=== PATIENT | female | born 1955 | race Caucasian/White ===

== ENCOUNTER 2017-09-18 13:55 | Inpatient (IN) | payer BC ==
[~2017-09-18] VITALS: Ht 162.6 cm; Wt 72.6 kg
[2017-09-18] MEDS ORDERED: Ipratropium 0.02% Inh Soln 2.5ml UD HHN ONE (14:15)
[2017-09-18] MEDS ORDERED: Sodium Chloride 500ML 500 ML IV ONE (14:15)
[2017-09-18] MEDS ORDERED: Albuterol ud Inhalation HHN ONE (14:15)
[2017-09-18] MEDS ORDERED: Solu-MEDROL 125mg Inj IVP ONE (14:15)
[2017-09-18 14:30] VITALS: BP 152/64
[2017-09-18] MEDS ORDERED: Tubing IV Cassette IV ONE ×2 (14:36→16:18)
[2017-09-18 14:49] LABS: BASOPHILS % (AUTO) 1.6 % (0.0-2.0); EOSINOPHILS % (AUTO) 5.7 % (0.0-3.0); HEMATOCRIT 45.6 % (37.0-47.0); HEMOGLOBIN 14.9 G/DL (12.0-16.0); LYMPHOCYTES % (AUTO) 11.2 % (20.0-45.0); MEAN CORPUSCULAR VOLUME 87 FL (80-99); NEUTROPHILS % (AUTO) 70.6 % (45.0-75.0); PLATELET COUNT 229 K/UL (150-450); RED BLOOD COUNT 5.27 M/UL (4.20-5.40); RED CELL DISTRIBUTION WIDTH 12.8 % (11.6-14.8); WHITE BLOOD COUNT 7.2 K/UL (4.8-10.8)
[2017-09-18 14:59] LABS: ANION GAP 11 mmol/L (5-15); BLOOD UREA NITROGEN 17 mg/dL (7-18); CALCIUM 9.3 MG/DL (8.5-10.1); CARBON DIOXIDE 27 MMOL/L (21-32); CHLORIDE 100 MMOL/L (98-107); CREATININE 1.1 MG/DL (0.55-1.30); POTASSIUM 3.8 MMOL/L (3.5-5.1); SODIUM 138 MMOL/L (136-145)
[2017-09-18 15:14] LABS: ALANINE AMINOTRANSFERASE 9 U/L (12-78); ALBUMIN 4.1 G/DL (3.4-5.0); ALKALINE PHOSPHATASE 65 U/L (46-116); ASPARTATE AMINO TRANSFERASE 26 U/L (15-37); BILIRUBIN,TOTAL 1.1 MG/DL (0.2-1.0); CKMB 0.6 NG/ML (0.0-3.6); CREATINE KINASE 173 U/L (26-308)
--- NOTE | 2017-09-18 15:14 | Emergency Room Report ---
History of Present Illness General Chief Complaint: Upper Respiratory Illness Source: EMS Present Illness HPI 62-year-old female presents ED complaining of shortness of breath. History of pulmonary fibrosis and is on home oxygen. States her O2 sats her lower usual. Patient states she feels short of breath has a cough which is productive. Denies fevers or chills. Denies chest pain. Was seen by her PMD and is referred to ED to rule out pneumonia. Denies sick contacts or recent travel. No other aggravating or leading factors. Denies any other associated symptoms Allergies: Coded Allergies: PENICILLINS (Verified Allergy, Unknown, 09/18/17) Patient History Past Medical History: DM, HTN, psych hx Past Surgical History: none Pertinent Family History: none Social History: Denies: smoking, alcohol use, drug use Now: No Immunizations: UTD Reviewed Nursing Documentation: PMH: Agreed, PSxH: Agreed Nursing Documentation-PMH Past Medical History: No History, Except For Hx Cardiac Problems: Yes Hx Hypertension: Yes Hx Diabetes: Yes Hx Gastrointestinal Problems: No - pulmonary fibrosis History Of Psychiatric Problem: Yes - DEPRESSION Review of Systems All Other Systems: negative except mentioned in HPI Physical Exam Vital Signs Date Time Temp Pulse Resp B/P (MAP) Pulse Ox O2 Delivery O2 Flow Rate FiO2 09/18/17 13:59 99.3 105 20 139/65 81 Nasal Cannula 2.0 09/18/17 14:28 28 Sp02 EP Interpretation: reviewed, normal General Appearance: no apparent distress, alert, GCS 15, non-toxic Head: normocephalic, atraumatic Eyes: bilateral eye normal inspection, bilateral eye PERRL ENT: hearing grossly normal, normal pharynx, no angioedema, normal voice Neck: full range of motion, supple/symm/no masses Respiratory: chest non-tender, decreased breath sounds, speaking full sentences , wheezing Cardiovascular #1: regular rate, rhythm, no edema Cardiovascular #2: 2+ carotid (R), 2+ carotid (L), 2+ radial (R), 2+ radial (L) , 2+ dorsalis pedis (R), 2+ dorsalis pedis (L) Gastrointestinal: normal bowel sounds, non tender, soft, non-distended, no guarding, no rebound Rectal: deferred Genitourinary: normal inspection, no CVA tenderness Musculoskeletal: back normal, gait/station normal, normal range of motion, non- tender Neurologic: alert, oriented x3, responsive, motor strength/tone normal, sensory intact, speech normal Psychiatric: judgement/insight normal, memory normal, mood/affect normal, no suicidal/homicidal ideation Reflexes: 3+ bicep (R), 3+ bicep (L), 3+ tricep (R), 3+ tricep (L), 3+ knee (R) , 3+ knee (L) Skin: normal color, no rash, warm/dry, well hydrated Lymphatic: no adenopathy Medical Decision Making Diagnostic Impression: Primary Impression: Pulmonary fibrosis Additional Impression: Influenza A ER Course Hospital Course 62-year-old F presenting to ED with SOB, cough. h/o pulmonary fibrosis Differential diagnoses include: Pneumonia, CHF exacerbation, pneumothorax, fluid overload Clinical course Patient placed on stretcher. On cardiac tech with stable vitals. After initial history and physical, I ordered nebulizer treatments. I ordered labs, IV fluids, EKG, chest x-ray, blood cultures, UA. Labs - no leukocytosis noted, hemoglobin/hematocrit stable, electrolytes okay, lactate okay, troponins negative. influenza A + CXR - interstitial opacities Given steroids. Given antibiotics. Given Tamiflu. Case discussed with Dr. Lin and he agreed to the patient to his service for further care and support I feel this is a highly complex case requiring extensive working including EKG/ Rhythm strip, Xray/CT/US, Blood/urine lab work, repeat exams while in ED, and administration of strong opiates/narcotics for pain control, admission to hospital or close patient follow up. Diagnosis - pulmonary fibrosis, influenza A Patient admitted to telemetry in serious condition Labs Test 09/18/17 14:20 09/18/17 14:30 Sodium Level 138 MMOL/L (136-145) Potassium Level 3.8 MMOL/L (3.5-5.1) Chloride Level 100 MMOL/L (98-107) Carbon Dioxide Level 27 MMOL/L (21-32) Anion Gap 11 mmol/L (5-15) Blood Urea Nitrogen 17 mg/dL (7-18) Creatinine 1.1 MG/DL (0.55-1.30) Estimat Glomerular Filtration Rate 50.3 mL/min (>60) Glucose Level 125 MG/DL (74-106) Lactic Acid Level 1.20 mmol/L (0.66-2.22) Calcium Level 9.3 MG/DL (8.5-10.1) Total Bilirubin 1.1 MG/DL (0.2-1.0) Direct Bilirubin 0.2 MG/DL (0.0-0.3) Aspartate Amino Transf (AST/SGOT) 26 U/L (15-37) Alanine Aminotransferase (ALT/SGPT) 9 U/L (12-78) Alkaline Phosphatase 65 U/L (46-116) Total Creatine Kinase 173 U/L (26-308) Creatine Kinase MB 0.6 NG/ML (0.0-3.6) Creatine Kinase MB Relative Index 0.3 Troponin I 0.000 ng/mL (0.000-0.056) Pro-B-Type Natriuretic Peptide 59 pg/mL (0-125) Total Protein 8.3 G/DL (6.4-8.2) Albumin 4.1 G/DL (3.4-5.0) Globulin 4.2 g/dL Albumin/Globulin Ratio 1.0 (1.0-2.7) White Blood Count 7.2 K/UL (4.8-10.8) Red Blood Count 5.27 M/UL (4.20-5.40) Hemoglobin 14.9 G/DL (12.0-16.0) Hematocrit 45.6 % (37.0-47.0) Mean Corpuscular Volume 87 FL (80-99) Mean Corpuscular Hemoglobin 28.2 PG (27.0-31.0) Mean Corpuscular Hemoglobin Concent 32.5 G/DL (32.0-36.0) Red Cell Distribution Width 12.8 % (11.6-14.8) Platelet Count 229 K/UL (150-450) Mean Platelet Volume 6.5 FL (6.5-10.1) Neutrophils (%) (Auto) 70.6 % (45.0-75.0) Lymphocytes (%) (Auto) 11.2 % (20.0-45.0) Monocytes (%) (Auto) 11.0 % (1.0-10.0) Eosinophils (%) (Auto) 5.7 % (0.0-3.0) Basophils (%) (Auto) 1.6 % (0.0-2.0) EKG Diagnostic Results Rate: normal Rhythm: NSR ST Segments: no acute changes ASA given to the pt in ED: No Rhythm Strip Diag. Results EP Interpretation: yes Rhythm: NSR, no PVC's, no ectopy Chest X-Ray Diagnostic Results Chest X-Ray Diagnostic Results : Chest X-Ray Ordered: Yes # of Views/Limited/Complete: 1 View Indication: Shortness of Breath EP Interpretation: Yes Interpretation: no pneumothorax, other - cardiomegaly. interstitial congestion Impression: Other - interstitial congestion, ?PNA Electronically Signed by: Electronically signed by Trenton Bai MD Last Vital Signs Date Time Temp Pulse Resp B/P (MAP) Pulse Ox O2 Delivery O2 Flow Rate FiO2 09/18/17 14:36 97 22 94 Nasal Cannula 2.0 28 09/18/17 13:59 99.3 139/65 Status: improved Disposition: ADMITTED INPATIENT Condition: Serious Referrals: Bob Lin MD (PCP) TRENTON BAI M.D. Sep 18, 2017 15:14
[2017-09-18 15:16] LABS: BILIRUBIN,DIRECT 0.2 MG/DL (0.0-0.3)
--- NOTE | 2017-09-18 15:19 | Diagnostic Imaging Report ---
Indication: Shortness of breath Technique: XRAY Chest 1v Comparison: None Findings: There is enlarged. There is interstitial opacification/edema and patchy bilateral airspace opacities. No large pleural effusion is identified. No definite pneumothorax. No acute osseous abnormality seen. Impression: Hepatomegaly with interstitial opacification/edema and patchy bilateral airspace opacities. These findings are most likely related to CHF. Superimposed pneumonia is not excluded. Clinical correlation and follow-up exam recommended.
[2017-09-18] MEDS ORDERED: ZYRTEC10 MG ORAL (15:21)
[2017-09-18] MEDS ORDERED: OMEPRAZOLE40 M1 ORAL (15:21)
[2017-09-18] MEDS ORDERED: SIMVASTATIN40 MG ORAL (15:21)
[2017-09-18] MEDS ORDERED: VITAMIN D400 INTLU ORAL (15:21)
[2017-09-18] MEDS ORDERED: GLIPIZIDE5 MG ORAL (15:21)
[2017-09-18] MEDS ORDERED: MELOXICAM15 MG PO (15:21)
[2017-09-18] MEDS ORDERED: DIOVAN HCT 1601 EACH ORAL (15:21)
[2017-09-18] MEDS ORDERED: ASPIR 8181 MG ORAL (15:21)
[2017-09-18] MEDS ORDERED: LAMICTAL150 MG ORAL (15:21)
[2017-09-18] MEDS ORDERED: METFORMIN HCL750 MG ORAL (15:21)
[2017-09-18] MEDS ORDERED: LEVOTHYROXINE150 MCG ORAL (15:21)
[2017-09-18] MEDS ORDERED: FLUOXETINE HCL40 MG ORAL (15:21)
[2017-09-18 16:00] VITALS: BP 123/49
[2017-09-18] MEDS ORDERED: Oseltamivir 75mg cap ORAL ONE (16:15)
[2017-09-18 18:00] VITALS: BP 136/68
[2017-09-18] MEDS ORDERED: LORazepam Inj 2mg/ml 1ml IV PRN (18:30)
[2017-09-18] MEDS ORDERED: Promethazine/Codeine 5ml UD ORAL PRN (18:30)
[2017-09-18] MEDS ORDERED: Nitroglycerin Subl 0.4mg tab SL PRN (18:30)
[2017-09-18] MEDS ORDERED: Albuterol/Ipratropium 3ml neb HHN PRN (18:30)
[2017-09-18] MEDS ORDERED: Ketorolac 30mg Inj IV PRN (18:30)
[2017-09-18] MEDS ORDERED: Morphine Sulfate 2mg/ml Inj IVP PRN (18:30)
[2017-09-18 20:37] VITALS: BP 151/80
[2017-09-18] MEDS: NovoLOG Insulin Flexpen SUBQ SCH ×2 (21:00→21:45)
[2017-09-18] MEDS: Heparin 5000 units/ml inj SUBQ SCH ×2 (21:00→21:45)
[2017-09-18] MEDS: Theophylline ER 100mg ORAL SCH (21:42)
[2017-09-19] MEDS: Solu-MEDROL 125mg Inj IV SCH ×4 (00:11→21:49)
[2017-09-19] MEDS ORDERED: Oseltamivir 75mg cap ORAL SCH ×2 (06:00→18:00)
[2017-09-19] MEDS: NovoLOG Insulin Flexpen SUBQ SCH ×3 (06:30→21:00)
[2017-09-19] MEDS ORDERED: metFORMIN 500mg tab ORAL SCH (09:00)
[2017-09-19] MEDS ORDERED: Azithromycin 250mg tab ORAL SCH (09:00)
[2017-09-19] MEDS: Theophylline ER 100mg ORAL SCH ×2 (09:18→21:46)
[2017-09-19] MEDS: Heparin 5000 units/ml inj SUBQ SCH ×2 (09:29→21:00)
--- NOTE | 2017-09-19 14:49 | History and Physical ---
History of Present Illness General Date patient seen: Sep 19, 2017 Reason for Hospitalization: Upper Respiratory Illness Present Illness Allergies: Coded Allergies: PENICILLINS (Verified Allergy, Unknown, 09/18/17) Medication History Scheduled Aspirin* (Aspir 81*), 81 MG ORAL DAILY, (Reported) Cetirizine Hcl* (Zyrtec*), 10 MG ORAL DAILY, (Reported) Fluoxetine Hcl* (Fluoxetine Hcl*), 40 MG ORAL DAILY, (Reported) Glipizide* (Glipizide*), 5 MG ORAL BIDAC, (Reported) Lamotrigine* (Lamictal*), 200 MG ORAL DAILY, (Reported) Levothyroxine Sodium* (Levothyroxine Sodium*), 150 MCG ORAL DAILY, (Reported) Meloxicam* (Meloxicam*), 15 MG PO DAILY, (Reported) Metformin Hcl (Metformin Hcl Er), 750 MG ORAL DAILY, (Reported) Omeprazole (Omeprazole), 40 MG ORAL DAILY, (Reported) Simvastatin (Zocor), 40 MG ORAL BEDTIME, (Reported) Valsartan/Hydrochlorothiazide 160-12.5MG (Diovan Hct 160-12.5 Mg Tab), 1 TAB ORAL DAILY, (Reported) Vitamin D (Vitamin D3), 1,000 UNITS ORAL DAILY, (Reported) Patient History Healthcare decision maker N Resuscitation status Full Code Advanced Directive on File Past Medical/Surgical History Past Medical/Surgical History: (1) Pulmonary fibrosis Review of Systems Respiratory: Reports: shortness of breath, wheezing Physical Exam General Appearance: WD/WN Lines, tubes and drains: peripheral HEENT: atraumatic, anicteric Neck: non-tender, normal alignment Respiratory/Chest: chest wall non-tender, lungs clear Cardiovascular/Chest: normal peripheral pulses, normal rate Abdomen: normal bowel sounds Last 24 Hour Vital Signs Date Time Temp Pulse Resp B/P (MAP) Pulse Ox O2 Delivery O2 Flow Rate FiO2 09/19/17 07:44 74 18 Nasal Cannula 2.0 28 09/19/17 04:00 83 09/19/17 00:00 86 09/18/17 20:37 96.2 98 19 151/80 91 Nasal Cannula 2.0 09/18/17 20:00 91 09/18/17 19:10 99.9 102 28 136/68 90 Nasal Cannula 3.0 28 09/18/17 18:00 99.9 102 28 136/68 90 Nasal Cannula 3.0 09/18/17 16:00 99 22 123/49 92 Nasal Cannula 3.0 Intake and Output 09/18/17 09/19/17 19:00 07:00 Intake Total 650 ml Output Total 600 ml Balance 650 ml -600 ml IV Total 650 ml Output Urine Total 600 ml Microbiology Date/Time Source Procedure Growth Status 09/18/17 15:30 Nasal Nares Influenza Types A,B Antigen (GILMA) - Final Complete Height (Feet): 5 Height (Inches): 4.00 Weight (Pounds): 160 Medications Current Medications Medications (Trade) Dose Ordered Sig/Leatha Route PRN Reason Start Time Stop Time Status Last Admin Dose Admin Albuterol/ Ipratropium (Albuterol/ Ipratropium) 3 ml EVERY 4 HOURS PRN HHN dyspnea 09/18/17 18:30 09/23/17 18:29 Azithromycin (Zithromax) 500 mg DAILY ORAL 09/19/17 09:00 09/26/17 08:59 09/19/17 09:18 Dextrose (Dextrose 50%) STAT PRN IV Hypoglycemia 09/18/17 18:30 10/18/17 18:29 Fluoxetine HCl (PROzac) 40 mg DAILY ORAL 09/19/17 09:00 10/19/17 08:59 09/19/17 09:18 Heparin Sodium (Porcine) (Heparin 5000 units/ml) 5,000 units EVERY 12 HOURS SUBQ 09/18/17 21:00 10/18/17 20:59 09/19/17 09:29 Insulin Aspart (NovoLOG) BEFORE MEALS AND HS SUBQ 09/18/17 21:00 10/18/17 20:59 Ketorolac Tromethamine (Toradol 30mg) 30 mg EVERY 8 HOURS PRN IV moderate pain 4-6 09/18/17 18:30 09/23/17 18:29 09/19/17 00:26 Lamotrigine (LaMICtal) 200 mg DAILY ORAL 09/19/17 09:00 10/19/17 08:59 09/19/17 09:18 Levothyroxine Sodium (Synthroid) 150 mcg ACBREAKFAST ORAL 09/20/17 06:30 10/20/17 06:29 Lorazepam (Ativan 2mg/ml 1ml) 0.5 mg Q4H PRN IV For Anxiety 09/18/17 18:30 09/25/17 23:59 Metformin HCl (Glucophage) 1,000 mg BID ORAL 09/19/17 09:00 10/19/17 08:59 09/19/17 09:18 Methylprednisolone Sodium Succinate (Solu-MEDROL) 60 mg EVERY 6 HOURS IV 09/19/17 00:00 10/19/17 00:00 09/19/17 14:34 Morphine Sulfate (Morphine Sulfate) 2 mg EVERY 4 HOURS PRN IVP severe pain 7-10 09/18/17 18:30 09/25/17 18:29 Nitroglycerin (Ntg) 0.4 mg Q5M X 3 DOSES PRN SL Prn Chest Pain 09/18/17 18:30 10/18/17 18:29 Ondansetron HCl (Zofran) 4 mg Q6H PRN IVP Nausea & Vomiting 09/18/17 18:30 10/18/17 18:29 Oseltamivir Phosphate (Tamiflu) 75 mg Q12HR@0600,1800 ORAL 09/19/17 06:00 09/24/17 23:59 09/19/17 08:17 Promethazine HCl/ Codeine (Phenergan with Codeine) 5 ml EVERY 6 HOURS PRN ORAL cough 09/18/17 18:30 10/18/17 18:29 Temazepam (Restoril) 15 mg HSPRN PRN ORAL Insomnia 09/18/17 18:30 09/25/17 18:29 Theophylline (Anival-Dur) 100 mg EVERY 12 HOURS ORAL 09/18/17 21:00 10/18/17 20:59 09/19/17 09:18 Assessment/Plan Problem List: (1) Acute respiratory failure ICD Codes: J96.00 - Acute respiratory failure, unspecified whether with hypoxia or hypercapnia SNOMED: 41205835 (2) Pulmonary fibrosis ICD Codes: J84.10 - Pulmonary fibrosis, unspecified SNOMED: 13493298 (3) Influenza A ICD Codes: J10.1 - Influenza due to other identified influenza virus with other respiratory manifestations SNOMED: 288768261 Assessment/Plan check sputum ID evaluation CT chest abx titrate fio2 to sat of 92% dvt prophylaxis ROSALBA RAMIREZ Sep 19, 2017 14:49
[2017-09-19] MEDS ORDERED: Nitroglycerin Subl 0.4mg tab SL PRN (16:45)
--- NOTE | 2017-09-19 16:48 | Cardiology Progress Note ---
Assessment/Plan Assessment/Plan [id number] cough induced chest pain dm htn pulm fibrosis influenza a infection doubt cardiac cp trop adn ekg and echo in future if has cp whcih last more than a few min may need further evla Objective Last 24 Hour Vital Signs Date Time Temp Pulse Resp B/P (MAP) Pulse Ox O2 Delivery O2 Flow Rate FiO2 09/19/17 12:00 83 09/19/17 08:00 82 09/19/17 07:44 74 18 Nasal Cannula 2.0 28 09/19/17 04:00 83 09/19/17 00:00 86 09/18/17 20:37 96.2 98 19 151/80 91 Nasal Cannula 2.0 09/18/17 20:00 91 09/18/17 19:10 99.9 102 28 136/68 90 Nasal Cannula 3.0 28 09/18/17 18:00 99.9 102 28 136/68 90 Nasal Cannula 3.0 Intake and Output 09/18/17 09/19/17 19:00 07:00 Intake Total 650 ml Output Total 600 ml Balance 650 ml -600 ml IV Total 650 ml Output Urine Total 600 ml Microbiology Date/Time Source Procedure Growth Status 09/18/17 15:30 Nasal Nares Influenza Types A,B Antigen (GILMA) - Final Complete DENISE SIFUENTES Sep 19, 2017 16:48
[2017-09-19] MEDS ORDERED: LORazepam Inj 2mg/ml 1ml IV PRN ×2 (16:49→23:15)
[2017-09-19] MEDS ORDERED: Promethazine/Codeine 5ml UD ORAL PRN (16:51)
[2017-09-19] MEDS ORDERED: Morphine Sulfate 2mg/ml Inj IVP PRN (17:00)
[2017-09-19] MEDS ORDERED: Albuterol/Ipratropium 3ml neb HHN PRN (17:00)
--- NOTE | 2017-09-19 17:47 | Cardiology Report ---
APPROVED REPORT EKG Measurement Heart [id number] Normal sinus rhythm Normal ECG
[2017-09-19 17:56] VITALS: BP 141/69
[2017-09-19] MEDS ORDERED: Solu-MEDROL 125mg Inj IV SCH (18:00)
--- NOTE | 2017-09-19 18:39 | History & Physical ---
History and Physical History & Physicial Dictated for Int Med-Dr Lin no. [id number]. CHRISTOPHE MARTINEZ Sep 19, 2017 18:38
[2017-09-19 20:00] VITALS: BP 133/69
[2017-09-19] MEDS: Oseltamivir 75mg cap ORAL SCH (21:47)
--- NOTE | 2017-09-19 22:15 | History and Physical Report ---
DATE OF ADMISSION: 09/18/2017 CHIEF COMPLAINT: The patient is a 62-year-old white female with history of pulmonary fibrosis, who presents with chief complaint of shortness of breath. HISTORY OF PRESENT ILLNESS: The patient has a history of pulmonary fibrosis. The patient states that on 08/23/2017, she began to experience a cough. The patient also had fever. The patient states cough is productive of a milky colored phlegm. The patient was evaluated by Dr. Bob Lin in his office on 09/18/2016. The patient was sent to [facility] emergency room for desaturation. The patient was found to have oxygen saturation in the low 80s. The patient is admitted for hypoxia to rule out pneumonia. PAST MEDICAL HISTORY: Significant for 1. Pulmonary fibrosis. 2. Pulmonary nodules. 3. Diabetes type 2. 4. Hypothyroidism. PAST SURGICAL HISTORY: Significant for 1. Total abdominal hysterectomy. 2. Left inguinal hernia repair. CURRENT MEDICATIONS: 1. Aspirin 81 mg one tablet p.o. daily. 2. Zyrtec 10 mg p.o. daily. 3. Prozac 40 mg p.o. daily. 4. Glipizide 5 mg p.o. twice daily. 5. Lamictal 200 mg one tablet p.o. daily. 6. Levoxyl 150 mcg by p.o. daily. 7. Meloxicam 15 mg p.o. daily. 8. Metformin 750 mg p.o. daily. 9. Omeprazole 40 mg p.o. daily. 10. Zocor 40 mg p.o. at bedtime. 11. Diovan/hydrochlorothiazide 160/12.5 mg one tablet p.o. daily. 12. Vitamin D3 1000 units p.o. daily. ALLERGIES: Penicillin. SOCIAL HISTORY: The patient is . The patient denies tobacco or alcohol use. The patient is currently disabled due to pulmonary fibrosis. REVIEW OF SYSTEMS: CONSTITUTIONAL: The patient denies weight loss or weight gain. The patient complains of subjective fevers and chills as above. HEENT: The patient denies ear or throat pain. The patient denies headache. CARDIOVASCULAR: The patient denies palpitations or chest pain. CHEST: The patient complains of shortness of breath as above. The patient complains of cough as above. The patient denies wheezes. ABDOMEN: The patient denies nausea, vomiting, diarrhea, or constipation. GENITOURINARY: The patient denies dysuria or increased frequency of urination. NEUROMUSCULAR: The patient denies seizures or generalized weakness. PHYSICAL EXAMINATION: GENERAL: The patient is a well-developed and well-nourished white female, in no apparent distress. VITAL SIGNS: Temperature 98.0 degrees, respirations 18, pulse 79, blood pressure 141/69 and oxygen saturation 96% on two liters nasal cannula. HEENT: Eyes, pupils are equal and responsive to light and accommodation. Extraocular movements are intact. NECK: Supple without lymphadenopathy. CHEST: Decreased breath sounds at bilateral bases, otherwise clear to auscultation without wheezes or rales. CARDIOVASCULAR: Regular rate. S1 and S2 normal without murmurs, rubs, or gallops. ABDOMEN: Soft, nontender, and nondistended. Positive bowel sounds. No evidence of hepatosplenomegaly. Currently, no rebound or guarding noted. EXTREMITIES: Negative for clubbing, cyanosis, or edema. RECTAL/GENITAL: Refused. NEUROLOGICAL: Cranial nerves II through XII are grossly intact without focal deficits. Motor strength is 5/5 bilaterally. Deep tendon reflexes are 2+ plantar. LABORATORY AND DIAGNOSTIC DATA: WBC 7.3, hemoglobin 14.9, hematocrit 25.6 and platelets 229,000. Sodium 138, potassium 3.8, chloride 100, CO2 27, BUN 17, creatinine 1.1 and glucose 125. Chest x-ray showed bilateral opacities of the bilateral bases consistent with congestive heart failure versus pneumonia. Influenza A culture was positive. ASSESSMENT: This is a 62-year-old white female 1. Influenza A. 2. Bilateral pneumonia. 3. Congestive heart failure. 4. Diabetes type 2. 5. Hypertension. 6. Hypothyroidism. 7. Pulmonary nodules. TREATMENT: 1. Influenza A. the patient has been started empirically on Tamiflu. Infectious Disease consultation will be obtained with Dr. Carlin. We will follow recommendations of Infectious Disease. A Pulmonary consultation has been obtained with Dr. Nahomy Hanna. 2. Bilateral pneumonia, this may be viral as influenza A as above versus bacterial. The patient has been started empirically on Tamiflu. The patient is also on azithromycin. We will follow recommendation of Pulmonary and an Infectious Disease. 3. Congestive heart failure. Cardiology consultation will be obtained with Dr. Guillermo Marrero. An echocardiogram is pending. 4. Diabetes type 2. The patient will remain on metformin as above. A regular insulin sliding scale has been instituted. 5. Hypertension. Continue Diovan/hydrochlorothiazide as above. 6. Hypothyroidism. Continue Levoxyl as above. 7. Pulmonary nodules. A CT scan of the chest is pending. Inderjit Galvan M.D. DR: TRICIA JOB#: [id number] CC:
--- NOTE | 2017-09-19 23:00 | Consultation ---
DATE OF CONSULTATION: 09/19/2017 CARDIOLOGY CONSULTATION CONSULTING PHYSICIAN: Guillermo Marrero M.D. REQUESTING PHYSICIAN: Nahomy Hanna M.D.` REASON FOR REFERRAL: Chest pain. HISTORY OF PRESENT ILLNESS: This is a 62-year-old female with history of pulmonary fibrosis. Over the past few days, she has had some cold sensation, flu sensation. Some was ill. She became ill too. Coughing is more of wheeze-like sensation and shortness of breath increasing and already uses 4 to 5 pillows to sleep at night, was not able to lay down. She has been having some pain in the chest when she coughs. Mainly that is the time that she has the pain is at that time she coughs and she has palpitations. She has occasional dizziness and lightheadedness on standing. PAST MEDICAL HISTORY: Positive for history of diabetes mellitus, hypertension, and hypoxemia on home oxygen. She has pulmonary fibrosis and pulmonary nodules. She has a history of hysterectomy, right-sided hernia repair, and mother of asthma. SOCIAL HISTORY: She does not smoke at this time. Does not drink alcoholic beverages, but she had some secondhand smoking exposure. No alcohol and no drugs. REVIEW OF SYSTEMS: GASTROINTESTINAL: Negative. GENITOURINARY: Negative. PULMONARY: Positive for coughing and wheezing. CONSTITUTIONAL: No fevers or chills initially. NEUROLOGICAL: Negative except for numbness and tingling sensation in her toes. PHYSICAL EXAMINATION: GENERAL: Shows her to be a middle-aged female, in no respiratory distress. PULMONARY: Occasional coughing and whooping sensation. NECK: Supple. No jugular venous distention. LUNGS: Crackles noted at the bases. Some end-expiratory wheezes. CARDIAC: Regular rate and rhythm. No heaves, thrills, or gallops noted. ABDOMEN: Soft and nontender. Positive bowel sounds. EXTREMITIES: No edema, clubbing, or cyanosis. NEUROLOGICAL: She is awake, alert, and responsive. LABORATORY AND DIAGNOSTIC DATA: Sodium 138, potassium 3.8, chloride 100, bicarbonate 27, BUN 17, creatinine 1.1, and glucose of 125. Lactic acid of 1.2. Bilirubin 1.0. Troponin first set was negative at 0.00. ProBNP of 59 at time of admission on 09/18/2017 and albumin of 4.1. White count of 7.2, hemoglobin 14.9, and platelet count of 229. A chest x-ray performed in the emergency room shows hepatomegaly, interstitial opacification, edema, and patchy bilateral airspace opacities. These findings felt to be possibly some congestive heart failure. Telemetry shows sinus rhythm. EKG shows sinus with leftward axis. No ST or T wave abnormalities of any significant degree. Influenza A positive study. ASSESSMENT: 1. Influenza A infection. 2. Pulmonary fibrosis. 3. Diabetes mellitus. 4. Hypertension. 5. History of pulmonary nodule. 6. Obesity. 7. Chest pain. Dr. Hanna, this patient was seen in cardiac consultation. The patient describes the pain only at the time of coughing, most likely secondary to musculoskeletal in origin. Troponin was negative. EKG was negative. I will repeat those data and an echocardiogram will be ordered. However, I am not suspicious of a coronary event in this patient. I think most of the problems are related to her current infection with influenza infection. If she does have in future persistent chest pains with activity, then she may need to be checked in more detail. Guillermo Marrero M.D. DR: SANDY JOB#: [id number] CC:
[2017-09-19] MEDS ORDERED: Norco 5mg/325mg tab ORAL PRN (23:15)
[2017-09-20] VITALS: BP 149/81
[2017-09-20 04:00] VITALS: BP 123/65
[2017-09-20] MEDS: Solu-MEDROL 125mg Inj IV SCH ×4 (04:12→21:01)
[2017-09-20] MEDS: NovoLOG Insulin Flexpen SUBQ SCH ×4 (06:30→21:00)
[2017-09-20 08:13] LABS: HEMATOCRIT 47.6 % (37.0-47.0); HEMOGLOBIN 15.8 G/DL (12.0-16.0); MEAN CORPUSCULAR VOLUME 87 FL (80-99); PLATELET COUNT 323 K/UL (150-450); RED BLOOD COUNT 5.48 M/UL (4.20-5.40); RED CELL DISTRIBUTION WIDTH 12.8 % (11.6-14.8); WHITE BLOOD COUNT 13.2 K/UL (4.8-10.8)
[2017-09-20 08:25] VITALS: BP 144/73
[2017-09-20 08:28] LABS: ALANINE AMINOTRANSFERASE 21 U/L (12-78); ALBUMIN 3.9 G/DL (3.4-5.0); ALBUMIN/GLOBULIN RATIO 0.8 (1.0-2.7); ALKALINE PHOSPHATASE 69 U/L (46-116); ANION GAP 10 mmol/L (5-15); ASPARTATE AMINO TRANSFERASE 40 U/L (15-37); BILIRUBIN,TOTAL 0.5 MG/DL (0.2-1.0); BLOOD UREA NITROGEN 26 mg/dL (7-18); CALCIUM 9.6 MG/DL (8.5-10.1); CARBON DIOXIDE 25 MMOL/L (21-32); CHLORIDE 101 MMOL/L (98-107); CREATININE 1.2 MG/DL (0.55-1.30); PHOSPHORUS 2.9 MG/DL (2.5-4.9); POTASSIUM 4.3 MMOL/L (3.5-5.1); SODIUM 136 MMOL/L (136-145)
[2017-09-20] MEDS ORDERED: Azithromycin 250mg tab ORAL SCH ×2 (09:00)
[2017-09-20] MEDS: Heparin 5000 units/ml inj SUBQ SCH ×2 (09:00→21:00)
[2017-09-20] MEDS ORDERED: Meloxicam 15 MG TAB ORAL SCH (09:00)
[2017-09-20] MEDS: GlipiZIDE 5mg tab ORAL SCH ×2 (09:50→17:57)
[2017-09-20] MEDS: Theophylline ER 100mg ORAL SCH ×2 (09:50→20:56)
[2017-09-20] MEDS: Oseltamivir 75mg cap ORAL SCH ×2 (09:50→21:05)
[2017-09-20] MEDS: Azithromycin 250mg tab ORAL SCH (09:51)
--- NOTE | 2017-09-20 10:24 | Diagnostic Imaging Report ---
Indication: Dyspnea Technique: Continuous helical transaxial imaging of the chest was obtained from the thoracic inlet to the upper abdomen. No intravenous contrast was administered. High-resolution reconstructions are obtained transaxially. Coronal 2-D reformats were also obtained. Total Dose length Product (DLP): 958.[address] Dose Index Volume (CTDIvol): 29.57 mGy Comparison: none Findings: Interlobular and intralobular septal densities and interstitial densities are present consistent with fibrosis. There is relatively symmetric involvement of both upper and lower lung orozco. Some traction bronchiectasis is present. No definite honeycombing demonstrated. No consolidation identified. No adenopathy identified. The aorta is mildly calcified. Generalized cardiomegaly is present. The pulmonary veins are prominent bilaterally. A component of the interstitial disease could be acute and due to left heart failure i.e. interstitial edema or inflammatory i.e. interstitial pneumonitis. Small hiatal hernia is present. Degenerative changes of the thoracic spine noted. IMPRESSION: Interstitial disease as described above. A component of this is likely fibrosis. However there may be superimposed interstitial pneumonitis or interstitial edema. Please correlate clinically. The CT scanner at [facility] is accredited by the [employer] and the scans are performed using dose optimization techniques as appropriate to a performed exam including Automatic Exposure control.
--- NOTE | 2017-09-20 11:08 | Consultation ---
Consult Note Consult Note ID DIC # [id number] MARTINE ZHAO M.D. Sep 20, 2017 11:08
[2017-09-20 11:26] VITALS: BP 145/76
--- NOTE | 2017-09-20 11:47 | Consultation ---
History of Present Illness General Date patient seen: Sep 19, 2017 Chief Complaint: Upper Respiratory Illness Present Illness HPI 62-year-old white female with history of pulmonary fibrosis, who presents with shortness of breath. the pt has hx of bipolar d/o. pw anxiety and agitation, insomnia. the pts meds were stopped. during the eval the pt has panic like sxs/ the pt denied si/hi Allergies: Coded Allergies: PENICILLINS (Verified Allergy, Unknown, 09/18/17) Medication History Scheduled Aspirin* (Aspir 81*), 81 MG ORAL DAILY, (Reported) Cetirizine Hcl* (Zyrtec*), 10 MG ORAL DAILY, (Reported) Fluoxetine Hcl* (Fluoxetine Hcl*), 40 MG ORAL DAILY, (Reported) Glipizide* (Glipizide*), 5 MG ORAL BIDAC, (Reported) Lamotrigine* (Lamictal*), 200 MG ORAL DAILY, (Reported) Levothyroxine Sodium* (Levothyroxine Sodium*), 150 MCG ORAL DAILY, (Reported) Meloxicam* (Meloxicam*), 15 MG PO DAILY, (Reported) Metformin Hcl (Metformin Hcl Er), 750 MG ORAL DAILY, (Reported) Omeprazole (Omeprazole), 40 MG ORAL DAILY, (Reported) Simvastatin (Zocor), 40 MG ORAL BEDTIME, (Reported) Valsartan/Hydrochlorothiazide 160-12.5MG (Diovan Hct 160-12.5 Mg Tab), 1 TAB ORAL DAILY, (Reported) Vitamin D (Vitamin D3), 1,000 UNITS ORAL DAILY, (Reported) Patient History Limited by: medical condition History Provided By: Patient, Medical Record, PMD Healthcare decision maker N Resuscitation status Full Code Advanced Directive on File Past Medical/Surgical History Past Medical/Surgical History: (1) Pulmonary fibrosis (2) Acute respiratory failure (3) Influenza A Review of Systems Psychiatric: Reports: prior hx, anxiety, depressed feelings, emotional problems Physical Exam General Appearance: no apparent distress, alert Neurologic: alert, oriented x 3, responsive, depressed affect Last 24 Hour Vital Signs Date Time Temp Pulse Resp B/P (MAP) Pulse Ox O2 Delivery O2 Flow Rate FiO2 09/20/17 11:26 98.2 68 18 145/76 95 09/20/17 08:25 98.3 69 19 144/73 95 09/20/17 04:00 97.7 67 20 123/65 89 09/20/17 00:00 98.1 70 20 149/81 91 09/19/17 20:00 98.2 78 21 133/69 91 09/19/17 19:00 85 18 Nasal Cannula 2.0 28 09/19/17 17:56 98.0 79 141/69 96 Nasal Cannula 2.0 79 09/19/17 12:00 83 Intake and Output 09/19/17 09/20/17 19:00 07:00 Intake Total 390 ml 480 ml Balance 390 ml 480 ml Intake Oral 390 ml 480 ml # Voids 2 3 # Bowel Movements 1 2 Laboratory Tests Test 09/20/17 06:40 White Blood Count 13.2 K/UL (4.8-10.8) H Red Blood Count 5.48 M/UL (4.20-5.40) H Hemoglobin 15.8 G/DL (12.0-16.0) Hematocrit 47.6 % (37.0-47.0) H Mean Corpuscular Volume 87 FL (80-99) Mean Corpuscular Hemoglobin 28.9 PG (27.0-31.0) Mean Corpuscular Hemoglobin Concent 33.2 G/DL (32.0-36.0) Red Cell Distribution Width 12.8 % (11.6-14.8) Platelet Count 323 K/UL (150-450) Mean Platelet Volume 7.3 FL (6.5-10.1) Neutrophils (%) (Auto) % (45.0-75.0) Lymphocytes (%) (Auto) % (20.0-45.0) Monocytes (%) (Auto) % (1.0-10.0) Eosinophils (%) (Auto) % (0.0-3.0) Basophils (%) (Auto) % (0.0-2.0) Sodium Level 136 MMOL/L (136-145) Potassium Level 4.3 MMOL/L (3.5-5.1) Chloride Level 101 MMOL/L (98-107) Carbon Dioxide Level 25 MMOL/L (21-32) Anion Gap 10 mmol/L (5-15) Blood Urea Nitrogen 26 mg/dL (7-18) H Creatinine 1.2 MG/DL (0.55-1.30) Estimat Glomerular Filtration Rate 45.5 mL/min (>60) Glucose Level 263 MG/DL (74-106) H Calcium Level 9.6 MG/DL (8.5-10.1) Phosphorus Level 2.9 MG/DL (2.5-4.9) Magnesium Level 2.2 MG/DL (1.8-2.4) Total Bilirubin 0.5 MG/DL (0.2-1.0) Aspartate Amino Transf (AST/SGOT) 40 U/L (15-37) H Alanine Aminotransferase (ALT/SGPT) 21 U/L (12-78) Alkaline Phosphatase 69 U/L (46-116) Troponin I 0.017 ng/mL (0.000-0.056) Total Protein 8.5 G/DL (6.4-8.2) H Albumin 3.9 G/DL (3.4-5.0) Globulin 4.6 g/dL Albumin/Globulin Ratio 0.8 (1.0-2.7) L Height (Feet): 5 Height (Inches): 4.00 Weight (Pounds): 160 Medications Current Medications Medications (Trade) Dose Ordered Sig/Leatha Route PRN Reason Start Time Stop Time Status Last Admin Dose Admin Acetaminophen/ Hydrocodone Bitart ([place] 5/325) 1 tab Q6H PRN ORAL For Pain 09/19/17 23:15 09/26/17 23:14 Albuterol/ Ipratropium (Albuterol/ Ipratropium) 3 ml Q4H PRN HHN dyspnea 09/19/17 17:00 09/24/17 16:59 Atorvastatin Calcium (Lipitor) 20 mg BEDTIME ORAL 09/20/17 21:00 10/20/17 20:59 Azithromycin (Zithromax) 250 mg DAILY ORAL 09/20/17 09:00 09/27/17 08:59 09/20/17 09:51 Dextrose (Dextrose 50%) STAT PRN IV Hypoglycemia 09/19/17 16:48 10/18/17 16:47 Fluoxetine HCl (PROzac) 40 mg DAILY ORAL 09/20/17 09:00 10/19/17 08:59 09/20/17 09:51 Glipizide (Glucotrol) 5 mg BID ORAL 09/20/17 09:00 10/20/17 08:59 09/20/17 09:50 Heparin Sodium (Porcine) (Heparin 5000 units/ml) 5,000 units EVERY 12 HOURS SUBQ 09/19/17 21:00 10/18/17 20:59 Insulin Aspart (NovoLOG) BEFORE MEALS AND HS SUBQ 09/19/17 21:00 10/18/17 20:59 Lamotrigine (LaMICtal) 200 mg QHS ORAL 09/20/17 21:00 10/19/17 08:59 Levothyroxine Sodium (Synthroid) 150 mcg ACBREAKFAST ORAL 09/20/17 06:30 10/20/17 06:29 09/20/17 06:32 Lorazepam (Ativan 2mg/ml 1ml) 0.5 mg Q4H PRN IV For Anxiety 09/19/17 23:15 09/26/17 23:14 Meloxicam (Mobic) 15 mg QHS ORAL 09/20/17 21:00 10/20/17 08:59 Metformin HCl (Glucophage) 750 mg BEDTIME ORAL 09/20/17 21:00 10/20/17 20:59 Methylprednisolone Sodium Succinate (Solu-MEDROL) 60 mg Q6H IV 09/19/17 22:00 10/19/17 21:59 09/20/17 09:51 Morphine Sulfate (Morphine Sulfate) 2 mg EVERY 4 HOURS PRN IVP severe pain 7-10 09/19/17 17:00 09/25/17 18:29 Nitroglycerin (Ntg) 0.4 mg Q5M X 3 DOSES PRN SL Prn Chest Pain 09/19/17 16:45 10/18/17 18:29 Ondansetron HCl (Zofran) 4 mg Q6H PRN IVP Nausea & Vomiting 09/19/17 16:51 10/18/17 16:50 Oseltamivir Phosphate (Tamiflu) 75 mg Q12HR ORAL 09/19/17 21:00 09/24/17 20:59 09/20/17 09:50 Promethazine HCl/ Codeine (Phenergan with Codeine) 5 ml EVERY 6 HOURS PRN ORAL cough 09/19/17 16:51 10/18/17 16:50 Temazepam (Restoril) 15 mg HSPRN PRN ORAL Insomnia 09/19/17 18:30 09/25/17 18:29 09/19/17 23:16 Theophylline (Anival-Dur) 100 mg EVERY 12 HOURS ORAL 09/19/17 21:00 10/18/17 20:59 09/20/17 09:50 Assessment/Plan Status: stable Assessment/Plan bipolar d/o anxiety d/o -prozac 40mg -lamictal 200mg qhs Anirudh Webber M.D. Sep 20, 2017 11:47
--- NOTE | 2017-09-20 12:27 | Internal Med Progress Note ---
Subjective Date of Service: Sep 20, 2017 Physician Name Christophe Martinez Attending Physician Bob Lin MD Current Medications Medications (Trade) Dose Ordered Sig/Leatha Route PRN Reason Start Time Stop Time Status Last Admin Dose Admin Acetaminophen/ Hydrocodone Bitart ([place] 5/325) 1 tab Q6H PRN ORAL For Pain 09/19/17 23:15 09/26/17 23:14 Albuterol/ Ipratropium (Albuterol/ Ipratropium) 3 ml Q4H PRN HHN dyspnea 09/19/17 17:00 09/24/17 16:59 Atorvastatin Calcium (Lipitor) 20 mg BEDTIME ORAL 09/20/17 21:00 10/20/17 20:59 Azithromycin (Zithromax) 250 mg DAILY ORAL 09/20/17 09:00 09/27/17 08:59 09/20/17 09:51 Dextrose (Dextrose 50%) STAT PRN IV Hypoglycemia 09/19/17 16:48 10/18/17 16:47 Fluoxetine HCl (PROzac) 40 mg DAILY ORAL 09/20/17 09:00 10/19/17 08:59 09/20/17 09:51 Glipizide (Glucotrol) 5 mg BID ORAL 09/20/17 09:00 10/20/17 08:59 09/20/17 09:50 Heparin Sodium (Porcine) (Heparin 5000 units/ml) 5,000 units EVERY 12 HOURS SUBQ 09/19/17 21:00 10/18/17 20:59 Insulin Aspart (NovoLOG) BEFORE MEALS AND HS SUBQ 09/19/17 21:00 10/18/17 20:59 Lamotrigine (LaMICtal) 200 mg QHS ORAL 09/20/17 21:00 10/19/17 08:59 Levothyroxine Sodium (Synthroid) 150 mcg ACBREAKFAST ORAL 09/20/17 06:30 10/20/17 06:29 09/20/17 06:32 Lorazepam (Ativan 2mg/ml 1ml) 0.5 mg Q4H PRN IV For Anxiety 09/19/17 23:15 09/26/17 23:14 Meloxicam (Mobic) 15 mg QHS ORAL 09/20/17 21:00 10/20/17 08:59 Metformin HCl (Glucophage) 750 mg BEDTIME ORAL 09/20/17 21:00 10/20/17 20:59 Methylprednisolone Sodium Succinate (Solu-MEDROL) 60 mg Q6H IV 09/19/17 22:00 10/19/17 21:59 09/20/17 09:51 Mirtazapine (Remeron) 7.5 mg BEDTIME ORAL 09/20/17 21:00 10/20/17 20:59 Morphine Sulfate (Morphine Sulfate) 2 mg EVERY 4 HOURS PRN IVP severe pain 7-10 09/19/17 17:00 09/25/17 18:29 Nitroglycerin (Ntg) 0.4 mg Q5M X 3 DOSES PRN SL Prn Chest Pain 09/19/17 16:45 10/18/17 18:29 Ondansetron HCl (Zofran) 4 mg Q6H PRN IVP Nausea & Vomiting 09/19/17 16:51 10/18/17 16:50 Oseltamivir Phosphate (Tamiflu) 75 mg Q12HR ORAL 09/19/17 21:00 09/24/17 20:59 09/20/17 09:50 Promethazine HCl/ Codeine (Phenergan with Codeine) 5 ml EVERY 6 HOURS PRN ORAL cough 09/19/17 16:51 10/18/17 16:50 Theophylline (Anival-Dur) 100 mg EVERY 12 HOURS ORAL 09/19/17 21:00 10/18/17 20:59 09/20/17 09:50 Allergies: Coded Allergies: PENICILLINS (Verified Allergy, Unknown, 09/18/17) ROS Limited/Unobtainable: No Constitutional: Reports: no symptoms HEENT: Reports: no symptoms Cardiovascular: Reports: no symptoms Respiratory: Reports: shortness of breath Gastrointestinal/Abdominal: Reports: no symptoms Genitourinary: Reports: no symptoms Neurologic/Psychiatric: Reports: no symptoms Subjective 62 YO F with pulmonary fibrosis admitted with Shortness of breath. Now Influenza A positive. Cover for Juan pabon-Dr Lin Objective Last Vital Signs Date Time Temp Pulse Resp B/P (MAP) Pulse Ox O2 Delivery O2 Flow Rate FiO2 09/20/17 11:26 98.2 68 18 145/76 95 09/19/17 19:00 Nasal Cannula 2.0 28 General Appearance: WD/WN, alert, mild distress EENT: PERRL/EOMI, normal ENT inspection, TMs normal Neck: non-tender, normal alignment, supple, normal inspection Cardiovascular: normal peripheral pulses, normal rate, regular rhythm, no gallop/murmur, no JVD Respiratory/Chest: respiratory distress, decreased breath sounds, crackles/ rales, rhonchi - bilaterally, expiratory wheezing Abdomen: normal bowel sounds, non tender, soft, no organomegaly, no mass Extremities: normal range of motion, non-tender 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, no motor/sensory deficits Skin: normal pigmentation, warm/dry Laboratory Tests Test 09/20/17 06:40 White Blood Count 13.2 K/UL (4.8-10.8) H Red Blood Count 5.48 M/UL (4.20-5.40) H Hemoglobin 15.8 G/DL (12.0-16.0) Hematocrit 47.6 % (37.0-47.0) H Mean Corpuscular Volume 87 FL (80-99) Mean Corpuscular Hemoglobin 28.9 PG (27.0-31.0) Mean Corpuscular Hemoglobin Concent 33.2 G/DL (32.0-36.0) Red Cell Distribution Width 12.8 % (11.6-14.8) Platelet Count 323 K/UL (150-450) Mean Platelet Volume 7.3 FL (6.5-10.1) Neutrophils (%) (Auto) % (45.0-75.0) Lymphocytes (%) (Auto) % (20.0-45.0) Monocytes (%) (Auto) % (1.0-10.0) Eosinophils (%) (Auto) % (0.0-3.0) Basophils (%) (Auto) % (0.0-2.0) Sodium Level 136 MMOL/L (136-145) Potassium Level 4.3 MMOL/L (3.5-5.1) Chloride Level 101 MMOL/L (98-107) Carbon Dioxide Level 25 MMOL/L (21-32) Anion Gap 10 mmol/L (5-15) Blood Urea Nitrogen 26 mg/dL (7-18) H Creatinine 1.2 MG/DL (0.55-1.30) Estimat Glomerular Filtration Rate 45.5 mL/min (>60) Glucose Level 263 MG/DL (74-106) H Calcium Level 9.6 MG/DL (8.5-10.1) Phosphorus Level 2.9 MG/DL (2.5-4.9) Magnesium Level 2.2 MG/DL (1.8-2.4) Total Bilirubin 0.5 MG/DL (0.2-1.0) Aspartate Amino Transf (AST/SGOT) 40 U/L (15-37) H Alanine Aminotransferase (ALT/SGPT) 21 U/L (12-78) Alkaline Phosphatase 69 U/L (46-116) Troponin I 0.017 ng/mL (0.000-0.056) Total Protein 8.5 G/DL (6.4-8.2) H Albumin 3.9 G/DL (3.4-5.0) Globulin 4.6 g/dL Albumin/Globulin Ratio 0.8 (1.0-2.7) L Microbiology Date/Time Source Procedure Growth Status 09/18/17 14:30 Blood Blood Culture - Preliminary NO GROWTH AFTER 24 HOURS Resulted 09/18/17 14:20 Blood Blood Culture - Preliminary NO GROWTH AFTER 24 HOURS Resulted 09/18/17 15:30 Nasal Nares Influenza Types A,B Antigen (GILMA) - Final Complete Intake and Output 09/19/17 09/20/17 19:00 07:00 Intake Total 390 ml 480 ml Balance 390 ml 480 ml Intake Oral 390 ml 480 ml # Voids 2 3 # Bowel Movements 1 2 Assessment/Plan Problem List: (1) CHF (congestive heart failure) (2) Diabetes mellitus, type II Assessment & Plan: Continue glipizide, metformin and novolog sliding scale. (3) HTN (hypertension) (4) Hypothyroidism Assessment & Plan: Continue synthroid (5) Pulmonary fibrosis (6) Influenza A Assessment & Plan: Continue tamiflu (7) Acute respiratory failure Assessment & Plan: Influenza A and pulmonary fibrosis. Tolerating nasal canula. See pulmonary note. Continue azithromycin and IV solumedrol (8) Major depression Assessment & Plan: Continue remeron and prozac Status: not improved CHRISTOPHE MARTINEZ Sep 20, 2017 12:27
--- NOTE | 2017-09-20 14:45 | Cardiology Report ---
APPROVED REPORT EXAM: Two-dimensional and M-mode echocardiogram with Doppler and color Doppler. INDICATION Chest Pain M-Mode DIMENSIONS IVSd1.2 (0.7-1.1cm)Left Atrium (MM)4.0 (1.6-4.0cm) LVDd4.8 (3.5-5.6cm)Aortic Root3.0 (2.0-3.7cm) PWd1.1 (0.7-1.1cm)Aortic Cusp Exc.1.8 (1.5-2.0cm) IVSs1.8 cm LVDs2.5 (2.5-4.0cm) PWs1.2 cm Normal left ventricular chamber size, systolic function and wall motion. Left ventricular ejection fraction estimated to be 70-75 %. Mild left ventricular hypertrophy by 2-D. No evidence of pericardial effusion Mild bi-atrial enlargement. Right ventricular chamber sizes is within normal limits. Focal aortic valve sclerosis with adequate cusp excursion. Thickened mitral valve leaflets with normal excursion. Mitral annulus and aortic root calcification. Normal pulmonic valve structure. Normal tricuspid valve structure .IVC at normal size with physiologic collapse. A color flow and spectral Doppler study was performed and revealed: No aortic regurgitation. Trace mitral regurgitation. Mitral diastolic velocities suggest reduced left ventricular relaxation c/w mild LV diastolic dysfunction (Grade I ). Trace tricuspid regurgitation. Tricuspid systolic velocities suggests peak right ventricular systolic pressure of 17 mmHg Trace Pulmonic regurgitation present.
--- NOTE | 2017-09-20 15:39 | Cardiology Report ---
APPROVED REPORT EKG Measurement Heart [id number] Normal sinus rhythm Normal ECG
[2017-09-20 16:00] VITALS: BP 138/54
--- NOTE | 2017-09-20 16:38 | Pulmonology Progress Note ---
Assessment/Plan Problems: (1) Acute respiratory failure (2) Pulmonary fibrosis (3) Influenza A Assessment/Plan CT chest reviewed, no nodules seen continue same dose of steroids titrate fio2 chest pt check sputum Subjective ROS Limited/Unobtainable: No Interval Events: less short of breath Allergies: Coded Allergies: PENICILLINS (Verified Allergy, Unknown, 09/18/17) Objective Last 24 Hour Vital Signs Date Time Temp Pulse Resp B/P (MAP) Pulse Ox O2 Delivery O2 Flow Rate FiO2 09/20/17 16:00 98.1 61 20 138/54 94 09/20/17 11:26 98.2 68 18 145/76 95 09/20/17 08:25 98.3 69 19 144/73 95 09/20/17 04:00 97.7 67 20 123/65 89 09/20/17 00:00 98.1 70 20 149/81 91 09/19/17 20:00 98.2 78 21 133/69 91 09/19/17 19:00 85 18 Nasal Cannula 2.0 28 09/19/17 17:56 98.0 79 141/69 96 Nasal Cannula 2.0 79 Intake and Output 09/19/17 09/20/17 19:00 07:00 Intake Total 390 ml 480 ml Balance 390 ml 480 ml Intake Oral 390 ml 480 ml # Voids 2 3 # Bowel Movements 1 2 General Appearance: WD/WN HEENT: normocephalic, atraumatic Respiratory/Chest: chest wall non-tender, lungs clear Cardiovascular: normal peripheral pulses, normal rate Abdomen: normal bowel sounds, soft, non tender, no scars Genitourinary: normal external genitalia Extremities: no clubbing Microbiology Date/Time Source Procedure Growth Status 09/18/17 14:30 Blood Blood Culture - Preliminary NO GROWTH AFTER 24 HOURS Resulted 09/18/17 14:20 Blood Blood Culture - Preliminary NO GROWTH AFTER 24 HOURS Resulted 09/18/17 15:30 Nasal Nares Influenza Types A,B Antigen (GILMA) - Final Complete Laboratory Tests 09/20/17 06:40: White Blood Count 13.2H, Red Blood Count 5.48H, Hemoglobin 15.8, Hematocrit 47.6H, Mean Corpuscular Volume 87, Mean Corpuscular Hemoglobin 28.9, Mean Corpuscular Hemoglobin Concent 33.2, Red Cell Distribution Width 12.8, Platelet Count 323, Mean Platelet Volume 7.3, Neutrophils (%) (Auto) , Lymphocytes (%) ( Auto) , Monocytes (%) (Auto) , Eosinophils (%) (Auto) , Basophils (%) (Auto) , Sodium Level 136, Potassium Level 4.3, Chloride Level 101, Carbon Dioxide Level 25, Anion Gap 10, Blood Urea Nitrogen 26H, Creatinine 1.2, Estimat Glomerular Filtration Rate 45.5, Glucose Level 263H, Calcium Level 9.6, Phosphorus Level 2.9, Magnesium Level 2.2, Total Bilirubin 0.5, Aspartate Amino Transf (AST/SGOT ) 40H, Alanine Aminotransferase (ALT/SGPT) 21, Alkaline Phosphatase 69, Troponin I 0.017, Total Protein 8.5H, Albumin 3.9, Globulin 4.6, Albumin/ Globulin Ratio 0.8L Current Medications Medications (Trade) Dose Ordered Sig/Leatha Route PRN Reason Start Time Stop Time Status Last Admin Dose Admin Acetaminophen/ Hydrocodone Bitart ([place] 5/325) 1 tab Q6H PRN ORAL For Pain 09/19/17 23:15 09/26/17 23:14 Albuterol/ Ipratropium (Albuterol/ Ipratropium) 3 ml Q4H PRN HHN dyspnea 09/19/17 17:00 09/24/17 16:59 Atorvastatin Calcium (Lipitor) 20 mg BEDTIME ORAL 09/20/17 21:00 10/20/17 20:59 Azithromycin (Zithromax) 250 mg DAILY ORAL 09/20/17 09:00 09/27/17 08:59 09/20/17 09:51 Dextrose (Dextrose 50%) STAT PRN IV Hypoglycemia 09/19/17 16:48 10/18/17 16:47 Fluoxetine HCl (PROzac) 40 mg DAILY ORAL 09/20/17 09:00 10/19/17 08:59 09/20/17 09:51 Glipizide (Glucotrol) 5 mg BID ORAL 09/20/17 09:00 10/20/17 08:59 09/20/17 09:50 Heparin Sodium (Porcine) (Heparin 5000 units/ml) 5,000 units EVERY 12 HOURS SUBQ 09/19/17 21:00 10/18/17 20:59 Insulin Aspart (NovoLOG) BEFORE MEALS AND HS SUBQ 09/19/17 21:00 10/18/17 20:59 Lamotrigine (LaMICtal) 200 mg QHS ORAL 09/20/17 21:00 10/19/17 08:59 Levothyroxine Sodium (Synthroid) 150 mcg ACBREAKFAST ORAL 09/20/17 06:30 10/20/17 06:29 09/20/17 06:32 Lorazepam (Ativan 2mg/ml 1ml) 0.5 mg Q4H PRN IV For Anxiety 09/19/17 23:15 09/26/17 23:14 Meloxicam (Mobic) 15 mg QHS ORAL 09/20/17 21:00 10/20/17 08:59 Metformin HCl (Glucophage) 750 mg BEDTIME ORAL 09/20/17 21:00 10/20/17 20:59 Methylprednisolone Sodium Succinate (Solu-MEDROL) 60 mg Q6H IV 09/19/17 22:00 10/19/17 21:59 09/20/17 16:29 Mirtazapine (Remeron) 7.5 mg BEDTIME ORAL 09/20/17 21:00 10/20/17 20:59 Morphine Sulfate (Morphine Sulfate) 2 mg EVERY 4 HOURS PRN IVP severe pain 7-10 09/19/17 17:00 09/25/17 18:29 Nitroglycerin (Ntg) 0.4 mg Q5M X 3 DOSES PRN SL Prn Chest Pain 09/19/17 16:45 10/18/17 18:29 Ondansetron HCl (Zofran) 4 mg Q6H PRN IVP Nausea & Vomiting 09/19/17 16:51 10/18/17 16:50 Oseltamivir Phosphate (Tamiflu) 75 mg Q12HR ORAL 09/19/17 21:00 09/24/17 20:59 09/20/17 09:50 Pantoprazole (Protonix) 40 mg DAILY ORAL 09/20/17 13:00 10/20/17 12:59 09/20/17 13:16 Promethazine HCl/ Codeine (Phenergan with Codeine) 5 ml EVERY 6 HOURS PRN ORAL cough 09/19/17 16:51 10/18/17 16:50 Theophylline (Anival-Dur) 100 mg EVERY 12 HOURS ORAL 09/19/17 21:00 10/18/17 20:59 09/20/17 09:50 ROSALBA RAMIREZ Sep 20, 2017 16:38
--- NOTE | 2017-09-20 19:01 | Progress Note ---
DATE: 09/20/2017 SUBJECTIVE: The patient presented with anxiety, agitation, panic attack like symptoms, and insomnia. She was given Restoril and slept better, however, she is worried about addiction and ____ intolerance. The patient was told that she has a diagnosis of influenza A, B, and pneumonia. The patient is concerned about her health issues. MENTAL STATUS EXAMINATION: The patient alert and oriented times to self, place, time and situation she is in. Mood is anxious. Affect is constricted, congruent with mood. Thought process is linear. Thought content, no suicidal or homicidal ideation. No delusions. No auditory or visual hallucinations. Cognition is intact. Insight and judgment is fair. ASSESSMENT: Bipolar disorder, currently anxious. PLAN: 1. We will continue the Prozac 40 mg. 2. Continue the Lamictal 200 mg. 3. Discontinue Restoril. 4. Start Remeron 7.5 mg at bedtime. 5. We will continue follow and readjust the medications. Anirudh Webber M.D. DR: SHANE JOB#: [id number] CC:
[2017-09-20 20:00] VITALS: BP 154/69
--- NOTE | 2017-09-20 20:17 | Consultation ---
DATE OF CONSULTATION: 09/20/2017 INFECTIOUS DISEASES CONSULTATION REFERRING PHYSICIAN: Inderjit Galvan M.D. REASON FOR CONSULTATION: Evaluation of patient for pneumonia, influenza A. HISTORY OF PRESENT ILLNESS: The patient is a 62-year-old female with history of pulmonary fibrosis, who was admitted to this medical center due to increase of cough. The patient's rapid influenza A came positive and Infectious Disease consultation has been requested for further evaluation of the patient's antibiotic management. PAST MEDICAL HISTORY: 1. Hypertension. 2. Chronic obstructive pulmonary disease. 3. History of pulmonary fibrosis. 4. History of hiatal hernia status post surgery. 5. Diabetes. 6. Depression/anxiety. MEDICATIONS: Zithromax, Solu-Medrol and Tamiflu. ALLERGIES: Penicillin. FAMILY HISTORY: The patient's family and friends have been sick due to flu-like symptoms recently. PHYSICAL EXAMINATION: VITAL SIGNS: Temperature 98, blood pressure 144/73, T-max 99.9. HEENT: No pale conjunctivae. No icterus. NECK: No lymphadenopathy. CHEST: Coarse breathing sounds. HEART: S1 and S2. ABDOMEN: Soft and obese. EXTREMITIES: No cyanosis. NEUROLOGIC: Awake, alert. LABORATORY AND DIAGNOSTIC DATA: White blood cells is 13, hemoglobin 15.8 and platelets 233,000. White blood cell count on admission 7.2. BUN 26 and creatinine 1.2. ALT, AST and alkaline phosphatase are unremarkable. Rapid influenza A positive. Blood culture is pending. CT of the chest shows interstitial lung disease with fibrosis. ASSESSMENT: 1. The patient is a 62-year-old female with influenza A. 2. Possible bacterial bronchitis. 3. Leukocytosis (on steroids). 4. Afebrile. PLAN: 1. We will continue the patient on Tamiflu as this made for a total of five days (day #1). 2. Monitor CBC. 3. Monitor BMP. 4. Monitor cultures (blood, sputum). 5. Monitor chest x-ray. 6. Based on the patient's clinical course and laboratories, we will do further recommendation. Thank you for this consultation. I will follow the patient during this admission. Reyes Carlin M.D. DR: JERSON JOB#: [id number] CC:
[2017-09-20] MEDS: metFORMIN 500mg tab ORAL SCH (20:57)
[2017-09-20] MEDS: Atorvastatin 20mg tab ORAL SCH (20:59)
[2017-09-20] MEDS: Meloxicam 15 MG TAB ORAL SCH (21:00)
[2017-09-21] VITALS: BP 136/78
[2017-09-21] MEDS: Solu-MEDROL 125mg Inj IV SCH ×3 (03:31→16:00)
[2017-09-21 04:00] VITALS: BP 137/60
[2017-09-21] MEDS: NovoLOG Insulin Flexpen SUBQ SCH ×4 (06:23→21:00)
[2017-09-21 08:00] VITALS: BP 129/74
[2017-09-21 08:06] LABS: HEMATOCRIT 43.6 % (37.0-47.0); HEMOGLOBIN 14.4 G/DL (12.0-16.0); MEAN CORPUSCULAR VOLUME 88 FL (80-99); PLATELET COUNT 240 K/UL (150-450); RED BLOOD COUNT 4.97 M/UL (4.20-5.40); RED CELL DISTRIBUTION WIDTH 12.8 % (11.6-14.8); WHITE BLOOD COUNT 9.1 K/UL (4.8-10.8)
[2017-09-21 08:29] LABS: ANION GAP 9 mmol/L (5-15); BLOOD UREA NITROGEN 26 mg/dL (7-18); CARBON DIOXIDE 27 MMOL/L (21-32); CHLORIDE 103 MMOL/L (98-107); CREATININE 1.1 MG/DL (0.55-1.30); POTASSIUM 3.9 MMOL/L (3.5-5.1); SODIUM 139 MMOL/L (136-145)
[2017-09-21] MEDS: Heparin 5000 units/ml inj SUBQ SCH ×2 (08:30→21:00)
[2017-09-21] MEDS: GlipiZIDE 5mg tab ORAL SCH ×2 (08:30→17:49)
[2017-09-21] MEDS: Theophylline ER 100mg ORAL SCH ×2 (08:30→20:59)
[2017-09-21] MEDS: Azithromycin 250mg tab ORAL SCH (08:30)
[2017-09-21] MEDS: Oseltamivir 75mg cap ORAL SCH ×2 (09:06→20:59)
[2017-09-21 12:00] VITALS: BP 139/71
[2017-09-21 16:12] VITALS: BP 132/78
--- NOTE | 2017-09-21 16:21 | Pulmonology Progress Note ---
Assessment/Plan Problems: (1) Acute respiratory failure (2) Pulmonary fibrosis (3) Influenza A Assessment/Plan taper steroids CT chest reviewed, no nodules seen continue same dose of steroids titrate fio2 chest pt check sputum Subjective ROS Limited/Unobtainable: No Interval Events: still coughing yellow phlegm Allergies: Coded Allergies: PENICILLINS (Verified Allergy, Unknown, 09/18/17) Objective Last 24 Hour Vital Signs Date Time Temp Pulse Resp B/P (MAP) Pulse Ox O2 Delivery O2 Flow Rate FiO2 09/21/17 16:12 97.7 67 19 132/78 95 09/21/17 16:03 69 18 99 Nasal Cannula 2.0 28 09/21/17 15:55 68 20 98 Nasal Cannula 2.0 28 09/21/17 15:55 28 09/21/17 12:00 97.9 56 20 139/71 92 09/21/17 08:00 97.9 63 20 129/74 93 09/21/17 07:35 84 18 Nasal Cannula 2.0 28 09/21/17 04:00 97.3 50 20 137/60 95 09/21/17 00:00 97.7 88 20 136/78 95 09/21/17 00:00 Nasal Cannula 2.0 09/20/17 20:00 Nasal Cannula 2.0 09/20/17 20:00 97.9 61 20 154/69 96 09/20/17 19:20 88 18 Nasal Cannula 2.0 28 Intake and Output 09/20/17 09/21/17 19:00 07:00 Intake Total 800 ml 100 ml Balance 800 ml 100 ml Intake Oral 800 ml 100 ml # Voids 5 3 Objective General Appearance: WD/WN HEENT: normocephalic, atraumatic Respiratory/Chest: chest wall non-tender, lungs clear Cardiovascular: normal peripheral pulses, normal rate Abdomen: normal bowel sounds, soft, non tender Genitourinary: normal external genitalia Extremities: no cyanosis Neurologic/Psychiatric: roll cleaner II-XII grossly normal, no motor/sensory deficits Lymphatic: no neck adenopathy Microbiology Date/Time Source Procedure Growth Status 09/20/17 19:30 Sputum Expectorated Gram Stain - Final Resulted 09/20/17 19:30 Sputum Expectorated Sputum Culture Pending Resulted Laboratory Tests 09/21/17 06:35: White Blood Count 9.1, Red Blood Count 4.97, Hemoglobin 14.4, Hematocrit 43.6, Mean Corpuscular Volume 88, Mean Corpuscular Hemoglobin 29.0, Mean Corpuscular Hemoglobin Concent 33.1, Red Cell Distribution Width 12.8, Platelet Count 240, Mean Platelet Volume 7.2, Neutrophils (%) (Auto) , Lymphocytes (%) (Auto) , Monocytes (%) (Auto) , Eosinophils (%) (Auto) , Basophils (%) (Auto) , Differential Total Cells Counted 100, Neutrophils % (Manual) 87H, Lymphocytes % (Manual) 10L, Monocytes % (Manual) 2, Eosinophils % (Manual) 0, Basophils % ( Manual) 0, Band Neutrophils 1, Platelet Estimate Adequate, Platelet Morphology Normal, Red Blood Cell Morphology Normal, Sodium Level 139, Potassium Level 3.9 , Chloride Level 103, Carbon Dioxide Level 27, Anion Gap 9, Blood Urea Nitrogen 26H, Creatinine 1.1, Estimat Glomerular Filtration Rate 50.3, Glucose Level 185H , Calcium Level 9.0 Current Medications Medications (Trade) Dose Ordered Sig/Leatha Route PRN Reason Start Time Stop Time Status Last Admin Dose Admin Acetaminophen/ Hydrocodone Bitart ([place] 5/325) 1 tab Q6H PRN ORAL For Pain 09/19/17 23:15 09/26/17 23:14 Albuterol/ Ipratropium (Albuterol/ Ipratropium) 3 ml Q4H PRN HHN dyspnea 09/19/17 17:00 09/24/17 16:59 09/21/17 15:54 Atorvastatin Calcium (Lipitor) 20 mg BEDTIME ORAL 09/20/17 21:00 10/20/17 20:59 09/20/17 20:59 Azithromycin (Zithromax) 250 mg DAILY ORAL 09/20/17 09:00 09/27/17 08:59 09/21/17 08:30 Dextrose (Dextrose 50%) STAT PRN IV Hypoglycemia 09/19/17 16:48 10/18/17 16:47 Fluoxetine HCl (PROzac) 40 mg DAILY ORAL 09/20/17 09:00 10/19/17 08:59 09/21/17 08:30 Glipizide (Glucotrol) 5 mg BID ORAL 09/20/17 09:00 10/20/17 08:59 09/21/17 08:30 Heparin Sodium (Porcine) (Heparin 5000 units/ml) 5,000 units EVERY 12 HOURS SUBQ 09/19/17 21:00 10/18/17 20:59 Insulin Aspart (NovoLOG) BEFORE MEALS AND HS SUBQ 09/19/17 21:00 10/18/17 20:59 Lamotrigine (LaMICtal) 200 mg QHS ORAL 09/20/17 21:00 10/19/17 08:59 09/20/17 20:58 Levothyroxine Sodium (Synthroid) 150 mcg ACBREAKFAST ORAL 09/20/17 06:30 10/20/17 06:29 09/21/17 06:21 Lorazepam (Ativan 2mg/ml 1ml) 0.5 mg Q4H PRN IV For Anxiety 09/19/17 23:15 09/26/17 23:14 Meloxicam (Mobic) 15 mg QHS ORAL 09/20/17 21:00 10/20/17 08:59 09/20/17 21:00 Metformin HCl (Glucophage) 750 mg BEDTIME ORAL 09/20/17 21:00 10/20/17 20:59 09/20/17 20:57 Methylprednisolone Sodium Succinate (Solu-MEDROL) 60 mg Q6H IV 09/19/17 22:00 10/19/17 21:59 09/21/17 09:06 Mirtazapine (Remeron) 7.5 mg BEDTIME ORAL 09/20/17 21:00 10/20/17 20:59 09/20/17 20:58 Morphine Sulfate (Morphine Sulfate) 2 mg EVERY 4 HOURS PRN IVP severe pain 7-10 09/19/17 17:00 09/25/17 18:29 Nitroglycerin (Ntg) 0.4 mg Q5M X 3 DOSES PRN SL Prn Chest Pain 09/19/17 16:45 10/18/17 18:29 Ondansetron HCl (Zofran) 4 mg Q6H PRN IVP Nausea & Vomiting 09/19/17 16:51 10/18/17 16:50 Oseltamivir Phosphate (Tamiflu) 75 mg Q12HR ORAL 09/19/17 21:00 09/24/17 20:59 09/21/17 09:06 Pantoprazole (Protonix) 40 mg DAILY ORAL 09/20/17 13:00 10/20/17 12:59 09/21/17 08:29 Promethazine HCl/ Codeine (Phenergan with Codeine) 5 ml EVERY 6 HOURS PRN ORAL cough 09/19/17 16:51 10/18/17 16:50 Theophylline (Anival-Dur) 100 mg EVERY 12 HOURS ORAL 09/19/17 21:00 10/18/17 20:59 09/21/17 08:30 ROSALBA RAMIREZ Sep 21, 2017 16:21
--- NOTE | 2017-09-21 17:51 | Internal Med Progress Note ---
Subjective Date of Service: Sep 21, 2017 Physician Name Christophe Martinez Attending Physician Bob Lin MD Current Medications Medications (Trade) Dose Ordered Sig/Leatha Route PRN Reason Start Time Stop Time Status Last Admin Dose Admin Acetaminophen/ Hydrocodone Bitart ([place] 5/325) 1 tab Q6H PRN ORAL For Pain 09/19/17 23:15 09/26/17 23:14 Albuterol/ Ipratropium (Albuterol/ Ipratropium) 3 ml Q4H PRN HHN dyspnea 09/19/17 17:00 09/24/17 16:59 09/21/17 15:54 Atorvastatin Calcium (Lipitor) 20 mg BEDTIME ORAL 09/20/17 21:00 10/20/17 20:59 09/20/17 20:59 Azithromycin (Zithromax) 250 mg DAILY ORAL 09/20/17 09:00 09/27/17 08:59 09/21/17 08:30 Dextrose (Dextrose 50%) STAT PRN IV Hypoglycemia 09/19/17 16:48 10/18/17 16:47 Fluoxetine HCl (PROzac) 40 mg DAILY ORAL 09/20/17 09:00 10/19/17 08:59 09/21/17 08:30 Glipizide (Glucotrol) 5 mg BID ORAL 09/20/17 09:00 10/20/17 08:59 09/21/17 17:49 Heparin Sodium (Porcine) (Heparin 5000 units/ml) 5,000 units EVERY 12 HOURS SUBQ 09/19/17 21:00 10/18/17 20:59 Insulin Aspart (NovoLOG) BEFORE MEALS AND HS SUBQ 09/19/17 21:00 10/18/17 20:59 Lamotrigine (LaMICtal) 200 mg QHS ORAL 09/20/17 21:00 10/19/17 08:59 09/20/17 20:58 Levothyroxine Sodium (Synthroid) 150 mcg ACBREAKFAST ORAL 09/20/17 06:30 10/20/17 06:29 09/21/17 06:21 Lorazepam (Ativan 2mg/ml 1ml) 0.5 mg Q4H PRN IV For Anxiety 09/19/17 23:15 09/26/17 23:14 Meloxicam (Mobic) 15 mg QHS ORAL 09/20/17 21:00 2/16/18 08:59 09/20/17 21:00 Metformin HCl (Glucophage) 750 mg BEDTIME ORAL 09/20/17 21:00 10/20/17 20:59 09/20/17 20:57 Methylprednisolone Sodium Succinate (Solu-MEDROL) 60 mg DAILY IV 09/22/17 09:00 10/19/17 21:59 Mirtazapine (Remeron) 7.5 mg BEDTIME ORAL 09/20/17 21:00 10/20/17 20:59 09/20/17 20:58 Morphine Sulfate (Morphine Sulfate) 2 mg EVERY 4 HOURS PRN IVP severe pain 7-10 09/19/17 17:00 09/25/17 18:29 Nitroglycerin (Ntg) 0.4 mg Q5M X 3 DOSES PRN SL Prn Chest Pain 09/19/17 16:45 10/18/17 18:29 Ondansetron HCl (Zofran) 4 mg Q6H PRN IVP Nausea & Vomiting 09/19/17 16:51 10/18/17 16:50 Oseltamivir Phosphate (Tamiflu) 75 mg Q12HR ORAL 09/19/17 21:00 09/24/17 20:59 09/21/17 09:06 Pantoprazole (Protonix) 40 mg DAILY ORAL 09/20/17 13:00 10/20/17 12:59 09/21/17 08:29 Promethazine HCl/ Codeine (Phenergan with Codeine) 5 ml EVERY 6 HOURS PRN ORAL cough 09/19/17 16:51 10/18/17 16:50 Theophylline (Anival-Dur) 100 mg EVERY 12 HOURS ORAL 09/19/17 21:00 10/18/17 20:59 09/21/17 08:30 Allergies: Coded Allergies: PENICILLINS (Verified Allergy, Unknown, 09/18/17) ROS Limited/Unobtainable: No Constitutional: Reports: no symptoms HEENT: Reports: no symptoms Cardiovascular: Reports: no symptoms Respiratory: Reports: shortness of breath Gastrointestinal/Abdominal: Reports: no symptoms Genitourinary: Reports: no symptoms Neurologic/Psychiatric: Reports: no symptoms Subjective 62 YO F with pulmonary fibrosis admitted with Shortness of breath. Now Influenza A positive. Cover for Int pepper-Dr Riley Objective Last Vital Signs Date Time Temp Pulse Resp B/P (MAP) Pulse Ox O2 Delivery O2 Flow Rate FiO2 09/21/17 16:12 97.7 67 19 132/78 95 09/21/17 16:03 Nasal Cannula 2.0 28 Laboratory Tests Test 09/21/17 06:35 White Blood Count 9.1 K/UL (4.8-10.8) Red Blood Count 4.97 M/UL (4.20-5.40) Hemoglobin 14.4 G/DL (12.0-16.0) Hematocrit 43.6 % (37.0-47.0) Mean Corpuscular Volume 88 FL (80-99) Mean Corpuscular Hemoglobin 29.0 PG (27.0-31.0) Mean Corpuscular Hemoglobin Concent 33.1 G/DL (32.0-36.0) Red Cell Distribution Width 12.8 % (11.6-14.8) Platelet Count 240 K/UL (150-450) Mean Platelet Volume 7.2 FL (6.5-10.1) Neutrophils (%) (Auto) % (45.0-75.0) Lymphocytes (%) (Auto) % (20.0-45.0) Monocytes (%) (Auto) % (1.0-10.0) Eosinophils (%) (Auto) % (0.0-3.0) Basophils (%) (Auto) % (0.0-2.0) Differential Total Cells Counted 100 Neutrophils % (Manual) 87 % (45-75) H Lymphocytes % (Manual) 10 % (20-45) L Monocytes % (Manual) 2 % (1-10) Eosinophils % (Manual) 0 % (0-3) Basophils % (Manual) 0 % (0-2) Band Neutrophils 1 % (0-8) Platelet Estimate Adequate Platelet Morphology Normal Red Blood Cell Morphology Normal Sodium Level 139 MMOL/L (136-145) Potassium Level 3.9 MMOL/L (3.5-5.1) Chloride Level 103 MMOL/L (98-107) Carbon Dioxide Level 27 MMOL/L (21-32) Anion Gap 9 mmol/L (5-15) Blood Urea Nitrogen 26 mg/dL (7-18) H Creatinine 1.1 MG/DL (0.55-1.30) Estimat Glomerular Filtration Rate 50.3 mL/min (>60) Glucose Level 185 MG/DL (74-106) H Calcium Level 9.0 MG/DL (8.5-10.1) Microbiology Date/Time Source Procedure Growth Status 09/20/17 19:30 Sputum Expectorated Gram Stain - Final Resulted 09/20/17 19:30 Sputum Expectorated Sputum Culture Pending Resulted Intake and Output 09/20/17 09/21/17 19:00 07:00 Intake Total 800 ml 100 ml Balance 800 ml 100 ml Intake Oral 800 ml 100 ml # Voids 5 3 Objective General Appearance: WD/WN, alert, mild distress EENT: PERRL/EOMI, normal ENT inspection, TMs normal Neck: non-tender, normal alignment, supple, normal inspection Cardiovascular: normal peripheral pulses, normal rate, regular rhythm, no gallop/murmur, no JVD Respiratory/Chest: respiratory distress, decreased breath sounds, crackles/ rales, rhonchi - bilaterally, expiratory wheezing Abdomen: normal bowel sounds, non tender, soft, no organomegaly, no mass Extremities: normal range of motion, non-tender Neurologic: change of address clerk II-XII grossly normal, no motor/sensory deficits Skin: normal pigmentation, warm/dry Assessment/Plan Problem List: (1) CHF (congestive heart failure) (2) Diabetes mellitus, type II Assessment & Plan: Continue glipizide, metformin and novolog sliding scale. (3) HTN (hypertension) (4) Hypothyroidism Assessment & Plan: Continue synthroid (5) Pulmonary fibrosis (6) Influenza A Assessment & Plan: Continue tamiflu (7) Acute respiratory failure Assessment & Plan: Influenza A and pulmonary fibrosis. Tolerating nasal canula. See pulmonary note. Continue azithromycin and IV solumedrol (8) Major depression Assessment & Plan: Continue remeron and prozac Status: progressing CHRISTOPHE MARTINEZ Sep 21, 2017 17:51
[2017-09-21 20:00] VITALS: BP 150/67
--- NOTE | 2017-09-21 20:34 | Infectious Diseases Prog Note ---
Assessment/Plan Assessment/Plan ASSESSMENT: he patient is a 62-year-old female Influenza A cough not improving prob bacterial bronchitis Leukocytosis (on steroids), SP Afebrile. Hypertension. Chronic obstructive pulmonary disease. Pulmonary fibrosis. History of hiatal hernia status post surgery. Diabetes. Depression/anxiety PLAN: cont pt on Tamiflu d# 2/ 5, add Zithro d# 1 / 5 on steroids Monitor CBC Monitor BMP. Monitor cultures (blood, sputum). Monitor chest x-ray. Subjective Allergies: Coded Allergies: PENICILLINS (Verified Allergy, Unknown, 09/18/17) Subjective Afebrile Objective Vital Signs Last 24 Hour Vital Signs Date Time Temp Pulse Resp B/P (MAP) Pulse Ox O2 Delivery O2 Flow Rate FiO2 09/21/17 20:00 99.1 62 20 150/67 95 09/21/17 19:23 88 20 Nasal Cannula 2.0 28 09/21/17 16:12 97.7 67 19 132/78 95 09/21/17 16:03 69 18 99 Nasal Cannula 2.0 28 09/21/17 15:55 68 20 98 Nasal Cannula 2.0 28 09/21/17 15:55 28 09/21/17 12:00 97.9 56 20 139/71 92 09/21/17 08:00 97.9 63 20 129/74 93 09/21/17 07:35 84 18 Nasal Cannula 2.0 28 09/21/17 04:00 97.3 50 20 137/60 95 09/21/17 00:00 97.7 88 20 136/78 95 09/21/17 00:00 Nasal Cannula 2.0 Height (Feet): 5 Height (Inches): 4.00 Weight (Pounds): 160 HEENT: atraumatic Respiratory/Chest: respiratory distress Cardiovascular: no JVD Abdomen: no organomegaly Microbiology Date/Time Source Procedure Growth Status 09/20/17 19:30 Sputum Expectorated Gram Stain - Final Resulted 09/20/17 19:30 Sputum Expectorated Sputum Culture Pending Resulted Laboratory Tests Test 09/21/17 06:35 White Blood Count 9.1 K/UL (4.8-10.8) Red Blood Count 4.97 M/UL (4.20-5.40) Hemoglobin 14.4 G/DL (12.0-16.0) Hematocrit 43.6 % (37.0-47.0) Mean Corpuscular Volume 88 FL (80-99) Mean Corpuscular Hemoglobin 29.0 PG (27.0-31.0) Mean Corpuscular Hemoglobin Concent 33.1 G/DL (32.0-36.0) Red Cell Distribution Width 12.8 % (11.6-14.8) Platelet Count 240 K/UL (150-450) Mean Platelet Volume 7.2 FL (6.5-10.1) Neutrophils (%) (Auto) % (45.0-75.0) Lymphocytes (%) (Auto) % (20.0-45.0) Monocytes (%) (Auto) % (1.0-10.0) Eosinophils (%) (Auto) % (0.0-3.0) Basophils (%) (Auto) % (0.0-2.0) Differential Total Cells Counted 100 Neutrophils % (Manual) 87 % (45-75) H Lymphocytes % (Manual) 10 % (20-45) L Monocytes % (Manual) 2 % (1-10) Eosinophils % (Manual) 0 % (0-3) Basophils % (Manual) 0 % (0-2) Band Neutrophils 1 % (0-8) Platelet Estimate Adequate Platelet Morphology Normal Red Blood Cell Morphology Normal Sodium Level 139 MMOL/L (136-145) Potassium Level 3.9 MMOL/L (3.5-5.1) Chloride Level 103 MMOL/L (98-107) Carbon Dioxide Level 27 MMOL/L (21-32) Anion Gap 9 mmol/L (5-15) Blood Urea Nitrogen 26 mg/dL (7-18) H Creatinine 1.1 MG/DL (0.55-1.30) Estimat Glomerular Filtration Rate 50.3 mL/min (>60) Glucose Level 185 MG/DL (74-106) H Calcium Level 9.0 MG/DL (8.5-10.1) Current Medications Medications (Trade) Dose Ordered Sig/Leatha Route PRN Reason Start Time Stop Time Status Last Admin Dose Admin Acetaminophen/ Hydrocodone Bitart ([place] 5/325) 1 tab Q6H PRN ORAL For Pain 09/19/17 23:15 09/26/17 23:14 Albuterol/ Ipratropium (Albuterol/ Ipratropium) 3 ml Q4H PRN HHN dyspnea 09/19/17 17:00 09/24/17 16:59 09/21/17 15:54 Atorvastatin Calcium (Lipitor) 20 mg BEDTIME ORAL 09/20/17 21:00 10/20/17 20:59 09/20/17 20:59 Azithromycin (Zithromax) 250 mg DAILY ORAL 09/20/17 09:00 09/27/17 08:59 09/21/17 08:30 Dextrose (Dextrose 50%) STAT PRN IV Hypoglycemia 09/19/17 16:48 10/18/17 16:47 Fluoxetine HCl (PROzac) 40 mg DAILY ORAL 09/20/17 09:00 10/19/17 08:59 09/21/17 08:30 Glipizide (Glucotrol) 5 mg BID ORAL 09/20/17 09:00 10/20/17 08:59 09/21/17 17:49 Heparin Sodium (Porcine) (Heparin 5000 units/ml) 5,000 units EVERY 12 HOURS SUBQ 09/19/17 21:00 10/18/17 20:59 Hydrochlorothiazide (Hydrodiuril) 12.5 mg DAILY ORAL 09/22/17 09:00 10/22/17 08:59 Insulin Aspart (NovoLOG) BEFORE MEALS AND HS SUBQ 09/19/17 21:00 10/18/17 20:59 Irbesartan (Avapro) 150 mg DAILY ORAL 09/22/17 09:00 10/22/17 08:59 Lamotrigine (LaMICtal) 200 mg QHS ORAL 09/20/17 21:00 10/19/17 08:59 09/20/17 20:58 Levothyroxine Sodium (Synthroid) 150 mcg ACBREAKFAST ORAL 09/20/17 06:30 10/20/17 06:29 09/21/17 06:21 Lorazepam (Ativan 2mg/ml 1ml) 0.5 mg Q4H PRN IV For Anxiety 09/19/17 23:15 09/26/17 23:14 Meloxicam (Mobic) 15 mg QHS ORAL 09/20/17 21:00 10/20/17 08:59 09/20/17 21:00 Metformin HCl (Glucophage) 750 mg BEDTIME ORAL 09/20/17 21:00 10/20/17 20:59 09/20/17 20:57 Methylprednisolone Sodium Succinate (Solu-MEDROL) 60 mg DAILY IV 09/22/17 09:00 10/19/17 21:59 Mirtazapine (Remeron) 7.5 mg BEDTIME ORAL 09/20/17 21:00 10/20/17 20:59 09/20/17 20:58 Morphine Sulfate (Morphine Sulfate) 2 mg EVERY 4 HOURS PRN IVP severe pain 7-10 09/19/17 17:00 09/25/17 18:29 Nitroglycerin (Ntg) 0.4 mg Q5M X 3 DOSES PRN SL Prn Chest Pain 09/19/17 16:45 10/18/17 18:29 Ondansetron HCl (Zofran) 4 mg Q6H PRN IVP Nausea & Vomiting 09/19/17 16:51 10/18/17 16:50 Oseltamivir Phosphate (Tamiflu) 75 mg Q12HR ORAL 09/19/17 21:00 09/24/17 20:59 09/21/17 09:06 Pantoprazole (Protonix) 40 mg DAILY ORAL 09/20/17 13:00 10/20/17 12:59 09/21/17 08:29 Promethazine HCl/ Codeine (Phenergan with Codeine) 5 ml EVERY 6 HOURS PRN ORAL cough 09/19/17 16:51 10/18/17 16:50 Theophylline (Anival-Dur) 100 mg EVERY 12 HOURS ORAL 09/19/17 21:00 10/18/17 20:59 09/21/17 08:30 MARTINE ZHAO M.D. Sep 21, 2017 20:34
[2017-09-21] MEDS: metFORMIN 500mg tab ORAL SCH (20:57)
[2017-09-21] MEDS: Meloxicam 15 MG TAB ORAL SCH (20:57)
[2017-09-21] MEDS: Atorvastatin 20mg tab ORAL SCH (21:02)
[2017-09-21] MEDS ORDERED: Azithromycin 500 MG in D5W 275 ML IVPB SCH (21:15)
[2017-09-21] MEDS ORDERED: Azithromycin 250 MG in D5W 275 ML IV ONE (23:00)
[2017-09-22] VITALS: BP 135/56
[2017-09-22 04:00] VITALS: BP 137/70
[2017-09-22] MEDS: NovoLOG Insulin Flexpen SUBQ SCH ×4 (06:30→21:00)
--- NOTE | 2017-09-22 07:42 | Pulmonology Progress Note ---
Assessment/Plan Assessment/Plan ASSESSMENT Acute on chronic hypoxemic respiratory failure Pulmonary fibrosis Influenza A Probably bronchitis DM Hypothyroidism with elevated TSH Bipolar disorder PLAN OF CARE [facility] floor O2 titrate, ( has O at home , usin 24hrs/d) HHN ATC and prn and CPT IV steroids, change to oral in am empiric abx , ID follows CT chest c/w interstitial lung disease, but no evidence for pulm nodules a/tussive prn fup with CXR Sputum cx negative, influenza + type A, on Tamiflu Blood cx prel negative BS management with oral Glipizide and metformin; SS prn, [id number], at goal TSH over 50, increase dose of levothyroxine cardio follows serial troponin x2 negative ECHO with pEF 70-75%, chest pain likely cough induced edema LE mild, likely due to steroids, but will get Venous Duplex BLE BP management with ARB and optimize as needed DVT, GI prophylaxis Psych follows, psych med regimen optimized as per psych dc plan , hopefully tomorrow case discussed and evaluated by supervising physician Subjective Allergies: Coded Allergies: PENICILLINS (Verified Allergy, Unknown, 09/18/17) Subjective reports cough, productive with yellow phlegm, no hemoptysis still some wheezing and SOB swollen legs noted this am no chest pain, no palpitations, no dizziness Objective Last 24 Hour Vital Signs Date Time Temp Pulse Resp B/P (MAP) Pulse Ox O2 Delivery O2 Flow Rate FiO2 09/22/17 04:00 Nasal Cannula 2.0 09/22/17 04:00 97.2 59 20 137/70 97 09/22/17 00:00 Nasal Cannula 2.0 09/22/17 00:00 97.9 68 20 135/56 95 09/21/17 20:00 Nasal Cannula 2.0 09/21/17 20:00 99.1 62 20 150/67 95 09/21/17 19:23 88 20 Nasal Cannula 2.0 28 09/21/17 16:12 97.7 67 19 132/78 95 09/21/17 16:03 69 18 99 Nasal Cannula 2.0 28 09/21/17 15:55 68 20 98 Nasal Cannula 2.0 28 09/21/17 15:55 28 09/21/17 12:00 97.9 56 20 139/71 92 09/21/17 08:00 97.9 63 20 129/74 93 Intake and Output 09/21/17 09/22/17 19:00 07:00 Intake Total 600 ml 425 ml Balance 600 ml 425 ml Intake Oral 600 ml 150 ml IV Total 275 ml # Voids 4 1 General Appearance: no acute distress, other - awake, alErt, oriented female in NAd HEENT: normocephalic, atraumatic, anicteric, mucous membranes moist Respiratory/Chest: no respiratory distress, no accessory muscle use, expiratory wheezing - few sxcattered posterior orozco expiratory wheezes Cardiovascular: normal rate, no JVD Abdomen: normal bowel sounds, soft, non tender, non distended Extremities: other - +1 edema BLE Neurologic/Psychiatric: no motor/sensory deficits, alert, oriented x 3, responsive Microbiology Date/Time Source Procedure Growth Status 09/20/17 19:30 Sputum Expectorated Gram Stain - Final Resulted 09/20/17 19:30 Sputum Expectorated Sputum Culture Pending Resulted Laboratory Tests 09/22/17 06:45: White Blood Count [Pending], Red Blood Count [Pending], Hemoglobin [Pending], Hematocrit [Pending], Mean Corpuscular Volume [Pending], Mean Corpuscular Hemoglobin [Pending], Mean Corpuscular Hemoglobin Concent [Pending], Red Cell Distribution Width [Pending], Platelet Count [Pending], Mean Platelet Volume [ Pending], Neutrophils (%) (Auto) [Pending], Lymphocytes (%) (Auto) [Pending], Monocytes (%) (Auto) [Pending], Eosinophils (%) (Auto) [Pending], Basophils (%) (Auto) [Pending], Sodium Level [Pending], Potassium Level [Pending], Chloride Level [Pending], Carbon Dioxide Level [Pending], Blood Urea Nitrogen [Pending], Creatinine [Pending], Estimat Glomerular Filtration Rate [Pending], Glucose Level [Pending], Hemoglobin A1c [Pending], Calcium Level [Pending], Thyroid Stimulating Hormone (TSH) [Pending] Current Medications Medications (Trade) Dose Ordered Sig/Leatha Route PRN Reason Start Time Stop Time Status Last Admin Dose Admin Acetaminophen/ Hydrocodone Bitart ([place] 5/325) 1 tab Q6H PRN ORAL For Pain 09/19/17 23:15 09/26/17 23:14 Albuterol/ Ipratropium (Albuterol/ Ipratropium) 3 ml Q4H PRN HHN dyspnea 09/19/17 17:00 09/24/17 16:59 09/21/17 15:54 Atorvastatin Calcium (Lipitor) 20 mg BEDTIME ORAL 09/20/17 21:00 10/20/17 20:59 09/21/17 21:02 Azithromycin 500 mg/Dextrose 275 ml @ 275 mls/hr Q24HRS IV 09/22/17 23:00 09/28/17 23:01 Dextrose (Dextrose 50%) STAT PRN IV Hypoglycemia 09/19/17 16:48 10/18/17 16:47 Fluoxetine HCl (PROzac) 40 mg DAILY ORAL 09/20/17 09:00 10/19/17 08:59 09/21/17 08:30 Glipizide (Glucotrol) 5 mg BID ORAL 09/20/17 09:00 10/20/17 08:59 09/21/17 17:49 Heparin Sodium (Porcine) (Heparin 5000 units/ml) 5,000 units EVERY 12 HOURS SUBQ 09/19/17 21:00 10/18/17 20:59 Hydrochlorothiazide (Hydrodiuril) 12.5 mg DAILY ORAL 09/22/17 09:00 10/22/17 08:59 Insulin Aspart (NovoLOG) BEFORE MEALS AND HS SUBQ 09/19/17 21:00 10/18/17 20:59 Irbesartan (Avapro) 150 mg DAILY ORAL 09/22/17 09:00 10/22/17 08:59 Lamotrigine (LaMICtal) 200 mg QHS ORAL 09/20/17 21:00 10/19/17 08:59 09/21/17 20:58 Levothyroxine Sodium (Synthroid) 150 mcg ACBREAKFAST ORAL 09/20/17 06:30 10/20/17 06:29 09/22/17 06:31 Lorazepam (Ativan 2mg/ml 1ml) 0.5 mg Q4H PRN IV For Anxiety 09/19/17 23:15 09/26/17 23:14 Meloxicam (Mobic) 15 mg QHS ORAL 09/20/17 21:00 10/20/17 08:59 09/21/17 20:57 Metformin HCl (Glucophage) 750 mg BEDTIME ORAL 09/20/17 21:00 10/20/17 20:59 09/21/17 20:57 Methylprednisolone Sodium Succinate (Solu-MEDROL) 60 mg DAILY IV 09/22/17 09:00 10/19/17 21:59 Mirtazapine (Remeron) 7.5 mg BEDTIME ORAL 09/20/17 21:00 10/20/17 20:59 09/21/17 20:59 Morphine Sulfate (Morphine Sulfate) 2 mg EVERY 4 HOURS PRN IVP severe pain 7-10 09/19/17 17:00 09/25/17 18:29 Nitroglycerin (Ntg) 0.4 mg Q5M X 3 DOSES PRN SL Prn Chest Pain 09/19/17 16:45 10/18/17 18:29 Ondansetron HCl (Zofran) 4 mg Q6H PRN IVP Nausea & Vomiting 09/19/17 16:51 10/18/17 16:50 Oseltamivir Phosphate (Tamiflu) 75 mg Q12HR ORAL 09/19/17 21:00 09/24/17 20:59 09/21/17 20:59 Pantoprazole (Protonix) 40 mg DAILY ORAL 09/20/17 13:00 10/20/17 12:59 09/21/17 08:29 Promethazine HCl/ Codeine (Phenergan with Codeine) 5 ml EVERY 6 HOURS PRN ORAL cough 09/19/17 16:51 10/18/17 16:50 Theophylline (Anival-Dur) 100 mg EVERY 12 HOURS ORAL 09/19/17 21:00 10/18/17 20:59 09/21/17 20:59 [facility]Zainab NP Sep 22, 2017 07:42
[2017-09-22 07:59] LABS: BASOPHILS % (AUTO) 0.5 % (0.0-2.0); HEMATOCRIT 47.2 % (37.0-47.0); HEMOGLOBIN 15.2 G/DL (12.0-16.0); LYMPHOCYTES % (AUTO) 22.6 % (20.0-45.0); MEAN CORPUSCULAR VOLUME 88 FL (80-99); MONOCYTES % (AUTO) 8.3 % (1.0-10.0); NEUTROPHILS % (AUTO) 68.6 % (45.0-75.0); PLATELET COUNT 280 K/UL (150-450); RED BLOOD COUNT 5.34 M/UL (4.20-5.40); RED CELL DISTRIBUTION WIDTH 13.1 % (11.6-14.8); WHITE BLOOD COUNT 11.3 K/UL (4.8-10.8)
[2017-09-22 08:15] VITALS: BP 115/58
[2017-09-22] MEDS: hydroCHLOROthiazide 12.5mg TAB ORAL SCH (08:35)
[2017-09-22] MEDS: Oseltamivir 75mg cap ORAL SCH ×2 (08:35→21:02)
[2017-09-22] MEDS: Irbesartan 150mg tablet ORAL SCH (08:35)
[2017-09-22] MEDS: Heparin 5000 units/ml inj SUBQ SCH ×2 (08:35→21:00)
[2017-09-22] MEDS: GlipiZIDE 5mg tab ORAL SCH ×2 (08:35→17:33)
[2017-09-22] MEDS: Theophylline ER 100mg ORAL SCH ×2 (08:35→21:01)
[2017-09-22] MEDS ORDERED: Solu-MEDROL 125mg Inj IV SCH (09:00)
[2017-09-22 10:40] LABS: ANION GAP 14 mmol/L (5-15); BLOOD UREA NITROGEN 26 mg/dL (7-18); CARBON DIOXIDE 24 MMOL/L (21-32); CHLORIDE 105 MMOL/L (98-107); CREATININE 1.2 MG/DL (0.55-1.30); POTASSIUM 3.6 MMOL/L (3.5-5.1); SODIUM 143 MMOL/L (136-145)
--- NOTE | 2017-09-22 10:40 | General Progress Note ---
Assessment/Plan Status: stable Assessment/Plan mdd anxiety -prozac 40 mg qam -remeron 7.5 mg qhs -ativan prn Subjective Date patient seen: Sep 21, 2017 Neurologic/Psychiatric: Reports: anxiety, depressed Allergies: Coded Allergies: PENICILLINS (Verified Allergy, Unknown, 09/18/17) Subjective the pt had a bad day more anxiety had fever worried about her condition Objective Last 24 Hour Vital Signs Date Time Temp Pulse Resp B/P (MAP) Pulse Ox O2 Delivery O2 Flow Rate FiO2 09/22/17 08:35 115/58 09/22/17 08:15 97.7 62 22 115/58 97 Nasal Cannula 2.0 09/22/17 07:30 68 18 Nasal Cannula 2.0 28 09/22/17 04:00 Nasal Cannula 2.0 09/22/17 04:00 97.2 59 20 137/70 97 09/22/17 00:00 Nasal Cannula 2.0 09/22/17 00:00 97.9 68 20 135/56 95 09/21/17 20:00 Nasal Cannula 2.0 09/21/17 20:00 99.1 62 20 150/67 95 09/21/17 19:23 88 20 Nasal Cannula 2.0 28 09/21/17 16:12 97.7 67 19 132/78 95 09/21/17 16:03 69 18 99 Nasal Cannula 2.0 28 09/21/17 15:55 68 20 98 Nasal Cannula 2.0 28 09/21/17 15:55 28 09/21/17 12:00 97.9 56 20 139/71 92 Intake and Output 09/21/17 09/22/17 19:00 07:00 Intake Total 600 ml 425 ml Balance 600 ml 425 ml Intake Oral 600 ml 150 ml IV Total 275 ml # Voids 4 1 Laboratory Tests 09/22/17 06:45: White Blood Count 11.3H, Red Blood Count 5.34, Hemoglobin 15.2, Hematocrit 47.2H , Mean Corpuscular Volume 88, Mean Corpuscular Hemoglobin 28.4, Mean Corpuscular Hemoglobin Concent 32.2, Red Cell Distribution Width 13.1, Platelet Count 280, Mean Platelet Volume 7.0, Neutrophils (%) (Auto) 68.6, Lymphocytes (% ) (Auto) 22.6, Monocytes (%) (Auto) 8.3, Eosinophils (%) (Auto) 0.0, Basophils ( %) (Auto) 0.5, Sodium Level [Pending], Potassium Level [Pending], Chloride Level [Pending], Carbon Dioxide Level [Pending], Blood Urea Nitrogen [Pending], Creatinine [Pending], Estimat Glomerular Filtration Rate [Pending], Glucose Level [Pending], Hemoglobin A1c 6.5H, Calcium Level [Pending], Thyroid Stimulating Hormone (TSH) [Pending] Height (Feet): 5 Height (Inches): 4.00 Weight (Pounds): 160 General Appearance: no apparent distress, alert, overweight Neurologic: alert, oriented x 3, responsive, depressed affect Anirudh Webber M.D. Sep 22, 2017 10:40
--- NOTE | 2017-09-22 10:42 | Psych Consult Progress Note ---
Psych Consult Progress Note Consult 09/22/17 the pt is still depressed and anxious the pt had fever last night stated that she had a bad day yesterday Vital Signs Last 24 Hour Vital Signs Date Time Temp Pulse Resp B/P (MAP) Pulse Ox O2 Delivery O2 Flow Rate FiO2 09/22/17 08:35 115/58 09/22/17 08:15 97.7 62 22 115/58 97 Nasal Cannula 2.0 09/22/17 07:30 68 18 Nasal Cannula 2.0 28 09/22/17 04:00 Nasal Cannula 2.0 09/22/17 04:00 97.2 59 20 137/70 97 09/22/17 00:00 Nasal Cannula 2.0 09/22/17 00:00 97.9 68 20 135/56 95 09/21/17 20:00 Nasal Cannula 2.0 09/21/17 20:00 99.1 62 20 150/67 95 09/21/17 19:23 88 20 Nasal Cannula 2.0 28 09/21/17 16:12 97.7 67 19 132/78 95 09/21/17 16:03 69 18 99 Nasal Cannula 2.0 28 09/21/17 15:55 68 20 98 Nasal Cannula 2.0 28 09/21/17 15:55 28 09/21/17 12:00 97.9 56 20 139/71 92 Labs Laboratory Tests Test 09/22/17 06:45 White Blood Count 11.3 K/UL (4.8-10.8) H Red Blood Count 5.34 M/UL (4.20-5.40) Hemoglobin 15.2 G/DL (12.0-16.0) Hematocrit 47.2 % (37.0-47.0) H Mean Corpuscular Volume 88 FL (80-99) Mean Corpuscular Hemoglobin 28.4 PG (27.0-31.0) Mean Corpuscular Hemoglobin Concent 32.2 G/DL (32.0-36.0) Red Cell Distribution Width 13.1 % (11.6-14.8) Platelet Count 280 K/UL (150-450) Mean Platelet Volume 7.0 FL (6.5-10.1) Neutrophils (%) (Auto) 68.6 % (45.0-75.0) Lymphocytes (%) (Auto) 22.6 % (20.0-45.0) Monocytes (%) (Auto) 8.3 % (1.0-10.0) Eosinophils (%) (Auto) 0.0 % (0.0-3.0) Basophils (%) (Auto) 0.5 % (0.0-2.0) Sodium Level Pending Potassium Level Pending Chloride Level Pending Carbon Dioxide Level Pending Blood Urea Nitrogen Pending Creatinine Pending Estimat Glomerular Filtration Rate Pending Glucose Level Pending Hemoglobin A1c 6.5 % (4.3-6.0) H Calcium Level Pending Thyroid Stimulating Hormone (TSH) Pending Medications Current Medications Medications (Trade) Dose Ordered Sig/Leatha Route PRN Reason Start Time Stop Time Status Last Admin Dose Admin Acetaminophen/ Hydrocodone Bitart ([place] 5/325) 1 tab Q6H PRN ORAL For Pain 09/19/17 23:15 09/26/17 23:14 Albuterol/ Ipratropium (Albuterol/ Ipratropium) 3 ml Q4H PRN HHN dyspnea 09/19/17 17:00 09/24/17 16:59 09/21/17 15:54 Albuterol/ Ipratropium (Albuterol/ Ipratropium) 3 ml TIDRT HHN 09/22/17 13:00 09/27/17 12:59 Atorvastatin Calcium (Lipitor) 20 mg BEDTIME ORAL 09/20/17 21:00 10/20/17 20:59 09/21/17 21:02 Azithromycin 500 mg/Dextrose 275 ml @ 275 mls/hr Q24HRS IV 09/22/17 23:00 09/28/17 23:01 Dextrose (Dextrose 50%) STAT PRN IV Hypoglycemia 09/19/17 16:48 10/18/17 16:47 Fluoxetine HCl (PROzac) 60 mg DAILY ORAL 09/23/17 09:00 10/23/17 08:59 Glipizide (Glucotrol) 5 mg BID ORAL 09/20/17 09:00 10/20/17 08:59 09/22/17 08:35 Heparin Sodium (Porcine) (Heparin 5000 units/ml) 5,000 units EVERY 12 HOURS SUBQ 09/19/17 21:00 10/18/17 20:59 Hydrochlorothiazide (Hydrodiuril) 12.5 mg DAILY ORAL 09/22/17 09:00 10/22/17 08:59 09/22/17 08:35 Insulin Aspart (NovoLOG) BEFORE MEALS AND HS SUBQ 09/19/17 21:00 10/18/17 20:59 Irbesartan (Avapro) 150 mg DAILY ORAL 09/22/17 09:00 10/22/17 08:59 09/22/17 08:35 Lamotrigine (LaMICtal) 200 mg QHS ORAL 09/20/17 21:00 10/19/17 08:59 09/21/17 20:58 Levothyroxine Sodium (Synthroid) 150 mcg ACBREAKFAST ORAL 09/20/17 06:30 10/20/17 06:29 09/22/17 06:31 Lorazepam (Ativan 2mg/ml 1ml) 0.5 mg Q4H PRN IV For Anxiety 09/19/17 23:15 09/26/17 23:14 Meloxicam (Mobic) 15 mg QHS ORAL 09/20/17 21:00 10/20/17 08:59 09/21/17 20:57 Metformin HCl (Glucophage) 750 mg BEDTIME ORAL 09/20/17 21:00 10/20/17 20:59 09/21/17 20:57 Methylprednisolone Sodium Succinate (Solu-MEDROL) 60 mg DAILY IV 09/22/17 09:00 10/19/17 21:59 09/22/17 08:36 Mirtazapine (Remeron) 7.5 mg BEDTIME ORAL 09/20/17 21:00 10/20/17 20:59 09/21/17 20:59 Morphine Sulfate (Morphine Sulfate) 2 mg EVERY 4 HOURS PRN IVP severe pain 7-10 09/19/17 17:00 09/25/17 18:29 Nitroglycerin (Ntg) 0.4 mg Q5M X 3 DOSES PRN SL Prn Chest Pain 09/19/17 16:45 10/18/17 18:29 Ondansetron HCl (Zofran) 4 mg Q6H PRN IVP Nausea & Vomiting 09/19/17 16:51 10/18/17 16:50 Oseltamivir Phosphate (Tamiflu) 75 mg Q12HR ORAL 09/19/17 21:00 09/24/17 20:59 09/22/17 08:35 Pantoprazole (Protonix) 40 mg DAILY ORAL 09/20/17 13:00 10/20/17 12:59 09/22/17 08:35 Promethazine HCl/ Codeine (Phenergan with Codeine) 5 ml EVERY 6 HOURS PRN ORAL cough 09/19/17 16:51 10/18/17 16:50 Theophylline (Anival-Dur) 100 mg EVERY 12 HOURS ORAL 09/19/17 21:00 10/18/17 20:59 09/22/17 08:35 Problems: (1) Pulmonary fibrosis Status: Acute (2) Acute respiratory failure (3) Influenza A Status: Acute (4) Diabetes mellitus, type II (5) CHF (congestive heart failure) (6) Hypothyroidism (7) HTN (hypertension) (8) Major depression Assessment & Plan: MDD anxiety -remeron -increase prozac 60mg qhs Anirudh Webber M.D. Sep 22, 2017 10:42
--- NOTE | 2017-09-22 10:47 | Infectious Diseases Prog Note ---
Assessment/Plan Assessment/Plan ASSESSMENT: the patient is a 62-year-old female Influenza A cough not improving prob bacterial bronchitis Leukocytosis (on steroids), mild Afebrile. Hypertension. Chronic obstructive pulmonary disease. Pulmonary fibrosis. History of hiatal hernia status post surgery. Diabetes. Depression/anxiety PLAN: cont pt on Tamiflu and Zithro d# 3/ 5, on steroids Monitor CBC Monitor BMP. Monitor cultures (blood, sputum). Monitor chest x-ray. Subjective Constitutional: Denies: no symptoms, fever, chills, fatigue, anorexia, drenching sweats, other Allergies: Coded Allergies: PENICILLINS (Verified Allergy, Unknown, 09/18/17) Subjective Afebrile Objective Vital Signs Last 24 Hour Vital Signs Date Time Temp Pulse Resp B/P (MAP) Pulse Ox O2 Delivery O2 Flow Rate FiO2 09/22/17 08:35 115/58 09/22/17 08:15 97.7 62 22 115/58 97 Nasal Cannula 2.0 09/22/17 07:30 68 18 Nasal Cannula 2.0 28 09/22/17 04:00 Nasal Cannula 2.0 09/22/17 04:00 97.2 59 20 137/70 97 09/22/17 00:00 Nasal Cannula 2.0 09/22/17 00:00 97.9 68 20 135/56 95 09/21/17 20:00 Nasal Cannula 2.0 09/21/17 20:00 99.1 62 20 150/67 95 09/21/17 19:23 88 20 Nasal Cannula 2.0 28 09/21/17 16:12 97.7 67 19 132/78 95 09/21/17 16:03 69 18 99 Nasal Cannula 2.0 28 09/21/17 15:55 68 20 98 Nasal Cannula 2.0 28 09/21/17 15:55 28 09/21/17 12:00 97.9 56 20 139/71 92 Height (Feet): 5 Height (Inches): 4.00 Weight (Pounds): 160 HEENT: atraumatic Respiratory/Chest: normal breath sounds Cardiovascular: regular rhythm Abdomen: no organomegaly Microbiology Date/Time Source Procedure Growth Status 09/20/17 19:30 Sputum Expectorated Gram Stain - Final Resulted 09/20/17 19:30 Sputum Expectorated Sputum Culture - Preliminary NORMAL UPPER RESPIRATORY ANDREW AT 24 ... Resulted Laboratory Tests Test 09/22/17 06:45 White Blood Count 11.3 K/UL (4.8-10.8) H Red Blood Count 5.34 M/UL (4.20-5.40) Hemoglobin 15.2 G/DL (12.0-16.0) Hematocrit 47.2 % (37.0-47.0) H Mean Corpuscular Volume 88 FL (80-99) Mean Corpuscular Hemoglobin 28.4 PG (27.0-31.0) Mean Corpuscular Hemoglobin Concent 32.2 G/DL (32.0-36.0) Red Cell Distribution Width 13.1 % (11.6-14.8) Platelet Count 280 K/UL (150-450) Mean Platelet Volume 7.0 FL (6.5-10.1) Neutrophils (%) (Auto) 68.6 % (45.0-75.0) Lymphocytes (%) (Auto) 22.6 % (20.0-45.0) Monocytes (%) (Auto) 8.3 % (1.0-10.0) Eosinophils (%) (Auto) 0.0 % (0.0-3.0) Basophils (%) (Auto) 0.5 % (0.0-2.0) Sodium Level 143 MMOL/L (136-145) Potassium Level 3.6 MMOL/L (3.5-5.1) Chloride Level 105 MMOL/L (98-107) Carbon Dioxide Level 24 MMOL/L (21-32) Anion Gap 14 mmol/L (5-15) Blood Urea Nitrogen 26 mg/dL (7-18) H Creatinine 1.2 MG/DL (0.55-1.30) Estimat Glomerular Filtration Rate 45.5 mL/min (>60) Glucose Level 78 MG/DL (74-106) # Hemoglobin A1c 6.5 % (4.3-6.0) H Calcium Level 9.0 MG/DL (8.5-10.1) Thyroid Stimulating Hormone (TSH) 55.826 uiU/mL (0.358-3.740) Current Medications Medications (Trade) Dose Ordered Sig/Leatha Route PRN Reason Start Time Stop Time Status Last Admin Dose Admin Acetaminophen/ Hydrocodone Bitart ([place] 5/325) 1 tab Q6H PRN ORAL For Pain 1/16/18 23:15 09/26/17 23:14 Albuterol/ Ipratropium (Albuterol/ Ipratropium) 3 ml Q4H PRN HHN dyspnea 09/19/17 17:00 09/24/17 16:59 09/21/17 15:54 Albuterol/ Ipratropium (Albuterol/ Ipratropium) 3 ml TIDRT HHN 09/22/17 13:00 09/27/17 12:59 Atorvastatin Calcium (Lipitor) 20 mg BEDTIME ORAL 09/20/17 21:00 10/20/17 20:59 09/21/17 21:02 Azithromycin 500 mg/Dextrose 275 ml @ 275 mls/hr Q24HRS IV 09/22/17 23:00 09/28/17 23:01 Dextrose (Dextrose 50%) STAT PRN IV Hypoglycemia 09/19/17 16:48 10/18/17 16:47 Fluoxetine HCl (PROzac) 60 mg DAILY ORAL 09/23/17 09:00 10/23/17 08:59 Glipizide (Glucotrol) 5 mg BID ORAL 09/20/17 09:00 10/20/17 08:59 09/22/17 08:35 Heparin Sodium (Porcine) (Heparin 5000 units/ml) 5,000 units EVERY 12 HOURS SUBQ 09/19/17 21:00 10/18/17 20:59 Hydrochlorothiazide (Hydrodiuril) 12.5 mg DAILY ORAL 09/22/17 09:00 10/22/17 08:59 09/22/17 08:35 Insulin Aspart (NovoLOG) BEFORE MEALS AND HS SUBQ 09/19/17 21:00 10/18/17 20:59 Irbesartan (Avapro) 150 mg DAILY ORAL 09/22/17 09:00 10/22/17 08:59 09/22/17 08:35 Lamotrigine (LaMICtal) 200 mg QHS ORAL 09/20/17 21:00 10/19/17 08:59 09/21/17 20:58 Levothyroxine Sodium (Synthroid) 150 mcg ACBREAKFAST ORAL 09/20/17 06:30 10/20/17 06:29 09/22/17 06:31 Lorazepam (Ativan 2mg/ml 1ml) 0.5 mg Q4H PRN IV For Anxiety 09/19/17 23:15 09/26/17 23:14 Meloxicam (Mobic) 15 mg QHS ORAL 09/20/17 21:00 10/20/17 08:59 09/21/17 20:57 Metformin HCl (Glucophage) 750 mg BEDTIME ORAL 09/20/17 21:00 10/20/17 20:59 09/21/17 20:57 Methylprednisolone Sodium Succinate (Solu-MEDROL) 60 mg DAILY IV 09/22/17 09:00 10/19/17 21:59 09/22/17 08:36 Mirtazapine (Remeron) 7.5 mg BEDTIME ORAL 09/20/17 21:00 10/20/17 20:59 09/21/17 20:59 Morphine Sulfate (Morphine Sulfate) 2 mg EVERY 4 HOURS PRN IVP severe pain 7-10 09/19/17 17:00 09/25/17 18:29 Nitroglycerin (Ntg) 0.4 mg Q5M X 3 DOSES PRN SL Prn Chest Pain 09/19/17 16:45 10/18/17 18:29 Ondansetron HCl (Zofran) 4 mg Q6H PRN IVP Nausea & Vomiting 09/19/17 16:51 10/18/17 16:50 Oseltamivir Phosphate (Tamiflu) 75 mg Q12HR ORAL 09/19/17 21:00 09/24/17 20:59 09/22/17 08:35 Pantoprazole (Protonix) 40 mg DAILY ORAL 09/20/17 13:00 10/20/17 12:59 09/22/17 08:35 Promethazine HCl/ Codeine (Phenergan with Codeine) 5 ml EVERY 6 HOURS PRN ORAL cough 09/19/17 16:51 10/18/17 16:50 Theophylline (Anival-Dur) 100 mg EVERY 12 HOURS ORAL 09/19/17 21:00 10/18/17 20:59 09/22/17 08:35 MARTINE ZHAO M.D. Sep 22, 2017 10:47
[2017-09-22 11:56] VITALS: BP 138/74
[2017-09-22] MEDS ORDERED: Albuterol/Ipratropium 3ml neb HHN SCH (13:00)
--- NOTE | 2017-09-22 17:05 | Internal Med Progress Note ---
Subjective Date of Service: Sep 22, 2017 Physician Name Christophe Martinez Attending Physician Bob Lin MD Current Medications Medications (Trade) Dose Ordered Sig/Leatha Route PRN Reason Start Time Stop Time Status Last Admin Dose Admin Acetaminophen/ Hydrocodone Bitart ([place] 5/325) 1 tab Q6H PRN ORAL For Pain 09/19/17 23:15 09/26/17 23:14 Albuterol/ Ipratropium (Albuterol/ Ipratropium) 3 ml Q4H PRN HHN dyspnea 09/19/17 17:00 09/24/17 16:59 09/21/17 15:54 Albuterol/ Ipratropium (Albuterol/ Ipratropium) 3 ml TIDRT HHN 09/22/17 13:00 09/27/17 12:59 09/22/17 13:21 Atorvastatin Calcium (Lipitor) 20 mg BEDTIME ORAL 09/20/17 21:00 10/20/17 20:59 09/21/17 21:02 Azithromycin 500 mg/Dextrose 275 ml @ 275 mls/hr Q24HRS IV 09/22/17 23:00 09/28/17 23:01 Dextrose (Dextrose 50%) STAT PRN IV Hypoglycemia 09/19/17 16:48 10/18/17 16:47 Fluoxetine HCl (PROzac) 60 mg DAILY ORAL 09/23/17 09:00 10/23/17 08:59 Glipizide (Glucotrol) 5 mg BID ORAL 09/20/17 09:00 10/20/17 08:59 09/22/17 08:35 Heparin Sodium (Porcine) (Heparin 5000 units/ml) 5,000 units EVERY 12 HOURS SUBQ 09/19/17 21:00 10/18/17 20:59 Hydrochlorothiazide (Hydrodiuril) 12.5 mg DAILY ORAL 09/22/17 09:00 10/22/17 08:59 09/22/17 08:35 Insulin Aspart (NovoLOG) BEFORE MEALS AND HS SUBQ 09/19/17 21:00 10/18/17 20:59 Irbesartan (Avapro) 150 mg DAILY ORAL 09/22/17 09:00 10/22/17 08:59 09/22/17 08:35 Lamotrigine (LaMICtal) 200 mg QHS ORAL 09/20/17 21:00 10/19/17 08:59 09/21/17 20:58 Levothyroxine Sodium (Synthroid) 25 mcg DAILY@0630 ORAL 09/23/17 06:30 10/23/17 06:29 Levothyroxine Sodium (Synthroid) 150 mcg ACBREAKFAST ORAL 09/23/17 06:30 10/23/17 06:29 Lorazepam (Ativan 2mg/ml 1ml) 0.5 mg Q4H PRN IV For Anxiety 09/19/17 23:15 09/26/17 23:14 Meloxicam (Mobic) 15 mg QHS ORAL 09/20/17 21:00 10/20/17 08:59 09/21/17 20:57 Metformin HCl (Glucophage) 750 mg BEDTIME ORAL 09/20/17 21:00 10/20/17 20:59 09/21/17 20:57 Mirtazapine (Remeron) 7.5 mg BEDTIME ORAL 09/20/17 21:00 10/20/17 20:59 09/21/17 20:59 Morphine Sulfate (Morphine Sulfate) 2 mg EVERY 4 HOURS PRN IVP severe pain 7-10 09/19/17 17:00 09/25/17 18:29 Nitroglycerin (Ntg) 0.4 mg Q5M X 3 DOSES PRN SL Prn Chest Pain 09/19/17 16:45 10/18/17 18:29 Ondansetron HCl (Zofran) 4 mg Q6H PRN IVP Nausea & Vomiting 09/19/17 16:51 10/18/17 16:50 Oseltamivir Phosphate (Tamiflu) 75 mg Q12HR ORAL 09/19/17 21:00 09/24/17 20:59 09/22/17 08:35 Pantoprazole (Protonix) 40 mg DAILY ORAL 09/20/17 13:00 10/20/17 12:59 09/22/17 08:35 Prednisone (predniSONE) 60 mg Taper DAILY ORAL 09/23/17 09:00 09/29/17 08:59 Promethazine HCl/ Codeine (Phenergan with Codeine) 5 ml EVERY 6 HOURS PRN ORAL cough 09/19/17 16:51 10/18/17 16:50 Theophylline (Anival-Dur) 100 mg EVERY 12 HOURS ORAL 09/19/17 21:00 10/18/17 20:59 09/22/17 08:35 Allergies: Coded Allergies: PENICILLINS (Verified Allergy, Unknown, 09/18/17) ROS Limited/Unobtainable: No Constitutional: Reports: no symptoms HEENT: Reports: no symptoms Cardiovascular: Reports: no symptoms Respiratory: Reports: shortness of breath, wheezing Gastrointestinal/Abdominal: Reports: no symptoms Genitourinary: Reports: no symptoms Neurologic/Psychiatric: Reports: no symptoms Subjective 62 YO F with pulmonary fibrosis admitted with Shortness of breath. Now Influenza A positive. Cover for Int pepper-Dr Lin Objective Last Vital Signs Date Time Temp Pulse Resp B/P (MAP) Pulse Ox O2 Delivery O2 Flow Rate FiO2 09/22/17 13:31 73 18 99 Nasal Cannula 2.0 28 09/22/17 11:56 97.0 138/74 Laboratory Tests Test 09/22/17 06:45 White Blood Count 11.3 K/UL (4.8-10.8) H Red Blood Count 5.34 M/UL (4.20-5.40) Hemoglobin 15.2 G/DL (12.0-16.0) Hematocrit 47.2 % (37.0-47.0) H Mean Corpuscular Volume 88 FL (80-99) Mean Corpuscular Hemoglobin 28.4 PG (27.0-31.0) Mean Corpuscular Hemoglobin Concent 32.2 G/DL (32.0-36.0) Red Cell Distribution Width 13.1 % (11.6-14.8) Platelet Count 280 K/UL (150-450) Mean Platelet Volume 7.0 FL (6.5-10.1) Neutrophils (%) (Auto) 68.6 % (45.0-75.0) Lymphocytes (%) (Auto) 22.6 % (20.0-45.0) Monocytes (%) (Auto) 8.3 % (1.0-10.0) Eosinophils (%) (Auto) 0.0 % (0.0-3.0) Basophils (%) (Auto) 0.5 % (0.0-2.0) Sodium Level 143 MMOL/L (136-145) Potassium Level 3.6 MMOL/L (3.5-5.1) Chloride Level 105 MMOL/L (98-107) Carbon Dioxide Level 24 MMOL/L (21-32) Anion Gap 14 mmol/L (5-15) Blood Urea Nitrogen 26 mg/dL (7-18) H Creatinine 1.2 MG/DL (0.55-1.30) Estimat Glomerular Filtration Rate 45.5 mL/min (>60) Glucose Level 78 MG/DL (74-106) # Hemoglobin A1c 6.5 % (4.3-6.0) H Calcium Level 9.0 MG/DL (8.5-10.1) Thyroid Stimulating Hormone (TSH) 55.826 uiU/mL (0.358-3.740) Microbiology Date/Time Source Procedure Growth Status 09/20/17 19:30 Sputum Expectorated Gram Stain - Final Resulted 09/20/17 19:30 Sputum Expectorated Sputum Culture - Preliminary NORMAL UPPER RESPIRATORY ANDREW AT 24 ... Resulted Intake and Output 09/21/17 09/22/17 19:00 07:00 Intake Total 600 ml 425 ml Balance 600 ml 425 ml Intake Oral 600 ml 150 ml IV Total 275 ml # Voids 4 1 Objective General Appearance: WD/WN, alert, mild distress EENT: PERRL/EOMI, normal ENT inspection, TMs normal Neck: non-tender, normal alignment, supple, normal inspection Cardiovascular: normal peripheral pulses, normal rate, regular rhythm, no gallop/murmur, no JVD Respiratory/Chest: respiratory distress, decreased breath sounds, crackles/ rales, rhonchi - bilaterally, expiratory wheezing Abdomen: normal bowel sounds, non tender, soft, no organomegaly, no mass Extremities: normal range of motion, non-tender Neurologic: car customizer II-XII grossly normal, no motor/sensory deficits Skin: normal pigmentation, warm/dry Assessment/Plan Problem List: (1) CHF (congestive heart failure) (2) Diabetes mellitus, type II Assessment & Plan: Continue glipizide, metformin and novolog sliding scale. (3) HTN (hypertension) (4) Hypothyroidism Assessment & Plan: Continue synthroid (5) Pulmonary fibrosis (6) Influenza A Assessment & Plan: Continue tamiflu (7) Acute respiratory failure Assessment & Plan: Influenza A and pulmonary fibrosis. Tolerating nasal canula. See pulmonary note. Continue azithromycin and IV solumedrol (8) Major depression Assessment & Plan: Continue remeron and prozac Status: not improved CHRISTOPHE MARTINEZ Sep 22, 2017 17:05
[2017-09-22] MEDS: Albuterol/Ipratropium 3ml neb HHN SCH ×2 (19:21→22:27)
[2017-09-22 20:00] VITALS: BP 128/74
[2017-09-22] MEDS: Atorvastatin 20mg tab ORAL SCH (21:01)
[2017-09-22] MEDS: metFORMIN 500mg tab ORAL SCH (21:01)
[2017-09-22] MEDS: Meloxicam 15 MG TAB ORAL SCH (21:02)
[2017-09-22] MEDS: Azithromycin 500 MG in D5W 275 ML IV SCH (21:02)
[2017-09-23] VITALS: BP 113/62
[2017-09-23] MEDS: Albuterol/Ipratropium 3ml neb HHN SCH ×5 (02:57→20:26)
[2017-09-23 04:00] VITALS: BP 115/64
[2017-09-23] MEDS: Levothyroxine 25mcg tab ORAL SCH (06:26)
[2017-09-23] MEDS: NovoLOG Insulin Flexpen SUBQ SCH ×4 (06:29→21:00)
[2017-09-23 07:55] LABS: BASOPHILS % (AUTO) 0.3 % (0.0-2.0); EOSINOPHILS % (AUTO) 0.2 % (0.0-3.0); HEMATOCRIT 41.8 % (37.0-47.0); HEMOGLOBIN 13.8 G/DL (12.0-16.0); LYMPHOCYTES % (AUTO) 26.3 % (20.0-45.0); MEAN CORPUSCULAR VOLUME 87 FL (80-99); MONOCYTES % (AUTO) 9.4 % (1.0-10.0); NEUTROPHILS % (AUTO) 63.9 % (45.0-75.0); PLATELET COUNT 234 K/UL (150-450); RED CELL DISTRIBUTION WIDTH 12.6 % (11.6-14.8); WHITE BLOOD COUNT 7.1 K/UL (4.8-10.8)
[2017-09-23 08:00] VITALS: BP 159/87
[2017-09-23 08:37] LABS: ANION GAP 9 mmol/L (5-15); BLOOD UREA NITROGEN 22 mg/dL (7-18); CALCIUM 8.8 MG/DL (8.5-10.1); CARBON DIOXIDE 30 MMOL/L (21-32); CHLORIDE 103 MMOL/L (98-107); CREATININE 1.1 MG/DL (0.55-1.30); POTASSIUM 3.3 MMOL/L (3.5-5.1); SODIUM 142 MMOL/L (136-145)
[2017-09-23] MEDS: Heparin 5000 units/ml inj SUBQ SCH ×2 (09:00→20:19)
[2017-09-23] MEDS: hydroCHLOROthiazide 12.5mg TAB ORAL SCH (09:00)
[2017-09-23] MEDS: GlipiZIDE 5mg tab ORAL SCH ×2 (09:39→17:52)
[2017-09-23] MEDS: Irbesartan 150mg tablet ORAL SCH (09:39)
[2017-09-23] MEDS: Theophylline ER 100mg ORAL SCH ×2 (09:42→20:18)
[2017-09-23] MEDS: Oseltamivir 75mg cap ORAL SCH ×2 (10:02→20:18)
--- NOTE | 2017-09-23 10:54 | Infectious Diseases Prog Note ---
Assessment/Plan Assessment/Plan ASSESSMENT: the patient is a 62-year-old female Influenza A cough not improving prob bacterial bronchitis -CT chest:Interstitial disease as described above. A component of this is likely fibrosis. However there may be superimposed interstitial pneumonitis or interstitial edema. Please correlate clinically. -sp cx neg Leukocytosis (on steroids), resolved Afebrile. Hypertension. Chronic obstructive pulmonary disease. Pulmonary fibrosis. History of hiatal hernia status post surgery. Diabetes. Depression/anxiety PLAN: cont pt on Tamiflu and Zithro d# 4/ 5, on steroids Monitor CBC Monitor BMP. Monitor cultures (blood). Monitor chest x-ray. Subjective Allergies: Coded Allergies: PENICILLINS (Verified Allergy, Unknown, 09/18/17) Subjective afebrile leukocytosis resolved Bcx NTD sp cx neg Objective Vital Signs Last 24 Hour Vital Signs Date Time Temp Pulse Resp B/P (MAP) Pulse Ox O2 Delivery O2 Flow Rate FiO2 09/23/17 09:39 159/87 09/23/17 08:00 97.9 81 20 159/87 87 09/23/17 07:38 74 18 99 Nasal Cannula 2.0 28 09/23/17 07:28 70 20 94 Nasal Cannula 2.0 28 09/23/17 04:00 97.7 64 20 115/64 96 09/23/17 02:57 Nasal Cannula 2.0 28 09/23/17 02:57 Nasal Cannula 2.0 28 09/23/17 00:00 97.2 71 20 113/62 98 09/22/17 22:29 Nasal Cannula 2.0 28 09/22/17 22:28 Nasal Cannula 2.0 28 09/22/17 20:00 98.1 67 20 128/74 95 09/22/17 19:32 69 18 99 Nasal Cannula 2.0 28 09/22/17 19:23 71 18 Nasal Cannula 2.0 28 09/22/17 19:22 28 09/22/17 19:21 71 20 97 Nasal Cannula 2.0 28 09/22/17 13:31 73 18 99 Nasal Cannula 2.0 28 09/22/17 13:21 69 20 96 Nasal Cannula 2.0 28 09/22/17 13:21 28 09/22/17 11:56 97.0 63 22 138/74 97 Nasal Cannula 2.0 Height (Feet): 5 Height (Inches): 4.00 Weight (Pounds): 160 Objective HEENT: atraumatic Respiratory/Chest: normal breath sounds Cardiovascular: regular rhythm Abdomen: no organomegaly Microbiology Date/Time Source Procedure Growth Status 09/20/17 19:30 Sputum Expectorated Gram Stain - Final Complete 09/20/17 19:30 Sputum Expectorated Sputum Culture - Final NORMAL UPPER RESPIRATORY ANDREW AT 48 ... Complete Laboratory Tests Test 09/23/17 05:44 White Blood Count 7.1 K/UL (4.8-10.8) Red Blood Count 4.80 M/UL (4.20-5.40) Hemoglobin 13.8 G/DL (12.0-16.0) Hematocrit 41.8 % (37.0-47.0) Mean Corpuscular Volume 87 FL (80-99) Mean Corpuscular Hemoglobin 28.8 PG (27.0-31.0) Mean Corpuscular Hemoglobin Concent 33.1 G/DL (32.0-36.0) Red Cell Distribution Width 12.6 % (11.6-14.8) Platelet Count 234 K/UL (150-450) Mean Platelet Volume 6.8 FL (6.5-10.1) Neutrophils (%) (Auto) 63.9 % (45.0-75.0) Lymphocytes (%) (Auto) 26.3 % (20.0-45.0) Monocytes (%) (Auto) 9.4 % (1.0-10.0) Eosinophils (%) (Auto) 0.2 % (0.0-3.0) Basophils (%) (Auto) 0.3 % (0.0-2.0) Sodium Level 142 MMOL/L (136-145) Potassium Level 3.3 MMOL/L (3.5-5.1) L Chloride Level 103 MMOL/L (98-107) Carbon Dioxide Level 30 MMOL/L (21-32) Anion Gap 9 mmol/L (5-15) Blood Urea Nitrogen 22 mg/dL (7-18) H Creatinine 1.1 MG/DL (0.55-1.30) Estimat Glomerular Filtration Rate 50.3 mL/min (>60) Glucose Level 82 MG/DL (74-106) Calcium Level 8.8 MG/DL (8.5-10.1) Current Medications Medications (Trade) Dose Ordered Sig/Leatha Route PRN Reason Start Time Stop Time Status Last Admin Dose Admin Acetaminophen/ Hydrocodone Bitart ([place] 5/325) 1 tab Q6H PRN ORAL For Pain 09/19/17 23:15 09/26/17 23:14 Albuterol/ Ipratropium (Albuterol/ Ipratropium) 3 ml Q4HRT HHN 09/22/17 19:00 09/27/17 18:59 09/23/17 07:28 Atorvastatin Calcium (Lipitor) 20 mg BEDTIME ORAL 09/20/17 21:00 10/20/17 20:59 09/22/17 21:01 Azithromycin 500 mg/Dextrose 275 ml @ 275 mls/hr Q24HRS IV 09/22/17 20:48 09/28/17 20:49 09/22/17 21:02 Dextrose (Dextrose 50%) STAT PRN IV Hypoglycemia 09/19/17 16:48 10/18/17 16:47 Fluoxetine HCl (PROzac) 60 mg DAILY ORAL 09/23/17 09:00 10/23/17 08:59 09/23/17 09:41 Glipizide (Glucotrol) 5 mg BID ORAL 09/20/17 09:00 10/20/17 08:59 09/23/17 09:39 Heparin Sodium (Porcine) (Heparin 5000 units/ml) 5,000 units EVERY 12 HOURS SUBQ 09/19/17 21:00 10/18/17 20:59 Hydrochlorothiazide (Hydrodiuril) 12.5 mg DAILY ORAL 09/22/17 09:00 10/22/17 08:59 09/23/17 09:00 Insulin Aspart (NovoLOG) BEFORE MEALS AND HS SUBQ 09/19/17 21:00 10/18/17 20:59 Irbesartan (Avapro) 150 mg DAILY ORAL 09/22/17 09:00 10/22/17 08:59 09/23/17 09:39 Lamotrigine (LaMICtal) 200 mg QHS ORAL 09/20/17 21:00 10/19/17 08:59 09/22/17 21:01 Levothyroxine Sodium (Synthroid) 25 mcg DAILY@0630 ORAL 09/23/17 06:30 10/23/17 06:29 09/23/17 06:26 Levothyroxine Sodium (Synthroid) 150 mcg ACBREAKFAST ORAL 09/23/17 06:30 10/23/17 06:29 09/23/17 06:23 Lorazepam (Ativan 2mg/ml 1ml) 0.5 mg Q4H PRN IV For Anxiety 09/19/17 23:15 09/26/17 23:14 Meloxicam (Mobic) 15 mg QHS ORAL 09/20/17 21:00 10/20/17 08:59 09/22/17 21:02 Metformin HCl (Glucophage) 750 mg BEDTIME ORAL 09/20/17 21:00 10/20/17 20:59 09/22/17 21:01 Mirtazapine (Remeron) 7.5 mg BEDTIME ORAL 09/20/17 21:00 10/20/17 20:59 09/22/17 21:02 Morphine Sulfate (Morphine Sulfate) 2 mg EVERY 4 HOURS PRN IVP severe pain 7-10 09/19/17 17:00 09/25/17 18:29 Nitroglycerin (Ntg) 0.4 mg Q5M X 3 DOSES PRN SL Prn Chest Pain 09/19/17 16:45 10/18/17 18:29 Ondansetron HCl (Zofran) 4 mg Q6H PRN IVP Nausea & Vomiting 09/19/17 16:51 10/18/17 16:50 Oseltamivir Phosphate (Tamiflu) 75 mg Q12HR ORAL 09/19/17 21:00 09/24/17 20:59 09/23/17 10:02 Pantoprazole (Protonix) 40 mg DAILY ORAL 09/20/17 13:00 10/20/17 12:59 09/23/17 09:41 Potassium Chloride (K-Dur) 20 meq ONCE ONCE ORAL 09/23/17 11:00 09/23/17 11:01 Prednisone (predniSONE) 60 mg Taper DAILY ORAL 09/23/17 09:00 09/29/17 08:59 09/23/17 09:41 Promethazine HCl/ Codeine (Phenergan with Codeine) 5 ml EVERY 6 HOURS PRN ORAL cough 09/19/17 16:51 10/18/17 16:50 Theophylline (Anival-Dur) 100 mg EVERY 12 HOURS ORAL 09/19/17 21:00 10/18/17 20:59 09/23/17 09:42 Sujata Rueda M.D. Sep 23, 2017 10:54
[2017-09-23 12:15] VITALS: BP 142/71
--- NOTE | 2017-09-23 13:26 | Internal Med Progress Note ---
Subjective Date of Service: Sep 23, 2017 Physician Name MandyChristophe Attending Physician Bob Lin MD Current Medications Medications (Trade) Dose Ordered Sig/Leatha Route PRN Reason Start Time Stop Time Status Last Admin Dose Admin Acetaminophen/ Hydrocodone Bitart ([place] 5/325) 1 tab Q6H PRN ORAL For Pain 09/19/17 23:15 09/26/17 23:14 Albuterol/ Ipratropium (Albuterol/ Ipratropium) 3 ml Q4HRT HHN 09/22/17 19:00 09/27/17 18:59 09/23/17 07:28 Atorvastatin Calcium (Lipitor) 20 mg BEDTIME ORAL 09/20/17 21:00 10/20/17 20:59 09/22/17 21:01 Azithromycin 500 mg/Dextrose 275 ml @ 275 mls/hr Q24HRS IV 09/22/17 20:48 09/28/17 20:49 09/22/17 21:02 Dextrose (Dextrose 50%) STAT PRN IV Hypoglycemia 09/19/17 16:48 10/18/17 16:47 Fluoxetine HCl (PROzac) 60 mg DAILY ORAL 09/23/17 09:00 10/23/17 08:59 09/23/17 09:41 Glipizide (Glucotrol) 5 mg BID ORAL 09/20/17 09:00 10/20/17 08:59 09/23/17 09:39 Heparin Sodium (Porcine) (Heparin 5000 units/ml) 5,000 units EVERY 12 HOURS SUBQ 09/19/17 21:00 10/18/17 20:59 Hydrochlorothiazide (Hydrodiuril) 12.5 mg DAILY ORAL 09/22/17 09:00 10/22/17 08:59 09/23/17 09:00 Insulin Aspart (NovoLOG) BEFORE MEALS AND HS SUBQ 09/19/17 21:00 10/18/17 20:59 Irbesartan (Avapro) 150 mg DAILY ORAL 09/22/17 09:00 10/22/17 08:59 09/23/17 09:39 Lamotrigine (LaMICtal) 200 mg QHS ORAL 09/20/17 21:00 10/19/17 08:59 09/22/17 21:01 Levothyroxine Sodium (Synthroid) 25 mcg DAILY@0630 ORAL 09/23/17 06:30 10/23/17 06:29 09/23/17 06:26 Levothyroxine Sodium (Synthroid) 150 mcg ACBREAKFAST ORAL 09/23/17 06:30 10/23/17 06:29 09/23/17 06:23 Lorazepam (Ativan 2mg/ml 1ml) 0.5 mg Q4H PRN IV For Anxiety 09/19/17 23:15 09/26/17 23:14 Meloxicam (Mobic) 15 mg QHS ORAL 09/20/17 21:00 10/20/17 08:59 09/22/17 21:02 Metformin HCl (Glucophage) 750 mg BEDTIME ORAL 09/20/17 21:00 10/20/17 20:59 09/22/17 21:01 Mirtazapine (Remeron) 7.5 mg BEDTIME ORAL 09/20/17 21:00 10/20/17 20:59 09/22/17 21:02 Morphine Sulfate (Morphine Sulfate) 2 mg EVERY 4 HOURS PRN IVP severe pain 7-10 09/19/17 17:00 09/25/17 18:29 Nitroglycerin (Ntg) 0.4 mg Q5M X 3 DOSES PRN SL Prn Chest Pain 09/19/17 16:45 10/18/17 18:29 Ondansetron HCl (Zofran) 4 mg Q6H PRN IVP Nausea & Vomiting 09/19/17 16:51 10/18/17 16:50 Oseltamivir Phosphate (Tamiflu) 75 mg Q12HR ORAL 09/19/17 21:00 09/24/17 20:59 09/23/17 10:02 Pantoprazole (Protonix) 40 mg DAILY ORAL 09/20/17 13:00 10/20/17 12:59 09/23/17 09:41 Prednisone (predniSONE) 60 mg Taper DAILY ORAL 09/23/17 09:00 09/29/17 08:59 09/23/17 09:41 Promethazine HCl/ Codeine (Phenergan with Codeine) 5 ml EVERY 6 HOURS PRN ORAL cough 09/19/17 16:51 10/18/17 16:50 Theophylline (Anival-Dur) 100 mg EVERY 12 HOURS ORAL 09/19/17 21:00 10/18/17 20:59 09/23/17 09:42 Allergies: Coded Allergies: PENICILLINS (Verified Allergy, Unknown, 09/18/17) ROS Limited/Unobtainable: No Constitutional: Reports: no symptoms HEENT: Reports: no symptoms Cardiovascular: Reports: no symptoms Respiratory: Reports: shortness of breath Gastrointestinal/Abdominal: Reports: no symptoms Genitourinary: Reports: no symptoms Neurologic/Psychiatric: Reports: no symptoms Subjective 62 YO F with pulmonary fibrosis admitted with Shortness of breath. Now Influenza A positive. Cover for Int med-Dr Lin Objective Last Vital Signs Date Time Temp Pulse Resp B/P (MAP) Pulse Ox O2 Delivery O2 Flow Rate FiO2 09/23/17 12:15 98.3 72 20 142/71 97 Nasal Cannula 2.0 09/23/17 11:20 28 Laboratory Tests Test 09/23/17 05:44 White Blood Count 7.1 K/UL (4.8-10.8) Red Blood Count 4.80 M/UL (4.20-5.40) Hemoglobin 13.8 G/DL (12.0-16.0) Hematocrit 41.8 % (37.0-47.0) Mean Corpuscular Volume 87 FL (80-99) Mean Corpuscular Hemoglobin 28.8 PG (27.0-31.0) Mean Corpuscular Hemoglobin Concent 33.1 G/DL (32.0-36.0) Red Cell Distribution Width 12.6 % (11.6-14.8) Platelet Count 234 K/UL (150-450) Mean Platelet Volume 6.8 FL (6.5-10.1) Neutrophils (%) (Auto) 63.9 % (45.0-75.0) Lymphocytes (%) (Auto) 26.3 % (20.0-45.0) Monocytes (%) (Auto) 9.4 % (1.0-10.0) Eosinophils (%) (Auto) 0.2 % (0.0-3.0) Basophils (%) (Auto) 0.3 % (0.0-2.0) Sodium Level 142 MMOL/L (136-145) Potassium Level 3.3 MMOL/L (3.5-5.1) L Chloride Level 103 MMOL/L (98-107) Carbon Dioxide Level 30 MMOL/L (21-32) Anion Gap 9 mmol/L (5-15) Blood Urea Nitrogen 22 mg/dL (7-18) H Creatinine 1.1 MG/DL (0.55-1.30) Estimat Glomerular Filtration Rate 50.3 mL/min (>60) Glucose Level 82 MG/DL (74-106) Calcium Level 8.8 MG/DL (8.5-10.1) Microbiology Date/Time Source Procedure Growth Status 09/20/17 19:30 Sputum Expectorated Gram Stain - Final Complete 09/20/17 19:30 Sputum Expectorated Sputum Culture - Final NORMAL UPPER RESPIRATORY ANDREW AT 48 ... Complete Intake and Output 09/22/17 09/23/17 19:00 07:00 Intake Total 1080 ml 1275 ml Balance 1080 ml 1275 ml Intake Oral 1080 ml 1000 ml IV Total 275 ml # Voids 2 3 Objective General Appearance: WD/WN, alert, mild distress EENT: PERRL/EOMI, normal ENT inspection, TMs normal Neck: non-tender, normal alignment, supple, normal inspection Cardiovascular: normal peripheral pulses, normal rate, regular rhythm, no gallop/murmur, no JVD Respiratory/Chest: respiratory distress, decreased breath sounds, crackles/ rales, rhonchi - bilaterally, expiratory wheezing Abdomen: normal bowel sounds, non tender, soft, no organomegaly, no mass Extremities: normal range of motion, non-tender 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 (3) HTN (hypertension) (4) Hypothyroidism Assessment & Plan: Continue synthroid (5) Pulmonary fibrosis (6) Influenza A Assessment & Plan: Continue tamiflu (7) Acute respiratory failure Assessment & Plan: Influenza A and pulmonary fibrosis. Tolerating nasal canula. See pulmonary note. Continue azithromycin and start oral prednisone today (8) Major depression Assessment & Plan: Continue remeron and prozac Status: progressing CHRISTOPHE MARTINEZ Sep 23, 2017 13:26
--- NOTE | 2017-09-23 14:56 | Pulmonology Progress Note ---
Assessment/Plan Assessment/Plan ASSESSMENT Acute on chronic hypoxemic respiratory failure Pulmonary fibrosis Influenza A Probably bronchitis DM Hypothyroidism with elevated TSH Bipolar disorder PLAN OF CARE [facility] floor O2 titrate, ( has O at home , usin 24hrs/d) HHN ATC and prn and CPT s/p IV steroids, started on oral this am empiric abx , ID follows CT chest c/w interstitial lung disease, but no evidence for pulm nodules a/tussive prn fup with CXR Sputum cx negative, influenza + type A, on Tamiflu Blood cx prel negative BS management with oral Glipizide and metformin; SS prn, [id number]-3.5, at goal TSH over 50, increased dose of levothyroxine cardio follows serial troponin x2 negative ECHO with pEF 70-75%, chest pain likely cough induced edema LE mild, likely due to steroids, but will get Venous Duplex BLE BP management with ARB and optimize as needed DVT, GI prophylaxis Psych follows, psych med regimen optimized as per psych dc plan for am case discussed and evaluated by supervising physician Subjective Allergies: Coded Allergies: PENICILLINS (Verified Allergy, Unknown, 09/18/17) Subjective still reported some wheezing and SOB no chest pain, no palpitations, no dizziness Objective Last 24 Hour Vital Signs Date Time Temp Pulse Resp B/P (MAP) Pulse Ox O2 Delivery O2 Flow Rate FiO2 09/23/17 12:15 98.3 72 20 142/71 97 Nasal Cannula 2.0 09/23/17 11:20 Nasal Cannula 2.0 28 09/23/17 11:20 Nasal Cannula 2.0 28 09/23/17 09:39 159/87 09/23/17 08:00 97.9 81 20 159/87 87 09/23/17 07:38 74 18 99 Nasal Cannula 2.0 28 09/23/17 07:28 70 20 94 Nasal Cannula 2.0 28 09/23/17 04:00 97.7 64 20 115/64 96 09/23/17 02:57 Nasal Cannula 2.0 28 09/23/17 02:57 Nasal Cannula 2.0 28 09/23/17 00:00 97.2 71 20 113/62 98 09/22/17 22:29 Nasal Cannula 2.0 28 09/22/17 22:28 Nasal Cannula 2.0 28 09/22/17 20:00 98.1 67 20 128/74 95 09/22/17 19:32 69 18 99 Nasal Cannula 2.0 28 09/22/17 19:23 71 18 Nasal Cannula 2.0 28 09/22/17 19:22 28 09/22/17 19:21 71 20 97 Nasal Cannula 2.0 28 Intake and Output 09/22/17 09/23/17 19:00 07:00 Intake Total 1080 ml 1275 ml Balance 1080 ml 1275 ml Intake Oral 1080 ml 1000 ml IV Total 275 ml # Voids 2 3 Objective General Appearance: no acute distress, awake, alert, oriented female in NAD HEENT: normocephalic, atraumatic, anicteric, mucous membranes moist Respiratory/Chest: no respiratory distress, no accessory muscle use, few isolated expiratory wheezes Cardiovascular: normal rate, no JVD Abdomen: normal bowel sounds, soft, non tender, non distended Extremities: other - +1 edema BLE Neurologic/Psychiatric: no motor/sensory deficits, alert, oriented x 3, responsive Microbiology Date/Time Source Procedure Growth Status 09/20/17 19:30 Sputum Expectorated Gram Stain - Final Complete 09/20/17 19:30 Sputum Expectorated Sputum Culture - Final NORMAL UPPER RESPIRATORY ANDREW AT 48 ... Complete Laboratory Tests 09/23/17 05:44: White Blood Count 7.1, Red Blood Count 4.80, Hemoglobin 13.8, Hematocrit 41.8, Mean Corpuscular Volume 87, Mean Corpuscular Hemoglobin 28.8, Mean Corpuscular Hemoglobin Concent 33.1, Red Cell Distribution Width 12.6, Platelet Count 234, Mean Platelet Volume 6.8, Neutrophils (%) (Auto) 63.9, Lymphocytes (%) (Auto) 26.3, Monocytes (%) (Auto) 9.4, Eosinophils (%) (Auto) 0.2, Basophils (%) (Auto ) 0.3, Sodium Level 142, Potassium Level 3.3L, Chloride Level 103, Carbon Dioxide Level 30, Anion Gap 9, Blood Urea Nitrogen 22H, Creatinine 1.1, Estimat Glomerular Filtration Rate 50.3, Glucose Level 82, Calcium Level 8.8 Current Medications Medications (Trade) Dose Ordered Sig/Leatha Route PRN Reason Start Time Stop Time Status Last Admin Dose Admin Acetaminophen/ Hydrocodone Bitart ([place] 5/325) 1 tab Q6H PRN ORAL For Pain 09/19/17 23:15 09/26/17 23:14 Albuterol/ Ipratropium (Albuterol/ Ipratropium) 3 ml Q4HRT HHN 09/22/17 19:00 09/27/17 18:59 09/23/17 07:28 Atorvastatin Calcium (Lipitor) 20 mg BEDTIME ORAL 09/20/17 21:00 10/20/17 20:59 09/22/17 21:01 Azithromycin 500 mg/Dextrose 275 ml @ 275 mls/hr Q24HRS IV 09/22/17 20:48 09/28/17 20:49 09/22/17 21:02 Dextrose (Dextrose 50%) STAT PRN IV Hypoglycemia 09/19/17 16:48 10/18/17 16:47 Fluoxetine HCl (PROzac) 60 mg DAILY ORAL 09/23/17 09:00 10/23/17 08:59 09/23/17 09:41 Glipizide (Glucotrol) 5 mg BID ORAL 09/20/17 09:00 10/20/17 08:59 09/23/17 09:39 Heparin Sodium (Porcine) (Heparin 5000 units/ml) 5,000 units EVERY 12 HOURS SUBQ 09/19/17 21:00 10/18/17 20:59 Hydrochlorothiazide (Hydrodiuril) 12.5 mg DAILY ORAL 09/22/17 09:00 10/22/17 08:59 09/23/17 09:00 Insulin Aspart (NovoLOG) BEFORE MEALS AND HS SUBQ 09/19/17 21:00 10/18/17 20:59 Irbesartan (Avapro) 150 mg DAILY ORAL 09/22/17 09:00 10/22/17 08:59 09/23/17 09:39 Lamotrigine (LaMICtal) 200 mg QHS ORAL 09/20/17 21:00 10/19/17 08:59 09/22/17 21:01 Levothyroxine Sodium (Synthroid) 25 mcg DAILY@0630 ORAL 09/23/17 06:30 10/23/17 06:29 09/23/17 06:26 Levothyroxine Sodium (Synthroid) 150 mcg ACBREAKFAST ORAL 09/23/17 06:30 10/23/17 06:29 09/23/17 06:23 Lorazepam (Ativan 2mg/ml 1ml) 0.5 mg Q4H PRN IV For Anxiety 09/19/17 23:15 09/26/17 23:14 Meloxicam (Mobic) 15 mg QHS ORAL 09/20/17 21:00 10/20/17 08:59 09/22/17 21:02 Metformin HCl (Glucophage) 750 mg BEDTIME ORAL 09/20/17 21:00 10/20/17 20:59 09/22/17 21:01 Mirtazapine (Remeron) 7.5 mg BEDTIME ORAL 09/20/17 21:00 10/20/17 20:59 09/22/17 21:02 Morphine Sulfate (Morphine Sulfate) 2 mg EVERY 4 HOURS PRN IVP severe pain 7-10 09/19/17 17:00 09/25/17 18:29 Nitroglycerin (Ntg) 0.4 mg Q5M X 3 DOSES PRN SL Prn Chest Pain 09/19/17 16:45 10/18/17 18:29 Ondansetron HCl (Zofran) 4 mg Q6H PRN IVP Nausea & Vomiting 09/19/17 16:51 10/18/17 16:50 Oseltamivir Phosphate (Tamiflu) 75 mg Q12HR ORAL 09/19/17 21:00 09/24/17 20:59 09/23/17 10:02 Pantoprazole (Protonix) 40 mg DAILY ORAL 09/20/17 13:00 10/20/17 12:59 09/23/17 09:41 Prednisone (predniSONE) 60 mg Taper DAILY ORAL 09/23/17 09:00 09/29/17 08:59 09/23/17 09:41 Promethazine HCl/ Codeine (Phenergan with Codeine) 5 ml EVERY 6 HOURS PRN ORAL cough 09/19/17 16:51 10/18/17 16:50 Theophylline (Anival-Dur) 100 mg EVERY 12 HOURS ORAL 09/19/17 21:00 10/18/17 20:59 09/23/17 09:42 J[facility]Bat[facility] HospitalZ[facility]ab Valladares NP Sep 23, 2017 14:56
[2017-09-23 16:09] VITALS: BP 100/47
[2017-09-23 20:00] VITALS: BP 138/68
[2017-09-23] MEDS: Azithromycin 500 MG in D5W 275 ML IV SCH (20:16)
[2017-09-23] MEDS: metFORMIN 500mg tab ORAL SCH (20:16)
[2017-09-23] MEDS: Meloxicam 15 MG TAB ORAL SCH (20:17)
[2017-09-23] MEDS: Atorvastatin 20mg tab ORAL SCH (20:17)
[2017-09-24 04:00] VITALS: BP 116/65
[2017-09-24] MEDS: Levothyroxine 25mcg tab ORAL SCH (05:35)
[2017-09-24] MEDS: NovoLOG Insulin Flexpen SUBQ SCH ×4 (05:41→20:55)
[2017-09-24 07:16] LABS: BASOPHILS % (AUTO) 0.3 % (0.0-2.0); EOSINOPHILS % (AUTO) 0.3 % (0.0-3.0); HEMATOCRIT 45.3 % (37.0-47.0); HEMOGLOBIN 14.9 G/DL (12.0-16.0); LYMPHOCYTES % (AUTO) 25.2 % (20.0-45.0); MEAN CORPUSCULAR VOLUME 87 FL (80-99); MONOCYTES % (AUTO) 7.5 % (1.0-10.0); NEUTROPHILS % (AUTO) 66.7 % (45.0-75.0); PLATELET COUNT 267 K/UL (150-450); RED BLOOD COUNT 5.21 M/UL (4.20-5.40); RED CELL DISTRIBUTION WIDTH 12.7 % (11.6-14.8); WHITE BLOOD COUNT 9.8 K/UL (4.8-10.8)
[2017-09-24 07:19] LABS: ANION GAP 5 mmol/L (5-15); BLOOD UREA NITROGEN 22 mg/dL (7-18); CALCIUM 9.5 MG/DL (8.5-10.1); CARBON DIOXIDE 35 MMOL/L (21-32); CHLORIDE 102 MMOL/L (98-107); CREATININE 1.1 MG/DL (0.55-1.30); POTASSIUM 4.3 MMOL/L (3.5-5.1); SODIUM 142 MMOL/L (136-145)
[2017-09-24] MEDS: Albuterol/Ipratropium 3ml neb HHN SCH ×5 (07:39→23:00)
[2017-09-24 08:00] VITALS: BP 108/50
[2017-09-24] MEDS: Heparin 5000 units/ml inj SUBQ SCH ×2 (09:00→20:55)
[2017-09-24] MEDS: Irbesartan 150mg tablet ORAL SCH (09:00)
[2017-09-24] MEDS: hydroCHLOROthiazide 12.5mg TAB ORAL SCH (09:00)
[2017-09-24] MEDS: GlipiZIDE 5mg tab ORAL SCH ×2 (09:13→17:48)
[2017-09-24] MEDS: Theophylline ER 100mg ORAL SCH ×2 (09:14→20:53)
[2017-09-24] MEDS: Oseltamivir 75mg cap ORAL SCH (09:16)
--- NOTE | 2017-09-24 09:32 | Diagnostic Imaging Report ---
APPROVED REPORT CPT Code: 50012 Present Symptoms Shortness of breath BILATERAL: Imaging reveals a patent deep venous system bilaterally. There is no evidence of thrombus within the femoral, popliteal or tibial segments. The greater saphenous veins are also within normal limits. Doppler indicates normal spontaneous flow within these segments.
--- NOTE | 2017-09-24 11:05 | Pulmonology Progress Note ---
Assessment/Plan Assessment/Plan ASSESSMENT Acute on chronic hypoxemic respiratory failure Pulmonary fibrosis Influenza A Probably bronchitis DM Hypothyroidism with elevated TSH Bipolar disorder PLAN OF CARE [facility] floor O2 titrate, ( has O at home , usin 24hrs/d) HHN ATC and prn and CPT s/p IV steroids, on oral empiric abx , ID follows CT chest c/w interstitial lung disease, but no evidence for pulm nodules a/tussive prn fup with CXR Sputum cx negative, influenza + type A, on Tamiflu Blood cx prel negative BS management with oral Glipizide and metformin; SS prn, Adw2g-7.5, at goal TSH over 50, increased dose of levothyroxine cardio follows serial troponin x2 negative ECHO with pEF 70-75%, chest pain likely cough induced edema LE mild, likely due to steroids, but will get Venous Duplex BLE BP management with ARB and optimize as needed DVT, GI prophylaxis Psych follows, psych med regimen optimized as per psych dc plan for today as per PMD ( script for Medrol dose pack in the chart), patient has other meds and O2 at home case discussed and evaluated by supervising physician Subjective Allergies: Coded Allergies: PENICILLINS (Verified Allergy, Unknown, 09/18/17) Subjective feeling better today still dry cough, but no wheezing no chest pain, no palpitations, no dizziness Objective Last 24 Hour Vital Signs Date Time Temp Pulse Resp B/P (MAP) Pulse Ox O2 Delivery O2 Flow Rate FiO2 09/24/17 09:00 108/50 09/24/17 08:00 98.0 72 20 108/50 95 09/24/17 07:39 68 18 96 Nasal Cannula 2.0 28 09/24/17 04:00 98.4 58 18 116/65 97 Nasal Cannula 2.0 09/23/17 20:40 88 18 98 Nasal Cannula 2.0 28 09/23/17 20:25 86 18 94 Nasal Cannula 2.0 28 09/23/17 20:00 97.9 75 20 138/68 94 Nasal Cannula 2.0 09/23/17 16:09 97.7 88 21 100/47 95 Nasal Cannula 2.0 09/23/17 15:35 76 16 99 Nasal Cannula 2.0 28 09/23/17 15:26 77 18 95 Nasal Cannula 2.0 28 09/23/17 12:15 98.3 72 20 142/71 97 Nasal Cannula 2.0 09/23/17 11:20 Nasal Cannula 2.0 28 09/23/17 11:20 Nasal Cannula 2.0 28 Intake and Output 09/23/17 09/24/17 19:00 07:00 Intake Total 1080 ml Balance 1080 ml Intake Oral 1080 ml # Voids 4 3 Objective General Appearance: no acute distress, awake, alert, oriented female in NAD HEENT: normocephalic, atraumatic, anicteric, mucous membranes moist Respiratory/Chest: no respiratory distress, no accessory muscle use, decreased BS with poor air exchange Cardiovascular: normal rate, no JVD Abdomen: normal bowel sounds, soft, non tender, non distended Extremities: other - +1 edema BLE Neurologic/Psychiatric: no motor/sensory deficits, alert, oriented x 3, responsive Laboratory Tests 09/24/17 06:00: White Blood Count 9.8, Red Blood Count 5.21, Hemoglobin 14.9, Hematocrit 45.3, Mean Corpuscular Volume 87, Mean Corpuscular Hemoglobin 28.5, Mean Corpuscular Hemoglobin Concent 32.8, Red Cell Distribution Width 12.7, Platelet Count 267, Mean Platelet Volume 6.4L, Neutrophils (%) (Auto) 66.7, Lymphocytes (%) (Auto) 25.2, Monocytes (%) (Auto) 7.5, Eosinophils (%) (Auto) 0.3, Basophils (%) (Auto ) 0.3, Sodium Level 142, Potassium Level 4.3, Chloride Level 102, Carbon Dioxide Level 35H, Anion Gap 5, Blood Urea Nitrogen 22H, Creatinine 1.1, Estimat Glomerular Filtration Rate 50.3, Glucose Level 57L, Calcium Level 9.5 Current Medications Medications (Trade) Dose Ordered Sig/Leatha Route PRN Reason Start Time Stop Time Status Last Admin Dose Admin Acetaminophen/ Hydrocodone Bitart ([place] 5/325) 1 tab Q6H PRN ORAL For Pain 09/19/17 23:15 09/26/17 23:14 Albuterol/ Ipratropium (Albuterol/ Ipratropium) 3 ml Q4HRT HHN 09/22/17 19:00 09/27/17 18:59 09/24/17 07:39 Atorvastatin Calcium (Lipitor) 20 mg BEDTIME ORAL 09/20/17 21:00 10/20/17 20:59 09/23/17 20:17 Azithromycin 500 mg/Dextrose 275 ml @ 275 mls/hr Q24HRS IV 09/22/17 20:48 09/28/17 20:49 09/23/17 20:16 Dextrose (Dextrose 50%) STAT PRN IV Hypoglycemia 09/19/17 16:48 10/18/17 16:47 Fluoxetine HCl (PROzac) 60 mg DAILY ORAL 09/23/17 09:00 10/23/17 08:59 09/24/17 09:14 Glipizide (Glucotrol) 5 mg BID ORAL 09/20/17 09:00 10/20/17 08:59 09/24/17 09:13 Heparin Sodium (Porcine) (Heparin 5000 units/ml) 5,000 units EVERY 12 HOURS SUBQ 09/19/17 21:00 10/18/17 20:59 Hydrochlorothiazide (Hydrodiuril) 12.5 mg DAILY ORAL 09/22/17 09:00 10/22/17 08:59 09/23/17 09:00 Insulin Aspart (NovoLOG) BEFORE MEALS AND HS SUBQ 09/19/17 21:00 10/18/17 20:59 Irbesartan (Avapro) 150 mg DAILY ORAL 09/22/17 09:00 10/22/17 08:59 09/23/17 09:39 Lamotrigine (LaMICtal) 200 mg QHS ORAL 09/20/17 21:00 10/19/17 08:59 09/23/17 20:17 Levothyroxine Sodium (Synthroid) 25 mcg DAILY@0630 ORAL 09/23/17 06:30 10/23/17 06:29 09/24/17 05:35 Levothyroxine Sodium (Synthroid) 150 mcg ACBREAKFAST ORAL 09/23/17 06:30 10/23/17 06:29 09/24/17 05:35 Lorazepam (Ativan 2mg/ml 1ml) 0.5 mg Q4H PRN IV For Anxiety 09/19/17 23:15 09/26/17 23:14 Meloxicam (Mobic) 15 mg QHS ORAL 09/20/17 21:00 10/20/17 08:59 09/23/17 20:17 Metformin HCl (Glucophage) 750 mg BEDTIME ORAL 09/20/17 21:00 10/20/17 20:59 09/23/17 20:16 Mirtazapine (Remeron) 7.5 mg BEDTIME ORAL 09/20/17 21:00 10/20/17 20:59 09/23/17 20:18 Morphine Sulfate (Morphine Sulfate) 2 mg EVERY 4 HOURS PRN IVP severe pain 7-10 09/19/17 17:00 09/25/17 18:29 Nitroglycerin (Ntg) 0.4 mg Q5M X 3 DOSES PRN SL Prn Chest Pain 09/19/17 16:45 10/18/17 18:29 Ondansetron HCl (Zofran) 4 mg Q6H PRN IVP Nausea & Vomiting 09/19/17 16:51 10/18/17 16:50 Oseltamivir Phosphate (Tamiflu) 75 mg Q12HR ORAL 09/19/17 21:00 09/24/17 20:59 09/24/17 09:16 Pantoprazole (Protonix) 40 mg DAILY ORAL 09/20/17 13:00 10/20/17 12:59 09/24/17 09:14 Prednisone (predniSONE) 50 mg Taper DAILY ORAL 09/23/17 09:00 09/29/17 08:59 09/24/17 09:13 Promethazine HCl/ Codeine (Phenergan with Codeine) 5 ml EVERY 6 HOURS PRN ORAL cough 09/19/17 16:51 10/18/17 16:50 Theophylline (Anival-Dur) 100 mg EVERY 12 HOURS ORAL 09/19/17 21:00 10/18/17 20:59 09/24/17 09:14 [facility]Zainab NP Sep 24, 2017 11:05
[2017-09-24 12:00] VITALS: BP 115/60
--- NOTE | 2017-09-24 13:00 | Internal Med Progress Note ---
Subjective Date of Service: Sep 24, 2017 Physician Name MandyChristophe Attending Physician Bob Lin MD Current Medications Medications (Trade) Dose Ordered Sig/Leatha Route PRN Reason Start Time Stop Time Status Last Admin Dose Admin Acetaminophen/ Hydrocodone Bitart ([place] 5/325) 1 tab Q6H PRN ORAL For Pain 09/19/17 23:15 09/26/17 23:14 Albuterol/ Ipratropium (Albuterol/ Ipratropium) 3 ml Q4HRT HHN 09/22/17 19:00 09/27/17 18:59 09/24/17 11:08 Atorvastatin Calcium (Lipitor) 20 mg BEDTIME ORAL 09/20/17 21:00 10/20/17 20:59 09/23/17 20:17 Azithromycin 500 mg/Dextrose 275 ml @ 275 mls/hr Q24HRS IV 09/22/17 20:48 09/28/17 20:49 09/23/17 20:16 Dextrose (Dextrose 50%) STAT PRN IV Hypoglycemia 09/19/17 16:48 10/18/17 16:47 Fluoxetine HCl (PROzac) 60 mg DAILY ORAL 09/23/17 09:00 10/23/17 08:59 09/24/17 09:14 Glipizide (Glucotrol) 5 mg BID ORAL 09/20/17 09:00 10/20/17 08:59 09/24/17 09:13 Heparin Sodium (Porcine) (Heparin 5000 units/ml) 5,000 units EVERY 12 HOURS SUBQ 09/19/17 21:00 10/18/17 20:59 Hydrochlorothiazide (Hydrodiuril) 12.5 mg DAILY ORAL 09/22/17 09:00 10/22/17 08:59 09/23/17 09:00 Insulin Aspart (NovoLOG) BEFORE MEALS AND HS SUBQ 09/19/17 21:00 10/18/17 20:59 Irbesartan (Avapro) 150 mg DAILY ORAL 09/22/17 09:00 10/22/17 08:59 09/23/17 09:39 Lamotrigine (LaMICtal) 200 mg QHS ORAL 09/20/17 21:00 10/19/17 08:59 09/23/17 20:17 Levothyroxine Sodium (Synthroid) 25 mcg DAILY@0630 ORAL 09/23/17 06:30 10/23/17 06:29 09/24/17 05:35 Levothyroxine Sodium (Synthroid) 150 mcg ACBREAKFAST ORAL 09/23/17 06:30 10/23/17 06:29 09/24/17 05:35 Lorazepam (Ativan 2mg/ml 1ml) 0.5 mg Q4H PRN IV For Anxiety 09/19/17 23:15 09/26/17 23:14 Meloxicam (Mobic) 15 mg QHS ORAL 09/20/17 21:00 10/20/17 08:59 09/23/17 20:17 Metformin HCl (Glucophage) 750 mg BEDTIME ORAL 09/20/17 21:00 10/20/17 20:59 09/23/17 20:16 Mirtazapine (Remeron) 7.5 mg BEDTIME ORAL 09/20/17 21:00 10/20/17 20:59 09/23/17 20:18 Morphine Sulfate (Morphine Sulfate) 2 mg EVERY 4 HOURS PRN IVP severe pain 7-10 09/19/17 17:00 09/25/17 18:29 Nitroglycerin (Ntg) 0.4 mg Q5M X 3 DOSES PRN SL Prn Chest Pain 09/19/17 16:45 10/18/17 18:29 Ondansetron HCl (Zofran) 4 mg Q6H PRN IVP Nausea & Vomiting 09/19/17 16:51 10/18/17 16:50 Oseltamivir Phosphate (Tamiflu) 75 mg Q12HR ORAL 09/19/17 21:00 09/24/17 20:59 09/24/17 09:16 Pantoprazole (Protonix) 40 mg DAILY ORAL 09/20/17 13:00 10/20/17 12:59 09/24/17 09:14 Prednisone (predniSONE) 50 mg Taper DAILY ORAL 09/23/17 09:00 09/29/17 08:59 09/24/17 09:13 Promethazine HCl/ Codeine (Phenergan with Codeine) 5 ml EVERY 6 HOURS PRN ORAL cough 09/19/17 16:51 10/18/17 16:50 Theophylline (Anival-Dur) 100 mg EVERY 12 HOURS ORAL 09/19/17 21:00 10/18/17 20:59 09/24/17 09:14 Allergies: Coded Allergies: PENICILLINS (Verified Allergy, Unknown, 09/18/17) ROS Limited/Unobtainable: No Constitutional: Reports: no symptoms HEENT: Reports: no symptoms Cardiovascular: Reports: no symptoms Respiratory: Reports: shortness of breath Gastrointestinal/Abdominal: Reports: no symptoms Genitourinary: Reports: no symptoms Neurologic/Psychiatric: Reports: no symptoms Subjective 62 YO F with pulmonary fibrosis admitted with Shortness of breath. Now Influenza A positive. Patient requests renal ultrasound. Cover for Int pepper-Dr Lin Objective Last Vital Signs Date Time Temp Pulse Resp B/P (MAP) Pulse Ox O2 Delivery O2 Flow Rate FiO2 09/24/17 11:22 98 Nasal Cannula 2.0 28 09/24/17 11:17 76 20 09/24/17 09:00 108/50 09/24/17 08:00 98.0 Laboratory Tests Test 09/24/17 06:00 White Blood Count 9.8 K/UL (4.8-10.8) Red Blood Count 5.21 M/UL (4.20-5.40) Hemoglobin 14.9 G/DL (12.0-16.0) Hematocrit 45.3 % (37.0-47.0) Mean Corpuscular Volume 87 FL (80-99) Mean Corpuscular Hemoglobin 28.5 PG (27.0-31.0) Mean Corpuscular Hemoglobin Concent 32.8 G/DL (32.0-36.0) Red Cell Distribution Width 12.7 % (11.6-14.8) Platelet Count 267 K/UL (150-450) Mean Platelet Volume 6.4 FL (6.5-10.1) L Neutrophils (%) (Auto) 66.7 % (45.0-75.0) Lymphocytes (%) (Auto) 25.2 % (20.0-45.0) Monocytes (%) (Auto) 7.5 % (1.0-10.0) Eosinophils (%) (Auto) 0.3 % (0.0-3.0) Basophils (%) (Auto) 0.3 % (0.0-2.0) Sodium Level 142 MMOL/L (136-145) Potassium Level 4.3 MMOL/L (3.5-5.1) Chloride Level 102 MMOL/L (98-107) Carbon Dioxide Level 35 MMOL/L (21-32) H Anion Gap 5 mmol/L (5-15) Blood Urea Nitrogen 22 mg/dL (7-18) H Creatinine 1.1 MG/DL (0.55-1.30) Estimat Glomerular Filtration Rate 50.3 mL/min (>60) Glucose Level 57 MG/DL (74-106) L Calcium Level 9.5 MG/DL (8.5-10.1) Intake and Output 09/23/17 09/24/17 19:00 07:00 Intake Total 1080 ml Balance 1080 ml Intake Oral 1080 ml # Voids 4 3 Objective General Appearance: WD/WN, alert, mild distress EENT: PERRL/EOMI, normal ENT inspection, TMs normal Neck: non-tender, normal alignment, supple, normal inspection Cardiovascular: normal peripheral pulses, normal rate, regular rhythm, no gallop/murmur, no JVD Respiratory/Chest: respiratory distress, decreased breath sounds, crackles/ rales, rhonchi - bilaterally, expiratory wheezing Abdomen: normal bowel sounds, non tender, soft, no organomegaly, no mass Extremities: normal range of motion, non-tender Neurologic: general farmer II-XII grossly normal, no motor/sensory deficits Skin: normal pigmentation, warm/dry Assessment/Plan Problem List: (1) CHF (congestive heart failure) (2) Diabetes mellitus, type II Assessment & Plan: Continue glipizide, metformin and novolog sliding scale. (3) HTN (hypertension) (4) Hypothyroidism Assessment & Plan: Continue synthroid (5) Pulmonary fibrosis (6) Influenza A Assessment & Plan: Tamiflu day 5/5 09/24/17. (7) Acute respiratory failure Assessment & Plan: Influenza A and pulmonary fibrosis. Tolerating nasal canula. See pulmonary note. Continue azithromycin and start oral prednisone today (8) Major depression Assessment & Plan: Continue remeron and prozac (9) Renal insufficiency Assessment & Plan: Patient requests renal ultrasound. Status: stable Assessment/Plan Discharge planning: Patient states she was told she would be discharged Home . Prescription in chart CHRISTOPHE MARTINEZ Sep 24, 2017 13:00
[2017-09-24] MEDS ORDERED: Norco 5mg/325mg tab ORAL PRN (13:30)
[2017-09-24 16:00] VITALS: BP 128/68
[2017-09-24 20:00] VITALS: BP 130/68
[2017-09-24] MEDS: Azithromycin 500 MG in D5W 275 ML IV SCH (20:52)
[2017-09-24] MEDS: Meloxicam 15 MG TAB ORAL SCH (20:53)
[2017-09-24] MEDS: Atorvastatin 20mg tab ORAL SCH (20:53)
[2017-09-24] MEDS: metFORMIN 500mg tab ORAL SCH (20:53)
[2017-09-25] MEDS: Albuterol/Ipratropium 3ml neb HHN SCH ×4 (03:00→16:25)
[2017-09-25 04:00] VITALS: BP 145/81
[2017-09-25] MEDS: NovoLOG Insulin Flexpen SUBQ SCH ×3 (06:17→16:30)
[2017-09-25] MEDS: Levothyroxine 25mcg tab ORAL SCH (06:18)
[2017-09-25 07:34] LABS: BASOPHILS % (AUTO) 0.4 % (0.0-2.0); EOSINOPHILS % (AUTO) 0.6 % (0.0-3.0); HEMOGLOBIN 13.8 G/DL (12.0-16.0); MEAN CORPUSCULAR VOLUME 88 FL (80-99); MONOCYTES % (AUTO) 7.3 % (1.0-10.0); NEUTROPHILS % (AUTO) 67.7 % (45.0-75.0); PLATELET COUNT 230 K/UL (150-450); RED BLOOD COUNT 4.79 M/UL (4.20-5.40); RED CELL DISTRIBUTION WIDTH 12.7 % (11.6-14.8); WHITE BLOOD COUNT 8.6 K/UL (4.8-10.8)
[2017-09-25 08:00] VITALS: BP 128/57
[2017-09-25 08:00] LABS: ANION GAP 5 mmol/L (5-15); BLOOD UREA NITROGEN 20 mg/dL (7-18); CALCIUM 9.2 MG/DL (8.5-10.1); CARBON DIOXIDE 33 MMOL/L (21-32); CHLORIDE 103 MMOL/L (98-107); POTASSIUM 4.1 MMOL/L (3.5-5.1); SODIUM 141 MMOL/L (136-145)
[2017-09-25] MEDS: GlipiZIDE 5mg tab ORAL SCH ×2 (08:31→18:17)
[2017-09-25] MEDS: hydroCHLOROthiazide 12.5mg TAB ORAL SCH (08:32)
[2017-09-25] MEDS: Theophylline ER 100mg ORAL SCH (08:32)
[2017-09-25] MEDS: Irbesartan 150mg tablet ORAL SCH (08:32)
[2017-09-25] MEDS: Heparin 5000 units/ml inj SUBQ SCH (08:35)
--- NOTE | 2017-09-25 09:43 | Infectious Diseases Prog Note ---
Assessment/Plan Assessment/Plan ASSESSMENT: the patient is a 62-year-old female Influenza A cough not improving prob bacterial bronchitis -CT chest:Interstitial disease as described above. A component of this is likely fibrosis. However there may be superimposed interstitial pneumonitis or interstitial edema. Please correlate clinically. -sp cx neg Leukocytosis (on steroids), resolved Afebrile. Hypertension. Chronic obstructive pulmonary disease. Pulmonary fibrosis. History of hiatal hernia status post surgery. Diabetes. Depression/anxiety PLAN: DC Tamiflu and Zithro d# 5 / 5, on steroids Monitor CBC Monitor BMP. Monitor chest x-ray. Subjective Allergies: Coded Allergies: PENICILLINS (Verified Allergy, Unknown, 09/18/17) Subjective Afebrile occasional cough Objective Vital Signs Last 24 Hour Vital Signs Date Time Temp Pulse Resp B/P (MAP) Pulse Ox O2 Delivery O2 Flow Rate FiO2 09/25/17 08:32 128/57 09/25/17 08:00 97.2 58 20 128/57 98 Nasal Cannula 2.0 09/25/17 07:39 Nasal Cannula 2.0 09/25/17 07:37 Nasal Cannula 2.0 09/25/17 07:36 Nasal Cannula 2.0 28 09/25/17 07:35 97 Nasal Cannula 2.0 28 09/25/17 04:00 97.5 65 21 145/81 98 09/25/17 03:50 Nasal Cannula 09/25/17 03:50 28 09/25/17 03:50 Nasal Cannula 09/24/17 23:04 Nasal Cannula 09/24/17 23:03 28 09/24/17 23:02 82 20 94 Nasal Cannula 2.0 28 09/24/17 20:00 98.1 82 20 130/68 94 Nasal Cannula 2.0 09/24/17 19:35 80 20 94 Nasal Cannula 2.0 28 09/24/17 19:24 28 09/24/17 19:22 80 20 94 Nasal Cannula 2.0 28 09/24/17 19:22 94 Nasal Cannula 2.0 28 09/24/17 19:22 Nasal Cannula 2.0 28 09/24/17 16:00 97.9 84 20 128/68 92 09/24/17 14:40 89 20 98 Nasal Cannula 2.0 28 09/24/17 14:31 87 18 96 Nasal Cannula 2.0 28 09/24/17 12:00 98.4 75 20 115/60 97 09/24/17 11:22 98 Nasal Cannula 2.0 28 09/24/17 11:22 Nasal Cannula 2.0 28 09/24/17 11:17 76 20 99 Nasal Cannula 2.0 28 09/24/17 11:08 77 95 Nasal Cannula 2.0 28 Height (Feet): 5 Height (Inches): 4.00 Weight (Pounds): 160 HEENT: mucous membranes moist Respiratory/Chest: normal breath sounds Cardiovascular: regularly irregular Abdomen: non distended Laboratory Tests Test 09/25/17 05:35 White Blood Count 8.6 K/UL (4.8-10.8) Red Blood Count 4.79 M/UL (4.20-5.40) Hemoglobin 13.8 G/DL (12.0-16.0) Hematocrit 42.0 % (37.0-47.0) Mean Corpuscular Volume 88 FL (80-99) Mean Corpuscular Hemoglobin 28.8 PG (27.0-31.0) Mean Corpuscular Hemoglobin Concent 32.9 G/DL (32.0-36.0) Red Cell Distribution Width 12.7 % (11.6-14.8) Platelet Count 230 K/UL (150-450) Mean Platelet Volume 6.2 FL (6.5-10.1) L Neutrophils (%) (Auto) 67.7 % (45.0-75.0) Lymphocytes (%) (Auto) 24.0 % (20.0-45.0) Monocytes (%) (Auto) 7.3 % (1.0-10.0) Eosinophils (%) (Auto) 0.6 % (0.0-3.0) Basophils (%) (Auto) 0.4 % (0.0-2.0) Sodium Level 141 MMOL/L (136-145) Potassium Level 4.1 MMOL/L (3.5-5.1) Chloride Level 103 MMOL/L (98-107) Carbon Dioxide Level 33 MMOL/L (21-32) H Anion Gap 5 mmol/L (5-15) Blood Urea Nitrogen 20 mg/dL (7-18) H Creatinine 1.0 MG/DL (0.55-1.30) Estimat Glomerular Filtration Rate 56.2 mL/min (>60) Glucose Level 88 MG/DL (74-106) Calcium Level 9.2 MG/DL (8.5-10.1) Current Medications Medications (Trade) Dose Ordered Sig/Leatha Route PRN Reason Start Time Stop Time Status Last Admin Dose Admin Acetaminophen/ Hydrocodone Bitart ([place] 5/325) 1 tab Q4H PRN ORAL Moderate Pain 09/24/17 13:30 10/01/17 13:29 09/25/17 08:55 Albuterol/ Ipratropium (Albuterol/ Ipratropium) 3 ml Q4HRT HHN 09/22/17 19:00 09/27/17 18:59 09/24/17 19:25 Atorvastatin Calcium (Lipitor) 20 mg BEDTIME ORAL 09/20/17 21:00 10/20/17 20:59 09/24/17 20:53 Azithromycin 500 mg/Dextrose 275 ml @ 275 mls/hr Q24HRS IV 09/22/17 20:48 09/28/17 20:49 09/24/17 20:52 Dextrose (Dextrose 50%) STAT PRN IV Hypoglycemia 09/19/17 16:48 10/18/17 16:47 Fluoxetine HCl (PROzac) 60 mg DAILY ORAL 09/23/17 09:00 10/23/17 08:59 09/25/17 08:31 Glipizide (Glucotrol) 5 mg BID ORAL 09/20/17 09:00 10/20/17 08:59 09/25/17 08:31 Heparin Sodium (Porcine) (Heparin 5000 units/ml) 5,000 units EVERY 12 HOURS SUBQ 09/19/17 21:00 10/18/17 20:59 Hydrochlorothiazide (Hydrodiuril) 12.5 mg DAILY ORAL 09/22/17 09:00 10/22/17 08:59 09/25/17 08:32 Insulin Aspart (NovoLOG) BEFORE MEALS AND HS SUBQ 09/19/17 21:00 10/18/17 20:59 Irbesartan (Avapro) 150 mg DAILY ORAL 09/22/17 09:00 10/22/17 08:59 09/25/17 08:32 Lamotrigine (LaMICtal) 200 mg QHS ORAL 09/20/17 21:00 10/19/17 08:59 09/24/17 20:52 Levothyroxine Sodium (Synthroid) 25 mcg DAILY@0630 ORAL 09/23/17 06:30 10/23/17 06:29 09/25/17 06:18 Levothyroxine Sodium (Synthroid) 150 mcg ACBREAKFAST ORAL 09/23/17 06:30 10/23/17 06:29 09/25/17 06:18 Lorazepam (Ativan 2mg/ml 1ml) 0.5 mg Q4H PRN IV For Anxiety 09/19/17 23:15 09/26/17 23:14 Meloxicam (Mobic) 15 mg QHS ORAL 09/20/17 21:00 10/20/17 08:59 09/24/17 20:53 Metformin HCl (Glucophage) 750 mg BEDTIME ORAL 09/20/17 21:00 10/20/17 20:59 09/24/17 20:53 Mirtazapine (Remeron) 7.5 mg BEDTIME ORAL 09/20/17 21:00 10/20/17 20:59 09/24/17 20:53 Morphine Sulfate (Morphine Sulfate) 2 mg EVERY 4 HOURS PRN IVP severe pain 7-10 09/19/17 17:00 09/25/17 18:29 Nitroglycerin (Ntg) 0.4 mg Q5M X 3 DOSES PRN SL Prn Chest Pain 09/19/17 16:45 10/18/17 18:29 Ondansetron HCl (Zofran) 4 mg Q6H PRN IVP Nausea & Vomiting 09/19/17 16:51 10/18/17 16:50 Pantoprazole (Protonix) 40 mg DAILY ORAL 09/20/17 13:00 10/20/17 12:59 09/25/17 08:31 Prednisone (predniSONE) 40 mg Taper DAILY ORAL 09/23/17 09:00 09/29/17 08:59 09/25/17 08:31 Promethazine HCl/ Codeine (Phenergan with Codeine) 5 ml EVERY 6 HOURS PRN ORAL cough 09/19/17 16:51 10/18/17 16:50 Theophylline (Anival-Dur) 100 mg EVERY 12 HOURS ORAL 09/19/17 21:00 10/18/17 20:59 09/25/17 08:32 MARTINE ZHAO M.D. Sep 25, 2017 09:43
--- NOTE | 2017-09-25 10:40 | Internal Med Progress Note ---
Subjective Date of Service: Sep 25, 2017 Physician Name Christophe Martinez Attending Physician Bob Lin MD Current Medications Medications (Trade) Dose Ordered Sig/Leatha Route PRN Reason Start Time Stop Time Status Last Admin Dose Admin Acetaminophen/ Hydrocodone Bitart ([place] 5/325) 1 tab Q4H PRN ORAL Moderate Pain 09/24/17 13:30 10/01/17 13:29 09/25/17 08:55 Albuterol/ Ipratropium (Albuterol/ Ipratropium) 3 ml Q4HRT HHN 09/22/17 19:00 09/27/17 18:59 09/24/17 19:25 Atorvastatin Calcium (Lipitor) 20 mg BEDTIME ORAL 09/20/17 21:00 10/20/17 20:59 09/24/17 20:53 Azithromycin 500 mg/Dextrose 275 ml @ 275 mls/hr Q24HRS IV 09/22/17 20:48 09/25/17 23:00 09/24/17 20:52 Dextrose (Dextrose 50%) STAT PRN IV Hypoglycemia 09/19/17 16:48 10/18/17 16:47 Fluoxetine HCl (PROzac) 60 mg DAILY ORAL 09/23/17 09:00 10/23/17 08:59 09/25/17 08:31 Glipizide (Glucotrol) 5 mg BID ORAL 09/20/17 09:00 10/20/17 08:59 09/25/17 08:31 Heparin Sodium (Porcine) (Heparin 5000 units/ml) 5,000 units EVERY 12 HOURS SUBQ 09/19/17 21:00 10/18/17 20:59 Hydrochlorothiazide (Hydrodiuril) 12.5 mg DAILY ORAL 09/22/17 09:00 10/22/17 08:59 09/25/17 08:32 Insulin Aspart (NovoLOG) BEFORE MEALS AND HS SUBQ 09/19/17 21:00 10/18/17 20:59 Irbesartan (Avapro) 150 mg DAILY ORAL 09/22/17 09:00 10/22/17 08:59 09/25/17 08:32 Lamotrigine (LaMICtal) 200 mg QHS ORAL 09/20/17 21:00 10/19/17 08:59 09/24/17 20:52 Levothyroxine Sodium (Synthroid) 25 mcg DAILY@0630 ORAL 09/23/17 06:30 10/23/17 06:29 09/25/17 06:18 Levothyroxine Sodium (Synthroid) 150 mcg ACBREAKFAST ORAL 09/23/17 06:30 10/23/17 06:29 09/25/17 06:18 Lorazepam (Ativan 2mg/ml 1ml) 0.5 mg Q4H PRN IV For Anxiety 09/19/17 23:15 09/26/17 23:14 Meloxicam (Mobic) 15 mg QHS ORAL 09/20/17 21:00 10/20/17 08:59 09/24/17 20:53 Metformin HCl (Glucophage) 750 mg BEDTIME ORAL 09/20/17 21:00 10/20/17 20:59 09/24/17 20:53 Mirtazapine (Remeron) 7.5 mg BEDTIME ORAL 09/20/17 21:00 10/20/17 20:59 09/24/17 20:53 Morphine Sulfate (Morphine Sulfate) 2 mg EVERY 4 HOURS PRN IVP severe pain 7-10 09/19/17 17:00 09/25/17 18:29 Nitroglycerin (Ntg) 0.4 mg Q5M X 3 DOSES PRN SL Prn Chest Pain 09/19/17 16:45 10/18/17 18:29 Ondansetron HCl (Zofran) 4 mg Q6H PRN IVP Nausea & Vomiting 09/19/17 16:51 10/18/17 16:50 Pantoprazole (Protonix) 40 mg DAILY ORAL 09/20/17 13:00 10/20/17 12:59 09/25/17 08:31 Prednisone (predniSONE) 40 mg Taper DAILY ORAL 09/23/17 09:00 09/29/17 08:59 09/25/17 08:31 Promethazine HCl/ Codeine (Phenergan with Codeine) 5 ml EVERY 6 HOURS PRN ORAL cough 09/19/17 16:51 10/18/17 16:50 Theophylline (Anival-Dur) 100 mg EVERY 12 HOURS ORAL 09/19/17 21:00 10/18/17 20:59 09/25/17 08:32 Allergies: Coded Allergies: PENICILLINS (Verified Allergy, Unknown, 09/18/17) ROS Limited/Unobtainable: No Constitutional: Reports: no symptoms HEENT: Reports: no symptoms Cardiovascular: Reports: no symptoms Respiratory: Reports: shortness of breath Gastrointestinal/Abdominal: Reports: no symptoms Genitourinary: Reports: no symptoms Neurologic/Psychiatric: Reports: no symptoms Subjective 62 YO F with pulmonary fibrosis admitted with Shortness of breath. Now Influenza A positive. Patient requests renal ultrasound. Cover for Int pepper-Dr Lin. Await discharge home with home health today Objective Last Vital Signs Date Time Temp Pulse Resp B/P (MAP) Pulse Ox O2 Delivery O2 Flow Rate FiO2 09/25/17 08:32 128/57 09/25/17 08:00 97.2 58 20 98 Nasal Cannula 2.0 09/25/17 07:36 28 Laboratory Tests Test 09/25/17 05:35 White Blood Count 8.6 K/UL (4.8-10.8) Red Blood Count 4.79 M/UL (4.20-5.40) Hemoglobin 13.8 G/DL (12.0-16.0) Hematocrit 42.0 % (37.0-47.0) Mean Corpuscular Volume 88 FL (80-99) Mean Corpuscular Hemoglobin 28.8 PG (27.0-31.0) Mean Corpuscular Hemoglobin Concent 32.9 G/DL (32.0-36.0) Red Cell Distribution Width 12.7 % (11.6-14.8) Platelet Count 230 K/UL (150-450) Mean Platelet Volume 6.2 FL (6.5-10.1) L Neutrophils (%) (Auto) 67.7 % (45.0-75.0) Lymphocytes (%) (Auto) 24.0 % (20.0-45.0) Monocytes (%) (Auto) 7.3 % (1.0-10.0) Eosinophils (%) (Auto) 0.6 % (0.0-3.0) Basophils (%) (Auto) 0.4 % (0.0-2.0) Sodium Level 141 MMOL/L (136-145) Potassium Level 4.1 MMOL/L (3.5-5.1) Chloride Level 103 MMOL/L (98-107) Carbon Dioxide Level 33 MMOL/L (21-32) H Anion Gap 5 mmol/L (5-15) Blood Urea Nitrogen 20 mg/dL (7-18) H Creatinine 1.0 MG/DL (0.55-1.30) Estimat Glomerular Filtration Rate 56.2 mL/min (>60) Glucose Level 88 MG/DL (74-106) Calcium Level 9.2 MG/DL (8.5-10.1) Intake and Output 09/24/17 09/25/17 19:00 07:00 Intake Total 780 ml Balance 780 ml Intake Oral 780 ml # Voids 4 1 Objective General Appearance: WD/WN, alert, mild distress EENT: PERRL/EOMI, normal ENT inspection, TMs normal Neck: non-tender, normal alignment, supple, normal inspection Cardiovascular: normal peripheral pulses, normal rate, regular rhythm, no gallop/murmur, no JVD Respiratory/Chest: respiratory distress, decreased breath sounds, crackles/ rales, rhonchi - bilaterally, expiratory wheezing Abdomen: normal bowel sounds, non tender, soft, no organomegaly, no mass Extremities: normal range of motion, non-tender 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 (3) HTN (hypertension) (4) Hypothyroidism Assessment & Plan: Continue synthroid (5) Pulmonary fibrosis (6) Influenza A Assessment & Plan: Tamiflu day 5/5 on 09/24/17. Flu vaccine today prior to discharge (7) Acute respiratory failure Assessment & Plan: Influenza A and pulmonary fibrosis. Tolerating nasal canula. See pulmonary note. Continue azithromycin and start oral prednisone today (8) Major depression Assessment & Plan: Continue remeron and prozac (9) Renal insufficiency Assessment & Plan: Patient requests renal ultrasound. Status: progressing Assessment/Plan Discharge planning: discharge home today with [facility]. Flu and pneumovax vaccines prior to discharge today. CHRISTOPHE MARTINEZ Sep 25, 2017 10:40
[2017-09-25] MEDS ORDERED: MEDROL4 M1 PO (10:43)
[2017-09-25] MEDS ORDERED: AZITHROMYCIN500 MG ORAL (10:43)
[2017-09-25 12:00] VITALS: BP 117/42
[2017-09-25] MEDS ORDERED: Flu Vaccine Quadrivalent 0.5ml IM ONE (12:30)
[2017-09-25] MEDS ORDERED: Pneumococcal Vaccine 25mcg/0.5ml IM ONE (12:30)
[2017-09-25 16:00] VITALS: BP 143/60
--- NOTE | 2017-09-25 16:49 | Pulmonology Progress Note ---
Assessment/Plan Problems: (1) Acute respiratory failure (2) Pulmonary fibrosis (3) Influenza A Assessment/Plan taper steroids off abx all notes reviewed titrate fio2 chest pt Subjective ROS Limited/Unobtainable: No Interval Events: still SOB Allergies: Coded Allergies: PENICILLINS (Verified Allergy, Unknown, 09/18/17) Objective Last 24 Hour Vital Signs Date Time Temp Pulse Resp B/P (MAP) Pulse Ox O2 Delivery O2 Flow Rate FiO2 09/25/17 16:25 71 20 98 Nasal Cannula 2.0 09/25/17 12:03 78 18 95 Nasal Cannula 2.0 28 09/25/17 12:00 96.3 75 20 117/42 94 Nasal Cannula 2.0 09/25/17 11:53 75 20 91 Room Air 09/25/17 08:32 128/57 09/25/17 08:00 97.2 58 20 128/57 98 Nasal Cannula 2.0 09/25/17 07:39 Nasal Cannula 2.0 09/25/17 07:37 Nasal Cannula 2.0 09/25/17 07:36 Nasal Cannula 2.0 28 09/25/17 07:35 97 Nasal Cannula 2.0 28 09/25/17 04:00 97.5 65 21 145/81 98 09/25/17 03:50 Nasal Cannula 09/25/17 03:50 28 09/25/17 03:50 Nasal Cannula 09/24/17 23:04 Nasal Cannula 09/24/17 23:03 28 09/24/17 23:02 82 20 94 Nasal Cannula 2.0 28 09/24/17 20:00 98.1 82 20 130/68 94 Nasal Cannula 2.0 09/24/17 19:35 80 20 94 Nasal Cannula 2.0 28 09/24/17 19:24 28 09/24/17 19:22 80 20 94 Nasal Cannula 2.0 28 09/24/17 19:22 94 Nasal Cannula 2.0 28 09/24/17 19:22 Nasal Cannula 2.0 28 Intake and Output 09/24/17 09/25/17 19:00 07:00 Intake Total 780 ml Balance 780 ml Intake Oral 780 ml # Voids 4 1 Objective General Appearance: WD/WN HEENT: normocephalic, atraumatic Respiratory/Chest: chest wall non-tender, lungs clear Cardiovascular: normal peripheral pulses, normal rate Abdomen: normal bowel sounds, soft, non tender Genitourinary: normal external genitalia Extremities: no cyanosis Neurologic/Psychiatric: manager of financial II-XII grossly normal, no motor/sensory deficits Lymphatic: no neck adenopathy Laboratory Tests 09/25/17 05:35: White Blood Count 8.6, Red Blood Count 4.79, Hemoglobin 13.8, Hematocrit 42.0, Mean Corpuscular Volume 88, Mean Corpuscular Hemoglobin 28.8, Mean Corpuscular Hemoglobin Concent 32.9, Red Cell Distribution Width 12.7, Platelet Count 230, Mean Platelet Volume 6.2L, Neutrophils (%) (Auto) 67.7, Lymphocytes (%) (Auto) 24.0, Monocytes (%) (Auto) 7.3, Eosinophils (%) (Auto) 0.6, Basophils (%) (Auto ) 0.4, Sodium Level 141, Potassium Level 4.1, Chloride Level 103, Carbon Dioxide Level 33H, Anion Gap 5, Blood Urea Nitrogen 20H, Creatinine 1.0, Estimat Glomerular Filtration Rate 56.2, Glucose Level 88, Calcium Level 9.2 Current Medications Medications (Trade) Dose Ordered Sig/Leatha Route PRN Reason Start Time Stop Time Status Last Admin Dose Admin Acetaminophen/ Hydrocodone Bitart ([place] 5/325) 1 tab Q4H PRN ORAL Moderate Pain 09/24/17 13:30 10/01/17 13:29 09/25/17 08:55 Albuterol/ Ipratropium (Albuterol/ Ipratropium) 3 ml Q4HRT HHN 09/22/17 19:00 09/27/17 18:59 09/25/17 16:25 Atorvastatin Calcium (Lipitor) 20 mg BEDTIME ORAL 09/20/17 21:00 10/20/17 20:59 09/24/17 20:53 Azithromycin 500 mg/Dextrose 275 ml @ 275 mls/hr Q24HRS IV 09/22/17 20:48 09/25/17 23:00 09/24/17 20:52 Dextrose (Dextrose 50%) STAT PRN IV Hypoglycemia 09/19/17 16:48 10/18/17 16:47 Fluoxetine HCl (PROzac) 60 mg DAILY ORAL 09/23/17 09:00 10/23/17 08:59 09/25/17 08:31 Glipizide (Glucotrol) 5 mg BID ORAL 09/20/17 09:00 10/20/17 08:59 09/25/17 08:31 Heparin Sodium (Porcine) (Heparin 5000 units/ml) 5,000 units EVERY 12 HOURS SUBQ 09/19/17 21:00 10/18/17 20:59 Hydrochlorothiazide (Hydrodiuril) 12.5 mg DAILY ORAL 09/22/17 09:00 10/22/17 08:59 09/25/17 08:32 Insulin Aspart (NovoLOG) BEFORE MEALS AND HS SUBQ 09/19/17 21:00 10/18/17 20:59 Irbesartan (Avapro) 150 mg DAILY ORAL 09/22/17 09:00 10/22/17 08:59 09/25/17 08:32 Lamotrigine (LaMICtal) 200 mg QHS ORAL 09/20/17 21:00 10/19/17 08:59 09/24/17 20:52 Levothyroxine Sodium (Synthroid) 25 mcg DAILY@0630 ORAL 09/23/17 06:30 10/23/17 06:29 09/25/17 06:18 Levothyroxine Sodium (Synthroid) 150 mcg ACBREAKFAST ORAL 09/23/17 06:30 10/23/17 06:29 09/25/17 06:18 Lorazepam (Ativan 2mg/ml 1ml) 0.5 mg Q4H PRN IV For Anxiety 09/19/17 23:15 09/26/17 23:14 Meloxicam (Mobic) 15 mg QHS ORAL 09/20/17 21:00 10/20/17 08:59 09/24/17 20:53 Metformin HCl (Glucophage) 750 mg BEDTIME ORAL 09/20/17 21:00 10/20/17 20:59 09/24/17 20:53 Mirtazapine (Remeron) 7.5 mg BEDTIME ORAL 09/20/17 21:00 10/20/17 20:59 09/24/17 20:53 Morphine Sulfate (Morphine Sulfate) 2 mg EVERY 4 HOURS PRN IVP severe pain 7-10 09/19/17 17:00 09/25/17 18:29 Nitroglycerin (Ntg) 0.4 mg Q5M X 3 DOSES PRN SL Prn Chest Pain 09/19/17 16:45 10/18/17 18:29 Ondansetron HCl (Zofran) 4 mg Q6H PRN IVP Nausea & Vomiting 09/19/17 16:51 10/18/17 16:50 Pantoprazole (Protonix) 40 mg DAILY ORAL 09/20/17 13:00 10/20/17 12:59 09/25/17 08:31 Prednisone (predniSONE) 40 mg Taper DAILY ORAL 09/23/17 09:00 09/29/17 08:59 09/25/17 08:31 Promethazine HCl/ Codeine (Phenergan with Codeine) 5 ml EVERY 6 HOURS PRN ORAL cough 09/19/17 16:51 10/18/17 16:50 Theophylline (Anival-Dur) 100 mg EVERY 12 HOURS ORAL 09/19/17 21:00 10/18/17 20:59 09/25/17 08:32 ROSALBA RAMIREZ Sep 25, 2017 16:49
[2017-09-25] MEDS ORDERED: Tubing IV Secondary IV ONE (17:06)
[2017-09-25] MEDS ORDERED: NS 275ml ONE (17:06)
--- NOTE | 2017-09-26 00:25 | General Progress Note ---
Assessment/Plan Problem List: (1) Pulmonary fibrosis ICD Codes: J84.10 - Pulmonary fibrosis, unspecified SNOMED: 19127979 (2) Acute respiratory failure ICD Codes: J96.00 - Acute respiratory failure, unspecified whether with hypoxia or hypercapnia SNOMED: 58238228 (3) Influenza A ICD Codes: J10.1 - Influenza due to other identified influenza virus with other respiratory manifestations SNOMED: 811609804 (4) Diabetes mellitus, type II ICD Codes: E11.9 - Type 2 diabetes mellitus without complications SNOMED: 97275498 (5) CHF (congestive heart failure) ICD Codes: I50.9 - Heart failure, unspecified SNOMED: 96034471 (6) Hypothyroidism ICD Codes: E03.9 - Hypothyroidism, unspecified SNOMED: 01816874 (7) HTN (hypertension) ICD Codes: I10 - Essential (primary) hypertension SNOMED: 54883712 (8) Major depression Assessment & Plan: MDD anxiety -remeron -increase prozac 60mg qhs ICD Codes: F32.9 - Major depressive disorder, single episode, unspecified SNOMED: 751680123 Assessment/Plan mdd anxiety -prozac 40 mg qam -remeron 7.5 mg qhs -ativan prn Subjective Date patient seen: Sep 23, 2017 Neurologic/Psychiatric: Reports: anxiety, depressed, emotional problems Allergies: Coded Allergies: PENICILLINS (Verified Allergy, Unknown, 09/18/17) Subjective the pt had a bad day more anxiety had fever worried about her condition Objective Last 24 Hour Vital Signs Date Time Temp Pulse Resp B/P (MAP) Pulse Ox O2 Delivery O2 Flow Rate FiO2 09/25/17 16:35 71 20 98 Nasal Cannula 2.0 28 09/25/17 16:25 71 20 98 Nasal Cannula 2.0 09/25/17 16:00 97.9 79 20 143/60 95 Nasal Cannula 2.0 09/25/17 12:03 78 18 95 Nasal Cannula 2.0 28 09/25/17 12:00 96.3 75 20 117/42 94 Nasal Cannula 2.0 09/25/17 11:53 75 20 91 Room Air 09/25/17 08:32 128/57 09/25/17 08:00 97.2 58 20 128/57 98 Nasal Cannula 2.0 09/25/17 07:39 Nasal Cannula 2.0 09/25/17 07:37 Nasal Cannula 2.0 09/25/17 07:36 Nasal Cannula 2.0 28 09/25/17 07:35 97 Nasal Cannula 2.0 09/25/17 04:00 97.5 65 21 145/81 98 09/25/17 03:50 Nasal Cannula 09/25/17 03:50 28 09/25/17 03:50 Nasal Cannula Intake and Output 09/25/17 09/26/17 19:00 07:00 Intake Total 500 ml Balance 500 ml Intake Oral 500 ml # Voids 4 Laboratory Tests 09/25/17 05:35: White Blood Count 8.6, Red Blood Count 4.79, Hemoglobin 13.8, Hematocrit 42.0, Mean Corpuscular Volume 88, Mean Corpuscular Hemoglobin 28.8, Mean Corpuscular Hemoglobin Concent 32.9, Red Cell Distribution Width 12.7, Platelet Count 230, Mean Platelet Volume 6.2L, Neutrophils (%) (Auto) 67.7, Lymphocytes (%) (Auto) 24.0, Monocytes (%) (Auto) 7.3, Eosinophils (%) (Auto) 0.6, Basophils (%) (Auto ) 0.4, Sodium Level 141, Potassium Level 4.1, Chloride Level 103, Carbon Dioxide Level 33H, Anion Gap 5, Blood Urea Nitrogen 20H, Creatinine 1.0, Estimat Glomerular Filtration Rate 56.2, Glucose Level 88, Calcium Level 9.2 Height (Feet): 5 Height (Inches): 4.00 Weight (Pounds): 160 Anirudh Webber M.D. Sep 26, 2017 00:25
--- NOTE | 2017-09-26 00:25 | General Progress Note ---
Assessment/Plan Problem List: (1) Pulmonary fibrosis ICD Codes: J84.10 - Pulmonary fibrosis, unspecified SNOMED: 92754232 (2) Acute respiratory failure ICD Codes: J96.00 - Acute respiratory failure, unspecified whether with hypoxia or hypercapnia SNOMED: 50339520 (3) Influenza A ICD Codes: J10.1 - Influenza due to other identified influenza virus with other respiratory manifestations SNOMED: 004908627 (4) Diabetes mellitus, type II ICD Codes: E11.9 - Type 2 diabetes mellitus without complications SNOMED: 93757920 (5) CHF (congestive heart failure) ICD Codes: I50.9 - Heart failure, unspecified SNOMED: 39721163 (6) Hypothyroidism ICD Codes: E03.9 - Hypothyroidism, unspecified SNOMED: 31551448 (7) HTN (hypertension) ICD Codes: I10 - Essential (primary) hypertension SNOMED: 33049118 (8) Major depression Assessment & Plan: MDD anxiety -remeron -increase prozac 60mg qhs ICD Codes: F32.9 - Major depressive disorder, single episode, unspecified SNOMED: 072104927 Assessment/Plan mdd anxiety -prozac 40 mg qam -remeron 7.5 mg qhs -ativan prn Subjective Date patient seen: Sep 24, 2017 Neurologic/Psychiatric: Reports: anxiety, depressed, emotional problems Allergies: Coded Allergies: PENICILLINS (Verified Allergy, Unknown, 09/18/17) Objective Last 24 Hour Vital Signs Date Time Temp Pulse Resp B/P (MAP) Pulse Ox O2 Delivery O2 Flow Rate FiO2 09/25/17 16:35 71 20 98 Nasal Cannula 2.0 28 09/25/17 16:25 71 20 98 Nasal Cannula 2.0 09/25/17 16:00 97.9 79 20 143/60 95 Nasal Cannula 2.0 09/25/17 12:03 78 18 95 Nasal Cannula 2.0 28 09/25/17 12:00 96.3 75 20 117/42 94 Nasal Cannula 2.0 09/25/17 11:53 75 20 91 Room Air 09/25/17 08:32 128/57 09/25/17 08:00 97.2 58 20 128/57 98 Nasal Cannula 2.0 09/25/17 07:39 Nasal Cannula 2.0 09/25/17 07:37 Nasal Cannula 2.0 09/25/17 07:36 Nasal Cannula 2.0 28 09/25/17 07:35 97 Nasal Cannula 2.0 28 09/25/17 04:00 97.5 65 21 145/81 98 09/25/17 03:50 Nasal Cannula 09/25/17 03:50 28 09/25/17 03:50 Nasal Cannula Intake and Output 09/25/17 09/26/17 19:00 07:00 Intake Total 500 ml Balance 500 ml Intake Oral 500 ml # Voids 4 Laboratory Tests 09/25/17 05:35: White Blood Count 8.6, Red Blood Count 4.79, Hemoglobin 13.8, Hematocrit 42.0, Mean Corpuscular Volume 88, Mean Corpuscular Hemoglobin 28.8, Mean Corpuscular Hemoglobin Concent 32.9, Red Cell Distribution Width 12.7, Platelet Count 230, Mean Platelet Volume 6.2L, Neutrophils (%) (Auto) 67.7, Lymphocytes (%) (Auto) 24.0, Monocytes (%) (Auto) 7.3, Eosinophils (%) (Auto) 0.6, Basophils (%) (Auto ) 0.4, Sodium Level 141, Potassium Level 4.1, Chloride Level 103, Carbon Dioxide Level 33H, Anion Gap 5, Blood Urea Nitrogen 20H, Creatinine 1.0, Estimat Glomerular Filtration Rate 56.2, Glucose Level 88, Calcium Level 9.2 Height (Feet): 5 Height (Inches): 4.00 Weight (Pounds): 160 General Appearance: no apparent distress, alert Neurologic: alert, oriented x 3, depressed affect Anirudh Webber M.D. Sep 26, 2017 00:25
--- NOTE | 2017-09-26 00:25 | General Progress Note ---
Assessment/Plan Problem List: (1) Pulmonary fibrosis ICD Codes: J84.10 - Pulmonary fibrosis, unspecified SNOMED: 70383880 (2) Acute respiratory failure ICD Codes: J96.00 - Acute respiratory failure, unspecified whether with hypoxia or hypercapnia SNOMED: 00333137 (3) Influenza A ICD Codes: J10.1 - Influenza due to other identified influenza virus with other respiratory manifestations SNOMED: 754074267 (4) Diabetes mellitus, type II ICD Codes: E11.9 - Type 2 diabetes mellitus without complications SNOMED: 52611725 (5) CHF (congestive heart failure) ICD Codes: I50.9 - Heart failure, unspecified SNOMED: 66491601 (6) Hypothyroidism ICD Codes: E03.9 - Hypothyroidism, unspecified SNOMED: 49748563 (7) HTN (hypertension) ICD Codes: I10 - Essential (primary) hypertension SNOMED: 25859930 (8) Major depression Assessment & Plan: MDD anxiety -remeron -increase prozac 60mg qhs ICD Codes: F32.9 - Major depressive disorder, single episode, unspecified SNOMED: 446088176 Assessment/Plan mdd anxiety -prozac 40 mg qam -remeron 7.5 mg qhs -ativan prn Subjective Date patient seen: Sep 25, 2017 Allergies: Coded Allergies: PENICILLINS (Verified Allergy, Unknown, 09/18/17) Objective Last 24 Hour Vital Signs Date Time Temp Pulse Resp B/P (MAP) Pulse Ox O2 Delivery O2 Flow Rate FiO2 09/25/17 16:35 71 20 98 Nasal Cannula 2.0 28 09/25/17 16:25 71 20 98 Nasal Cannula 2.0 09/25/17 16:00 97.9 79 20 143/60 95 Nasal Cannula 2.0 09/25/17 12:03 78 18 95 Nasal Cannula 2.0 28 09/25/17 12:00 96.3 75 20 117/42 94 Nasal Cannula 2.0 09/25/17 11:53 75 20 91 Room Air 09/25/17 08:32 128/57 09/25/17 08:00 97.2 58 20 128/57 98 Nasal Cannula 2.0 09/25/17 07:39 Nasal Cannula 2.0 09/25/17 07:37 Nasal Cannula 2.0 09/25/17 07:36 Nasal Cannula 2.0 28 09/25/17 07:35 97 Nasal Cannula 2.0 09/25/17 04:00 97.5 65 21 145/81 98 09/25/17 03:50 Nasal Cannula 09/25/17 03:50 28 09/25/17 03:50 Nasal Cannula Intake and Output 09/25/17 09/26/17 19:00 07:00 Intake Total 500 ml Balance 500 ml Intake Oral 500 ml # Voids 4 Laboratory Tests 09/25/17 05:35: White Blood Count 8.6, Red Blood Count 4.79, Hemoglobin 13.8, Hematocrit 42.0, Mean Corpuscular Volume 88, Mean Corpuscular Hemoglobin 28.8, Mean Corpuscular Hemoglobin Concent 32.9, Red Cell Distribution Width 12.7, Platelet Count 230, Mean Platelet Volume 6.2L, Neutrophils (%) (Auto) 67.7, Lymphocytes (%) (Auto) 24.0, Monocytes (%) (Auto) 7.3, Eosinophils (%) (Auto) 0.6, Basophils (%) (Auto ) 0.4, Sodium Level 141, Potassium Level 4.1, Chloride Level 103, Carbon Dioxide Level 33H, Anion Gap 5, Blood Urea Nitrogen 20H, Creatinine 1.0, Estimat Glomerular Filtration Rate 56.2, Glucose Level 88, Calcium Level 9.2 Height (Feet): 5 Height (Inches): 4.00 Weight (Pounds): 160 Anirudh Webber M.D. Sep 26, 2017 00:25
--- NOTE | 2017-09-26 12:37 | Discharge Summary ---
Discharge Summary Hospital Course Date of Admission Sep 18, 2017 at 15:10 Date of Discharge Sep 25, 2017 at 18:55 Admitting Diagnosis sob/pulmonary fibrosis HPI Gracy Abdullahi is a 62 year old female who was admitted on Sep 18, 2017 at 15:10 for Shortness Of Breath,Pulmonary Fibrosis Hospital Course dc summary #[id number] Discharge Medications New Medications: Azithromycin (Azithromycin) 500 Mg Tablet 500 MG ORAL DAILY for 5 Days, TAB Methylprednisolone (Medrol) 4 Mg Tab.ds.pk 4 MG PO DAILY for 1 Day, PACK Continued Medications: Aspirin* (Aspir 81*) 81 Mg Tablet.dr 81 MG ORAL DAILY, TAB Cetirizine Hcl* (Zyrtec*) 10 Mg Tablet 10 MG ORAL DAILY, #30 TAB 0 Refills Fluoxetine Hcl* (Fluoxetine Hcl*) 40 Mg Capsule 40 MG ORAL DAILY, CAP Glipizide* (Glipizide*) 5 Mg Tablet 5 MG ORAL BIDAC, TAB Lamotrigine* (Lamictal*) 150 Mg Tablet 200 MG ORAL DAILY, #30 TAB 0 Refills Levothyroxine Sodium* (Levothyroxine Sodium*) 150 Mcg Tablet 150 MCG ORAL DAILY, TAB Take in the morning on an empty stomach, at least 30 minutes before food. Meloxicam* (Meloxicam*) 15 Mg Tablet 15 MG PO DAILY, TAB Metformin Hcl (Metformin Hcl Er) 750 Mg Tab.er.24h 750 MG ORAL DAILY, TAB Omeprazole (Omeprazole) 40 Mg Capsule.dr 40 MG ORAL DAILY, CAP Simvastatin (Zocor) 40 Mg Tablet 40 MG ORAL BEDTIME, TAB Valsartan/Hydrochlorothiazide 160-12.5MG (Diovan Hct 160-12.5 Mg Tab) 1 Each Tablet 1 TAB ORAL DAILY, TAB Vitamin D (Vitamin D3) 400 Unit Tablet 1000 UNITS ORAL DAILY, TAB Discharge Condition Upon Discharge: stable Discharge Disposition Patient was discharged to Home with Home Health(06) Discharge Diagnoses: Javon (Nathan)Zainab NP Sep 26, 2017 12:37
--- NOTE | 2017-09-26 12:57 | Diagnostic Imaging Report ---
Indication: Acute renal failure Technique: Grayscale and duplex images of the kidneys, retroperitoneum, and bladder were obtained. Comparison: none Findings: Right kidney measures 11.4 cm in length. Left kidney measures 10.8 cm in length. Both kidneys demonstrate normal echogenicity. No hydronephrosis. The left kidney demonstrates a 3.5 centimeters cyst in the upper pole. The right kidney demonstrates a 7.2 cm cyst. Normal inferior vena cava. Bladder is empty. Impression: Negative for hydronephrosis Bilateral large renal cysts.
--- NOTE | 2017-09-26 23:45 | Discharge Summary 2 SIG ---
DATE OF ADMISSION: 09/18/2017 DATE OF DISCHARGE: 09/25/2017 REASON FOR ADMISSION: 62-year-old female with a history of diabetes, hypertension, hypothyroidism, pulmonary fibrosis, chronically oxygen dependent at home, presented with shortness of breath. She reported YELLOW COLOR productive cough. No fever. No chills. She reported that oxygen saturation was lower than usual. In the emergency department, pulse oximetry on 2 liters was 81%. She had low-grade fever of 99.3. Influenza screen was positive for influenza type A. No leukocytosis. Stable hemoglobin and hematocrit. Troponin negative. Lactate within normal limits as well as the electrolytes. Chest x-ray showed interstitial opacities. In ED the patient was started on Tamiflu, steroids, and empiric antibiotics; supplemental oxygen titrated to keep saturation above 92. The patient was admitted with diagnoses of influenza type A, acute respiratory failure, and pulmonary fibrosis. HOSPITAL COURSE: The patient was admitted. ID consult requested. The patient was on supplemental oxygen and pulmonary toilet was provided around the clock and as needed. Sputum culture was negative. Blood culture were negative. The patient was on empiric antibiotic. CT of the chest revealed interstitial disease with a component of pulmonary fibrosis. The patient was on IV steroids, which were gradually tapered and changed to oral prior to discharge. The patient status post treatment with the Tamiflu and Zithromax. Leukocytosis resolved. Antitussive provided as needed. Cough decreased, still present, No hemoptysis, wheezing resolved. Patient likely had superimposed on influenza A bronchitis. Pneumonia vaccine was administered prior to discharge. Blood sugar was managed with oral glipizide and metformin as well as sliding scale of insulin, on an as needed basis. Hemoglobin A1c - 6.5, at goal. TSH was over 50. Dose of levothyroxine was increased. Rotary Cutter Operator seen the patient for initially complaint of the chest discomfort. According to pens and pencils dipper, chest pain was likely cough induced. He doubted cardiac cause of the chest pain given troponin x2 were negative, EKG revealed no acute ischemic changes, and an echocardiogram revealed preserved ejection fraction of 70% to 75% with normal wall motion. Bilateral lower extremities noted to be with mild edema, likely due to steroids. However, venous duplex scan was obtained and was negative for evidence of acute DVT. Blood pressure was managed with angiotensin receptor bruce and was stable. DVT and GI prophylaxis provided. Psychiatrist seen and evaluated the patient, diagnosed the patient with major depressive disorder and anxiety as well as the bipolar and optimized psychiatric medication regimen. The patient was stable on discharge. FINAL DIAGNOSES: 1. Acute on chronic hypoxemic respiratory failure. 2. Pulmonary fibrosis. 3. Influenza A. 4. Probably bronchitis. 5. Diabetes mellitus. 6. Hypothyroidism with elevated TSH. 7. Bipolar disorder. 8. Major depressive disorder. 9. Anxiety. DISCHARGE MEDICATIONS: See medication reconciliation list. DISCHARGE INSTRUCTIONS: The patient discharged home with home health services. Follow up with the primary medical doctor and carboy filler. The patient has oxygen at home. Bob Lin M.D. Zainab ChandlerLong Island College HospitalBlaine NBorisPBoris DR: DANNIE JOB#: [id number] CC: KERRI
== END 2017-09-25 18:55 | disposition home health service (06) | DRG 189 ==
LOC: EDBD 13:55 → EMR 14:40 → 2E 15:10 → EDBEDREQ 17:46 → 4E 09-19 16:34
DX: J96.21 Acute and chronic respiratory failure with hypoxia (principal); J84.10 Pulmonary fibrosis, unspecified; I50.9 Heart failure, unspecified; I11.0 Hypertensive heart disease with heart failure; J10.1 Influenza due to other identified influenza virus with other respiratory manifestations; J40 Bronchitis, not specified as acute or chronic; E11.9 Type 2 diabetes mellitus without complications; E03.9 Hypothyroidism, unspecified; F31.9 Bipolar disorder, unspecified; F32.9 Major depressive disorder, single episode, unspecified; F41.9 Anxiety disorder, unspecified; Z79.84 Long term (current) use of oral hypoglycemic drugs; Z88.0 Allergy status to penicillin; E66.9 Obesity, unspecified
CPT/HCPCS: 36415; 71045; 71250; 76775; 80048; 80053; 82248; 82550; 82553; 82962; 83036; 83605; 83735; 83880; 84100; 84443; 84484; 85007; 85025; 86710; 87040; 87070; 87205; 90630; 90732; 93005; 93306; 93970; 94640; 94664; 94760; 99285; J1815; J7620; J8499

== ENCOUNTER 2018-09-23 01:01 | Inpatient (IN) | payer BC, OTHER ==
[2018-09-23] VITALS (7 sets, daily range): BP systolic 111–159; BP diastolic 54–93
[~2018-09-23] VITALS: Ht 165.1 cm; Wt 92.6 kg
[~2018-09-23 01:01] MED LIST: ASPIR 8181 MG ORAL; AZITHROMYCIN500 MG ORAL; DIOVAN HCT 1601 EACH ORAL; FLUOXETINE HCL40 MG ORAL; GLIPIZIDE5 MG ORAL; LAMICTAL150 MG ORAL; LEVOTHYROXINE150 MCG ORAL; MEDROL4 M1 PO; MELOXICAM15 MG PO; METFORMIN HCL750 MG ORAL; OMEPRAZOLE40 M1 ORAL; SIMVASTATIN40 MG ORAL; VITAMIN D400 INTLU ORAL; ZYRTEC10 MG ORAL
[2018-09-23 02:00] LABS: BASOPHILS % (AUTO) 1.1 % (0.0-2.0); EOSINOPHILS % (AUTO) 6.3 % (0.0-3.0); HEMATOCRIT 46.6 % (37.0-47.0); HEMOGLOBIN 14.7 G/DL (12.0-16.0); LYMPHOCYTES % (AUTO) 14.2 % (20.0-45.0); MEAN CORPUSCULAR VOLUME 82 FL (80-99); MONOCYTES % (AUTO) 5.4 % (1.0-10.0); NEUTROPHILS % (AUTO) 73.1 % (45.0-75.0); PLATELET COUNT 326 K/UL (150-450); RED CELL DISTRIBUTION WIDTH 15.2 % (11.6-14.8); WHITE BLOOD COUNT 10.4 K/UL (4.8-10.8)
[2018-09-23] MEDS ORDERED: HYZAAR 50-12.51 EACH ORAL (02:04)
[2018-09-23] MEDS ORDERED: ACCURETIC 20-21 EACH ORAL (02:04)
[2018-09-23] MEDS ORDERED: TRAZODONE HCL50 MG ORAL (02:04)
[2018-09-23] MEDS ORDERED: ACTOPLUS MET 11 EACH ORAL (02:04)
--- NOTE | 2018-09-23 02:11 | Diagnostic Imaging Report ---
EXAM: XR Chest, 1 View CLINICAL HISTORY: SOB TECHNIQUE: Frontal view of the chest. COMPARISON: 09/18/17 IMPRESSION: Unchanged enlargement of the cardiac silhouette. Mixed interstitial and airspace opacities, more prominent than the previous. May represent edema with other infiltrates not excluded. Correlate clinically. Recommend follow-up to resolution.
[2018-09-23 02:13] LABS: ANION GAP 11 mmol/L (5-15); BLOOD UREA NITROGEN 15 mg/dL (7-18); CALCIUM 9.4 MG/DL (8.5-10.1); CARBON DIOXIDE 30 MMOL/L (21-32); CHLORIDE 97 MMOL/L (98-107); POTASSIUM 4.1 MMOL/L (3.5-5.1); SODIUM 137 MMOL/L (136-145)
[2018-09-23 02:20] LABS: APPEARANCE,URINE CLEAR; BILIRUBIN, URINE NEGATIVE (NEGATIVE); GLUCOSE, URINE (UA) NEGATIVE (NEGATIVE); KETONES,URINE 1+ (NEGATIVE); LEUKOCYTE ESTERASE ,URINE 1+ (NEGATIVE); NITRITE,URINE NEGATIVE (NEGATIVE); PH,URINE 7 (4.5-8.0); PROTEIN,URINE 2+ (NEGATIVE); UROBILINOGEN,URINE 4 MG/DL (0.0-1.0)
[2018-09-23 02:23] LABS: COLOR,URINE YELLOW
[2018-09-23 02:26] LABS: ALANINE AMINOTRANSFERASE 13 U/L (12-78); ALBUMIN 3.6 G/DL (3.4-5.0); ALBUMIN/GLOBULIN RATIO 0.8 (1.0-2.7); ALKALINE PHOSPHATASE 65 U/L (46-116); ASPARTATE AMINO TRANSFERASE 30 U/L (15-37); BILIRUBIN,TOTAL 1.4 MG/DL (0.2-1.0); CKMB 1.7 NG/ML (0.0-3.6); CREATINE KINASE 67 U/L (26-308)
[2018-09-23 02:27] LABS: BILIRUBIN,DIRECT 0.4 MG/DL (0.0-0.3)
--- NOTE | 2018-09-23 04:08 | Emergency Room Report ---
History of Present Illness General Chief Complaint: Dyspnea/Respdistress Source: Patient, Family Member Present Illness HPI 63-year-old female presents ED for evaluation. Patient brought in by family for shortness of breath. Is on home O2 because of pulmonary fibrosis but states she felt acutely more short of breath today. Also notes increased leg swelling. States she is on water pills for her swelling. States that for the last few week she's been experiencing a cough which is more productive than normal. Thick Mucous. Denies fevers or chills. Denies chest pain. Denies sick contacts or recent travel. No other aggravating relieving factors. Denies any other associated symptoms Allergies: Coded Allergies: PENICILLINS (Verified Allergy, Unknown, 09/18/17) Patient History Past Medical History: DM, HTN, other - pulmonary fibrosis Past Surgical History: none Pertinent Family History: none Social History: Denies: smoking, alcohol use, drug use Last Menstrual Period: CHRISTIANO Now: No Immunizations: UTD Reviewed Nursing Documentation: PMH: Agreed; PSxH: Agreed Nursing Documentation-PMH Hx Cardiac Problems: Yes Hx Hypertension: Yes Hx Asthma: Yes Hx COPD: Yes Hx Diabetes: Yes Hx Cancer: No Hx Gastrointestinal Problems: Yes Hx Neurological Problems: No Review of Systems All Other Systems: negative except mentioned in HPI Physical Exam Vital Signs Date Time Temp Pulse Resp B/P (MAP) Pulse Ox O2 Delivery O2 Flow Rate FiO2 09/23/18 01:11 98.2 94 28 159/83 96 Simple Mask 15.0 Sp02 EP Interpretation: reviewed, normal General Appearance: no apparent distress, alert, GCS 15, non-toxic Head: normocephalic, atraumatic Eyes: bilateral eye normal inspection, bilateral eye PERRL ENT: hearing grossly normal, normal pharynx, no angioedema, normal voice Neck: full range of motion, supple/symm/no masses Respiratory: chest non-tender, crackles, speaking full sentences Cardiovascular #1: regular rate, rhythm, no edema Cardiovascular #2: 2+ carotid (R), 2+ carotid (L), 2+ radial (R), 2+ radial (L) , 2+ dorsalis pedis (R), 2+ dorsalis pedis (L) Gastrointestinal: normal bowel sounds, non tender, soft, non-distended, no guarding, no rebound Rectal: deferred Genitourinary: normal inspection, no CVA tenderness Musculoskeletal: back normal, gait/station normal, normal range of motion, non- tender Neurologic: alert, oriented x3, responsive, motor strength/tone normal, sensory intact, speech normal Psychiatric: judgement/insight normal, memory normal, no suicidal/homicidal ideation, anxious Reflexes: 3+ bicep (R), 3+ bicep (L), 3+ tricep (R), 3+ tricep (L), 3+ knee (R) , 3+ knee (L) Skin: normal color, no rash, warm/dry, well hydrated Lymphatic: no adenopathy Procedures Critical Care Time Critical Care Time i. I feel this is a highly complex case requiring extensive working including EKG/Rhythm strip, Xray/CT/US, Blood/urine lab work, repeat exams while in ED, and administration of strong opiates/narcotics for pain control, admission to hospital or close patient follow up. Total time: 35 min bedside evaluation and treatment excludes procedures (EKG). Reason for critical care: respiratory distress, hypoxia Possible complications: hypotension, hypertension, NM, shock, arrhythmias, metabolic acidosis, end organ damage, respiratory failure. Interventions: labs, EKG, CXR, non-rebreather. ABG. abx. lasix. Course: Patient presenting with shortness of breath. History of pulmonary fibrosis. Increased leg swelling. Started on nonrebreather. ABG shows no significant hypoxia or hypercapnia. Chest x-ray shows pulmonary fibrosis with increased opacity suggestive of infectious process. BNP elevated. Troponins negative. Given antibiotics. Given Lasix. Respiratory status improving Consultations: nursing staff, EMS, family Performed by: Dr Bai Tolerated well condition = serious j. because of unstable vital signs this patient had a condition that could potentially threaten life or limb. I feel this is a critical patient who required my full attention while patient was considered critical. Total Critical Care Time excluding procedures was greater than 35 minutes Medical Decision Making Diagnostic Impression: Primary Impression: Pulmonary fibrosis Additional Impressions: CHF (congestive heart failure) Qualified Codes: I50.9 - Heart failure, unspecified Respiratory distress ER Course Hospital Course 63-year-old F presenting to ED with respiratory distress, hypoxic Differential diagnoses include: Pneumonia, CHF exacerbation, pneumothorax, fluid overload Clinical course Patient placed on stretcher. On rn cardiac rehab with hypoxia on room air. After initial history and physical, I ordered nonrebreathe, ABG. I ordered labs , IV fluids, EKG, chest x-ray, blood cultures, UA. Labs -no leukocytosis, hemoglobin/hematocrit stable, electrolytes okay, lactate 2.8, troponin negative, BNP elevated ABG - no signifcant hypercapnia or hypoxia CXR - interstitial changes with underlying opacity suggestive of pneumonia EKG - NSr, no acute ischemic changes interpreted by me Patient O2 sat remains above 90% on NRB. lasix given. abx given On reassessment respiratory status improved. Breathing more comfortably. Case discussed with Dr. Lin and he agreed to the patient to his service for further care and support I feel this is a highly complex case requiring extensive working including EKG/ Rhythm strip, Xray/CT/US, Blood/urine lab work, repeat exams while in ED, and administration of strong opiates/narcotics for pain control, admission to hospital or close patient follow up. Diagnosis - pulmonary fibrosis, CHF, respiratory distress Patient admitted to telemetry in serious condition Labs Test 09/23/18 01:20 09/23/18 01:42 09/23/18 02:00 09/23/18 03:50 Arterial Blood pH 7.393 (7.350-7.450) Arterial Blood Partial Pressure CO2 50.4 mmHg (35.0-45.0) Arterial Blood Partial Pressure O2 76.1 mmHg (75.0-100.0) Arterial Blood HCO3 30.0 mmol/L (22.0-26.0) Arterial Blood Oxygen Saturation 94.1 % (95-100) Arterial Blood Base Excess 4 (-2-2) [place] Test Positive White Blood Count 10.4 K/UL (4.8-10.8) Red Blood Count 5.70 M/UL (4.20-5.40) Hemoglobin 14.7 G/DL (12.0-16.0) Hematocrit 46.6 % (37.0-47.0) Mean Corpuscular Volume 82 FL (80-99) Mean Corpuscular Hemoglobin 25.7 PG (27.0-31.0) Mean Corpuscular Hemoglobin Concent 31.4 G/DL (32.0-36.0) Red Cell Distribution Width 15.2 % (11.6-14.8) Platelet Count 326 K/UL (150-450) Mean Platelet Volume 6.0 FL (6.5-10.1) Neutrophils (%) (Auto) 73.1 % (45.0-75.0) Lymphocytes (%) (Auto) 14.2 % (20.0-45.0) Monocytes (%) (Auto) 5.4 % (1.0-10.0) Eosinophils (%) (Auto) 6.3 % (0.0-3.0) Basophils (%) (Auto) 1.1 % (0.0-2.0) Sodium Level 137 MMOL/L (136-145) Potassium Level 4.1 MMOL/L (3.5-5.1) Chloride Level 97 MMOL/L (98-107) Carbon Dioxide Level 30 MMOL/L (21-32) Anion Gap 11 mmol/L (5-15) Blood Urea Nitrogen 15 mg/dL (7-18) Creatinine 1.0 MG/DL (0.55-1.30) Estimat Glomerular Filtration Rate 56.0 mL/min (>60) Glucose Level 162 MG/DL (74-106) Lactic Acid Level 2.80 mmol/L (0.4-2.0) Calcium Level 9.4 MG/DL (8.5-10.1) Total Bilirubin 1.4 MG/DL (0.2-1.0) Direct Bilirubin 0.4 MG/DL (0.0-0.3) Aspartate Amino Transf (AST/SGOT) 30 U/L (15-37) Alanine Aminotransferase (ALT/SGPT) 13 U/L (12-78) Alkaline Phosphatase 65 U/L (46-116) Total Creatine Kinase 67 U/L (26-308) Creatine Kinase MB 1.7 NG/ML (0.0-3.6) Creatine Kinase MB Relative Index 2.5 Troponin I 0.031 ng/mL (0.000-0.056) Pro-B-Type Natriuretic Peptide 4190 pg/mL (0-125) Total Protein 7.9 G/DL (6.4-8.2) Albumin 3.6 G/DL (3.4-5.0) Globulin 4.3 g/dL Albumin/Globulin Ratio 0.8 (1.0-2.7) Urine Color Yellow Urine Appearance Clear Urine pH 7 (4.5-8.0) Urine Specific [place] 1.010 (1.005-1.035) Urine Protein 2+ (NEGATIVE) Urine Glucose (UA) Negative (NEGATIVE) Urine Ketones 1+ (NEGATIVE) Urine Blood Negative (NEGATIVE) Urine Nitrite Negative (NEGATIVE) Urine Bilirubin Negative (NEGATIVE) Urine Urobilinogen 4 MG/DL (0.0-1.0) Urine Leukocyte Esterase 1+ (NEGATIVE) Urine RBC 0-2 /HPF (0 - 2) Urine WBC 2-4 /HPF (0 - 2) Urine Squamous Epithelial Cells Occasional /LPF Urine Bacteria Occasional /HPF (NONE) EKG Diagnostic Results Rate: normal Rhythm: NSR ST Segments: no acute changes ASA given to the pt in ED: No Rhythm Strip Diag. Results EP Interpretation: yes Rhythm: NSR, no PVC's, no ectopy Chest X-Ray Diagnostic Results Chest X-Ray Diagnostic Results : Chest X-Ray Ordered: Yes # of Views/Limited/Complete: 1 View Indication: Shortness of Breath EP Interpretation: Yes Interpretation: no pneumothorax, other - mixed interstiial opacities. underlying infiltrate Impression: Other - pulmonary fibrosis/pneumonia Electronically Signed by: Electronically signed by Trenton Bai MD Last Vital Signs Date Time Temp Pulse Resp B/P (MAP) Pulse Ox O2 Delivery O2 Flow Rate FiO2 09/23/18 03:35 98.2 85 20 148/77 95 Simple Mask 15.0 Status: improved Disposition: ADMITTED INPATIENT Condition: Serious Referrals: NON PHYSICIAN (PCP) Trenton Bai MD Sep 23, 2018 04:08
[2018-09-23] MEDS: Ipratropium 0.02% Inh Soln 2.5ml UD HHN SCH ×3 (05:06→05:17)
[2018-09-23] MEDS: Albuterol ud Inhalation HHN SCH ×3 (05:07→05:31)
[2018-09-23] MEDS ORDERED: Morphine Sulfate 4mg/ml Inj (IV/IM USE ONLY) IVP PRN (05:15)
[2018-09-23] MEDS ORDERED: Miralax 17gm pkt ORAL PRN (08:15)
[2018-09-23] MEDS ORDERED: Albuterol/Ipratropium 3ml neb HHN PRN (08:15)
[2018-09-23] MEDS: Heparin 5000 units/ml inj SUBQ SCH ×2 (09:33→21:39)
[2018-09-23] MEDS: NovoLOG Insulin Flexpen SUBQ SCH ×3 (11:30→21:00)
[2018-09-23] MEDS ORDERED: ALPRAZolam 0.25mg tab ORAL PRN (12:45)
--- NOTE | 2018-09-23 13:21 | History & Physical ---
History and Physical History & Physicial Dictated for Int Med-Dr Lin no. [phone] Inderjit Galvan MD Sep 23, 2018 13:21
[2018-09-23] MEDS: Solu-MEDROL 125mg Inj IVP SCH ×2 (13:33→17:00)
[2018-09-23] MEDS: Albuterol/Ipratropium 3ml neb HHN SCH ×3 (15:05→21:59)
--- NOTE | 2018-09-23 17:15 | History and Physical Report ---
DATE OF ADMISSION: 09/23/2018 CHIEF COMPLAINT: The patient is a 63-year-old white female with history of pulmonary fibrosis, who is admitted with chief complaint of cough and congestion. HISTORY OF PRESENT ILLNESS: This began approximately 2 weeks ago. The patient began to have subjective fevers and chills. The patient also complained of "congestion." The patient also has cough, which is productive of yellowish green sputum. The patient saw Dr. Lin 2 weeks ago. The patient refused to come to the emergency room for evaluation at that time. The patient presented to [facility] on 09/22/2018. The patient was complaining of cough and fever as above. The patient is admitted for bronchitis and possible pneumonia. REVIEW OF SYSTEMS: CONSTITUTIONAL: The patient denies weight loss or weight gain. The patient complains of subjective fevers and chills as above. HEENT: The patient denies ear or throat pain. The patient denies headache. CARDIOVASCULAR: The patient denies palpitations or chest pain. CHEST: The patient complains of bilateral wheezes. The patient complains of cough productive of yellowish green sputum as above. The patient complains of shortness of breath. ABDOMEN: The patient denies nausea, vomiting, diarrhea, or constipation. GENITOURINARY: The patient denies dysuria or increased frequency of urination. NEUROMUSCULAR: The patient denies seizures or generalized weakness. PAST MEDICAL HISTORY: Significant for: 1. Pulmonary fibrosis. 2. History of pulmonary nodules. 3. Diabetes type 2. 4. Hypothyroidism. PAST SURGICAL HISTORY: Significant for: 1. Total abdominal hysterectomy. 2. Left inguinal hernia repair. CURRENT MEDICATIONS: 1. Aspirin 81 mg one tablet p.o. daily. 2. Metformin 500 mg one tablet p.o. twice daily. 3. Fluoxetine 40 mg p.o. daily. 4. Levothyroxine 150 mcg one tablet p.o. daily. 5. Lamictal 200 mg p.o. daily. 6. Meloxicam 15 mg p.o. daily. 7. Hyzaar 50/12.5 one tablet p.o. daily. 8. Quinapril/hydrochlorothiazide 20/25 one tablet p.o. daily. 9. Zocor 40 mg p.o. nightly. 10. Trazodone 50 mg p.o. nightly. 11. Valsartan/hydrochlorothiazide 160/12.5 one tablet p.o. daily. ALLERGIES: Penicillin. SOCIAL HISTORY: The patient is , however, lives with her ex-. The patient denies tobacco or alcohol use. PHYSICAL EXAMINATION: VITAL SIGNS: Temperature 98.2 degrees, respirations 20, pulse 61, blood pressure 124/93. GENERAL: The patient is a well-developed and well-nourished white female, who is in moderate respiratory distress. HEENT: Eyes, pupils are equal and responsive to light and accommodation. Extraocular movements are intact. NECK: Supple without lymphadenopathy. CHEST: Diffuse wheezes in the right lung greater than the left. Otherwise, clear to auscultation bilaterally without wheezes or rales. CARDIOVASCULAR: Regular rhythm and rate. S1 and S2 are normal without murmurs, rubs, or gallops. ABDOMEN: Soft, nontender, and nondistended. Positive bowel sounds. No evidence of hepatosplenomegaly. Currently, no rebound or guarding noted. EXTREMITIES: Negative for clubbing, cyanosis, or edema. RECTAL: Refused. GENITAL: Refused. NEUROLOGIC: Cranial nerves II through XII are grossly intact without focal deficits. Motor strength is 5/5 bilaterally intact. Deep tendon reflexes are 2+, plantar. LABORATORY STUDIES: WBC 10.4, hemoglobin 14.7, hematocrit 46.6, and platelets 326,000. Sodium 137, potassium 4.1, chloride 97, CO2 30, BUN 15, creatinine 1.0, glucose 162. Arterial blood gas, pH 7.393, pCO2 50.4, pO2 76.1, bicarbonate 30.0, oxygen saturation 94.1, base excess positive-4. Chest x-ray, mixed interstitial and airspace opacities consistent with bronchitis versus pneumonia. ASSESSMENT: This is a 63-year-old white female with: 1. Bronchitis. 2. Shortness of breath. 3. Pulmonary fibrosis. 4. Diabetes type 2. 5. Hypertension. 6. Hypercholesterolemia. 7. Hypothyroidism. TREATMENT: 1. Shortness of breath/pulmonary fibrosis/bronchitis. The patient has been placed empirically on intravenous Levaquin. Intravenous Solu-Medrol has been added. The patient is currently receiving DuoNeb q.4 h. routine. A Pulmonary consultation has been obtained with Dr. Nahomy Hanna. We will follow recommendations of Pulmonary. 2. Diabetes type 2. Continue metformin as above. A NovoLog sliding scale has been instituted. 3. Hypertension. Continue losartan/hydrochlorothiazide as above. 4. Hypercholesterolemia. Continue Lipitor as above. 5. Hypothyroidism. Continue Levoxyl as above. 6. Major depression. Continue trazodone and lamotrigine as above. Inderjit Galvan M.D. DR: Nelly JOB#: [id number] CC:
[2018-09-23] MEDS: Atorvastatin 20mg tab ORAL SCH (21:07)
[2018-09-23] MEDS: Meloxicam 15 MG TAB ORAL SCH (21:08)
[2018-09-23] MEDS: TraZODone 50mg tab ORAL SCH (21:08)
[2018-09-24] VITALS: BP 117/69
[2018-09-24] MEDS: Solu-MEDROL 125mg Inj IVP SCH ×3 (00:16→13:04)
[2018-09-24] MEDS: Albuterol/Ipratropium 3ml neb HHN SCH ×7 (02:22→23:39)
[2018-09-24 04:00] VITALS: BP 143/91
[2018-09-24] MEDS: NovoLOG Insulin Flexpen SUBQ SCH ×4 (06:30→21:00)
[2018-09-24 07:09] LABS: HEMATOCRIT 41.7 % (37.0-47.0); HEMOGLOBIN 13.3 G/DL (12.0-16.0); MEAN CORPUSCULAR VOLUME 82 FL (80-99); PLATELET COUNT 245 K/UL (150-450); RED BLOOD COUNT 5.12 M/UL (4.20-5.40); RED CELL DISTRIBUTION WIDTH 15.3 % (11.6-14.8); WHITE BLOOD COUNT 5.3 K/UL (4.8-10.8)
[2018-09-24 07:24] LABS: ANION GAP 4 mmol/L (5-15); BLOOD UREA NITROGEN 20 mg/dL (7-18); CALCIUM 9.4 MG/DL (8.5-10.1); CARBON DIOXIDE 38 MMOL/L (21-32); CHLORIDE 100 MMOL/L (98-107); CREATININE 1.3 MG/DL (0.55-1.30); POTASSIUM 4.1 MMOL/L (3.5-5.1); SODIUM 142 MMOL/L (136-145)
[2018-09-24 08:00] VITALS: BP 127/59
[2018-09-24] MEDS: Heparin 5000 units/ml inj SUBQ SCH ×2 (08:15→21:27)
[2018-09-24] MEDS ORDERED: Vitamin D 1000 IU Tab ORAL SCH (09:00)
[2018-09-24] MEDS ORDERED: Hyzaar 12.5mg/50mg tab ORAL SCH (09:00)
[2018-09-24 12:00] VITALS: BP 145/72
--- NOTE | 2018-09-24 13:21 | Consultation ---
History of Present Illness General Date patient seen: Sep 24, 2018 Chief Complaint: Dyspnea/Respdistress Present Illness HPI 63-year-old female with hx of COPd, Pulmonary fibrosis, DM, CHF presented to ED for evaluation of shortness of breath. she felt acutely more short of breath . Also notes increased leg swelling. she's been experiencing a cough for the last one week and has some yellowish phlegm as well with Thick Mucous. Denies fevers or chills. Denies chest pain. Pt was diagnosed to have pulmonary edema and possible pneumonia and is admitted to Telemetry for further work up. Allergies: Coded Allergies: PENICILLINS (Verified Allergy, Unknown, 09/18/17) Medication History Scheduled Aspirin* (Aspir 81*), 81 MG ORAL DAILY, (Reported) Cetirizine Hcl* (Zyrtec*), 10 MG ORAL DAILY, (Reported) Fluoxetine Hcl* (Fluoxetine Hcl*), 40 MG ORAL DAILY, (Reported) Glipizide* (Glipizide*), 5 MG ORAL BIDAC, (Reported) Lamotrigine* (Lamictal*), 200 MG ORAL DAILY, (Reported) Levothyroxine Sodium* (Levothyroxine Sodium*), 150 MCG ORAL DAILY, (Reported) Losartan/Hydrochlorothiazide 50-12.5 Tablet* (Hyzaar 50-12.5 Tablet*), 1 TAB ORAL DAILY, (Reported) Meloxicam* (Meloxicam*), 15 MG PO DAILY, (Reported) Metformin Hcl (Metformin Hcl Er), 750 MG ORAL DAILY, (Reported) Methylprednisolone (Medrol), 4 MG PO DAILY Omeprazole (Omeprazole), 40 MG ORAL DAILY, (Reported) Pioglitazone Hcl/Metformin Hcl (Actoplus Met 15 Mg-500 Mg Tab), 1 TAB ORAL TWICE A DAY, (Reported) Quinapril/Hydrochlorothiazide 20-25 Mg Tablet (Accuretic 20-25 Mg Tablet), 1 TAB ORAL DAILY, (Reported) Simvastatin (Zocor), 40 MG ORAL BEDTIME, (Reported) Trazodone Hcl* (Desyrel*), 50 MG ORAL BEDTIME, (Reported) Valsartan/Hydrochlorothiazide 160-12.5MG (Diovan Hct 160-12.5 Mg Tab), 1 TAB ORAL DAILY, (Reported) Vitamin D (Vitamin D3), 1,000 UNITS ORAL DAILY, (Reported) Patient History Healthcare decision maker Resuscitation status Full Code Advanced Directive on File Past Medical/Surgical History Past Medical/Surgical History: (1) Diabetes mellitus, type II (2) Hypothyroidism (3) HTN (hypertension) (4) Major depression (5) Pulmonary fibrosis Review of Systems All Other Systems: negative except mentioned in HPI Physical Exam General Appearance: WD/WN Lines, tubes and drains: peripheral HEENT: normocephalic, anicteric Respiratory/Chest: chest wall non-tender, rhonchi - left, rhonchi - right Cardiovascular/Chest: normal peripheral pulses Abdomen: normal bowel sounds Genitourinary/Rectal: normal genital exam Extremities: normal range of motion Skin Exam: normal pigmentation 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 Last 24 Hour Vital Signs Date Time Temp Pulse Resp B/P (MAP) Pulse Ox O2 Delivery O2 Flow Rate FiO2 09/24/18 08:14 127/59 09/24/18 08:01 Nasal Cannula 4.0 36 09/24/18 08:01 95 Nasal Cannula 4.0 36 09/24/18 08:00 Nasal Cannula 09/24/18 08:00 97.3 79 20 127/59 (81) 95 09/24/18 07:55 Nasal Cannula 09/24/18 04:00 98.0 77 20 143/91 (108) 94 09/24/18 04:00 77 09/24/18 03:15 79 20 98 Nasal Cannula 4.0 36 09/24/18 03:06 78 20 95 Nasal Cannula 4.0 36 09/24/18 00:00 94 09/24/18 00:00 98.0 94 20 117/69 (85) 94 09/23/18 22:08 91 20 99 Nasal Cannula 4.0 36 09/23/18 22:00 96 Nasal Cannula 4.0 36 09/23/18 22:00 Nasal Cannula 4.0 36 09/23/18 21:59 92 22 96 Nasal Cannula 4.0 36 09/23/18 21:00 Nasal Cannula 5.0 09/23/18 20:00 86 09/23/18 20:00 97.9 86 18 142/77 (98) 92 09/23/18 16:00 98.0 79 18 142/73 (96) 92 09/23/18 16:00 84 Intake and Output 09/23/18 09/24/18 19:00 07:00 Intake Total 785 ml Output Total 1750 ml 1000 ml Balance -965 ml -1000 ml Intake Oral 785 ml Output Urine Total 1750 ml 1000 ml Laboratory Tests Test 09/24/18 05:10 White Blood Count 5.3 K/UL (4.8-10.8) Red Blood Count 5.12 M/UL (4.20-5.40) Hemoglobin 13.3 G/DL (12.0-16.0) Hematocrit 41.7 % (37.0-47.0) Mean Corpuscular Volume 82 FL (80-99) Mean Corpuscular Hemoglobin 26.0 PG (27.0-31.0) L Mean Corpuscular Hemoglobin Concent 31.9 G/DL (32.0-36.0) L Red Cell Distribution Width 15.3 % (11.6-14.8) H Platelet Count 245 K/UL (150-450) Mean Platelet Volume 6.3 FL (6.5-10.1) L Neutrophils (%) (Auto) % (45.0-75.0) Lymphocytes (%) (Auto) % (20.0-45.0) Monocytes (%) (Auto) % (1.0-10.0) Eosinophils (%) (Auto) % (0.0-3.0) Basophils (%) (Auto) % (0.0-2.0) Differential Total Cells Counted 100 Neutrophils % (Manual) 92 % (45-75) H Lymphocytes % (Manual) 8 % (20-45) L Monocytes % (Manual) 0 % (1-10) L Eosinophils % (Manual) 0 % (0-3) Basophils % (Manual) 0 % (0-2) Band Neutrophils 0 % (0-8) Platelet Estimate Adequate Platelet Morphology Normal Anisocytosis 1+ Sodium Level 142 MMOL/L (136-145) Potassium Level 4.1 MMOL/L (3.5-5.1) Chloride Level 100 MMOL/L (98-107) Carbon Dioxide Level 38 MMOL/L (21-32) H Anion Gap 4 mmol/L (5-15) L Blood Urea Nitrogen 20 mg/dL (7-18) H Creatinine 1.3 MG/DL (0.55-1.30) Estimat Glomerular Filtration Rate 41.4 mL/min (>60) Glucose Level 208 MG/DL (74-106) H Calcium Level 9.4 MG/DL (8.5-10.1) Troponin I 0.030 ng/mL (0.000-0.056) Height (Feet): 5 Height (Inches): 5.00 Weight (Pounds): 99 Medications Current Medications Medications (Trade) Dose Ordered Sig/Leatha Route PRN Reason Start Time Stop Time Status Last Admin Dose Admin Acetaminophen (Tylenol) 650 mg Q4H PRN ORAL Fever 09/23/18 08:15 10/23/18 08:14 Albuterol/ Ipratropium (Albuterol/ Ipratropium) 3 ml Q4HRT HHN 09/23/18 16:15 09/28/18 16:14 09/24/18 12:06 Alprazolam (Xanax) 0.25 mg Q6H PRN ORAL For Anxiety 09/23/18 12:45 09/30/18 12:44 Atorvastatin Calcium (Lipitor) 20 mg BEDTIME ORAL 09/23/18 21:00 10/23/18 20:59 09/23/18 21:07 Dextrose (Dextrose 50%) 25 ml Q30M PRN IV Hypoglycemia 09/23/18 08:15 10/23/18 08:14 Dextrose (Dextrose 50%) 50 ml Q30M PRN IV Hypoglycemia 09/23/18 08:15 10/23/18 08:14 Fluoxetine HCl (PROzac) 40 mg DAILY ORAL 09/23/18 09:00 10/23/18 08:59 09/24/18 08:10 Furosemide (Lasix) 40 mg EVERY 8 HOURS IV 09/23/18 14:00 10/23/18 13:59 09/24/18 13:04 HCTZ/Losartan Potassium (Hyzaar 50-12.5) 1 tab DAILY ORAL 09/24/18 09:00 10/24/18 08:59 09/24/18 08:14 Heparin Sodium (Porcine) (Heparin 5000 units/ml) 5,000 units EVERY 12 HOURS SUBQ 09/23/18 09:00 10/23/18 08:59 09/24/18 08:15 Insulin Aspart (NovoLOG) BEFORE MEALS AND HS SUBQ 09/23/18 11:30 10/23/18 11:29 Lamotrigine (LaMICtal) 200 mg QHS ORAL 09/23/18 21:00 10/23/18 08:59 09/23/18 21:08 Levofloxacin 50 ml @ 50 mls/hr Q24H IVPB 09/25/18 02:00 10/02/18 01:59 Levothyroxine Sodium (Synthroid) 150 mcg DAILY@0630 ORAL 09/24/18 06:30 10/24/18 06:29 09/24/18 06:27 Meloxicam (Mobic) 15 mg QHS ORAL 09/23/18 21:00 10/23/18 20:59 09/23/18 21:08 Methylprednisolone Sodium Succinate (Solu-MEDROL) 60 mg EVERY 6 HOURS IVP 09/23/18 13:15 10/23/18 13:14 09/24/18 13:04 Morphine Sulfate (Morphine Sulfate) 4 mg Q6HR PRN IVP Moderate Pain (Pain Scale 4-6) 09/23/18 05:15 Ondansetron HCl (Zofran) 4 mg Q6H PRN IVP Nausea & Vomiting 09/23/18 08:15 10/23/18 08:14 Ondansetron HCl (Zofran) 4 mg Q6HR PRN IVP Nausea & Vomiting 09/23/18 05:15 Pantoprazole (Protonix) 40 mg ACBREAKFAST ORAL 09/24/18 06:30 10/24/18 08:59 09/24/18 06:27 Polyethylene Glycol (Miralax) 17 gm DAILYPRN PRN ORAL Constipation 09/23/18 08:15 10/23/18 08:14 Temazepam (Restoril) 15 mg HSPRN PRN ORAL Insomnia 09/23/18 08:15 09/30/18 08:14 Trazodone HCl (Desyrel) 50 mg BEDTIME ORAL 09/23/18 21:00 10/23/18 20:59 09/23/18 21:08 Vitamin D (Vitamin D) 1,000 intlu DAILY ORAL 09/24/18 09:00 10/24/18 08:59 09/24/18 08:10 Assessment/Plan Problem List: (1) Acute respiratory failure ICD Codes: J96.00 - Acute respiratory failure, unspecified whether with hypoxia or hypercapnia SNOMED: 93581274 (2) Pneumonia ICD Codes: J18.9 - Pneumonia, unspecified organism SNOMED: 463660652 (3) CHF (congestive heart failure) ICD Codes: I50.9 - Heart failure, unspecified SNOMED: 75373352 Qualifiers: Qualified Codes: I50.9 - Heart failure, unspecified (4) Pulmonary fibrosis ICD Codes: J84.10 - Pulmonary fibrosis, unspecified SNOMED: 14722602 (5) Diabetes mellitus, type II ICD Codes: E11.9 - Type 2 diabetes mellitus without complications SNOMED: 38535402 (6) Hypothyroidism ICD Codes: E03.9 - Hypothyroidism, unspecified SNOMED: 97130436 (7) HTN (hypertension) ICD Codes: I10 - Essential (primary) hypertension SNOMED: 66858734 Assessment/Plan respiratory treatment check sputum iv abx iv steroids short course of lasix IV, check BNP and CXR in am titrate fio2 to sat of 92% dvt prophylaxis. avoid Metformin, Nahomy Hanna MD Sep 24, 2018 13:21
--- NOTE | 2018-09-24 14:23 | Diagnostic Imaging Report ---
Indication: Dyspnea Technique: XRAY Chest 1v Comparison: 09/23/2018 Findings: Cardiomegaly again noted. Predominantly interstitial opacities are again noted. There is volume loss. Some perihilar airspace opacities are also noted. No pleural effusion is appreciated. No pneumothorax. Osseous structures demonstrate no acute abnormality. IMPRESSION: No significant interval change in the radiographic appearance compared to one day prior. Lines as above.
--- NOTE | 2018-09-24 14:26 | Internal Med Progress Note ---
Subjective Physician Name Inderjit Galvan Attending Physician Bob Lin MD Current Medications Medications (Trade) Dose Ordered Sig/Leatha Route PRN Reason Start Time Stop Time Status Last Admin Dose Admin Acetaminophen (Tylenol) 650 mg Q4H PRN ORAL Fever 09/23/18 08:15 10/23/18 08:14 Albuterol/ Ipratropium (Albuterol/ Ipratropium) 3 ml Q4HRT HHN 09/23/18 16:15 09/28/18 16:14 09/24/18 12:06 Alprazolam (Xanax) 0.25 mg Q6H PRN ORAL For Anxiety 09/23/18 12:45 09/30/18 12:44 Atorvastatin Calcium (Lipitor) 20 mg BEDTIME ORAL 09/23/18 21:00 10/23/18 20:59 09/23/18 21:07 Dextrose (Dextrose 50%) 25 ml Q30M PRN IV Hypoglycemia 09/23/18 08:15 10/23/18 08:14 Dextrose (Dextrose 50%) 50 ml Q30M PRN IV Hypoglycemia 09/23/18 08:15 10/23/18 08:14 Fluoxetine HCl (PROzac) 40 mg DAILY ORAL 09/23/18 09:00 10/23/18 08:59 09/24/18 08:10 Furosemide (Lasix) 40 mg EVERY 8 HOURS IV 09/23/18 14:00 10/23/18 13:59 09/24/18 13:04 Heparin Sodium (Porcine) (Heparin 5000 units/ml) 5,000 units EVERY 12 HOURS SUBQ 09/23/18 09:00 10/23/18 08:59 09/24/18 08:15 Insulin Aspart (NovoLOG) BEFORE MEALS AND HS SUBQ 09/23/18 11:30 10/23/18 11:29 Lamotrigine (LaMICtal) 200 mg QHS ORAL 09/23/18 21:00 10/23/18 08:59 09/23/18 21:08 Levofloxacin 50 ml @ 50 mls/hr Q24H IVPB 09/25/18 02:00 10/02/18 01:59 Levothyroxine Sodium (Synthroid) 150 mcg DAILY@0630 ORAL 09/24/18 06:30 10/24/18 06:29 09/24/18 06:27 Meloxicam (Mobic) 15 mg QHS ORAL 09/23/18 21:00 10/23/18 20:59 09/23/18 21:08 Methylprednisolone Sodium Succinate (Solu-MEDROL) 60 mg DAILY IVP 09/25/18 09:00 10/23/18 13:14 Ondansetron HCl (Zofran) 4 mg Q6H PRN IVP Nausea & Vomiting 09/23/18 08:15 10/23/18 08:14 Ondansetron HCl (Zofran) 4 mg Q6HR PRN IVP Nausea & Vomiting 09/23/18 05:15 Pantoprazole (Protonix) 40 mg ACBREAKFAST ORAL 09/24/18 06:30 10/24/18 08:59 09/24/18 06:27 Temazepam (Restoril) 15 mg HSPRN PRN ORAL Insomnia 09/23/18 08:15 09/30/18 08:14 Trazodone HCl (Desyrel) 50 mg BEDTIME ORAL 09/23/18 21:00 10/23/18 20:59 09/23/18 21:08 Allergies: Coded Allergies: PENICILLINS (Verified Allergy, Unknown, 09/18/17) Objective Last Vital Signs Date Time Temp Pulse Resp B/P (MAP) Pulse Ox O2 Delivery O2 Flow Rate FiO2 09/24/18 12:16 83 18 94 Nasal Cannula 4.0 36 09/24/18 08:14 127/59 09/24/18 08:00 97.3 Laboratory Tests Test 09/24/18 05:10 White Blood Count 5.3 K/UL (4.8-10.8) Red Blood Count 5.12 M/UL (4.20-5.40) Hemoglobin 13.3 G/DL (12.0-16.0) Hematocrit 41.7 % (37.0-47.0) Mean Corpuscular Volume 82 FL (80-99) Mean Corpuscular Hemoglobin 26.0 PG (27.0-31.0) L Mean Corpuscular Hemoglobin Concent 31.9 G/DL (32.0-36.0) L Red Cell Distribution Width 15.3 % (11.6-14.8) H Platelet Count 245 K/UL (150-450) Mean Platelet Volume 6.3 FL (6.5-10.1) L Neutrophils (%) (Auto) % (45.0-75.0) Lymphocytes (%) (Auto) % (20.0-45.0) Monocytes (%) (Auto) % (1.0-10.0) Eosinophils (%) (Auto) % (0.0-3.0) Basophils (%) (Auto) % (0.0-2.0) Differential Total Cells Counted 100 Neutrophils % (Manual) 92 % (45-75) H Lymphocytes % (Manual) 8 % (20-45) L Monocytes % (Manual) 0 % (1-10) L Eosinophils % (Manual) 0 % (0-3) Basophils % (Manual) 0 % (0-2) Band Neutrophils 0 % (0-8) Platelet Estimate Adequate Platelet Morphology Normal Anisocytosis 1+ Sodium Level 142 MMOL/L (136-145) Potassium Level 4.1 MMOL/L (3.5-5.1) Chloride Level 100 MMOL/L (98-107) Carbon Dioxide Level 38 MMOL/L (21-32) H Anion Gap 4 mmol/L (5-15) L Blood Urea Nitrogen 20 mg/dL (7-18) H Creatinine 1.3 MG/DL (0.55-1.30) Estimat Glomerular Filtration Rate 41.4 mL/min (>60) Glucose Level 208 MG/DL (74-106) H Calcium Level 9.4 MG/DL (8.5-10.1) Troponin I 0.030 ng/mL (0.000-0.056) Microbiology Date/Time Source Procedure Growth Status 09/23/18 01:57 Blood Blood Culture - Preliminary NO GROWTH AFTER 24 HOURS Resulted 09/23/18 01:42 Blood Blood Culture - Preliminary NO GROWTH AFTER 24 HOURS Resulted Intake and Output 09/23/18 09/24/18 19:00 07:00 Intake Total 785 ml Output Total 1750 ml 1000 ml Balance -965 ml -1000 ml Intake Oral 785 ml Output Urine Total 1750 ml 1000 ml Objective PHYSICAL EXAMINATION: GENERAL: The patient is a well-developed and well-nourished white female, who is in moderate respiratory distress. HEENT: Eyes, pupils are equal and responsive to light and accommodation. Extraocular movements are intact. NECK: Supple without lymphadenopathy. CHEST: nasal canula. Diffuse wheezes in the right lung greater than the left. Otherwise, clear to auscultation bilaterally without wheezes or rales. CARDIOVASCULAR: Regular rhythm and rate. S1 and S2 are normal without murmurs, rubs, or gallops. ABDOMEN: Soft, nontender, and nondistended. Positive bowel sounds. No evidence of hepatosplenomegaly. Currently, no rebound or guarding noted. EXTREMITIES: Negative for clubbing, cyanosis, or edema. RECTAL: Refused. GENITAL: Refused. NEUROLOGIC: Cranial nerves II through XII are grossly intact without focal deficits. Motor strength is 5/5 bilaterally intact. Deep tendon reflexes are 2+, plantar. Assessment/Plan Assessment/Plan ASSESSMENT: This is a 63-year-old white female with: 1. Bronchitis. 2. Shortness of breath. 3. Pulmonary fibrosis. 4. Diabetes type 2. 5. Hypertension. 6. Hypercholesterolemia. 7. Hypothyroidism. TREATMENT: 1. Shortness of breath/pulmonary fibrosis/bronchitis. The patient has been placed empirically on intravenous Levaquin. Intravenous Solu-Medrol has been added. The patient is currently receiving DuoNeb q.4 h. routine. A Pulmonary consultation has been obtained with Dr. Nahomy Hanna. We will follow recommendations of Pulmonary. 2. Diabetes type 2. Continue metformin as above. A NovoLog sliding scale has been instituted. 3. Hypertension. Continue losartan/hydrochlorothiazide as above. 4. Hypercholesterolemia. Continue Lipitor as above. 5. Hypothyroidism. Continue Levoxyl as above. 6. Major depression. Continue trazodone and lamotrigine as above. Inderjit Galvan MD Sep 24, 2018 14:26
[2018-09-24 16:00] VITALS: BP 138/85
[2018-09-24] MEDS: metFORMIN 500mg tab ORAL SCH (18:27)
[2018-09-24 20:00] VITALS: BP 124/72
[2018-09-24] MEDS: TraZODone 50mg tab ORAL SCH (21:25)
[2018-09-24] MEDS: Atorvastatin 20mg tab ORAL SCH (21:25)
[2018-09-24] MEDS: Meloxicam 15 MG TAB ORAL SCH (21:25)
[2018-09-24] MEDS ORDERED: Promethazine/Codeine 5ml UD ORAL PRN (22:15)
--- NOTE | 2018-09-24 22:45 | Diagnostic Imaging Report ---
APPROVED REPORT CPT Code: 09767 Present Symptoms Lower Extremity Edema: Shortness of breath BILATERAL: Imaging reveals a patent deep venous system bilaterally. There is no evidence of thrombus within the femoral, popliteal or tibial segments. The greater saphenous veins are also within normal limits. Doppler indicates normal spontaneous flow within these segments.
[2018-09-25] VITALS: BP 109/56
[2018-09-25] MEDS ORDERED: Levofloxacin 250mg/D5W 50ml IVPB SCH (02:00)
[2018-09-25] MEDS: Albuterol/Ipratropium 3ml neb HHN SCH ×6 (03:28→23:26)
[2018-09-25 04:00] VITALS: BP 114/59
[2018-09-25] MEDS: NovoLOG Insulin Flexpen SUBQ SCH ×4 (06:30→20:46)
[2018-09-25 07:53] LABS: BASOPHILS % (AUTO) 0.4 % (0.0-2.0); EOSINOPHILS % (AUTO) 0.1 % (0.0-3.0); HEMATOCRIT 44.5 % (37.0-47.0); HEMOGLOBIN 13.9 G/DL (12.0-16.0); LYMPHOCYTES % (AUTO) 12.6 % (20.0-45.0); MEAN CORPUSCULAR VOLUME 82 FL (80-99); NEUTROPHILS % (AUTO) 77.9 % (45.0-75.0); PLATELET COUNT 275 K/UL (150-450); RED CELL DISTRIBUTION WIDTH 15.7 % (11.6-14.8)
[2018-09-25 08:00] VITALS: BP 114/59
[2018-09-25 08:14] LABS: ALANINE AMINOTRANSFERASE 15 U/L (12-78); ALBUMIN 3.5 G/DL (3.4-5.0); ALBUMIN/GLOBULIN RATIO 0.9 (1.0-2.7); ALKALINE PHOSPHATASE 57 U/L (46-116); ANION GAP 2 mmol/L (5-15); ASPARTATE AMINO TRANSFERASE 18 U/L (15-37); BILIRUBIN,TOTAL 0.7 MG/DL (0.2-1.0); BLOOD UREA NITROGEN 27 mg/dL (7-18); CALCIUM 9.7 MG/DL (8.5-10.1); CHLORIDE 98 MMOL/L (98-107); CREATININE 1.3 MG/DL (0.55-1.30); SODIUM 142 MMOL/L (136-145)
[2018-09-25] MEDS: metFORMIN 500mg tab ORAL SCH (08:15)
[2018-09-25] MEDS: Heparin 5000 units/ml inj SUBQ SCH ×2 (08:17→20:32)
[2018-09-25 08:18] LABS: CARBON DIOXIDE 42 MMOL/L (21-32)
[2018-09-25] MEDS ORDERED: Solu-MEDROL 125mg Inj IVP SCH (09:00)
--- NOTE | 2018-09-25 10:34 | Cardiology Progress Note ---
Assessment/Plan Assessment/Plan echo conisder diamox no acs sx abx duplex neg [id number] Objective Last 24 Hour Vital Signs Date Time Temp Pulse Resp B/P (MAP) Pulse Ox O2 Delivery O2 Flow Rate FiO2 09/25/18 09:00 Nasal Cannula 5.0 09/25/18 08:21 78 20 98 Nasal Cannula 4.0 36 09/25/18 08:15 74 18 93 Nasal Cannula 4.0 36 09/25/18 08:15 Nasal Cannula 4.0 36 09/25/18 08:15 93 Nasal Cannula 4.0 36 09/25/18 08:00 98.0 65 18 114/59 (77) 98 09/25/18 08:00 65 09/25/18 04:00 69 09/25/18 04:00 97.7 69 19 114/59 (77) 96 09/25/18 03:38 78 18 99 Nasal Cannula 4.0 36 09/25/18 03:28 74 18 98 Nasal Cannula 4.0 36 09/25/18 00:00 97.7 75 19 109/56 (73) 95 09/25/18 00:00 75 09/24/18 23:48 80 18 99 Nasal Cannula 4.0 36 09/24/18 23:38 79 18 98 Nasal Cannula 4.0 36 09/24/18 21:00 Nasal Cannula 5.0 09/24/18 20:08 82 20 95 Nasal Cannula 4.0 36 09/24/18 20:00 97.6 81 19 124/72 (89) 95 09/24/18 20:00 81 09/24/18 19:55 93 20 93 Nasal Cannula 4.0 36 09/24/18 19:55 93 Nasal Cannula 4.0 36 09/24/18 19:55 Nasal Cannula 4.0 36 09/24/18 16:02 79 16 93 Nasal Cannula 4.0 36 09/24/18 16:00 85 09/24/18 16:00 97.9 85 23 138/85 (102) 95 09/24/18 15:52 79 16 93 Nasal Cannula 4.0 36 09/24/18 12:16 83 18 94 Nasal Cannula 4.0 36 09/24/18 12:06 83 18 90 Nasal Cannula 4.0 36 09/24/18 12:00 97.2 76 20 145/72 (96) 95 09/24/18 12:00 98 Intake and Output 09/24/18 09/25/18 19:00 07:00 Intake Total 400 ml Output Total 1000 ml 900 ml Balance -1000 ml -500 ml Intake Oral 400 ml Output Urine Total 900 ml Stool Total 1000 ml # Bowel Movements 1 1 Laboratory Tests Test 09/25/18 07:41 White Blood Count 8.0 K/UL (4.8-10.8) # Red Blood Count 5.40 M/UL (4.20-5.40) Hemoglobin 13.9 G/DL (12.0-16.0) Hematocrit 44.5 % (37.0-47.0) Mean Corpuscular Volume 82 FL (80-99) Mean Corpuscular Hemoglobin 25.8 PG (27.0-31.0) L Mean Corpuscular Hemoglobin Concent 31.3 G/DL (32.0-36.0) L Red Cell Distribution Width 15.7 % (11.6-14.8) H Platelet Count 275 K/UL (150-450) Mean Platelet Volume 5.8 FL (6.5-10.1) L Neutrophils (%) (Auto) 77.9 % (45.0-75.0) H Lymphocytes (%) (Auto) 12.6 % (20.0-45.0) L Monocytes (%) (Auto) 9.0 % (1.0-10.0) Eosinophils (%) (Auto) 0.1 % (0.0-3.0) Basophils (%) (Auto) 0.4 % (0.0-2.0) Sodium Level 142 MMOL/L (136-145) Potassium Level 4.0 MMOL/L (3.5-5.1) Chloride Level 98 MMOL/L (98-107) Carbon Dioxide Level 42 MMOL/L (21-32) *H Anion Gap 2 mmol/L (5-15) L Blood Urea Nitrogen 27 mg/dL (7-18) H Creatinine 1.3 MG/DL (0.55-1.30) Estimat Glomerular Filtration Rate 41.4 mL/min (>60) Glucose Level 96 MG/DL (74-106) # Calcium Level 9.7 MG/DL (8.5-10.1) Total Bilirubin 0.7 MG/DL (0.2-1.0) Aspartate Amino Transf (AST/SGOT) 18 U/L (15-37) Alanine Aminotransferase (ALT/SGPT) 15 U/L (12-78) Alkaline Phosphatase 57 U/L (46-116) Troponin I 0.035 ng/mL (0.000-0.056) Pro-B-Type Natriuretic Peptide 4527 pg/mL (0-125) H Total Protein 7.6 G/DL (6.4-8.2) Albumin 3.5 G/DL (3.4-5.0) Globulin 4.1 g/dL Albumin/Globulin Ratio 0.9 (1.0-2.7) L Microbiology Date/Time Source Procedure Growth Status 09/23/18 01:57 Blood Blood Culture - Preliminary NO GROWTH AFTER 48 HOURS Resulted 09/23/18 01:42 Blood Blood Culture - Preliminary NO GROWTH AFTER 48 HOURS Resulted Guillermo Marrero MD Sep 25, 2018 10:34
--- NOTE | 2018-09-25 11:29 | Pulmonology Progress Note ---
Assessment/Plan Problems: (1) Acute respiratory failure (2) Pneumonia (3) CHF (congestive heart failure) (4) Pulmonary fibrosis (5) Diabetes mellitus, type II (6) Hypothyroidism (7) HTN (hypertension) Assessment/Plan improving decrease steroids to qd check sputum high resolution ct chest to evaluate pulmonary fibrosis decrease lasix to QD check BNP daily agree with Diamox. Subjective ROS Limited/Unobtainable: No Allergies: Coded Allergies: PENICILLINS (Verified Allergy, Unknown, 09/18/17) Objective Last 24 Hour Vital Signs Date Time Temp Pulse Resp B/P (MAP) Pulse Ox O2 Delivery O2 Flow Rate FiO2 09/25/18 09:00 Nasal Cannula 5.0 09/25/18 08:21 78 20 98 Nasal Cannula 4.0 36 09/25/18 08:15 74 18 93 Nasal Cannula 4.0 36 09/25/18 08:15 Nasal Cannula 4.0 36 09/25/18 08:15 93 Nasal Cannula 4.0 36 09/25/18 08:00 98.0 65 18 114/59 (77) 98 09/25/18 08:00 65 09/25/18 04:00 69 09/25/18 04:00 97.7 69 19 114/59 (77) 96 09/25/18 03:38 78 18 99 Nasal Cannula 4.0 36 09/25/18 03:28 74 18 98 Nasal Cannula 4.0 36 09/25/18 00:00 97.7 75 19 109/56 (73) 95 09/25/18 00:00 75 09/24/18 23:48 80 18 99 Nasal Cannula 4.0 36 09/24/18 23:38 79 18 98 Nasal Cannula 4.0 36 09/24/18 21:00 Nasal Cannula 5.0 09/24/18 20:08 82 20 95 Nasal Cannula 4.0 36 09/24/18 20:00 97.6 81 19 124/72 (89) 95 09/24/18 20:00 81 09/24/18 19:55 93 20 93 Nasal Cannula 4.0 36 09/24/18 19:55 93 Nasal Cannula 4.0 36 09/24/18 19:55 Nasal Cannula 4.0 36 09/24/18 16:02 79 16 93 Nasal Cannula 4.0 36 09/24/18 16:00 85 09/24/18 16:00 97.9 85 23 138/85 (102) 95 09/24/18 15:52 79 16 93 Nasal Cannula 4.0 36 09/24/18 12:16 83 18 94 Nasal Cannula 4.0 36 09/24/18 12:06 83 18 90 Nasal Cannula 4.0 36 09/24/18 12:00 97.2 76 20 145/72 (96) 95 09/24/18 12:00 98 Intake and Output 09/24/18 09/25/18 19:00 07:00 Intake Total 400 ml Output Total 1000 ml 900 ml Balance -1000 ml -500 ml Intake Oral 400 ml Output Urine Total 900 ml Stool Total 1000 ml # Bowel Movements 1 1 General Appearance: WD/WN HEENT: normocephalic, atraumatic Respiratory/Chest: chest wall non-tender, crackles/rales Cardiovascular: normal rate Abdomen: normal bowel sounds, soft, non tender Genitourinary: normal external genitalia Extremities: no clubbing Skin: no rash Microbiology Date/Time Source Procedure Growth Status 09/23/18 01:57 Blood Blood Culture - Preliminary NO GROWTH AFTER 48 HOURS Resulted 09/23/18 01:42 Blood Blood Culture - Preliminary NO GROWTH AFTER 48 HOURS Resulted Laboratory Tests 09/25/18 07:41: White Blood Count 8.0#, Red Blood Count 5.40, Hemoglobin 13.9, Hematocrit 44.5, Mean Corpuscular Volume 82, Mean Corpuscular Hemoglobin 25.8L, Mean Corpuscular Hemoglobin Concent 31.3L, Red Cell Distribution Width 15.7H, Platelet Count 275 , Mean Platelet Volume 5.8L, Neutrophils (%) (Auto) 77.9H, Lymphocytes (%) (Auto ) 12.6L, Monocytes (%) (Auto) 9.0, Eosinophils (%) (Auto) 0.1, Basophils (%) ( Auto) 0.4, Sodium Level 142, Potassium Level 4.0, Chloride Level 98, Carbon Dioxide Level 42*H, Anion Gap 2L, Blood Urea Nitrogen 27H, Creatinine 1.3, Estimat Glomerular Filtration Rate 41.4, Glucose Level 96#, Calcium Level 9.7, Total Bilirubin 0.7, Aspartate Amino Transf (AST/SGOT) 18, Alanine Aminotransferase (ALT/SGPT) 15, Alkaline Phosphatase 57, Troponin I 0.035, Pro-B -Type Natriuretic Peptide 4527H, Total Protein 7.6, Albumin 3.5, Globulin 4.1, Albumin/Globulin Ratio 0.9L Current Medications Medications (Trade) Dose Ordered Sig/Leatha Route PRN Reason Start Time Stop Time Status Last Admin Dose Admin Acetaminophen (Tylenol) 650 mg Q4H PRN ORAL Fever 09/23/18 08:15 10/23/18 08:14 Acetazolamide (Diamox) 250 mg TWICE A DAY ORAL 09/25/18 12:30 09/26/18 12:29 Albuterol/ Ipratropium (Albuterol/ Ipratropium) 3 ml Q4HRT HHN 09/23/18 16:15 09/28/18 16:14 09/25/18 07:58 Alprazolam (Xanax) 0.25 mg Q6H PRN ORAL For Anxiety 09/23/18 12:45 09/30/18 12:44 Atorvastatin Calcium (Lipitor) 20 mg BEDTIME ORAL 09/23/18 21:00 10/23/18 20:59 09/24/18 21:25 Dextrose (Dextrose 50%) 25 ml Q30M PRN IV Hypoglycemia 09/23/18 08:15 10/23/18 08:14 Dextrose (Dextrose 50%) 50 ml Q30M PRN IV Hypoglycemia 09/23/18 08:15 10/23/18 08:14 Fluoxetine HCl (PROzac) 40 mg DAILY ORAL 09/23/18 09:00 10/23/18 08:59 09/25/18 08:15 Furosemide (Lasix) 40 mg EVERY 8 HOURS IV 09/23/18 14:00 10/23/18 13:59 09/25/18 06:09 Heparin Sodium (Porcine) (Heparin 5000 units/ml) 5,000 units EVERY 12 HOURS SUBQ 09/23/18 09:00 10/23/18 08:59 09/25/18 08:17 Insulin Aspart (NovoLOG) BEFORE MEALS AND HS SUBQ 09/23/18 11:30 10/23/18 11:29 Lamotrigine (LaMICtal) 200 mg QHS ORAL 09/23/18 21:00 10/23/18 08:59 09/24/18 21:25 Levofloxacin 50 ml @ 50 mls/hr Q24H IVPB 09/25/18 02:00 10/02/18 01:59 09/25/18 01:56 Levothyroxine Sodium (Synthroid) 150 mcg DAILY@0630 ORAL 09/24/18 06:30 10/24/18 06:29 09/25/18 06:09 Meloxicam (Mobic) 15 mg QHS ORAL 09/23/18 21:00 10/23/18 20:59 09/24/18 21:25 Methylprednisolone Sodium Succinate (Solu-MEDROL) 40 mg DAILY IVP 09/26/18 09:00 10/26/18 08:59 Ondansetron HCl (Zofran) 4 mg Q6H PRN IVP Nausea & Vomiting 09/23/18 08:15 10/23/18 08:14 Ondansetron HCl (Zofran) 4 mg Q6HR PRN IVP Nausea & Vomiting 09/23/18 05:15 Pantoprazole (Protonix) 40 mg ACBREAKFAST ORAL 09/24/18 06:30 10/24/18 08:59 09/25/18 06:09 Promethazine HCl/ Codeine (Phenergan with Codeine) 5 ml Q6H PRN ORAL For Cough 09/24/18 22:15 10/24/18 22:14 09/25/18 08:16 Temazepam (Restoril) 15 mg HSPRN PRN ORAL Insomnia 09/23/18 08:15 09/30/18 08:14 Trazodone HCl (Desyrel) 50 mg BEDTIME ORAL 09/23/18 21:00 10/23/18 20:59 09/24/18 21:25 Nahomy Hanna MD Sep 25, 2018 11:29
[2018-09-25 12:00] VITALS: BP 109/69
--- NOTE | 2018-09-25 14:26 | Diagnostic Imaging Report ---
Clinical Indication: DYSPNEA Technique: Spiral acquisitions obtained through the chest. No IV contrast utilized, per high resolution protocol. Multiplanar reconstructions generated. 1 mm thick slices at 10 mm intervals were also reconstructed using high resolution algorithm. Total dose length product 930.54 mGycm. CTDIvol(s) 29.35 mGy. Dose reduction achieved using automated exposure control Comparison: 09/20/2017 Findings: Again demonstrated is interstitial septal thickening. This has progressed considerably, and is now diffuse throughout both lungs. There is interim progression of previously demonstrated bronchiectasis, previously predominantly lower lobe but no involving the upper lobes as well. There is extensive bronchial wall thickening. The main pulmonary artery measures 3.9 cm in diameter. The right pulmonary artery measures 2.8 and the left pulmonary artery measures 2.8 cm in diameter. The hilar pulmonary arteries are quite ectatic. No definite effusions. The heart is markedly enlarged, more so than on the prior exam. No pericardial effusion. No mediastinal or hilar mass or adenopathy. The included portion of the thyroid is unremarkable. No axillary or chest wall mass or adenopathy. The esophagus is unremarkable. The included upper abdominal anatomy is unremarkable. Impression: Bilateral and extensive interstitial disease, as described, predominantly pattern that of interstitial septal thickening, bronchiectasis, bronchial wall thickening, progressive since prior exam of 09/20/2017. Findings most likely represent progression of interstitial fibrosis. However, given the presence of marked cardiomegaly, there may also be a significant component of interstitial edema Borderline pulmonary arterial dilatation, could indicate pulmonary arterial hypertension The CT scanner at [facility] is accredited by the [employer] and the scans are performed using protocols designed to limit radiation exposure to as low as reasonably achievable to attain images of sufficient resolution adequate for diagnostic evaluation.
--- NOTE | 2018-09-25 15:00 | Diagnostic Imaging Report ---
Indication: Shortness of breath Technique: One view of the chest Comparison: 09/24/2018 Findings: Bilateral diffuse interstitial and airspace disease appears similar to the prior exam. The heart is enlarged. No definite effusions. Impression: Cardiac megaly Bilateral diffuse interstitial and airspace disease, similar to previous study. Demonstrated on subsequent chest CT to be most likely represent chronic interstitial fibrotic changes, although superimposed acute disease also possible
--- NOTE | 2018-09-25 15:15 | Consultation ---
DATE OF CONSULTATION: 09/25/2018 CARDIOLOGY CONSULTATION CONSULTING PHYSICIAN: Guillermo Marrero M.D. REFERRING PHYSICIAN: Nahomy Hanna M.D. REASON FOR REFERRAL: Shortness of breath. HISTORY OF PRESENT ILLNESS: This is a 63-year-old female, who is known to me from prior evaluation here at [facility] approximately one year ago. Today, she presented because of shortness of breath for two weeks and she has coughing and more recently wheezing. The coughing is now productive of thick sputum that is yellow, green in color. Symptoms eventually got worse to the point that she is currently taken to the emergency room at [facility], has been admitted. She has had some swelling in her legs for approximately three weeks and she is getting some diuretics, but the swelling has not resolved. She does have orthopnea and PND, but those are apparently old symptoms for her, not new. She has dyspnea on exertion. She has dyspnea at rest. She has occasional dizziness on standing and she has occasional palpitations. She does have pain when she coughs, otherwise no pain. PAST MEDICAL HISTORY: Positive for history of acute on chronic respiratory failure in September 2017, history of pulmonary fibrosis, influenza, infection, bronchitis, diabetes mellitus, hypothyroidism, bipolar disorder, major depression, and anxiety. She has history of pulmonary nodule. She has hysterectomy, right-sided hernia repair. FAMILY HISTORY: Mother of asthma. SOCIAL HISTORY: She does not smoke at the present time. Does not drink alcoholic beverages. She has some secondhand smoking exposure. No alcohol or drugs. REVIEW OF SYSTEMS: GASTROINTESTINAL: She had some constipation and some nausea. GENITOURINARY: Some burning on urination. PULMONARY: Positive coughing sputum production and wheezing as noted. NEUROLOGIC: Negative. PHYSICAL EXAMINATION: GENERAL: Shows to be elderly middle-aged female, in no respiratory distress. She has a face mask and oxygen in place. NECK: Supple. LUNGS: Bilateral basilar crackles noted. CARDIAC: Regular rate and rhythm. A faint holosystolic regurgitant murmur is noted. ABDOMEN: Soft, nontender. Positive bowel sounds. Obese. EXTREMITIES: A 2 to edema with some evidence of skin shrinkage from possibly recent volume loss. NEUROLOGIC: She is awake, alert, responsive, in no apparent distress. LABORATORY AND DIAGNOSTIC DATA: Laboratory values, white count is 8 up from 5.2 yesterday, hemoglobin 13.9, and platelet count of 275. Blood gases pH of 7.39, pCO2 of 50, pO2 of 76, and bicarbonate of 30. Sodium is 142, potassium 4.0, chloride 98, bicarb 42, BUN of 27, creatinine 1.3, and glucose of 96. ProBNP is 4500. Troponin #1 was normal at 0.03 yesterday and subsequently #2 at 0.035 normal. Again today, TSH of 1.771, free T3 is 53, total T3 uptake is 32. Liver function tests are otherwise normal. Urinalysis shows 1+ leukocyte esterase, 2 to 4 wbc's. A chest x-ray performed yesterday showed no cardiomegaly, predominant interstitial opacities are given. There is volume loss, some perihilar airspace opacities are noted. No pleural effusion is appreciated. No pneumothorax is noted. She had a venous duplex study of her lower extremities that was performed that there is no thrombus in the veins of lower extremity. ASSESSMENT AND PLAN: 1. Upper respiratory tract infection, pneumonia versus bronchitis. 2. Pulmonary fibrosis. 3. Right heart failure. 4. Diabetes mellitus. 5. Respiratory acidosis and metabolic alkalosis. This patient was seen in cardiac consultation. The patient really does not have any signs of coronary syndrome. I think her main issue is pulmonary issue and she probably has a right heart failure. An echocardiogram should be ordered to evaluate LV systolic function and if she does not have any deep venous thromboses, she may benefit from administration of Diamox for 2 to 3 doses in light of the diuretics and I will follow the patient along with you. Guillermo Marrero M.D. DR: LUCIAN JOB#: [id number] CC:
--- NOTE | 2018-09-25 15:46 | Internal Med Progress Note ---
Subjective Date of Service: Sep 25, 2018 Physician Name Inderjit Galvan Attending Physician Bob Lin MD Current Medications Medications (Trade) Dose Ordered Sig/Leatha Route PRN Reason Start Time Stop Time Status Last Admin Dose Admin Acetaminophen (Tylenol) 650 mg Q4H PRN ORAL Fever 09/23/18 08:15 10/23/18 08:14 Acetazolamide (Diamox) 250 mg TWICE A DAY ORAL 09/25/18 12:30 09/26/18 12:29 Albuterol/ Ipratropium (Albuterol/ Ipratropium) 3 ml Q4HRT HHN 09/23/18 16:15 09/28/18 16:14 09/25/18 11:30 Alprazolam (Xanax) 0.25 mg Q6H PRN ORAL For Anxiety 09/23/18 12:45 09/30/18 12:44 Atorvastatin Calcium (Lipitor) 20 mg BEDTIME ORAL 09/23/18 21:00 10/23/18 20:59 09/24/18 21:25 Dextrose (Dextrose 50%) 25 ml Q30M PRN IV Hypoglycemia 09/23/18 08:15 10/23/18 08:14 Dextrose (Dextrose 50%) 50 ml Q30M PRN IV Hypoglycemia 09/23/18 08:15 10/23/18 08:14 Fluoxetine HCl (PROzac) 40 mg DAILY ORAL 09/23/18 09:00 10/23/18 08:59 09/25/18 08:15 Furosemide (Lasix) 40 mg DAILY IV 09/26/18 09:00 10/23/18 13:59 Heparin Sodium (Porcine) (Heparin 5000 units/ml) 5,000 units EVERY 12 HOURS SUBQ 09/23/18 09:00 10/23/18 08:59 09/25/18 08:17 Insulin Aspart (NovoLOG) BEFORE MEALS AND HS SUBQ 09/23/18 11:30 10/23/18 11:29 Lamotrigine (LaMICtal) 200 mg QHS ORAL 09/23/18 21:00 10/23/18 08:59 09/24/18 21:25 Levofloxacin 50 ml @ 50 mls/hr Q24H IVPB 09/25/18 02:00 10/02/18 01:59 09/25/18 01:56 Levothyroxine Sodium (Synthroid) 150 mcg DAILY@0630 ORAL 09/24/18 06:30 10/24/18 06:29 09/25/18 06:09 Meloxicam (Mobic) 15 mg QHS ORAL 09/23/18 21:00 10/23/18 20:59 09/24/18 21:25 Methylprednisolone Sodium Succinate (Solu-MEDROL) 40 mg DAILY IVP 09/26/18 09:00 10/26/18 08:59 Ondansetron HCl (Zofran) 4 mg Q6H PRN IVP Nausea & Vomiting 09/23/18 08:15 10/23/18 08:14 Pantoprazole (Protonix) 40 mg ACBREAKFAST ORAL 09/24/18 06:30 10/24/18 08:59 09/25/18 06:09 Promethazine HCl/ Codeine (Phenergan with Codeine) 5 ml Q6H PRN ORAL For Cough 09/24/18 22:15 10/24/18 22:14 09/25/18 08:16 Temazepam (Restoril) 15 mg HSPRN PRN ORAL Insomnia 09/23/18 08:15 09/30/18 08:14 Trazodone HCl (Desyrel) 50 mg BEDTIME ORAL 09/23/18 21:00 10/23/18 20:59 09/24/18 21:25 Allergies: Coded Allergies: PENICILLINS (Verified Allergy, Unknown, 09/18/17) ROS Limited/Unobtainable: No Constitutional: Reports: no symptoms HEENT: Reports: no symptoms Cardiovascular: Reports: no symptoms Respiratory: Reports: cough, shortness of breath Genitourinary: Reports: no symptoms Neurologic/Psychiatric: Reports: no symptoms Subjective 63 YO F with pulmonary fibrosis admitted with shortness of breath. Now bronchitis. Cover for Int Bimal-Dr Lin Objective Last Vital Signs Date Time Temp Pulse Resp B/P (MAP) Pulse Ox O2 Delivery O2 Flow Rate FiO2 09/25/18 13:20 79 20 99 Nasal Cannula 4.0 36 09/25/18 12:00 97.6 109/69 (82) Laboratory Tests Test 09/25/18 07:41 White Blood Count 8.0 K/UL (4.8-10.8) # Red Blood Count 5.40 M/UL (4.20-5.40) Hemoglobin 13.9 G/DL (12.0-16.0) Hematocrit 44.5 % (37.0-47.0) Mean Corpuscular Volume 82 FL (80-99) Mean Corpuscular Hemoglobin 25.8 PG (27.0-31.0) L Mean Corpuscular Hemoglobin Concent 31.3 G/DL (32.0-36.0) L Red Cell Distribution Width 15.7 % (11.6-14.8) H Platelet Count 275 K/UL (150-450) Mean Platelet Volume 5.8 FL (6.5-10.1) L Neutrophils (%) (Auto) 77.9 % (45.0-75.0) H Lymphocytes (%) (Auto) 12.6 % (20.0-45.0) L Monocytes (%) (Auto) 9.0 % (1.0-10.0) Eosinophils (%) (Auto) 0.1 % (0.0-3.0) Basophils (%) (Auto) 0.4 % (0.0-2.0) Sodium Level 142 MMOL/L (136-145) Potassium Level 4.0 MMOL/L (3.5-5.1) Chloride Level 98 MMOL/L (98-107) Carbon Dioxide Level 42 MMOL/L (21-32) *H Anion Gap 2 mmol/L (5-15) L Blood Urea Nitrogen 27 mg/dL (7-18) H Creatinine 1.3 MG/DL (0.55-1.30) Estimat Glomerular Filtration Rate 41.4 mL/min (>60) Glucose Level 96 MG/DL (74-106) # Calcium Level 9.7 MG/DL (8.5-10.1) Total Bilirubin 0.7 MG/DL (0.2-1.0) Aspartate Amino Transf (AST/SGOT) 18 U/L (15-37) Alanine Aminotransferase (ALT/SGPT) 15 U/L (12-78) Alkaline Phosphatase 57 U/L (46-116) Troponin I 0.035 ng/mL (0.000-0.056) Pro-B-Type Natriuretic Peptide 4527 pg/mL (0-125) H Total Protein 7.6 G/DL (6.4-8.2) Albumin 3.5 G/DL (3.4-5.0) Globulin 4.1 g/dL Albumin/Globulin Ratio 0.9 (1.0-2.7) L Microbiology Date/Time Source Procedure Growth Status 09/23/18 01:57 Blood Blood Culture - Preliminary NO GROWTH AFTER 48 HOURS Resulted 09/23/18 01:42 Blood Blood Culture - Preliminary NO GROWTH AFTER 48 HOURS Resulted Intake and Output 09/24/18 09/25/18 19:00 07:00 Intake Total 400 ml Output Total 1000 ml 900 ml Balance -1000 ml -500 ml Intake Oral 400 ml Output Urine Total 900 ml Stool Total 1000 ml # Bowel Movements 1 1 Objective PHYSICAL EXAMINATION: GENERAL: The patient is a well-developed and well-nourished white female, who is in moderate respiratory distress. HEENT: Eyes, pupils are equal and responsive to light and accommodation. Extraocular movements are intact. NECK: Supple without lymphadenopathy. CHEST: nasal canula. Diffuse wheezes in the right lung greater than the left. Otherwise, clear to auscultation bilaterally without wheezes or rales. CARDIOVASCULAR: Regular rhythm and rate. S1 and S2 are normal without murmurs, rubs, or gallops. ABDOMEN: Soft, nontender, and nondistended. Positive bowel sounds. No evidence of hepatosplenomegaly. Currently, no rebound or guarding noted. EXTREMITIES: Negative for clubbing, cyanosis, or edema. RECTAL: Refused. GENITAL: Refused. NEUROLOGIC: Cranial nerves II through XII are grossly intact without focal deficits. Motor strength is 5/5 bilaterally intact. Deep tendon reflexes are 2+, plantar. Assessment/Plan Assessment/Plan ASSESSMENT: This is a 63-year-old white female with: 1. Bronchitis. 2. Shortness of breath. 3. Pulmonary fibrosis. 4. Diabetes type 2. 5. Hypertension. 6. Hypercholesterolemia. 7. Hypothyroidism. TREATMENT: 1. Shortness of breath/pulmonary fibrosis/bronchitis. The patient has been placed empirically on intravenous Levaquin. Decrease Intravenous Solu-Medrol to daily. The patient is currently receiving DuoNeb q.4 h. routine. A Pulmonary consultation has been obtained with Dr. Nahomy Hanna. We will follow recommendations of Pulmonary. 2. Diabetes type 2. Continue metformin as above. A NovoLog sliding scale has been instituted. 3. Hypertension. Continue losartan/hydrochlorothiazide as above. 4. Hypercholesterolemia. Continue Lipitor as above. 5. Hypothyroidism. Continue Levoxyl as above. 6. Major depression. Continue trazodone and lamotrigine as above. Inderjit Galvan MD Sep 25, 2018 15:46
[2018-09-25 16:00] VITALS: BP 115/62
[2018-09-25] MEDS ORDERED: ALPRAZolam 0.25mg tab ORAL PRN (18:52)
[2018-09-25] MEDS ORDERED: Promethazine/Codeine 5ml UD ORAL PRN (18:53)
[2018-09-25 20:00] VITALS: BP 122/83
[2018-09-25] MEDS: Meloxicam 15 MG TAB ORAL SCH (20:30)
[2018-09-25] MEDS: TraZODone 50mg tab ORAL SCH (20:30)
[2018-09-25] MEDS: Atorvastatin 20mg tab ORAL SCH (20:30)
[2018-09-26] VITALS: BP 95/49
[2018-09-26] MEDS: Albuterol/Ipratropium 3ml neb HHN SCH ×6 (03:20→23:46)
[2018-09-26 04:00] VITALS: BP 113/54
[2018-09-26] MEDS: NovoLOG Insulin Flexpen SUBQ SCH ×4 (05:44→21:00)
[2018-09-26 08:00] VITALS: BP 118/56
[2018-09-26] MEDS: Solu-MEDROL 40mg Inj IVP SCH (08:13)
[2018-09-26 08:15] LABS: EOSINOPHILS % (AUTO) 1.3 % (0.0-3.0); HEMATOCRIT 42.8 % (37.0-47.0); HEMOGLOBIN 13.3 G/DL (12.0-16.0); LYMPHOCYTES % (AUTO) 22.6 % (20.0-45.0); MEAN CORPUSCULAR VOLUME 84 FL (80-99); MONOCYTES % (AUTO) 9.2 % (1.0-10.0); NEUTROPHILS % (AUTO) 65.9 % (45.0-75.0); PLATELET COUNT 236 K/UL (150-450); RED BLOOD COUNT 5.11 M/UL (4.20-5.40); RED CELL DISTRIBUTION WIDTH 15.3 % (11.6-14.8); WHITE BLOOD COUNT 6.5 K/UL (4.8-10.8)
[2018-09-26] MEDS: Heparin 5000 units/ml inj SUBQ SCH ×2 (08:28→21:33)
[2018-09-26] MEDS ORDERED: Solu-MEDROL 40mg Inj IVP SCH (09:00)
[2018-09-26 09:38] LABS: ANION GAP 4 mmol/L (5-15); BLOOD UREA NITROGEN 32 mg/dL (7-18); CALCIUM 9.2 MG/DL (8.5-10.1); CARBON DIOXIDE 39 MMOL/L (21-32); CHLORIDE 98 MMOL/L (98-107); CREATININE 1.3 MG/DL (0.55-1.30); POTASSIUM 3.6 MMOL/L (3.5-5.1); SODIUM 141 MMOL/L (136-145)
[2018-09-26 12:00] VITALS: BP 119/62
--- NOTE | 2018-09-26 13:27 | Pulmonology Progress Note ---
Assessment/Plan Problems: (1) Acute respiratory failure (2) Pneumonia (3) CHF (congestive heart failure) (4) Pulmonary fibrosis (5) Diabetes mellitus, type II (6) Hypothyroidism (7) HTN (hypertension) Assessment/Plan still short of breath BNP still high continue current meds improving decrease steroids to qd check sputum high resolution ct chest to evaluate pulmonary fibrosis decrease lasix to QD check BNP daily agree with Diamox. Subjective ROS Limited/Unobtainable: No Constitutional: Reports: no symptoms HEENT: Repors: no symptoms Respiratory: Reports: no symptoms Allergies: Coded Allergies: PENICILLINS (Verified Allergy, Unknown, 09/18/17) Objective Last 24 Hour Vital Signs Date Time Temp Pulse Resp B/P (MAP) Pulse Ox O2 Delivery O2 Flow Rate FiO2 09/26/18 12:00 97.7 78 18 119/62 (81) 99 09/26/18 11:23 78 16 98 Nasal Cannula 4.0 36 09/26/18 11:13 73 16 94 Nasal Cannula 4.0 36 09/26/18 09:00 Nasal Cannula 5.0 09/26/18 08:00 98.6 73 18 118/56 (76) 100 09/26/18 07:55 76 16 97 Nasal Cannula 4.0 36 09/26/18 07:44 75 16 93 Nasal Cannula 4.0 36 09/26/18 07:43 93 Nasal Cannula 4.0 36 09/26/18 07:43 Nasal Cannula 4.0 36 09/26/18 04:00 98.2 70 18 113/54 (73) 100 09/26/18 03:30 68 16 99 Nasal Cannula 4.0 36 09/26/18 03:20 67 16 97 Nasal Cannula 4.0 36 09/26/18 00:00 97.0 62 16 95/49 (64) 98 09/25/18 23:36 80 16 96 Nasal Cannula 4.0 36 09/25/18 23:26 78 14 93 Nasal Cannula 3.0 32 09/25/18 21:00 Nasal Cannula 5.0 09/25/18 20:09 89 18 99 Nasal Cannula 4.0 36 09/25/18 20:00 97.0 79 18 122/83 (96) 96 09/25/18 19:59 86 18 98 Nasal Cannula 4.0 36 09/25/18 19:59 98 Nasal Cannula 4.0 36 09/25/18 19:59 Nasal Cannula 4.0 36 09/25/18 16:00 98.2 83 18 115/62 (79) 98 09/25/18 16:00 81 20 99 Nasal Cannula 4.0 36 09/25/18 16:00 84 09/25/18 15:48 81 20 95 Nasal Cannula 4.0 36 Intake and Output 09/25/18 09/26/18 19:00 07:00 Intake Total 490 ml Output Total 900 ml 500 ml Balance -410 ml -500 ml Intake Oral 490 ml Output Urine Total 900 ml 500 ml General Appearance: WD/WN HEENT: normocephalic, anicteric Respiratory/Chest: chest wall non-tender, lungs clear Breasts: no masses Cardiovascular: normal peripheral pulses, regular rhythm Abdomen: normal bowel sounds, no organomegaly Genitourinary: normal external genitalia Laboratory Tests 09/26/18 07:58: White Blood Count 6.5, Red Blood Count 5.11, Hemoglobin 13.3, Hematocrit 42.8, Mean Corpuscular Volume 84, Mean Corpuscular Hemoglobin 26.1L, Mean Corpuscular Hemoglobin Concent 31.2L, Red Cell Distribution Width 15.3H, Platelet Count 236 , Mean Platelet Volume 5.6L, Neutrophils (%) (Auto) 65.9, Lymphocytes (%) (Auto ) 22.6, Monocytes (%) (Auto) 9.2, Eosinophils (%) (Auto) 1.3, Basophils (%) ( Auto) 1.0, Sodium Level 141, Potassium Level 3.6, Chloride Level 98, Carbon Dioxide Level 39H, Anion Gap 4L, Blood Urea Nitrogen 32H, Creatinine 1.3, Estimat Glomerular Filtration Rate 41.4, Glucose Level 107H, Calcium Level 9.2 Current Medications Medications (Trade) Dose Ordered Sig/Leatha Route PRN Reason Start Time Stop Time Status Last Admin Dose Admin Acetaminophen (Tylenol) 650 mg Q4H PRN ORAL Fever 09/25/18 18:51 10/23/18 18:50 Acetazolamide (Diamox) 250 mg TWICE A DAY ORAL 09/26/18 09:00 10/26/18 08:59 09/26/18 08:14 Albuterol/ Ipratropium (Albuterol/ Ipratropium) 3 ml Q4HRT HHN 09/25/18 19:00 09/28/18 16:14 09/26/18 11:13 Alprazolam (Xanax) 0.25 mg Q6H PRN ORAL For Anxiety 09/25/18 18:52 10/02/18 18:51 Atorvastatin Calcium (Lipitor) 20 mg BEDTIME ORAL 09/25/18 21:00 10/23/18 20:59 09/25/18 20:30 Dextrose (Dextrose 50%) 25 ml Q30M PRN IV Hypoglycemia 09/25/18 19:15 10/23/18 08:14 Dextrose (Dextrose 50%) 50 ml Q30M PRN IV Hypoglycemia 09/25/18 19:15 10/23/18 08:14 Fluoxetine HCl (PROzac) 40 mg DAILY ORAL 09/26/18 09:00 10/26/18 08:59 09/26/18 08:14 Furosemide (Lasix) 40 mg DAILY IV 09/26/18 09:00 10/23/18 13:59 09/26/18 08:14 Heparin Sodium (Porcine) (Heparin 5000 units/ml) 5,000 units EVERY 12 HOURS SUBQ 09/25/18 21:00 10/23/18 08:59 09/26/18 08:28 Insulin Aspart (NovoLOG) BEFORE MEALS AND HS SUBQ 09/25/18 21:00 10/23/18 11:29 Lamotrigine (LaMICtal) 200 mg QHS ORAL 09/25/18 21:00 10/23/18 08:59 09/25/18 20:31 Levofloxacin 50 ml @ 50 mls/hr Q24H IVPB 09/26/18 02:00 10/02/18 01:59 09/26/18 01:24 Levothyroxine Sodium (Synthroid) 150 mcg DAILY@0630 ORAL 09/26/18 06:30 10/24/18 06:29 09/26/18 05:44 Meloxicam (Mobic) 15 mg QHS ORAL 09/25/18 21:00 10/23/18 20:59 09/25/18 20:30 Methylprednisolone Sodium Succinate (Solu-MEDROL) 40 mg DAILY IVP 09/26/18 09:00 10/26/18 08:59 09/26/18 08:13 Ondansetron HCl (Zofran) 4 mg Q6H PRN IVP Nausea & Vomiting 09/25/18 20:15 10/23/18 08:14 Pantoprazole (Protonix) 40 mg ACBREAKFAST ORAL 09/26/18 06:30 10/24/18 08:59 09/26/18 05:44 Promethazine HCl/ Codeine (Phenergan with Codeine) 5 ml Q6H PRN ORAL For Cough 09/25/18 18:53 10/24/18 18:52 Temazepam (Restoril) 15 mg HSPRN PRN ORAL Insomnia 09/25/18 18:53 10/02/18 18:52 Trazodone HCl (Desyrel) 50 mg BEDTIME ORAL 09/25/18 21:00 10/23/18 20:59 09/25/18 20:30 Nahomy Hanna MD Sep 26, 2018 13:27
[2018-09-26 16:00] VITALS: BP 122/68
--- NOTE | 2018-09-26 17:29 | Cardiology Report ---
APPROVED REPORT EXAM: Two-dimensional and M-mode echocardiogram with Doppler and color Doppler. INDICATION LV FUNCTION M-Mode DIMENSIONS IVSd0.8 (0.7-1.1cm)Left Atrium (MM)3.5 (1.6-4.0cm) LVDd2.8 (3.5-5.6cm)Aortic Root2.7 (2.0-3.7cm) PWd1.4 (0.7-1.1cm)Aortic Cusp Exc.1.6 (1.5-2.0cm) IVSs1.8 cm LVDs1.6 (2.5-4.0cm) Normal left ventricular chamber size, systolic function and wall motion. Left ventricular ejection fraction estimated to be 55-60 %. Mild left ventricular hypertrophy by 2-D. Trivial posterior pericardial effusion. Normal left atrial chamber size . Moderate RV enlargement . Diastolic flattening of LV septal wall suggestive of RV overloaded . Focal aortic valve sclerosis with adequate cusp excursion. Thickened mitral valve leaflets with normal excursion. Moderatly mitral annulus and aortic root calcification. Pulmonic valve not well visualized. Normal tricuspid valve structure. IVC at 2.2 cm without physiologic collapse suggestive of increased RA pressure. A color flow and spectral Doppler study was performed and revealed: No aortic insuuficency . Trace mitral regurgitation . Mitral diastolic velocities suggest reduced left ventricular relaxation c/w mild LV diastolic dysfunction (Grade I ) Moderate tricuspid regurgitation. Tricuspid systolic velocities suggests peak right ventricular systolic pressure of 93 consistent with severe pulmonary hypertension . Pulmonic regurgitation present.
--- NOTE | 2018-09-26 19:07 | Internal Med Progress Note ---
Subjective Date of Service: Sep 26, 2018 Physician Name Inderjit Galvan Attending Physician Bob Lin MD Current Medications Medications (Trade) Dose Ordered Sig/Leatha Route PRN Reason Start Time Stop Time Status Last Admin Dose Admin Acetaminophen (Tylenol) 650 mg Q4H PRN ORAL Fever 09/25/18 18:51 10/23/18 18:50 Acetazolamide (Diamox) 250 mg TWICE A DAY ORAL 09/26/18 09:00 10/26/18 08:59 09/26/18 18:22 Albuterol/ Ipratropium (Albuterol/ Ipratropium) 3 ml Q4HRT HHN 09/25/18 19:00 09/28/18 16:14 09/26/18 15:25 Alprazolam (Xanax) 0.25 mg Q6H PRN ORAL For Anxiety 09/25/18 18:52 10/02/18 18:51 Atorvastatin Calcium (Lipitor) 20 mg BEDTIME ORAL 09/25/18 21:00 10/23/18 20:59 09/25/18 20:30 Dextrose (Dextrose 50%) 25 ml Q30M PRN IV Hypoglycemia 09/25/18 19:15 10/23/18 08:14 Dextrose (Dextrose 50%) 50 ml Q30M PRN IV Hypoglycemia 09/25/18 19:15 10/23/18 08:14 Fluoxetine HCl (PROzac) 40 mg DAILY ORAL 09/26/18 09:00 10/26/18 08:59 09/26/18 08:14 Furosemide (Lasix) 40 mg DAILY IV 09/26/18 09:00 10/23/18 13:59 09/26/18 08:14 Heparin Sodium (Porcine) (Heparin 5000 units/ml) 5,000 units EVERY 12 HOURS SUBQ 09/25/18 21:00 10/23/18 08:59 09/26/18 08:28 Insulin Aspart (NovoLOG) BEFORE MEALS AND HS SUBQ 09/25/18 21:00 10/23/18 11:29 Lamotrigine (LaMICtal) 200 mg QHS ORAL 09/25/18 21:00 10/23/18 08:59 09/25/18 20:31 Levofloxacin (Levaquin) 250 mg Q24H ORAL 09/26/18 22:00 10/03/18 21:59 Levothyroxine Sodium (Synthroid) 150 mcg DAILY@0630 ORAL 09/26/18 06:30 10/24/18 06:29 09/26/18 05:44 Meloxicam (Mobic) 15 mg QHS ORAL 09/25/18 21:00 10/23/18 20:59 09/25/18 20:30 Methylprednisolone Sodium Succinate (Solu-MEDROL) 40 mg DAILY IVP 09/26/18 09:00 10/26/18 08:59 09/26/18 08:13 Ondansetron HCl (Zofran) 4 mg Q6H PRN IVP Nausea & Vomiting 09/25/18 20:15 10/23/18 08:14 Pantoprazole (Protonix) 40 mg ACBREAKFAST ORAL 09/26/18 06:30 10/24/18 08:59 09/26/18 05:44 Promethazine HCl/ Codeine (Phenergan with Codeine) 5 ml Q6H PRN ORAL For Cough 09/25/18 18:53 10/24/18 18:52 Temazepam (Restoril) 15 mg HSPRN PRN ORAL Insomnia 09/25/18 18:53 10/02/18 18:52 Trazodone HCl (Desyrel) 50 mg BEDTIME ORAL 09/25/18 21:00 10/23/18 20:59 09/25/18 20:30 Allergies: Coded Allergies: PENICILLINS (Verified Allergy, Unknown, 09/18/17) ROS Limited/Unobtainable: No Constitutional: Reports: no symptoms HEENT: Reports: no symptoms Cardiovascular: Reports: no symptoms Respiratory: Reports: shortness of breath Gastrointestinal/Abdominal: Reports: no symptoms Genitourinary: Reports: no symptoms Neurologic/Psychiatric: Reports: no symptoms Subjective 63 YO F with pulmonary fibrosis admitted with shortness of breath. Now bronchitis. Cover for Int Bimal-Dr Lin Objective Last Vital Signs Date Time Temp Pulse Resp B/P (MAP) Pulse Ox O2 Delivery O2 Flow Rate FiO2 09/26/18 16:00 98.0 81 18 122/68 (86) 98 09/26/18 15:35 Nasal Cannula 4.0 36 Laboratory Tests Test 09/26/18 07:58 White Blood Count 6.5 K/UL (4.8-10.8) Red Blood Count 5.11 M/UL (4.20-5.40) Hemoglobin 13.3 G/DL (12.0-16.0) Hematocrit 42.8 % (37.0-47.0) Mean Corpuscular Volume 84 FL (80-99) Mean Corpuscular Hemoglobin 26.1 PG (27.0-31.0) L Mean Corpuscular Hemoglobin Concent 31.2 G/DL (32.0-36.0) L Red Cell Distribution Width 15.3 % (11.6-14.8) H Platelet Count 236 K/UL (150-450) Mean Platelet Volume 5.6 FL (6.5-10.1) L Neutrophils (%) (Auto) 65.9 % (45.0-75.0) Lymphocytes (%) (Auto) 22.6 % (20.0-45.0) Monocytes (%) (Auto) 9.2 % (1.0-10.0) Eosinophils (%) (Auto) 1.3 % (0.0-3.0) Basophils (%) (Auto) 1.0 % (0.0-2.0) Sodium Level 141 MMOL/L (136-145) Potassium Level 3.6 MMOL/L (3.5-5.1) Chloride Level 98 MMOL/L (98-107) Carbon Dioxide Level 39 MMOL/L (21-32) H Anion Gap 4 mmol/L (5-15) L Blood Urea Nitrogen 32 mg/dL (7-18) H Creatinine 1.3 MG/DL (0.55-1.30) Estimat Glomerular Filtration Rate 41.4 mL/min (>60) Glucose Level 107 MG/DL (74-106) H Calcium Level 9.2 MG/DL (8.5-10.1) Intake and Output 09/25/18 09/26/18 19:00 07:00 Intake Total 490 ml Output Total 900 ml 500 ml Balance -410 ml -500 ml Intake Oral 490 ml Output Urine Total 900 ml 500 ml Objective PHYSICAL EXAMINATION: GENERAL: The patient is a well-developed and well-nourished white female, who is in moderate respiratory distress. HEENT: Eyes, pupils are equal and responsive to light and accommodation. Extraocular movements are intact. NECK: Supple without lymphadenopathy. CHEST: nasal canula. Diffuse wheezes in the right lung greater than the left. Otherwise, clear to auscultation bilaterally without wheezes or rales. CARDIOVASCULAR: Regular rhythm and rate. S1 and S2 are normal without murmurs, rubs, or gallops. ABDOMEN: Soft, nontender, and nondistended. Positive bowel sounds. No evidence of hepatosplenomegaly. Currently, no rebound or guarding noted. EXTREMITIES: Negative for clubbing, cyanosis, or edema. RECTAL: Refused. GENITAL: Refused. NEUROLOGIC: Cranial nerves II through XII are grossly intact without focal deficits. Motor strength is 5/5 bilaterally intact. Deep tendon reflexes are 2+, plantar. Assessment/Plan Assessment/Plan ASSESSMENT: This is a 63-year-old white female with: 1. Bronchitis. 2. Shortness of breath. 3. Pulmonary fibrosis. 4. Diabetes type 2. 5. Hypertension. 6. Hypercholesterolemia. 7. Hypothyroidism. TREATMENT: 1. Shortness of breath/pulmonary fibrosis/bronchitis. The patient has been placed empirically on intravenous Levaquin. Decrease Intravenous Solu-Medrol to daily. The patient is currently receiving DuoNeb q.4 h. routine. A Pulmonary consultation has been obtained with Dr. Nahomy Hanna. We will follow recommendations of Pulmonary. 2. Diabetes type 2. Continue metformin as above. A NovoLog sliding scale has been instituted. 3. Hypertension. Continue losartan/hydrochlorothiazide as above. 4. Hypercholesterolemia. Continue Lipitor as above. 5. Hypothyroidism. Continue Levoxyl as above. 6. Major depression. Continue trazodone and lamotrigine as above. Inderjit Galvan MD Sep 26, 2018 19:07
[2018-09-26 20:00] VITALS: BP 122/69
--- NOTE | 2018-09-26 20:36 | Cardiology Progress Note ---
Assessment/Plan Assessment/Plan 1. Upper respiratory tract infection, pneumonia versus bronchitis. 2. Pulmonary fibrosis. 3. Right heart failure. 4. Diabetes mellitus. 5. Respiratory acidosis and metabolic alkalosi echo persoanlly reviewed d/w dr rodrigues still with sig edema bu improved bicarb better will monitor na and lfludi restiction disccussed with pt iv lasix Subjective Cardiovascular: Denies: chest pain Respiratory: Reports: shortness of breath Gastrointestinal/Abdominal: Denies: abdominal pain Genitourinary: Denies: burning Objective Last 24 Hour Vital Signs Date Time Temp Pulse Resp B/P (MAP) Pulse Ox O2 Delivery O2 Flow Rate FiO2 09/26/18 20:14 Nasal Cannula 4.0 09/26/18 20:06 Nasal Cannula 4.0 36 09/26/18 20:05 Nasal Cannula 4.0 36 09/26/18 16:00 98.0 81 18 122/68 (86) 98 09/26/18 15:35 75 16 99 Nasal Cannula 4.0 36 09/26/18 15:25 89 16 92 Nasal Cannula 4.0 36 09/26/18 12:00 97.7 78 18 119/62 (81) 99 09/26/18 11:23 78 16 98 Nasal Cannula 4.0 36 09/26/18 11:13 73 16 94 Nasal Cannula 4.0 36 09/26/18 09:00 Nasal Cannula 5.0 09/26/18 08:00 98.6 73 18 118/56 (76) 100 09/26/18 07:55 76 16 97 Nasal Cannula 4.0 36 09/26/18 07:44 75 16 93 Nasal Cannula 4.0 36 09/26/18 07:43 93 Nasal Cannula 4.0 36 09/26/18 07:43 Nasal Cannula 4.0 36 09/26/18 04:00 98.2 70 18 113/54 (73) 100 09/26/18 03:30 68 16 99 Nasal Cannula 4.0 36 09/26/18 03:20 67 16 97 Nasal Cannula 4.0 36 09/26/18 00:00 97.0 62 16 95/49 (64) 98 09/25/18 23:36 80 16 96 Nasal Cannula 4.0 36 09/25/18 23:26 78 14 93 Nasal Cannula 3.0 32 09/25/18 21:00 Nasal Cannula 5.0 General Appearance: no apparent distress, alert Cardiovascular: normal rate Respiratory/Chest: crackles/rales Abdomen: normal bowel sounds, non tender, soft Extremities: moderate edema Intake and Output 09/25/18 09/26/18 19:00 07:00 Intake Total 490 ml Output Total 900 ml 500 ml Balance -410 ml -500 ml Intake Oral 490 ml Output Urine Total 900 ml 500 ml Laboratory Tests Test 09/26/18 07:58 White Blood Count 6.5 K/UL (4.8-10.8) Red Blood Count 5.11 M/UL (4.20-5.40) Hemoglobin 13.3 G/DL (12.0-16.0) Hematocrit 42.8 % (37.0-47.0) Mean Corpuscular Volume 84 FL (80-99) Mean Corpuscular Hemoglobin 26.1 PG (27.0-31.0) L Mean Corpuscular Hemoglobin Concent 31.2 G/DL (32.0-36.0) L Red Cell Distribution Width 15.3 % (11.6-14.8) H Platelet Count 236 K/UL (150-450) Mean Platelet Volume 5.6 FL (6.5-10.1) L Neutrophils (%) (Auto) 65.9 % (45.0-75.0) Lymphocytes (%) (Auto) 22.6 % (20.0-45.0) Monocytes (%) (Auto) 9.2 % (1.0-10.0) Eosinophils (%) (Auto) 1.3 % (0.0-3.0) Basophils (%) (Auto) 1.0 % (0.0-2.0) Sodium Level 141 MMOL/L (136-145) Potassium Level 3.6 MMOL/L (3.5-5.1) Chloride Level 98 MMOL/L (98-107) Carbon Dioxide Level 39 MMOL/L (21-32) H Anion Gap 4 mmol/L (5-15) L Blood Urea Nitrogen 32 mg/dL (7-18) H Creatinine 1.3 MG/DL (0.55-1.30) Estimat Glomerular Filtration Rate 41.4 mL/min (>60) Glucose Level 107 MG/DL (74-106) H Calcium Level 9.2 MG/DL (8.5-10.1) Daneshrad,Guillermo S. MD Sep 26, 2018 20:36
[2018-09-26] MEDS: Atorvastatin 20mg tab ORAL SCH (21:32)
[2018-09-26] MEDS: TraZODone 50mg tab ORAL SCH (21:32)
[2018-09-26] MEDS: Meloxicam 15 MG TAB ORAL SCH (21:33)
[2018-09-27] VITALS: BP 117/53
[2018-09-27] MEDS: Albuterol/Ipratropium 3ml neb HHN SCH ×6 (03:00→23:37)
[2018-09-27 04:08] VITALS: BP 115/59
[2018-09-27] MEDS: NovoLOG Insulin Flexpen SUBQ SCH ×4 (05:56→20:51)
[2018-09-27 07:33] LABS: ANION GAP 4 mmol/L (5-15); BLOOD UREA NITROGEN 30 mg/dL (7-18); CALCIUM 9.1 MG/DL (8.5-10.1); CARBON DIOXIDE 37 MMOL/L (21-32); CHLORIDE 100 MMOL/L (98-107); CREATININE 1.1 MG/DL (0.55-1.30); POTASSIUM 3.4 MMOL/L (3.5-5.1); SODIUM 141 MMOL/L (136-145)
[2018-09-27 07:43] LABS: BASOPHILS % (AUTO) 1.2 % (0.0-2.0); EOSINOPHILS % (AUTO) 2.4 % (0.0-3.0); HEMATOCRIT 45.5 % (37.0-47.0); LYMPHOCYTES % (AUTO) 22.6 % (20.0-45.0); MEAN CORPUSCULAR VOLUME 83 FL (80-99); MONOCYTES % (AUTO) 7.8 % (1.0-10.0); NEUTROPHILS % (AUTO) 65.9 % (45.0-75.0); PLATELET COUNT 282 K/UL (150-450); RED BLOOD COUNT 5.47 M/UL (4.20-5.40); WHITE BLOOD COUNT 7.7 K/UL (4.8-10.8)
[2018-09-27 08:00] VITALS: BP 150/95
[2018-09-27] MEDS: Solu-MEDROL 40mg Inj IVP SCH (08:55)
[2018-09-27] MEDS: Heparin 5000 units/ml inj SUBQ SCH ×2 (08:57→20:50)
[2018-09-27 12:00] VITALS: BP 117/60
--- NOTE | 2018-09-27 13:57 | Pulmonology Progress Note ---
Assessment/Plan Problems: (1) Acute respiratory failure (2) Pneumonia (3) CHF (congestive heart failure) (4) Pulmonary fibrosis (5) Diabetes mellitus, type II (6) Hypothyroidism (7) HTN (hypertension) Assessment/Plan still short of breath continue current meds improving decrease steroids to qd check sputum high resolution ct chest evaluated: worsening of previous pulmonary fibrosis decrease lasix to QD check BNP daily agree with Diamox. Subjective ROS Limited/Unobtainable: No Interval Events: still short of breath Allergies: Coded Allergies: PENICILLINS (Verified Allergy, Unknown, 09/18/17) Objective Last 24 Hour Vital Signs Date Time Temp Pulse Resp B/P (MAP) Pulse Ox O2 Delivery O2 Flow Rate FiO2 09/27/18 12:00 97.7 83 19 117/60 (79) 93 09/27/18 11:34 73 20 95 Nasal Cannula 4.0 36 09/27/18 11:27 72 18 95 Nasal Cannula 4.0 36 09/27/18 09:00 Nasal Cannula 4.0 09/27/18 08:39 77 22 95 Nasal Cannula 4.0 36 09/27/18 08:32 Nasal Cannula 4.0 36 09/27/18 08:32 95 Nasal Cannula 4.0 36 09/27/18 08:32 75 20 95 Nasal Cannula 4.0 36 09/27/18 08:00 98.4 81 19 150/95 (113) 99 09/27/18 04:08 97.2 73 18 115/59 (77) 94 09/27/18 03:06 Nasal Cannula 4.0 36 09/27/18 03:06 Nasal Cannula 4.0 36 09/27/18 00:00 98.4 74 19 117/53 (74) 96 09/26/18 23:49 73 20 98 Nasal Cannula 4.0 36 09/26/18 23:39 97 Nasal Cannula 4.0 36 09/26/18 23:39 66 20 97 Nasal Cannula 4.0 36 09/26/18 23:39 Nasal Cannula 4.0 36 09/26/18 20:14 Nasal Cannula 4.0 09/26/18 20:06 Nasal Cannula 4.0 36 09/26/18 20:05 Nasal Cannula 4.0 36 09/26/18 20:00 98.2 83 19 122/69 (86) 95 09/26/18 16:00 98.0 81 18 122/68 (86) 98 09/26/18 15:35 75 16 99 Nasal Cannula 4.0 36 09/26/18 15:25 89 16 92 Nasal Cannula 4.0 36 Intake and Output 09/26/18 09/27/18 19:00 07:00 Intake Total 1220 ml 120 ml Output Total 1400 ml 800 ml Balance -180 ml -680 ml Intake Oral 1220 ml 120 ml Output Urine Total 1400 ml 800 ml Objective General Appearance: WD/WN HEENT: normocephalic, atraumatic, anicteric Respiratory/Chest: rhonchi Breasts: no masses Cardiovascular: normal peripheral pulses, normal rate Abdomen: normal bowel sounds, soft, non tender Extremities: no cyanosis Skin: no rash 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 Lymphatic: no neck adenopathy Microbiology Date/Time Source Procedure Growth Status 09/26/18 12:40 Sputum Expectorated Gram Stain Pending Resulted 09/26/18 12:40 Sputum Expectorated Sputum Culture - Preliminary Resulted Laboratory Tests 09/27/18 06:56: White Blood Count 7.7, Red Blood Count 5.47H, Hemoglobin 14.0, Hematocrit 45.5, Mean Corpuscular Volume 83, Mean Corpuscular Hemoglobin 25.6L, Mean Corpuscular Hemoglobin Concent 30.8L, Red Cell Distribution Width 16.0H, Platelet Count 282 , Mean Platelet Volume 5.9L, Neutrophils (%) (Auto) 65.9, Lymphocytes (%) (Auto ) 22.6, Monocytes (%) (Auto) 7.8, Eosinophils (%) (Auto) 2.4, Basophils (%) ( Auto) 1.2, Sodium Level 141, Potassium Level 3.4L, Chloride Level 100, Carbon Dioxide Level 37H, Anion Gap 4L, Blood Urea Nitrogen 30H, Creatinine 1.1, Estimat Glomerular Filtration Rate 50.2, Glucose Level 97, Calcium Level 9.1 Current Medications Medications (Trade) Dose Ordered Sig/Leatha Route PRN Reason Start Time Stop Time Status Last Admin Dose Admin Acetaminophen (Tylenol) 650 mg Q4H PRN ORAL Fever 09/25/18 18:51 10/23/18 18:50 Acetazolamide (Diamox) 250 mg TWICE A DAY ORAL 09/26/18 09:00 10/26/18 08:59 09/27/18 08:55 Albuterol/ Ipratropium (Albuterol/ Ipratropium) 3 ml Q4HRT HHN 09/25/18 19:00 09/28/18 16:14 09/27/18 11:26 Alprazolam (Xanax) 0.25 mg Q6H PRN ORAL For Anxiety 09/25/18 18:52 10/02/18 18:51 Atorvastatin Calcium (Lipitor) 20 mg BEDTIME ORAL 09/25/18 21:00 10/23/18 20:59 09/26/18 21:32 Dextrose (Dextrose 50%) 25 ml Q30M PRN IV Hypoglycemia 09/25/18 19:15 10/23/18 08:14 Dextrose (Dextrose 50%) 50 ml Q30M PRN IV Hypoglycemia 09/25/18 19:15 10/23/18 08:14 Fluoxetine HCl (PROzac) 40 mg DAILY ORAL 09/26/18 09:00 10/26/18 08:59 09/27/18 08:55 Furosemide (Lasix) 40 mg DAILY IV 09/26/18 09:00 10/23/18 13:59 09/27/18 08:56 Heparin Sodium (Porcine) (Heparin 5000 units/ml) 5,000 units EVERY 12 HOURS SUBQ 09/25/18 21:00 10/23/18 08:59 09/27/18 08:57 Insulin Aspart (NovoLOG) BEFORE MEALS AND HS SUBQ 09/25/18 21:00 10/23/18 11:29 Lamotrigine (LaMICtal) 200 mg QHS ORAL 09/25/18 21:00 10/23/18 08:59 09/26/18 21:32 Levofloxacin (Levaquin) 250 mg Q24H ORAL 09/26/18 22:00 10/03/18 21:59 09/26/18 21:32 Levothyroxine Sodium (Synthroid) 150 mcg DAILY@0630 ORAL 09/26/18 06:30 10/24/18 06:29 09/27/18 05:56 Meloxicam (Mobic) 15 mg QHS ORAL 09/25/18 21:00 10/23/18 20:59 09/26/18 21:33 Methylprednisolone Sodium Succinate (Solu-MEDROL) 40 mg DAILY IVP 09/26/18 09:00 10/26/18 08:59 09/27/18 08:55 Ondansetron HCl (Zofran) 4 mg Q6H PRN IVP Nausea & Vomiting 09/25/18 20:15 10/23/18 08:14 Pantoprazole (Protonix) 40 mg ACBREAKFAST ORAL 09/26/18 06:30 10/24/18 08:59 09/27/18 05:56 Promethazine HCl/ Codeine (Phenergan with Codeine) 5 ml Q6H PRN ORAL For Cough 09/25/18 18:53 10/24/18 18:52 Temazepam (Restoril) 15 mg HSPRN PRN ORAL Insomnia 09/25/18 18:53 10/02/18 18:52 Trazodone HCl (Desyrel) 50 mg BEDTIME ORAL 09/25/18 21:00 10/23/18 20:59 09/26/18 21:32 Nahomy Hanna MD Sep 27, 2018 13:57
[2018-09-27 16:00] VITALS: BP 147/72
--- NOTE | 2018-09-27 17:10 | Internal Med Progress Note ---
Subjective Date of Service: Sep 27, 2018 Physician Name Inderjit Galvan Attending Physician Bob Lin MD Current Medications Medications (Trade) Dose Ordered Sig/Leatha Route PRN Reason Start Time Stop Time Status Last Admin Dose Admin Acetaminophen (Tylenol) 650 mg Q4H PRN ORAL Fever 09/25/18 18:51 10/23/18 18:50 Acetazolamide (Diamox) 250 mg TWICE A DAY ORAL 09/26/18 09:00 10/26/18 08:59 09/27/18 08:55 Albuterol/ Ipratropium (Albuterol/ Ipratropium) 3 ml Q4HRT HHN 09/25/18 19:00 09/28/18 16:14 09/27/18 15:49 Alprazolam (Xanax) 0.25 mg Q6H PRN ORAL For Anxiety 09/25/18 18:52 10/02/18 18:51 Atorvastatin Calcium (Lipitor) 20 mg BEDTIME ORAL 09/25/18 21:00 10/23/18 20:59 09/26/18 21:32 Dextrose (Dextrose 50%) 25 ml Q30M PRN IV Hypoglycemia 09/25/18 19:15 10/23/18 08:14 Dextrose (Dextrose 50%) 50 ml Q30M PRN IV Hypoglycemia 09/25/18 19:15 10/23/18 08:14 Fluoxetine HCl (PROzac) 40 mg DAILY ORAL 09/26/18 09:00 10/26/18 08:59 09/27/18 08:55 Furosemide (Lasix) 40 mg DAILY IV 09/26/18 09:00 10/23/18 13:59 09/27/18 08:56 Heparin Sodium (Porcine) (Heparin 5000 units/ml) 5,000 units EVERY 12 HOURS SUBQ 09/25/18 21:00 10/23/18 08:59 09/27/18 08:57 Insulin Aspart (NovoLOG) BEFORE MEALS AND HS SUBQ 09/25/18 21:00 10/23/18 11:29 Lamotrigine (LaMICtal) 200 mg QHS ORAL 09/25/18 21:00 10/23/18 08:59 09/26/18 21:32 Levofloxacin (Levaquin) 250 mg Q24H ORAL 09/26/18 22:00 10/03/18 21:59 09/26/18 21:32 Levothyroxine Sodium (Synthroid) 150 mcg DAILY@0630 ORAL 09/26/18 06:30 10/24/18 06:29 09/27/18 05:56 Meloxicam (Mobic) 15 mg QHS ORAL 09/25/18 21:00 10/23/18 20:59 09/26/18 21:33 Methylprednisolone Sodium Succinate (Solu-MEDROL) 40 mg DAILY IVP 09/26/18 09:00 10/26/18 08:59 09/27/18 08:55 Ondansetron HCl (Zofran) 4 mg Q6H PRN IVP Nausea & Vomiting 09/25/18 20:15 10/23/18 08:14 Pantoprazole (Protonix) 40 mg ACBREAKFAST ORAL 09/26/18 06:30 10/24/18 08:59 09/27/18 05:56 Promethazine HCl/ Codeine (Phenergan with Codeine) 5 ml Q6H PRN ORAL For Cough 09/25/18 18:53 10/24/18 18:52 Temazepam (Restoril) 15 mg HSPRN PRN ORAL Insomnia 09/25/18 18:53 10/02/18 18:52 Trazodone HCl (Desyrel) 50 mg BEDTIME ORAL 09/25/18 21:00 10/23/18 20:59 09/26/18 21:32 Allergies: Coded Allergies: PENICILLINS (Verified Allergy, Unknown, 09/18/17) ROS Limited/Unobtainable: No Constitutional: Reports: no symptoms HEENT: Reports: no symptoms Cardiovascular: Reports: no symptoms Respiratory: Reports: cough, shortness of breath Gastrointestinal/Abdominal: Reports: no symptoms Genitourinary: Reports: no symptoms Neurologic/Psychiatric: Reports: no symptoms Subjective 63 YO F with pulmonary fibrosis admitted with shortness of breath. Now bronchitis. Cover for Int Bimal-Dr Lin Objective Last Vital Signs Date Time Temp Pulse Resp B/P (MAP) Pulse Ox O2 Delivery O2 Flow Rate FiO2 09/27/18 16:00 98.6 82 18 147/72 (97) 98 09/27/18 15:59 Nasal Cannula 4.0 36 Laboratory Tests Test 09/27/18 06:56 White Blood Count 7.7 K/UL (4.8-10.8) Red Blood Count 5.47 M/UL (4.20-5.40) H Hemoglobin 14.0 G/DL (12.0-16.0) Hematocrit 45.5 % (37.0-47.0) Mean Corpuscular Volume 83 FL (80-99) Mean Corpuscular Hemoglobin 25.6 PG (27.0-31.0) L Mean Corpuscular Hemoglobin Concent 30.8 G/DL (32.0-36.0) L Red Cell Distribution Width 16.0 % (11.6-14.8) H Platelet Count 282 K/UL (150-450) Mean Platelet Volume 5.9 FL (6.5-10.1) L Neutrophils (%) (Auto) 65.9 % (45.0-75.0) Lymphocytes (%) (Auto) 22.6 % (20.0-45.0) Monocytes (%) (Auto) 7.8 % (1.0-10.0) Eosinophils (%) (Auto) 2.4 % (0.0-3.0) Basophils (%) (Auto) 1.2 % (0.0-2.0) Sodium Level 141 MMOL/L (136-145) Potassium Level 3.4 MMOL/L (3.5-5.1) L Chloride Level 100 MMOL/L (98-107) Carbon Dioxide Level 37 MMOL/L (21-32) H Anion Gap 4 mmol/L (5-15) L Blood Urea Nitrogen 30 mg/dL (7-18) H Creatinine 1.1 MG/DL (0.55-1.30) Estimat Glomerular Filtration Rate 50.2 mL/min (>60) Glucose Level 97 MG/DL (74-106) Calcium Level 9.1 MG/DL (8.5-10.1) Microbiology Date/Time Source Procedure Growth Status 09/26/18 12:40 Sputum Expectorated Gram Stain - Final Resulted 09/26/18 12:40 Sputum Expectorated Sputum Culture - Preliminary Resulted Intake and Output 09/26/18 09/27/18 19:00 07:00 Intake Total 1220 ml 120 ml Output Total 1400 ml 800 ml Balance -180 ml -680 ml Intake Oral 1220 ml 120 ml Output Urine Total 1400 ml 800 ml Objective PHYSICAL EXAMINATION: GENERAL: The patient is a well-developed and well-nourished white female, who is in moderate respiratory distress. HEENT: Eyes, pupils are equal and responsive to light and accommodation. Extraocular movements are intact. NECK: Supple without lymphadenopathy. CHEST: nasal canula. Diffuse wheezes in the right lung greater than the left. Otherwise, clear to auscultation bilaterally without wheezes or rales. CARDIOVASCULAR: Regular rhythm and rate. S1 and S2 are normal without murmurs, rubs, or gallops. ABDOMEN: Soft, nontender, and nondistended. Positive bowel sounds. No evidence of hepatosplenomegaly. Currently, no rebound or guarding noted. EXTREMITIES: Negative for clubbing, cyanosis, or edema. RECTAL: Refused. GENITAL: Refused. NEUROLOGIC: Cranial nerves II through XII are grossly intact without focal deficits. Motor strength is 5/5 bilaterally intact. Deep tendon reflexes are 2+, plantar. Assessment/Plan Assessment/Plan ASSESSMENT: This is a 63-year-old white female with: 1. Bronchitis. 2. Shortness of breath. 3. Pulmonary fibrosis. 4. Diabetes type 2. 5. Hypertension. 6. Hypercholesterolemia. 7. Hypothyroidism. TREATMENT: 1. Shortness of breath/pulmonary fibrosis/bronchitis. The patient has been placed empirically on intravenous Levaquin. Decrease Intravenous Solu-Medrol to daily. The patient is currently receiving DuoNeb q.4 h. routine. A Pulmonary consultation has been obtained with Dr. Nahomy Hanna. We will follow recommendations of Pulmonary. 2. Diabetes type 2. Continue metformin as above. A NovoLog sliding scale has been instituted. 3. Hypertension. Continue losartan/hydrochlorothiazide as above. 4. Hypercholesterolemia. Continue Lipitor as above. 5. Hypothyroidism. Continue Levoxyl as above. 6. Major depression. Continue trazodone and lamotrigine as above. Inderjit Galvan MD Sep 27, 2018 17:10
--- NOTE | 2018-09-27 17:35 | Cardiology Progress Note ---
Assessment/Plan Assessment/Plan 1. Upper respiratory tract infection, pneumonia versus bronchitis. 2. Pulmonary fibrosis. 3. Right heart failure. 4. Diabetes mellitus. 5. Respiratory acidosis and metabolic alkalosi ct noted: Impression: Bilateral and extensive interstitial disease, as described, predominantly pattern that of interstitial septal thickening, bronchiectasis, bronchial wall thickening, progressive since prior exam of 09/20/2017. Findings most likely represent progression of interstitial fibrosis. echo persoanlly reviewed imporved edema dc diamox bicarb better will monitor na and lfludi restiction disccussed with pt iv lasix for another 1-2 doses Subjective Cardiovascular: Denies: chest pain, lightheadedness, palpitations Respiratory: Reports: shortness of breath Gastrointestinal/Abdominal: Denies: abdominal pain Genitourinary: Denies: burning Objective Last 24 Hour Vital Signs Date Time Temp Pulse Resp B/P (MAP) Pulse Ox O2 Delivery O2 Flow Rate FiO2 09/27/18 16:00 98.6 82 18 147/72 (97) 98 09/27/18 15:59 77 22 94 Nasal Cannula 4.0 36 09/27/18 15:50 84 22 94 Nasal Cannula 4.0 36 09/27/18 12:00 97.7 83 19 117/60 (79) 93 09/27/18 11:34 73 20 95 Nasal Cannula 4.0 36 09/27/18 11:27 72 18 95 Nasal Cannula 4.0 36 09/27/18 09:00 Nasal Cannula 4.0 09/27/18 08:39 77 22 95 Nasal Cannula 4.0 36 09/27/18 08:32 Nasal Cannula 4.0 36 09/27/18 08:32 95 Nasal Cannula 4.0 36 09/27/18 08:32 75 20 95 Nasal Cannula 4.0 36 09/27/18 08:00 98.4 81 19 150/95 (113) 99 09/27/18 04:08 97.2 73 18 115/59 (77) 94 09/27/18 03:06 Nasal Cannula 4.0 36 09/27/18 03:06 Nasal Cannula 4.0 36 09/27/18 00:00 98.4 74 19 117/53 (74) 96 09/26/18 23:49 73 20 98 Nasal Cannula 4.0 36 09/26/18 23:39 97 Nasal Cannula 4.0 36 09/26/18 23:39 66 20 97 Nasal Cannula 4.0 36 09/26/18 23:39 Nasal Cannula 4.0 36 09/26/18 20:14 Nasal Cannula 4.0 09/26/18 20:06 Nasal Cannula 4.0 36 09/26/18 20:05 Nasal Cannula 4.0 36 09/26/18 20:00 98.2 83 19 122/69 (86) 95 General Appearance: no apparent distress, alert Cardiovascular: normal rate Respiratory/Chest: crackles/rales Abdomen: normal bowel sounds, non tender, soft Extremities: trace edema Intake and Output 09/26/18 09/27/18 19:00 07:00 Intake Total 1220 ml 120 ml Output Total 1400 ml 800 ml Balance -180 ml -680 ml Intake Oral 1220 ml 120 ml Output Urine Total 1400 ml 800 ml Laboratory Tests Test 09/27/18 06:56 White Blood Count 7.7 K/UL (4.8-10.8) Red Blood Count 5.47 M/UL (4.20-5.40) H Hemoglobin 14.0 G/DL (12.0-16.0) Hematocrit 45.5 % (37.0-47.0) Mean Corpuscular Volume 83 FL (80-99) Mean Corpuscular Hemoglobin 25.6 PG (27.0-31.0) L Mean Corpuscular Hemoglobin Concent 30.8 G/DL (32.0-36.0) L Red Cell Distribution Width 16.0 % (11.6-14.8) H Platelet Count 282 K/UL (150-450) Mean Platelet Volume 5.9 FL (6.5-10.1) L Neutrophils (%) (Auto) 65.9 % (45.0-75.0) Lymphocytes (%) (Auto) 22.6 % (20.0-45.0) Monocytes (%) (Auto) 7.8 % (1.0-10.0) Eosinophils (%) (Auto) 2.4 % (0.0-3.0) Basophils (%) (Auto) 1.2 % (0.0-2.0) Sodium Level 141 MMOL/L (136-145) Potassium Level 3.4 MMOL/L (3.5-5.1) L Chloride Level 100 MMOL/L (98-107) Carbon Dioxide Level 37 MMOL/L (21-32) H Anion Gap 4 mmol/L (5-15) L Blood Urea Nitrogen 30 mg/dL (7-18) H Creatinine 1.1 MG/DL (0.55-1.30) Estimat Glomerular Filtration Rate 50.2 mL/min (>60) Glucose Level 97 MG/DL (74-106) Calcium Level 9.1 MG/DL (8.5-10.1) Microbiology Date/Time Source Procedure Growth Status 09/26/18 12:40 Sputum Expectorated Gram Stain - Final Resulted 09/26/18 12:40 Sputum Expectorated Sputum Culture - Preliminary Resulted Guillermo Marrero MD Sep 27, 2018 17:35
[2018-09-27 20:00] VITALS: BP 119/67
[2018-09-27] MEDS: TraZODone 50mg tab ORAL SCH (20:48)
[2018-09-27] MEDS: Meloxicam 15 MG TAB ORAL SCH (20:48)
[2018-09-27] MEDS: Atorvastatin 20mg tab ORAL SCH (20:48)
[2018-09-27] MEDS ORDERED: Albuterol/Ipratropium 3ml neb ONE (23:18)
[2018-09-28] VITALS: BP 127/62
[2018-09-28] MEDS: Albuterol/Ipratropium 3ml neb HHN SCH ×4 (03:19→15:11)
[2018-09-28 04:00] VITALS: BP 133/74
[2018-09-28] MEDS: NovoLOG Insulin Flexpen SUBQ SCH ×4 (05:55→21:00)
[2018-09-28 07:04] LABS: BASOPHILS % (AUTO) 0.6 % (0.0-2.0); EOSINOPHILS % (AUTO) 2.2 % (0.0-3.0); HEMATOCRIT 41.8 % (37.0-47.0); HEMOGLOBIN 12.9 G/DL (12.0-16.0); LYMPHOCYTES % (AUTO) 20.1 % (20.0-45.0); MEAN CORPUSCULAR VOLUME 83 FL (80-99); MONOCYTES % (AUTO) 8.2 % (1.0-10.0); NEUTROPHILS % (AUTO) 68.9 % (45.0-75.0); PLATELET COUNT 199 K/UL (150-450); RED BLOOD COUNT 5.03 M/UL (4.20-5.40); RED CELL DISTRIBUTION WIDTH 15.4 % (11.6-14.8); WHITE BLOOD COUNT 6.9 K/UL (4.8-10.8)
[2018-09-28 07:15] LABS: ALANINE AMINOTRANSFERASE 13 U/L (12-78); ALBUMIN 3.1 G/DL (3.4-5.0); ALBUMIN/GLOBULIN RATIO 0.9 (1.0-2.7); ALKALINE PHOSPHATASE 43 U/L (46-116); ANION GAP 4 mmol/L (5-15); ASPARTATE AMINO TRANSFERASE 15 U/L (15-37); BILIRUBIN,TOTAL 0.7 MG/DL (0.2-1.0); BLOOD UREA NITROGEN 30 mg/dL (7-18); CARBON DIOXIDE 39 MMOL/L (21-32); CHLORIDE 101 MMOL/L (98-107); CREATININE 1.2 MG/DL (0.55-1.30); POTASSIUM 3.8 MMOL/L (3.5-5.1); SODIUM 144 MMOL/L (136-145)
[2018-09-28 08:00] VITALS: BP 123/76
[2018-09-28] MEDS: Solu-MEDROL 40mg Inj IVP SCH (08:20)
[2018-09-28] MEDS: Heparin 5000 units/ml inj SUBQ SCH ×2 (08:23→22:00)
[2018-09-28 12:00] VITALS: BP 119/64
--- NOTE | 2018-09-28 12:55 | Pulmonology Progress Note ---
Assessment/Plan Problems: (1) Acute respiratory failure (2) Pneumonia (3) CHF (congestive heart failure) (4) Pulmonary fibrosis (5) Diabetes mellitus, type II (6) Hypothyroidism (7) HTN (hypertension) Assessment/Plan so far 7 liters negative fluid balance, watch renal function closely slightly better continue current meds improving decrease steroids to qd, change to PO check sputum high resolution ct chest evaluated: worsening of previous pulmonary fibrosis decrease lasix to QD check BNP daily, cxr in am agree with Diamox. Subjective ROS Limited/Unobtainable: No Constitutional: Reports: no symptoms HEENT: Repors: no symptoms Respiratory: Reports: no symptoms Allergies: Coded Allergies: PENICILLINS (Verified Allergy, Unknown, 09/18/17) Objective Last 24 Hour Vital Signs Date Time Temp Pulse Resp B/P (MAP) Pulse Ox O2 Delivery O2 Flow Rate FiO2 09/28/18 12:00 97.1 59 20 119/64 (82) 97 09/28/18 11:30 82 20 96 Nasal Cannula 4.0 36 09/28/18 11:24 79 20 94 Nasal Cannula 4.0 36 09/28/18 08:25 Nasal Cannula 4.0 09/28/18 08:00 98.0 107 21 123/76 (92) 94 09/28/18 07:49 81 20 94 Nasal Cannula 4.0 36 09/28/18 07:43 78 18 91 Nasal Cannula 4.0 36 09/28/18 07:43 90 Nasal Cannula 4.0 36 09/28/18 07:43 Nasal Cannula 4.0 36 09/28/18 04:00 97.8 71 20 133/74 (93) 95 09/28/18 03:26 76 20 98 Nasal Cannula 4.0 36 09/28/18 03:19 72 20 96 Nasal Cannula 4.0 36 09/28/18 00:00 98.4 75 20 127/62 (83) 96 09/27/18 23:47 73 20 96 Nasal Cannula 4.0 36 09/27/18 23:37 74 22 96 Nasal Cannula 4.0 36 09/27/18 21:12 Nasal Cannula 4.0 09/27/18 21:10 74 20 94 Nasal Cannula 4.0 36 09/27/18 21:00 Nasal Cannula 4.0 36 09/27/18 21:00 95 Nasal Cannula 4.0 36 09/27/18 21:00 74 20 95 Nasal Cannula 4.0 36 09/27/18 20:00 98.1 82 20 119/67 (84) 98 09/27/18 16:00 98.6 82 18 147/72 (97) 98 09/27/18 15:59 77 22 94 Nasal Cannula 4.0 36 09/27/18 15:50 84 22 94 Nasal Cannula 4.0 36 Intake and Output 09/27/18 09/28/18 18:59 06:59 Intake Total 720 ml Output Total 1400 ml 600 ml Balance -680 ml -600 ml Intake Oral 720 ml Output Urine Total 1400 ml 600 ml # Bowel Movements 1 Objective General Appearance: WD/WN HEENT: normocephalic, atraumatic, anicteric Respiratory/Chest: rhonchi Breasts: no masses Cardiovascular: normal peripheral pulses, normal rate Abdomen: normal bowel sounds, soft, non tender Extremities: no cyanosis Skin: no rash 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 Resulted Laboratory Tests 09/28/18 05:30: White Blood Count 6.9, Red Blood Count 5.03, Hemoglobin 12.9, Hematocrit 41.8, Mean Corpuscular Volume 83, Mean Corpuscular Hemoglobin 25.6L, Mean Corpuscular Hemoglobin Concent 30.8L, Red Cell Distribution Width 15.4H, Platelet Count 199 , Mean Platelet Volume 6.0L, Neutrophils (%) (Auto) 68.9, Lymphocytes (%) (Auto ) 20.1, Monocytes (%) (Auto) 8.2, Eosinophils (%) (Auto) 2.2, Basophils (%) ( Auto) 0.6, Sodium Level 144, Potassium Level 3.8, Chloride Level 101, Carbon Dioxide Level 39H, Anion Gap 4L, Blood Urea Nitrogen 30H, Creatinine 1.2, Estimat Glomerular Filtration Rate 45.3, Glucose Level 103, Calcium Level 9.0, Total Bilirubin 0.7, Aspartate Amino Transf (AST/SGOT) 15, Alanine Aminotransferase (ALT/SGPT) 13, Alkaline Phosphatase 43L, Pro-B-Type Natriuretic Peptide 3474H, Total Protein 6.6, Albumin 3.1L, Globulin 3.5, Albumin/Globulin Ratio 0.9L Current Medications Medications (Trade) Dose Ordered Sig/Leatha Route PRN Reason Start Time Stop Time Status Last Admin Dose Admin Acetaminophen (Tylenol) 650 mg Q4H PRN ORAL Fever 09/25/18 18:51 10/23/18 18:50 Albuterol/ Ipratropium (Albuterol/ Ipratropium) 3 ml Q4HRT HHN 09/25/18 19:00 09/28/18 16:14 09/28/18 11:13 Alprazolam (Xanax) 0.25 mg Q6H PRN ORAL For Anxiety 09/25/18 18:52 10/02/18 18:51 Atorvastatin Calcium (Lipitor) 20 mg BEDTIME ORAL 09/25/18 21:00 10/23/18 20:59 09/27/18 20:48 Dextrose (Dextrose 50%) 25 ml Q30M PRN IV Hypoglycemia 09/25/18 19:15 10/23/18 08:14 Dextrose (Dextrose 50%) 50 ml Q30M PRN IV Hypoglycemia 09/25/18 19:15 10/23/18 08:14 Fluoxetine HCl (PROzac) 40 mg DAILY ORAL 09/26/18 09:00 10/26/18 08:59 09/28/18 08:20 Furosemide (Lasix) 40 mg DAILY IV 09/26/18 09:00 10/23/18 13:59 09/28/18 08:20 Heparin Sodium (Porcine) (Heparin 5000 units/ml) 5,000 units EVERY 12 HOURS SUBQ 09/25/18 21:00 10/23/18 08:59 09/28/18 08:23 Insulin Aspart (NovoLOG) BEFORE MEALS AND HS SUBQ 09/25/18 21:00 10/23/18 11:29 Lamotrigine (LaMICtal) 200 mg QHS ORAL 09/25/18 21:00 10/23/18 08:59 09/27/18 20:49 Levofloxacin (Levaquin) 250 mg Q24H ORAL 09/26/18 22:00 10/03/18 21:59 09/27/18 20:52 Levothyroxine Sodium (Synthroid) 150 mcg DAILY@0630 ORAL 09/26/18 06:30 10/24/18 06:29 09/28/18 05:55 Meloxicam (Mobic) 15 mg QHS ORAL 09/25/18 21:00 10/23/18 20:59 09/27/18 20:48 Methylprednisolone Sodium Succinate (Solu-MEDROL) 40 mg DAILY IVP 09/26/18 09:00 10/26/18 08:59 09/28/18 08:20 Ondansetron HCl (Zofran) 4 mg Q6H PRN IVP Nausea & Vomiting 09/25/18 20:15 10/23/18 08:14 Pantoprazole (Protonix) 40 mg ACBREAKFAST ORAL 09/26/18 06:30 10/24/18 08:59 09/28/18 05:55 Promethazine HCl/ Codeine (Phenergan with Codeine) 5 ml Q6H PRN ORAL For Cough 09/25/18 18:53 10/24/18 18:52 Temazepam (Restoril) 15 mg HSPRN PRN ORAL Insomnia 09/25/18 18:53 10/02/18 18:52 Trazodone HCl (Desyrel) 50 mg BEDTIME ORAL 09/25/18 21:00 10/23/18 20:59 09/27/18 20:48 Nahomy Hanna MD Sep 28, 2018 12:55
--- NOTE | 2018-09-28 14:28 | Internal Med Progress Note ---
Subjective Physician Name Bob Lin Attending Physician Bob Lin MD Current Medications Medications (Trade) Dose Ordered Sig/Leatha Route PRN Reason Start Time Stop Time Status Last Admin Dose Admin Acetaminophen (Tylenol) 650 mg Q4H PRN ORAL Fever 09/25/18 18:51 10/23/18 18:50 Albuterol/ Ipratropium (Albuterol/ Ipratropium) 3 ml Q4HRT HHN 09/25/18 19:00 09/28/18 16:14 09/28/18 11:13 Alprazolam (Xanax) 0.25 mg Q6H PRN ORAL For Anxiety 09/25/18 18:52 10/02/18 18:51 Atorvastatin Calcium (Lipitor) 20 mg BEDTIME ORAL 09/25/18 21:00 10/23/18 20:59 09/27/18 20:48 Dextrose (Dextrose 50%) 25 ml Q30M PRN IV Hypoglycemia 09/25/18 19:15 10/23/18 08:14 Dextrose (Dextrose 50%) 50 ml Q30M PRN IV Hypoglycemia 09/25/18 19:15 10/23/18 08:14 Fluoxetine HCl (PROzac) 40 mg DAILY ORAL 09/26/18 09:00 10/26/18 08:59 09/28/18 08:20 Furosemide (Lasix) 40 mg DAILY IV 09/26/18 09:00 10/23/18 13:59 09/28/18 08:20 Heparin Sodium (Porcine) (Heparin 5000 units/ml) 5,000 units EVERY 12 HOURS SUBQ 09/25/18 21:00 10/23/18 08:59 09/28/18 08:23 Insulin Aspart (NovoLOG) BEFORE MEALS AND HS SUBQ 09/25/18 21:00 10/23/18 11:29 Lamotrigine (LaMICtal) 200 mg QHS ORAL 09/25/18 21:00 10/23/18 08:59 09/27/18 20:49 Levofloxacin (Levaquin) 250 mg Q24H ORAL 09/26/18 22:00 10/03/18 21:59 09/27/18 20:52 Levothyroxine Sodium (Synthroid) 150 mcg DAILY@0630 ORAL 09/26/18 06:30 10/24/18 06:29 09/28/18 05:55 Meloxicam (Mobic) 15 mg QHS ORAL 09/25/18 21:00 10/23/18 20:59 09/27/18 20:48 Ondansetron HCl (Zofran) 4 mg Q6H PRN IVP Nausea & Vomiting 09/25/18 20:15 10/23/18 08:14 Pantoprazole (Protonix) 40 mg ACBREAKFAST ORAL 09/26/18 06:30 10/24/18 08:59 09/28/18 05:55 Prednisone (predniSONE) 40 mg DAILY ORAL 09/29/18 09:00 10/29/18 08:59 Promethazine HCl/ Codeine (Phenergan with Codeine) 5 ml Q6H PRN ORAL For Cough 09/25/18 18:53 10/24/18 18:52 Temazepam (Restoril) 15 mg HSPRN PRN ORAL Insomnia 09/25/18 18:53 10/02/18 18:52 Trazodone HCl (Desyrel) 50 mg BEDTIME ORAL 09/25/18 21:00 10/23/18 20:59 09/27/18 20:48 Allergies: Coded Allergies: PENICILLINS (Verified Allergy, Unknown, 09/18/17) Subjective awake, alert, responsive, less SOB, still on O2 Via NC Objective Last Vital Signs Date Time Temp Pulse Resp B/P (MAP) Pulse Ox O2 Delivery O2 Flow Rate FiO2 09/28/18 12:00 97.1 59 20 119/64 (82) 97 09/28/18 11:30 Nasal Cannula 4.0 36 Laboratory Tests Test 09/28/18 05:30 White Blood Count 6.9 K/UL (4.8-10.8) Red Blood Count 5.03 M/UL (4.20-5.40) Hemoglobin 12.9 G/DL (12.0-16.0) Hematocrit 41.8 % (37.0-47.0) Mean Corpuscular Volume 83 FL (80-99) Mean Corpuscular Hemoglobin 25.6 PG (27.0-31.0) L Mean Corpuscular Hemoglobin Concent 30.8 G/DL (32.0-36.0) L Red Cell Distribution Width 15.4 % (11.6-14.8) H Platelet Count 199 K/UL (150-450) Mean Platelet Volume 6.0 FL (6.5-10.1) L Neutrophils (%) (Auto) 68.9 % (45.0-75.0) Lymphocytes (%) (Auto) 20.1 % (20.0-45.0) Monocytes (%) (Auto) 8.2 % (1.0-10.0) Eosinophils (%) (Auto) 2.2 % (0.0-3.0) Basophils (%) (Auto) 0.6 % (0.0-2.0) Sodium Level 144 MMOL/L (136-145) Potassium Level 3.8 MMOL/L (3.5-5.1) Chloride Level 101 MMOL/L (98-107) Carbon Dioxide Level 39 MMOL/L (21-32) H Anion Gap 4 mmol/L (5-15) L Blood Urea Nitrogen 30 mg/dL (7-18) H Creatinine 1.2 MG/DL (0.55-1.30) Estimat Glomerular Filtration Rate 45.3 mL/min (>60) Glucose Level 103 MG/DL (74-106) Calcium Level 9.0 MG/DL (8.5-10.1) Total Bilirubin 0.7 MG/DL (0.2-1.0) Aspartate Amino Transf (AST/SGOT) 15 U/L (15-37) Alanine Aminotransferase (ALT/SGPT) 13 U/L (12-78) Alkaline Phosphatase 43 U/L (46-116) L Pro-B-Type Natriuretic Peptide 3474 pg/mL (0-125) H Total Protein 6.6 G/DL (6.4-8.2) Albumin 3.1 G/DL (3.4-5.0) L Globulin 3.5 g/dL Albumin/Globulin Ratio 0.9 (1.0-2.7) L Microbiology Date/Time Source Procedure Growth Status 09/26/18 12:40 Sputum Expectorated Gram Stain - Final Resulted 09/26/18 12:40 Sputum Expectorated Sputum Culture - Preliminary NORMAL UPPER RESPIRATORY ANDREW AT 24 ... Resulted Intake and Output 09/27/18 09/28/18 19:00 07:00 Intake Total 720 ml Output Total 1400 ml 600 ml Balance -680 ml -600 ml Intake Oral 720 ml Output Urine Total 1400 ml 600 ml # Bowel Movements 1 Objective General: No acute distress, awake and alert HEENT: NCAT, sclera anicteric, PERRL, EOMI. Neck: Supple, no significant jugular venous distention, Lungs: Fair inspiratory effort, , no Wheeze, + Crackle. Heart: Regular rate and rhythm, normal S1/S2, no murmurs. Abdomen: soft, nontender, nondistended. Normoactive bowel sounds. / Rectal: Refused and deferred. Extremities: No Cyanosis , clubbing or edema. Neuro: A&O x 3, Able to move all extremities Skin: warm, no rashes or lesions Psych: depressed mood and affect Assessment/Plan Assessment/Plan 1. Bronchitis. 2. Acute on chronic respiratory failure 3. Pulmonary fibrosis. 4. Diabetes type 2. 5. Hypertension. 6. Hypercholesterolemia. 7. Hypothyroidism. 8. Right heart failure. Plan: Prednisone 40mg daily Abx: Scott BUENO planning for Monday [facility] Bob Lin MD Sep 28, 2018 14:28
[2018-09-28 16:00] VITALS: BP 126/65
--- NOTE | 2018-09-28 18:16 | Cardiology Progress Note ---
Assessment/Plan Assessment/Plan 1. Upper respiratory tract infection, pneumonia versus bronchitis. 2. Pulmonary fibrosis. 3. Right heart failure. 4. Diabetes mellitus. 5. Respiratory acidosis and metabolic alkalosi ct noted: Impression: Bilateral and extensive interstitial disease, as described, predominantly pattern that of interstitial septal thickening, bronchiectasis, bronchial wall thickening, progressive since prior exam of 09/20/2017. Findings most likely represent progression of interstitial fibrosis. echo persoanlly reviewed imporved edema off diamox na and lfludi restiction disccussed with pt hodl iv lasix check orthostatic vitals in am Subjective Cardiovascular: Denies: chest pain Respiratory: Reports: cough, shortness of breath Gastrointestinal/Abdominal: Denies: abdominal pain Genitourinary: Denies: burning Objective Last 24 Hour Vital Signs Date Time Temp Pulse Resp B/P (MAP) Pulse Ox O2 Delivery O2 Flow Rate FiO2 09/28/18 16:00 97.7 82 22 126/65 (85) 95 09/28/18 15:21 77 20 96 Nasal Cannula 4.0 36 09/28/18 15:12 76 20 96 Nasal Cannula 4.0 36 09/28/18 12:00 97.1 59 20 119/64 (82) 97 09/28/18 11:30 82 20 96 Nasal Cannula 4.0 36 09/28/18 11:24 79 20 94 Nasal Cannula 4.0 36 09/28/18 08:25 Nasal Cannula 4.0 09/28/18 08:00 98.0 107 21 123/76 (92) 94 09/28/18 07:49 81 20 94 Nasal Cannula 4.0 36 09/28/18 07:43 78 18 91 Nasal Cannula 4.0 36 09/28/18 07:43 90 Nasal Cannula 4.0 36 09/28/18 07:43 Nasal Cannula 4.0 36 09/28/18 04:00 97.8 71 20 133/74 (93) 95 09/28/18 03:26 76 20 98 Nasal Cannula 4.0 36 09/28/18 03:19 72 20 96 Nasal Cannula 4.0 36 09/28/18 00:00 98.4 75 20 127/62 (83) 96 09/27/18 23:47 73 20 96 Nasal Cannula 4.0 36 09/27/18 23:37 74 22 96 Nasal Cannula 4.0 36 09/27/18 21:12 Nasal Cannula 4.0 09/27/18 21:10 74 20 94 Nasal Cannula 4.0 36 09/27/18 21:00 Nasal Cannula 4.0 36 09/27/18 21:00 95 Nasal Cannula 4.0 36 09/27/18 21:00 74 20 95 Nasal Cannula 4.0 36 09/27/18 20:00 98.1 82 20 119/67 (84) 98 General Appearance: no apparent distress, alert Neck: supple Cardiovascular: normal rate Respiratory/Chest: crackles/rales Abdomen: normal bowel sounds, non tender, soft Extremities: trace edema Intake and Output 09/27/18 09/28/18 19:00 07:00 Intake Total 720 ml Output Total 1400 ml 600 ml Balance -680 ml -600 ml Intake Oral 720 ml Output Urine Total 1400 ml 600 ml # Bowel Movements 1 Laboratory Tests Test 09/28/18 05:30 White Blood Count 6.9 K/UL (4.8-10.8) Red Blood Count 5.03 M/UL (4.20-5.40) Hemoglobin 12.9 G/DL (12.0-16.0) Hematocrit 41.8 % (37.0-47.0) Mean Corpuscular Volume 83 FL (80-99) Mean Corpuscular Hemoglobin 25.6 PG (27.0-31.0) L Mean Corpuscular Hemoglobin Concent 30.8 G/DL (32.0-36.0) L Red Cell Distribution Width 15.4 % (11.6-14.8) H Platelet Count 199 K/UL (150-450) Mean Platelet Volume 6.0 FL (6.5-10.1) L Neutrophils (%) (Auto) 68.9 % (45.0-75.0) Lymphocytes (%) (Auto) 20.1 % (20.0-45.0) Monocytes (%) (Auto) 8.2 % (1.0-10.0) Eosinophils (%) (Auto) 2.2 % (0.0-3.0) Basophils (%) (Auto) 0.6 % (0.0-2.0) Sodium Level 144 MMOL/L (136-145) Potassium Level 3.8 MMOL/L (3.5-5.1) Chloride Level 101 MMOL/L (98-107) Carbon Dioxide Level 39 MMOL/L (21-32) H Anion Gap 4 mmol/L (5-15) L Blood Urea Nitrogen 30 mg/dL (7-18) H Creatinine 1.2 MG/DL (0.55-1.30) Estimat Glomerular Filtration Rate 45.3 mL/min (>60) Glucose Level 103 MG/DL (74-106) Calcium Level 9.0 MG/DL (8.5-10.1) Total Bilirubin 0.7 MG/DL (0.2-1.0) Aspartate Amino Transf (AST/SGOT) 15 U/L (15-37) Alanine Aminotransferase (ALT/SGPT) 13 U/L (12-78) Alkaline Phosphatase 43 U/L (46-116) L Pro-B-Type Natriuretic Peptide 3474 pg/mL (0-125) H Total Protein 6.6 G/DL (6.4-8.2) Albumin 3.1 G/DL (3.4-5.0) L Globulin 3.5 g/dL Albumin/Globulin Ratio 0.9 (1.0-2.7) L Microbiology Date/Time Source Procedure Growth Status 09/26/18 12:40 Sputum Expectorated Gram Stain - Final Resulted 09/26/18 12:40 Sputum Expectorated Sputum Culture - Preliminary NORMAL UPPER RESPIRATORY ANDREW AT 24 ... Resulted Guillermo Marrero MD Sep 28, 2018 18:16
[2018-09-28 19:51] VITALS: BP 118/60
[2018-09-28] MEDS: Meloxicam 15 MG TAB ORAL SCH (21:58)
[2018-09-28] MEDS: Atorvastatin 20mg tab ORAL SCH (21:58)
[2018-09-28] MEDS: TraZODone 50mg tab ORAL SCH (21:58)
[2018-09-29] VITALS: BP 119/65
[2018-09-29 04:00] VITALS: BP 111/57
[2018-09-29] MEDS: NovoLOG Insulin Flexpen SUBQ SCH ×4 (06:06→22:03)
[2018-09-29 06:27] LABS: BASOPHILS % (AUTO) 0.7 % (0.0-2.0); EOSINOPHILS % (AUTO) 3.2 % (0.0-3.0); HEMATOCRIT 42.2 % (37.0-47.0); HEMOGLOBIN 13.2 G/DL (12.0-16.0); LYMPHOCYTES % (AUTO) 19.5 % (20.0-45.0); MEAN CORPUSCULAR VOLUME 83 FL (80-99); MONOCYTES % (AUTO) 6.8 % (1.0-10.0); NEUTROPHILS % (AUTO) 69.7 % (45.0-75.0); PLATELET COUNT 195 K/UL (150-450); RED BLOOD COUNT 5.11 M/UL (4.20-5.40); RED CELL DISTRIBUTION WIDTH 15.5 % (11.6-14.8)
[2018-09-29 06:56] LABS: ALANINE AMINOTRANSFERASE 13 U/L (12-78); ALBUMIN 3.1 G/DL (3.4-5.0); ALBUMIN/GLOBULIN RATIO 0.9 (1.0-2.7); ALKALINE PHOSPHATASE 40 U/L (46-116); ANION GAP -1 mmol/L (5-15); ASPARTATE AMINO TRANSFERASE 12 U/L (15-37); BILIRUBIN,TOTAL 0.8 MG/DL (0.2-1.0); BLOOD UREA NITROGEN 27 mg/dL (7-18); CALCIUM 9.2 MG/DL (8.5-10.1); CARBON DIOXIDE 40 MMOL/L (21-32); CHLORIDE 102 MMOL/L (98-107); CREATININE 1.1 MG/DL (0.55-1.30); POTASSIUM 4.3 MMOL/L (3.5-5.1); SODIUM 141 MMOL/L (136-145)
[2018-09-29 08:00] VITALS: BP 103/53
[2018-09-29] MEDS: Heparin 5000 units/ml inj SUBQ SCH ×2 (09:11→22:01)
--- NOTE | 2018-09-29 09:53 | Pulmonology Progress Note ---
Assessment/Plan Problems: (1) Acute respiratory failure (2) Pneumonia (3) CHF (congestive heart failure) (4) Pulmonary fibrosis (5) Diabetes mellitus, type II (6) Hypothyroidism (7) HTN (hypertension) Assessment/Plan so far 8.6liters negative fluid balance, watch renal function closely slightly better continue current meds improving decrease steroids to qd, change to PO check sputum high resolution ct chest evaluated: worsening of previous pulmonary fibrosis decrease lasix to QD agree with Diamox. Subjective ROS Limited/Unobtainable: No Constitutional: Reports: no symptoms HEENT: Repors: no symptoms Respiratory: Reports: no symptoms Allergies: Coded Allergies: PENICILLINS (Verified Allergy, Unknown, 09/18/17) Objective Last 24 Hour Vital Signs Date Time Temp Pulse Resp B/P (MAP) Pulse Ox O2 Delivery O2 Flow Rate FiO2 09/29/18 08:00 98.1 68 20 103/53 (70) 96 09/29/18 07:45 96 Nasal Cannula 3.0 32 09/29/18 07:45 Nasal Cannula 3.0 32 09/29/18 04:00 98.0 65 18 111/57 (75) 98 09/29/18 00:00 97.9 100 18 119/65 (83) 69 09/29/18 00:00 69 71 80 09/28/18 23:36 Nasal Cannula 09/28/18 23:36 Nasal Cannula 09/28/18 22:01 80 18 Nasal Cannula 4.0 36 09/28/18 21:00 Nasal Cannula 4.0 09/28/18 20:07 Nasal Cannula 3.0 32 09/28/18 20:06 98 Nasal Cannula 3.0 32 09/28/18 20:00 Nasal Cannula 09/28/18 20:00 Nasal Cannula 09/28/18 19:51 98.2 76 18 118/60 (79) 98 09/28/18 16:00 97.7 82 22 126/65 (85) 95 09/28/18 15:21 77 20 96 Nasal Cannula 4.0 36 09/28/18 15:12 76 20 96 Nasal Cannula 4.0 36 09/28/18 12:00 97.1 59 20 119/64 (82) 97 09/28/18 11:30 82 20 96 Nasal Cannula 4.0 36 09/28/18 11:24 79 20 94 Nasal Cannula 4.0 36 Intake and Output 1/25/19 1/26/19 18:59 06:59 Intake Total 960 ml Output Total 800 ml 1000 ml Balance 160 ml -1000 ml Intake Oral 960 ml Output Urine Total 800 ml 1000 ml # Bowel Movements 2 Objective General Appearance: WD/WN HEENT: normocephalic, atraumatic, anicteric Respiratory/Chest: rhonchi Breasts: no masses Cardiovascular: normal peripheral pulses, normal rate Abdomen: normal bowel sounds, soft, non tender Extremities: no cyanosis Skin: no rash 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 Lymphatic: no neck adenopathy Microbiology Date/Time Source Procedure Growth Status 09/26/18 12:40 Sputum Expectorated Gram Stain - Final Complete 09/26/18 12:40 Sputum Expectorated Sputum Culture - Final NORMAL UPPER RESPIRATORY ANDREW PRESENT Complete Laboratory Tests 09/29/18 05:15: White Blood Count 8.0, Red Blood Count 5.11, Hemoglobin 13.2, Hematocrit 42.2, Mean Corpuscular Volume 83, Mean Corpuscular Hemoglobin 25.8L, Mean Corpuscular Hemoglobin Concent 31.2L, Red Cell Distribution Width 15.5H, Platelet Count 195 , Mean Platelet Volume 6.0L, Neutrophils (%) (Auto) 69.7, Lymphocytes (%) (Auto ) 19.5L, Monocytes (%) (Auto) 6.8, Eosinophils (%) (Auto) 3.2H, Basophils (%) ( Auto) 0.7, Sodium Level 141, Potassium Level 4.3, Chloride Level 102, Carbon Dioxide Level 40H, Anion Gap -1L, Blood Urea Nitrogen 27H, Creatinine 1.1, Estimat Glomerular Filtration Rate 50.2, Glucose Level 122H, Calcium Level 9.2, Total Bilirubin 0.8, Aspartate Amino Transf (AST/SGOT) 12L, Alanine Aminotransferase (ALT/SGPT) 13, Alkaline Phosphatase 40L, Pro-B-Type Natriuretic Peptide 3744H, Total Protein 6.4, Albumin 3.1L, Globulin 3.3, Albumin/Globulin Ratio 0.9L Current Medications Medications (Trade) Dose Ordered Sig/Leatha Route PRN Reason Start Time Stop Time Status Last Admin Dose Admin Acetaminophen (Tylenol) 650 mg Q4H PRN ORAL Fever 09/25/18 18:51 10/23/18 18:50 Alprazolam (Xanax) 0.25 mg Q6H PRN ORAL For Anxiety 09/25/18 18:52 10/02/18 18:51 Atorvastatin Calcium (Lipitor) 20 mg BEDTIME ORAL 09/25/18 21:00 10/23/18 20:59 09/28/18 21:58 Dextrose (Dextrose 50%) 25 ml Q30M PRN IV Hypoglycemia 09/25/18 19:15 10/23/18 08:14 Dextrose (Dextrose 50%) 50 ml Q30M PRN IV Hypoglycemia 09/25/18 19:15 10/23/18 08:14 Fluoxetine HCl (PROzac) 40 mg DAILY ORAL 09/26/18 09:00 10/26/18 08:59 09/29/18 09:08 Heparin Sodium (Porcine) (Heparin 5000 units/ml) 5,000 units EVERY 12 HOURS SUBQ 09/25/18 21:00 10/23/18 08:59 09/29/18 09:11 Insulin Aspart (NovoLOG) BEFORE MEALS AND HS SUBQ 09/25/18 21:00 10/23/18 11:29 Lamotrigine (LaMICtal) 200 mg QHS ORAL 09/25/18 21:00 10/23/18 08:59 09/28/18 21:58 Levofloxacin (Levaquin) 250 mg Q24H ORAL 09/26/18 22:00 10/03/18 21:59 09/28/18 21:58 Levothyroxine Sodium (Synthroid) 150 mcg DAILY@0630 ORAL 09/26/18 06:30 10/24/18 06:29 09/29/18 06:19 Meloxicam (Mobic) 15 mg QHS ORAL 09/25/18 21:00 10/23/18 20:59 09/28/18 21:58 Ondansetron HCl (Zofran) 4 mg Q6H PRN IVP Nausea & Vomiting 09/25/18 20:15 10/23/18 08:14 Pantoprazole (Protonix) 40 mg ACBREAKFAST ORAL 09/26/18 06:30 10/24/18 08:59 09/29/18 06:19 Prednisone (predniSONE) 40 mg DAILY ORAL 09/29/18 09:00 10/29/18 08:59 09/29/18 09:08 Promethazine HCl/ Codeine (Phenergan with Codeine) 5 ml Q6H PRN ORAL For Cough 09/25/18 18:53 10/24/18 18:52 09/29/18 00:13 Temazepam (Restoril) 15 mg HSPRN PRN ORAL Insomnia 09/25/18 18:53 10/02/18 18:52 Trazodone HCl (Desyrel) 50 mg BEDTIME ORAL 09/25/18 21:00 10/23/18 20:59 09/28/18 21:58 Nahomy Hanna MD Sep 29, 2018 09:53
[2018-09-29] MEDS ORDERED: NS 275ml ONE (10:22)
[2018-09-29] MEDS ORDERED: Tubing IV Secondary IV ONE (10:22)
[2018-09-29] MEDS ORDERED: Sterile Water Irrig 1000ml IRRIG ONE (10:24)
[2018-09-29 11:49] VITALS: BP 118/59
--- NOTE | 2018-09-29 12:09 | Diagnostic Imaging Report ---
EXAM: XR Chest, 1 View CLINICAL HISTORY: DYSPNEA TECHNIQUE: Frontal view of the chest. COMPARISON: Chest x-ray 09/25/18 FINDINGS: Lungs: Diffuse bilateral airspace opacities unchanged. Pleural space: Unremarkable. No pneumothorax. Heart: Cardiomegaly. Mediastinum: Unremarkable. Bones/joints: Unremarkable. IMPRESSION: 1. Diffuse bilateral airspace opacities unchanged. 2. No significant interval change.
[2018-09-29] MEDS ORDERED: Albuterol/Ipratropium 3ml neb HHN PRN (13:45)
--- NOTE | 2018-09-29 14:23 | Internal Med Progress Note ---
Subjective Date of Service: Sep 29, 2018 Physician Name Inderjit Galvan Attending Physician Bob Lin MD Current Medications Medications (Trade) Dose Ordered Sig/Leatha Route PRN Reason Start Time Stop Time Status Last Admin Dose Admin Acetaminophen (Tylenol) 650 mg Q4H PRN ORAL Fever 09/25/18 18:51 10/23/18 18:50 Albuterol/ Ipratropium (Albuterol/ Ipratropium) 3 ml Q4H PRN HHN Shortness of Breath 09/29/18 13:45 10/04/18 13:44 Albuterol/ Ipratropium (Albuterol/ Ipratropium) 3 ml Q4HRT HHN 09/29/18 15:00 10/04/18 14:59 Alprazolam (Xanax) 0.25 mg Q6H PRN ORAL For Anxiety 09/25/18 18:52 10/02/18 18:51 Atorvastatin Calcium (Lipitor) 20 mg BEDTIME ORAL 09/25/18 21:00 10/23/18 20:59 09/28/18 21:58 Dextrose (Dextrose 50%) 25 ml Q30M PRN IV Hypoglycemia 09/25/18 19:15 10/23/18 08:14 Dextrose (Dextrose 50%) 50 ml Q30M PRN IV Hypoglycemia 09/25/18 19:15 10/23/18 08:14 Fluoxetine HCl (PROzac) 40 mg DAILY ORAL 09/26/18 09:00 10/26/18 08:59 09/29/18 09:08 Heparin Sodium (Porcine) (Heparin 5000 units/ml) 5,000 units EVERY 12 HOURS SUBQ 09/25/18 21:00 10/23/18 08:59 09/29/18 09:11 Insulin Aspart (NovoLOG) BEFORE MEALS AND HS SUBQ 09/25/18 21:00 10/23/18 11:29 Lamotrigine (LaMICtal) 200 mg QHS ORAL 09/25/18 21:00 10/23/18 08:59 09/28/18 21:58 Levofloxacin (Levaquin) 250 mg Q24H ORAL 09/26/18 22:00 10/03/18 21:59 09/28/18 21:58 Levothyroxine Sodium (Synthroid) 150 mcg DAILY@0630 ORAL 09/26/18 06:30 10/24/18 06:29 09/29/18 06:19 Meloxicam (Mobic) 15 mg QHS ORAL 09/25/18 21:00 10/23/18 20:59 09/28/18 21:58 Ondansetron HCl (Zofran) 4 mg Q6H PRN IVP Nausea & Vomiting 09/25/18 20:15 10/23/18 08:14 Pantoprazole (Protonix) 40 mg ACBREAKFAST ORAL 09/26/18 06:30 10/24/18 08:59 09/29/18 06:19 Prednisone (predniSONE) 40 mg DAILY ORAL 09/29/18 09:00 10/29/18 08:59 09/29/18 09:08 Promethazine HCl/ Codeine (Phenergan with Codeine) 5 ml Q6H PRN ORAL For Cough 09/25/18 18:53 10/24/18 18:52 09/29/18 00:13 Temazepam (Restoril) 15 mg HSPRN PRN ORAL Insomnia 09/25/18 18:53 10/02/18 18:52 Trazodone HCl (Desyrel) 50 mg BEDTIME ORAL 09/25/18 21:00 10/23/18 20:59 09/28/18 21:58 Allergies: Coded Allergies: PENICILLINS (Verified Allergy, Unknown, 09/18/17) ROS Limited/Unobtainable: No Constitutional: Reports: no symptoms HEENT: Reports: no symptoms Cardiovascular: Reports: no symptoms Respiratory: Reports: no symptoms Gastrointestinal/Abdominal: Reports: no symptoms Genitourinary: Reports: no symptoms Neurologic/Psychiatric: Reports: no symptoms Subjective 63 YO F with pulmonary fibrosis admitted with shortness of breath. Now bronchitis. Cover for Int Bimal-Dr Lin Objective Last Vital Signs Date Time Temp Pulse Resp B/P (MAP) Pulse Ox O2 Delivery O2 Flow Rate FiO2 09/29/18 11:49 98.2 74 20 118/59 (78) 95 09/29/18 09:00 Nasal Cannula 4.0 09/29/18 07:45 32 Laboratory Tests Test 09/29/18 05:15 White Blood Count 8.0 K/UL (4.8-10.8) Red Blood Count 5.11 M/UL (4.20-5.40) Hemoglobin 13.2 G/DL (12.0-16.0) Hematocrit 42.2 % (37.0-47.0) Mean Corpuscular Volume 83 FL (80-99) Mean Corpuscular Hemoglobin 25.8 PG (27.0-31.0) L Mean Corpuscular Hemoglobin Concent 31.2 G/DL (32.0-36.0) L Red Cell Distribution Width 15.5 % (11.6-14.8) H Platelet Count 195 K/UL (150-450) Mean Platelet Volume 6.0 FL (6.5-10.1) L Neutrophils (%) (Auto) 69.7 % (45.0-75.0) Lymphocytes (%) (Auto) 19.5 % (20.0-45.0) L Monocytes (%) (Auto) 6.8 % (1.0-10.0) Eosinophils (%) (Auto) 3.2 % (0.0-3.0) H Basophils (%) (Auto) 0.7 % (0.0-2.0) Sodium Level 141 MMOL/L (136-145) Potassium Level 4.3 MMOL/L (3.5-5.1) Chloride Level 102 MMOL/L (98-107) Carbon Dioxide Level 40 MMOL/L (21-32) H Anion Gap -1 mmol/L (5-15) L Blood Urea Nitrogen 27 mg/dL (7-18) H Creatinine 1.1 MG/DL (0.55-1.30) Estimat Glomerular Filtration Rate 50.2 mL/min (>60) Glucose Level 122 MG/DL (74-106) H Calcium Level 9.2 MG/DL (8.5-10.1) Total Bilirubin 0.8 MG/DL (0.2-1.0) Aspartate Amino Transf (AST/SGOT) 12 U/L (15-37) L Alanine Aminotransferase (ALT/SGPT) 13 U/L (12-78) Alkaline Phosphatase 40 U/L (46-116) L Pro-B-Type Natriuretic Peptide 3744 pg/mL (0-125) H Total Protein 6.4 G/DL (6.4-8.2) Albumin 3.1 G/DL (3.4-5.0) L Globulin 3.3 g/dL Albumin/Globulin Ratio 0.9 (1.0-2.7) L Intake and Output 09/28/18 09/29/18 18:59 06:59 Intake Total 960 ml Output Total 800 ml 1000 ml Balance 160 ml -1000 ml Intake Oral 960 ml Output Urine Total 800 ml 1000 ml # Bowel Movements 2 Objective PHYSICAL EXAMINATION: GENERAL: The patient is a well-developed and well-nourished white female, who is in moderate respiratory distress. HEENT: Eyes, pupils are equal and responsive to light and accommodation. Extraocular movements are intact. NECK: Supple without lymphadenopathy. CHEST: nasal canula. Diffuse wheezes in the right lung greater than the left. Otherwise, clear to auscultation bilaterally without wheezes or rales. CARDIOVASCULAR: Regular rhythm and rate. S1 and S2 are normal without murmurs, rubs, or gallops. ABDOMEN: Soft, nontender, and nondistended. Positive bowel sounds. No evidence of hepatosplenomegaly. Currently, no rebound or guarding noted. EXTREMITIES: Negative for clubbing, cyanosis, or edema. RECTAL: Refused. GENITAL: Refused. NEUROLOGIC: Cranial nerves II through XII are grossly intact without focal deficits. Motor strength is 5/5 bilaterally intact. Deep tendon reflexes are 2+, plantar. Assessment/Plan Assessment/Plan ASSESSMENT: This is a 63-year-old white female with: 1. Bronchitis. 2. Shortness of breath. 3. Pulmonary fibrosis. 4. Diabetes type 2. 5. Hypertension. 6. Hypercholesterolemia. 7. Hypothyroidism. TREATMENT: 1. Shortness of breath/pulmonary fibrosis/bronchitis. The patient has been placed empirically on intravenous Levaquin. Continue oral prednisone daily. The patient is currently receiving DuoNeb q.4 h. routine. A Pulmonary consultation has been obtained with Dr. Nahomy Hanna. We will follow recommendations of Pulmonary. 2. Diabetes type 2. Continue metformin as above. A NovoLog sliding scale has been instituted. 3. Hypertension. Continue losartan/hydrochlorothiazide as above. 4. Hypercholesterolemia. Continue Lipitor as above. 5. Hypothyroidism. Continue Levoxyl as above. 6. Major depression. Continue trazodone and lamotrigine as above. Inderjit Galvan MD Sep 29, 2018 14:23
[2018-09-29] MEDS: Albuterol/Ipratropium 3ml neb HHN SCH ×3 (15:30→23:44)
[2018-09-29 16:00] VITALS: BP 124/70
[2018-09-29 20:00] VITALS: BP 121/74
--- NOTE | 2018-09-29 20:26 | Cardiology Progress Note ---
Assessment/Plan Assessment/Plan start oral furosemide, will d/w Dr Marrero Subjective Subjective The patient is resting in bed, she has moderate dyspnea, is anticipating respiratory treatment, no dizziness, no chest pain Objective Last 24 Hour Vital Signs Date Time Temp Pulse Resp B/P (MAP) Pulse Ox O2 Delivery O2 Flow Rate FiO2 09/29/18 20:00 97.3 78 18 121/74 (90) 95 09/29/18 16:00 97.7 74 20 124/70 (88) 98 09/29/18 15:42 79 21 99 Nasal Cannula 4.0 36 09/29/18 15:30 71 22 94 Nasal Cannula 3.0 32 09/29/18 11:49 98.2 74 20 118/59 (78) 95 09/29/18 09:00 Nasal Cannula 4.0 09/29/18 08:00 98.1 68 20 103/53 (70) 96 09/29/18 07:45 96 Nasal Cannula 3.0 32 09/29/18 07:45 Nasal Cannula 3.0 32 09/29/18 04:00 98.0 65 18 111/57 (75) 98 09/29/18 00:00 97.9 100 18 119/65 (83) 69 09/29/18 00:00 69 71 80 09/28/18 23:36 Nasal Cannula 09/28/18 23:36 Nasal Cannula 09/28/18 22:01 80 18 Nasal Cannula 4.0 36 09/28/18 21:00 Nasal Cannula 4.0 General Appearance: mild distress EENT: PERRL/EOMI Neck: JVD Rhythm: NSR Cardiovascular: regular rhythm Respiratory/Chest: crackles/rales Abdomen: soft Extremities: trace edema Intake and Output 09/28/18 09/29/18 19:00 07:00 Intake Total 960 ml Output Total 800 ml 1000 ml Balance 160 ml -1000 ml Intake Oral 960 ml Output Urine Total 800 ml 1000 ml # Bowel Movements 2 Laboratory Tests Test 09/29/18 05:15 White Blood Count 8.0 K/UL (4.8-10.8) Red Blood Count 5.11 M/UL (4.20-5.40) Hemoglobin 13.2 G/DL (12.0-16.0) Hematocrit 42.2 % (37.0-47.0) Mean Corpuscular Volume 83 FL (80-99) Mean Corpuscular Hemoglobin 25.8 PG (27.0-31.0) L Mean Corpuscular Hemoglobin Concent 31.2 G/DL (32.0-36.0) L Red Cell Distribution Width 15.5 % (11.6-14.8) H Platelet Count 195 K/UL (150-450) Mean Platelet Volume 6.0 FL (6.5-10.1) L Neutrophils (%) (Auto) 69.7 % (45.0-75.0) Lymphocytes (%) (Auto) 19.5 % (20.0-45.0) L Monocytes (%) (Auto) 6.8 % (1.0-10.0) Eosinophils (%) (Auto) 3.2 % (0.0-3.0) H Basophils (%) (Auto) 0.7 % (0.0-2.0) Sodium Level 141 MMOL/L (136-145) Potassium Level 4.3 MMOL/L (3.5-5.1) Chloride Level 102 MMOL/L (98-107) Carbon Dioxide Level 40 MMOL/L (21-32) H Anion Gap -1 mmol/L (5-15) L Blood Urea Nitrogen 27 mg/dL (7-18) H Creatinine 1.1 MG/DL (0.55-1.30) Estimat Glomerular Filtration Rate 50.2 mL/min (>60) Glucose Level 122 MG/DL (74-106) H Calcium Level 9.2 MG/DL (8.5-10.1) Total Bilirubin 0.8 MG/DL (0.2-1.0) Aspartate Amino Transf (AST/SGOT) 12 U/L (15-37) L Alanine Aminotransferase (ALT/SGPT) 13 U/L (12-78) Alkaline Phosphatase 40 U/L (46-116) L Pro-B-Type Natriuretic Peptide 3744 pg/mL (0-125) H Total Protein 6.4 G/DL (6.4-8.2) Albumin 3.1 G/DL (3.4-5.0) L Globulin 3.3 g/dL Albumin/Globulin Ratio 0.9 (1.0-2.7) L Nichol Judd MD Sep 29, 2018 20:26
[2018-09-29] MEDS: Atorvastatin 20mg tab ORAL SCH (21:59)
[2018-09-29] MEDS: Meloxicam 15 MG TAB ORAL SCH (22:00)
[2018-09-29] MEDS: TraZODone 50mg tab ORAL SCH (22:00)
[2018-09-30] VITALS: BP 105/51
[2018-09-30] MEDS: Albuterol/Ipratropium 3ml neb HHN SCH ×6 (03:22→23:56)
[2018-09-30 04:00] VITALS: BP 109/60
[2018-09-30] MEDS: NovoLOG Insulin Flexpen SUBQ SCH ×4 (05:38→20:48)
[2018-09-30 07:31] LABS: BASOPHILS % (AUTO) 0.7 % (0.0-2.0); EOSINOPHILS % (AUTO) 1.3 % (0.0-3.0); HEMATOCRIT 41.5 % (37.0-47.0); LYMPHOCYTES % (AUTO) 18.2 % (20.0-45.0); MEAN CORPUSCULAR VOLUME 83 FL (80-99); MONOCYTES % (AUTO) 8.4 % (1.0-10.0); NEUTROPHILS % (AUTO) 71.4 % (45.0-75.0); PLATELET COUNT 180 K/UL (150-450); RED BLOOD COUNT 5.01 M/UL (4.20-5.40); RED CELL DISTRIBUTION WIDTH 15.4 % (11.6-14.8); WHITE BLOOD COUNT 6.4 K/UL (4.8-10.8)
[2018-09-30 07:41] LABS: ALANINE AMINOTRANSFERASE 14 U/L (12-78); ALBUMIN/GLOBULIN RATIO 0.9 (1.0-2.7); ALKALINE PHOSPHATASE 38 U/L (46-116); ANION GAP 1 mmol/L (5-15); ASPARTATE AMINO TRANSFERASE 11 U/L (15-37); BILIRUBIN,TOTAL 0.8 MG/DL (0.2-1.0); BLOOD UREA NITROGEN 27 mg/dL (7-18); CALCIUM 8.9 MG/DL (8.5-10.1); CARBON DIOXIDE 40 MMOL/L (21-32); CHLORIDE 104 MMOL/L (98-107); PHOSPHORUS 3.4 MG/DL (2.5-4.9); POTASSIUM 4.4 MMOL/L (3.5-5.1); SODIUM 145 MMOL/L (136-145)
[2018-09-30 08:00] VITALS: BP 123/77
[2018-09-30] MEDS: metFORMIN 500mg tab ORAL SCH ×3 (08:34→17:24)
[2018-09-30] MEDS: Furosemide 40mg tab ORAL SCH (08:35)
[2018-09-30] MEDS: Heparin 5000 units/ml inj SUBQ SCH ×2 (08:37→20:47)
[2018-09-30 12:00] VITALS: BP 126/80
--- NOTE | 2018-09-30 12:29 | Pulmonology Progress Note ---
Assessment/Plan Problems: (1) Acute respiratory failure (2) Pneumonia (3) CHF (congestive heart failure) (4) Pulmonary fibrosis (5) Diabetes mellitus, type II (6) Hypothyroidism (7) HTN (hypertension) Assessment/Plan so far 8.6liters negative fluid balance, watch renal function closely slightly better continue current meds improving decrease steroids to qd, change to PO check sputum high resolution ct chest evaluated: worsening of previous pulmonary fibrosis decrease lasix to QD agree with Diamox. Subjective ROS Limited/Unobtainable: No Constitutional: Reports: no symptoms HEENT: Repors: no symptoms Respiratory: Reports: no symptoms Allergies: Coded Allergies: PENICILLINS (Verified Allergy, Unknown, 09/18/17) Objective Last 24 Hour Vital Signs Date Time Temp Pulse Resp B/P (MAP) Pulse Ox O2 Delivery O2 Flow Rate FiO2 09/30/18 11:42 79 18 97 Nasal Cannula 3.0 32 09/30/18 11:42 32 09/30/18 09:00 Nasal Cannula 4.0 09/30/18 08:37 79 16 98 Nasal Cannula 3.0 32 09/30/18 08:29 Nasal Cannula 3.0 32 09/30/18 08:29 73 18 96 Nasal Cannula 3.0 32 09/30/18 08:29 32 09/30/18 08:29 96 Nasal Cannula 3.0 32 09/30/18 08:00 97.7 81 18 123/77 (92) 96 09/30/18 04:00 97.6 68 18 109/60 (76) 100 09/30/18 03:34 76 18 98 Nasal Cannula 4.0 36 09/30/18 03:25 78 18 96 Nasal Cannula 4.0 36 09/30/18 00:00 97.3 74 18 105/51 (69) 97 09/29/18 23:56 81 21 98 Nasal Cannula 4.0 36 09/29/18 23:44 80 20 97 Nasal Cannula 4.0 36 09/29/18 21:00 Nasal Cannula 4.0 09/29/18 20:49 77 21 96 Nasal Cannula 4.0 36 09/29/18 20:40 Nasal Cannula 3.0 32 09/29/18 20:39 96 Nasal Cannula 3.0 32 09/29/18 20:39 78 22 95 Nasal Cannula 4.0 36 09/29/18 20:00 97.3 78 18 121/74 (90) 95 09/29/18 16:00 97.7 74 20 124/70 (88) 98 09/29/18 15:42 79 21 99 Nasal Cannula 4.0 36 09/29/18 15:30 71 22 94 Nasal Cannula 3.0 32 Intake and Output 09/29/18 09/30/18 19:00 07:00 Intake Total 1080 ml 360 ml Output Total 600 ml 350 ml Balance 480 ml 10 ml Intake Oral 1080 ml 360 ml Output Urine Total 600 ml 350 ml # Bowel Movements 1 Objective General Appearance: WD/WN HEENT: normocephalic, atraumatic, anicteric Respiratory/Chest: rhonchi Breasts: no masses Cardiovascular: normal peripheral pulses, normal rate Abdomen: normal bowel sounds, soft, non tender Extremities: no cyanosis Skin: no rash Neurologic/Psychiatric: billet header II-XII grossly normal Lymphatic: no neck adenopathy Laboratory Tests 09/30/18 05:56: White Blood Count 6.4, Red Blood Count 5.01, Hemoglobin 13.0, Hematocrit 41.5, Mean Corpuscular Volume 83, Mean Corpuscular Hemoglobin 25.9L, Mean Corpuscular Hemoglobin Concent 31.3L, Red Cell Distribution Width 15.4H, Platelet Count 180 , Mean Platelet Volume 6.0L, Neutrophils (%) (Auto) 71.4, Lymphocytes (%) (Auto ) 18.2L, Monocytes (%) (Auto) 8.4, Eosinophils (%) (Auto) 1.3, Basophils (%) ( Auto) 0.7, Sodium Level 145, Potassium Level 4.4, Chloride Level 104, Carbon Dioxide Level 40H, Anion Gap 1L, Blood Urea Nitrogen 27H, Creatinine 1.0, Estimat Glomerular Filtration Rate 56.0, Glucose Level 98, Hemoglobin A1c 7.4H, Calcium Level 8.9, Phosphorus Level 3.4, Magnesium Level 2.4, Total Bilirubin 0.8, Aspartate Amino Transf (AST/SGOT) 11L, Alanine Aminotransferase (ALT/SGPT) 14, Alkaline Phosphatase 38L, Total Protein 6.4, Albumin 3.0L, Globulin 3.4, Albumin/Globulin Ratio 0.9L Current Medications Medications (Trade) Dose Ordered Sig/Leatha Route PRN Reason Start Time Stop Time Status Last Admin Dose Admin Acetaminophen (Tylenol) 650 mg Q4H PRN ORAL Fever 09/25/18 18:51 10/23/18 18:50 Albuterol/ Ipratropium (Albuterol/ Ipratropium) 3 ml Q4H PRN HHN Shortness of Breath 09/29/18 13:45 10/04/18 13:44 Albuterol/ Ipratropium (Albuterol/ Ipratropium) 3 ml Q4HRT HHN 09/29/18 15:00 10/04/18 14:59 09/30/18 11:42 Alprazolam (Xanax) 0.25 mg Q6H PRN ORAL For Anxiety 09/25/18 18:52 10/02/18 18:51 Atorvastatin Calcium (Lipitor) 20 mg BEDTIME ORAL 09/25/18 21:00 10/23/18 20:59 09/29/18 21:59 Dextrose (Dextrose 50%) 25 ml Q30M PRN IV Hypoglycemia 09/25/18 19:15 10/23/18 08:14 Dextrose (Dextrose 50%) 50 ml Q30M PRN IV Hypoglycemia 09/25/18 19:15 10/23/18 08:14 Fluoxetine HCl (PROzac) 40 mg DAILY ORAL 09/26/18 09:00 10/26/18 08:59 09/30/18 08:34 Furosemide (Lasix) 40 mg DAILY ORAL 09/30/18 09:00 10/30/18 08:59 09/30/18 08:35 Heparin Sodium (Porcine) (Heparin 5000 units/ml) 5,000 units EVERY 12 HOURS SUBQ 09/25/18 21:00 10/23/18 08:59 09/30/18 08:37 Insulin Aspart (NovoLOG) BEFORE MEALS AND HS SUBQ 09/25/18 21:00 10/23/18 11:29 09/29/18 22:03 Lamotrigine (LaMICtal) 200 mg QHS ORAL 09/25/18 21:00 10/23/18 08:59 09/29/18 22:00 Levofloxacin (Levaquin) 250 mg Q24H ORAL 09/26/18 22:00 10/03/18 21:59 09/29/18 21:59 Levothyroxine Sodium (Synthroid) 150 mcg DAILY@0630 ORAL 09/26/18 06:30 10/24/18 06:29 09/30/18 06:09 Meloxicam (Mobic) 15 mg QHS ORAL 09/25/18 21:00 10/23/18 20:59 09/29/18 22:00 Metformin HCl (Glucophage) 500 mg TIAC ORAL 09/30/18 08:00 10/30/18 07:59 09/30/18 08:34 Nateglinide (Starlix) 120 mg TIAC ORAL 09/30/18 11:30 10/30/18 11:29 Ondansetron HCl (Zofran) 4 mg Q6H PRN IVP Nausea & Vomiting 09/25/18 20:15 10/23/18 08:14 Pantoprazole (Protonix) 40 mg ACBREAKFAST ORAL 09/26/18 06:30 10/24/18 08:59 09/30/18 06:09 Pioglitazone HCl (Actos) 30 mg ACBREAKFAST ORAL 09/30/18 10:00 10/30/18 09:59 09/30/18 10:31 Prednisone (predniSONE) 40 mg DAILY ORAL 09/29/18 09:00 10/29/18 08:59 09/30/18 08:35 Promethazine HCl/ Codeine (Phenergan with Codeine) 5 ml Q6H PRN ORAL For Cough 09/25/18 18:53 10/24/18 18:52 09/29/18 00:13 Sitagliptin Phosphate (Januvia) 100 mg ACBREAKFAST ORAL 09/30/18 08:00 10/30/18 07:59 09/30/18 08:35 Temazepam (Restoril) 15 mg HSPRN PRN ORAL Insomnia 09/25/18 18:53 10/02/18 18:52 Trazodone HCl (Desyrel) 50 mg BEDTIME ORAL 09/25/18 21:00 10/23/18 20:59 09/29/18 22:00 Nahomy Hanna MD Sep 30, 2018 12:29
--- NOTE | 2018-09-30 13:21 | Internal Med Progress Note ---
Subjective Date of Service: Sep 30, 2018 Physician Name Inderjit Galvan Attending Physician Bob Lin MD Current Medications Medications (Trade) Dose Ordered Sig/Leatha Route PRN Reason Start Time Stop Time Status Last Admin Dose Admin Acetaminophen (Tylenol) 650 mg Q4H PRN ORAL Fever 09/25/18 18:51 10/23/18 18:50 Albuterol/ Ipratropium (Albuterol/ Ipratropium) 3 ml Q4H PRN HHN Shortness of Breath 09/29/18 13:45 10/04/18 13:44 Albuterol/ Ipratropium (Albuterol/ Ipratropium) 3 ml Q4HRT HHN 09/29/18 15:00 10/04/18 14:59 09/30/18 11:42 Alprazolam (Xanax) 0.25 mg Q6H PRN ORAL For Anxiety 09/25/18 18:52 10/02/18 18:51 Atorvastatin Calcium (Lipitor) 20 mg BEDTIME ORAL 09/25/18 21:00 10/23/18 20:59 09/29/18 21:59 Dextrose (Dextrose 50%) 25 ml Q30M PRN IV Hypoglycemia 09/25/18 19:15 10/23/18 08:14 Dextrose (Dextrose 50%) 50 ml Q30M PRN IV Hypoglycemia 09/25/18 19:15 10/23/18 08:14 Fluoxetine HCl (PROzac) 40 mg DAILY ORAL 09/26/18 09:00 10/26/18 08:59 09/30/18 08:34 Furosemide (Lasix) 40 mg DAILY ORAL 09/30/18 09:00 10/30/18 08:59 09/30/18 08:35 Heparin Sodium (Porcine) (Heparin 5000 units/ml) 5,000 units EVERY 12 HOURS SUBQ 09/25/18 21:00 10/23/18 08:59 09/30/18 08:37 Insulin Aspart (NovoLOG) BEFORE MEALS AND HS SUBQ 09/25/18 21:00 10/23/18 11:29 09/29/18 22:03 Lamotrigine (LaMICtal) 200 mg QHS ORAL 09/25/18 21:00 10/23/18 08:59 09/29/18 22:00 Levofloxacin (Levaquin) 250 mg Q24H ORAL 09/26/18 22:00 10/03/18 21:59 09/29/18 21:59 Levothyroxine Sodium (Synthroid) 150 mcg DAILY@0630 ORAL 09/26/18 06:30 10/24/18 06:29 09/30/18 06:09 Meloxicam (Mobic) 15 mg QHS ORAL 09/25/18 21:00 10/23/18 20:59 09/29/18 22:00 Metformin HCl (Glucophage) 500 mg TIAC ORAL 09/30/18 08:00 10/30/18 07:59 09/30/18 12:29 Nateglinide (Starlix) 120 mg TIAC ORAL 09/30/18 11:30 10/30/18 11:29 09/30/18 12:29 Ondansetron HCl (Zofran) 4 mg Q6H PRN IVP Nausea & Vomiting 09/25/18 20:15 10/23/18 08:14 Pantoprazole (Protonix) 40 mg ACBREAKFAST ORAL 09/26/18 06:30 10/24/18 08:59 09/30/18 06:09 Pioglitazone HCl (Actos) 30 mg ACBREAKFAST ORAL 09/30/18 10:00 10/30/18 09:59 09/30/18 10:31 Prednisone (predniSONE) 40 mg DAILY ORAL 09/29/18 09:00 10/29/18 08:59 09/30/18 08:35 Promethazine HCl/ Codeine (Phenergan with Codeine) 5 ml Q6H PRN ORAL For Cough 09/25/18 18:53 10/24/18 18:52 09/29/18 00:13 Sitagliptin Phosphate (Januvia) 100 mg ACBREAKFAST ORAL 09/30/18 08:00 10/30/18 07:59 09/30/18 08:35 Temazepam (Restoril) 15 mg HSPRN PRN ORAL Insomnia 09/25/18 18:53 10/02/18 18:52 Trazodone HCl (Desyrel) 50 mg BEDTIME ORAL 09/25/18 21:00 10/23/18 20:59 09/29/18 22:00 Allergies: Coded Allergies: PENICILLINS (Verified Allergy, Unknown, 09/18/17) ROS Limited/Unobtainable: No Constitutional: Reports: no symptoms HEENT: Reports: no symptoms Cardiovascular: Reports: no symptoms Respiratory: Reports: shortness of breath Gastrointestinal/Abdominal: Reports: no symptoms Genitourinary: Reports: no symptoms Subjective 63 YO F with pulmonary fibrosis admitted with shortness of breath. Now bronchitis. Cover for Int Bimal-Dr Lin Objective Last Vital Signs Date Time Temp Pulse Resp B/P (MAP) Pulse Ox O2 Delivery O2 Flow Rate FiO2 09/30/18 12:00 98.0 84 18 126/80 (95) 97 09/30/18 11:42 Nasal Cannula 3.0 32 Laboratory Tests Test 09/30/18 05:56 White Blood Count 6.4 K/UL (4.8-10.8) Red Blood Count 5.01 M/UL (4.20-5.40) Hemoglobin 13.0 G/DL (12.0-16.0) Hematocrit 41.5 % (37.0-47.0) Mean Corpuscular Volume 83 FL (80-99) Mean Corpuscular Hemoglobin 25.9 PG (27.0-31.0) L Mean Corpuscular Hemoglobin Concent 31.3 G/DL (32.0-36.0) L Red Cell Distribution Width 15.4 % (11.6-14.8) H Platelet Count 180 K/UL (150-450) Mean Platelet Volume 6.0 FL (6.5-10.1) L Neutrophils (%) (Auto) 71.4 % (45.0-75.0) Lymphocytes (%) (Auto) 18.2 % (20.0-45.0) L Monocytes (%) (Auto) 8.4 % (1.0-10.0) Eosinophils (%) (Auto) 1.3 % (0.0-3.0) Basophils (%) (Auto) 0.7 % (0.0-2.0) Sodium Level 145 MMOL/L (136-145) Potassium Level 4.4 MMOL/L (3.5-5.1) Chloride Level 104 MMOL/L (98-107) Carbon Dioxide Level 40 MMOL/L (21-32) H Anion Gap 1 mmol/L (5-15) L Blood Urea Nitrogen 27 mg/dL (7-18) H Creatinine 1.0 MG/DL (0.55-1.30) Estimat Glomerular Filtration Rate 56.0 mL/min (>60) Glucose Level 98 MG/DL (74-106) Hemoglobin A1c 7.4 % (4.3-6.0) H Calcium Level 8.9 MG/DL (8.5-10.1) Phosphorus Level 3.4 MG/DL (2.5-4.9) Magnesium Level 2.4 MG/DL (1.8-2.4) Total Bilirubin 0.8 MG/DL (0.2-1.0) Aspartate Amino Transf (AST/SGOT) 11 U/L (15-37) L Alanine Aminotransferase (ALT/SGPT) 14 U/L (12-78) Alkaline Phosphatase 38 U/L (46-116) L Total Protein 6.4 G/DL (6.4-8.2) Albumin 3.0 G/DL (3.4-5.0) L Globulin 3.4 g/dL Albumin/Globulin Ratio 0.9 (1.0-2.7) L Intake and Output 09/29/18 09/30/18 18:59 06:59 Intake Total 1080 ml 360 ml Output Total 600 ml 350 ml Balance 480 ml 10 ml Intake Oral 1080 ml 360 ml Output Urine Total 600 ml 350 ml # Bowel Movements 1 Objective PHYSICAL EXAMINATION: GENERAL: The patient is a well-developed and well-nourished white female, who is in moderate respiratory distress. HEENT: Eyes, pupils are equal and responsive to light and accommodation. Extraocular movements are intact. NECK: Supple without lymphadenopathy. CHEST: nasal canula. Diffuse wheezes in the right lung greater than the left. Otherwise, clear to auscultation bilaterally without wheezes or rales. CARDIOVASCULAR: Regular rhythm and rate. S1 and S2 are normal without murmurs, rubs, or gallops. ABDOMEN: Soft, nontender, and nondistended. Positive bowel sounds. No evidence of hepatosplenomegaly. Currently, no rebound or guarding noted. EXTREMITIES: Negative for clubbing, cyanosis, or edema. RECTAL: Refused. GENITAL: Refused. NEUROLOGIC: Cranial nerves II through XII are grossly intact without focal deficits. Motor strength is 5/5 bilaterally intact. Deep tendon reflexes are 2+, plantar. Assessment/Plan Assessment/Plan ASSESSMENT: This is a 63-year-old white female with: 1. Bronchitis. 2. Shortness of breath. 3. Pulmonary fibrosis. 4. Diabetes type 2. 5. Hypertension. 6. Hypercholesterolemia. 7. Hypothyroidism. TREATMENT: 1. Shortness of breath/pulmonary fibrosis/bronchitis. The patient has been placed empirically on intravenous Levaquin. Continue oral prednisone daily. The patient is currently receiving DuoNeb q.4 h. routine. A Pulmonary consultation has been obtained with Dr. Nahomy Hanna. We will follow recommendations of Pulmonary. 2. Diabetes type 2. Continue metformin as above. A NovoLog sliding scale has been instituted. 3. Hypertension. Continue losartan/hydrochlorothiazide as above. 4. Hypercholesterolemia. Continue Lipitor as above. 5. Hypothyroidism. Continue Levoxyl as above. 6. Major depression. Continue trazodone and lamotrigine as above. Inderjit Galvan MD Sep 30, 2018 13:21
[2018-09-30 16:00] VITALS: BP 128/79
--- NOTE | 2018-09-30 17:32 | Cardiology Progress Note ---
Assessment/Plan Assessment/Plan her dyspnea is due to pulmonary fibrosis, she needs to discuss it with her health professional, explained to the patient Subjective Subjective The patient is resting in bed, she has moderate dyspnea, not much improvement Objective Last 24 Hour Vital Signs Date Time Temp Pulse Resp B/P (MAP) Pulse Ox O2 Delivery O2 Flow Rate FiO2 09/30/18 15:45 83 16 98 Nasal Cannula 3.0 32 09/30/18 15:35 32 09/30/18 15:35 71 18 98 Nasal Cannula 3.0 32 09/30/18 12:00 98.0 84 18 126/80 (95) 97 09/30/18 11:50 85 16 98 Nasal Cannula 3.0 32 09/30/18 11:42 79 18 97 Nasal Cannula 3.0 32 09/30/18 11:42 32 09/30/18 09:00 Nasal Cannula 4.0 09/30/18 08:37 79 16 98 Nasal Cannula 3.0 32 09/30/18 08:29 Nasal Cannula 3.0 32 09/30/18 08:29 73 18 96 Nasal Cannula 3.0 32 09/30/18 08:29 32 09/30/18 08:29 96 Nasal Cannula 3.0 32 09/30/18 08:00 97.7 81 18 123/77 (92) 96 09/30/18 04:00 97.6 68 18 109/60 (76) 100 09/30/18 03:34 76 18 98 Nasal Cannula 4.0 36 09/30/18 03:25 78 18 96 Nasal Cannula 4.0 36 09/30/18 00:00 97.3 74 18 105/51 (69) 97 09/29/18 23:56 81 21 98 Nasal Cannula 4.0 36 09/29/18 23:44 80 20 97 Nasal Cannula 4.0 36 09/29/18 21:00 Nasal Cannula 4.0 09/29/18 20:49 77 21 96 Nasal Cannula 4.0 36 09/29/18 20:40 Nasal Cannula 3.0 32 09/29/18 20:39 96 Nasal Cannula 3.0 32 09/29/18 20:39 78 22 95 Nasal Cannula 4.0 36 09/29/18 20:00 97.3 78 18 121/74 (90) 95 General Appearance: mild distress, other EENT: PERRL/EOMI Neck: no JVD Rhythm: NSR Cardiovascular: normal rate Respiratory/Chest: crackles/rales - throughout Abdomen: soft Extremities: normal capillary refill Intake and Output 09/29/18 09/30/18 18:59 06:59 Intake Total 1080 ml 360 ml Output Total 600 ml 350 ml Balance 480 ml 10 ml Intake Oral 1080 ml 360 ml Output Urine Total 600 ml 350 ml # Bowel Movements 1 Laboratory Tests Test 09/30/18 05:56 White Blood Count 6.4 K/UL (4.8-10.8) Red Blood Count 5.01 M/UL (4.20-5.40) Hemoglobin 13.0 G/DL (12.0-16.0) Hematocrit 41.5 % (37.0-47.0) Mean Corpuscular Volume 83 FL (80-99) Mean Corpuscular Hemoglobin 25.9 PG (27.0-31.0) L Mean Corpuscular Hemoglobin Concent 31.3 G/DL (32.0-36.0) L Red Cell Distribution Width 15.4 % (11.6-14.8) H Platelet Count 180 K/UL (150-450) Mean Platelet Volume 6.0 FL (6.5-10.1) L Neutrophils (%) (Auto) 71.4 % (45.0-75.0) Lymphocytes (%) (Auto) 18.2 % (20.0-45.0) L Monocytes (%) (Auto) 8.4 % (1.0-10.0) Eosinophils (%) (Auto) 1.3 % (0.0-3.0) Basophils (%) (Auto) 0.7 % (0.0-2.0) Sodium Level 145 MMOL/L (136-145) Potassium Level 4.4 MMOL/L (3.5-5.1) Chloride Level 104 MMOL/L (98-107) Carbon Dioxide Level 40 MMOL/L (21-32) H Anion Gap 1 mmol/L (5-15) L Blood Urea Nitrogen 27 mg/dL (7-18) H Creatinine 1.0 MG/DL (0.55-1.30) Estimat Glomerular Filtration Rate 56.0 mL/min (>60) Glucose Level 98 MG/DL (74-106) Hemoglobin A1c 7.4 % (4.3-6.0) H Calcium Level 8.9 MG/DL (8.5-10.1) Phosphorus Level 3.4 MG/DL (2.5-4.9) Magnesium Level 2.4 MG/DL (1.8-2.4) Total Bilirubin 0.8 MG/DL (0.2-1.0) Aspartate Amino Transf (AST/SGOT) 11 U/L (15-37) L Alanine Aminotransferase (ALT/SGPT) 14 U/L (12-78) Alkaline Phosphatase 38 U/L (46-116) L Total Protein 6.4 G/DL (6.4-8.2) Albumin 3.0 G/DL (3.4-5.0) L Globulin 3.4 g/dL Albumin/Globulin Ratio 0.9 (1.0-2.7) L Nichol Judd MD Sep 30, 2018 17:32
--- NOTE | 2018-09-30 19:15 | Consultation ---
DATE OF CONSULTATION: 09/30/2018 ENDOCRINOLOGY CONSULTATION: CONSULTING PHYSICIAN: Zuhair Solano M.D. REFERRING PHYSICIAN: Bob Lin M.D. REASON FOR CONSULTATION: Diabetes management. HISTORY OF PRESENT ILLNESS: The patient is a 63-year-old female with past medical history of diabetes, hypothyroidism as well as pulmonary fibrosis, presented to the hospital with worsening of the shortness of breath, was started on high-dose steroids, therefore, the blood glucose was elevated, and Endocrinology was consulted in order to assist in management of diabetes. The patient has been reluctant to use of insulin. Glucose last night was over 300. PAST MEDICAL HISTORY: 1. Pulmonary fibrosis. 2. Pulmonary nodules. 3. Type 2 diabetes. 4. Hypothyroidism. PAST SURGICAL HISTORY: 1. Hysterectomy. 2. Left inguinal hernia repair. MEDICATIONS: As an outpatient reviewed and reconciled. ALLERGIES: Penicillin. SOCIAL HISTORY: The patient is , lives with her ex-. No smoking, alcohol, or drug use. REVIEW OF SYSTEMS: A 12-point review of systems was performed and the pertinent positive and negative are mentioned in the present illness. LABORATORY DATA: Sodium 145, potassium 4.4, chloride 104, bicarb 40, BUN 27, creatinine 1.2. TSH is 1.7. CBC shows WBC of 6, hemoglobin 13, hematocrit 41, platelet count of 180. PHYSICAL EXAMINATION: GENERAL: The patient is awake and alert. VITAL SIGNS: Blood pressure is 140/80, pulse 72, temperature of 98, and respiratory rate of 18. HEENT: Pupils are equal and reactive to light. Sclerae are anicteric. NECK: No JVD. LUNGS: Diffuse crackles. Fine crackles. ABDOMEN: Positive bowel sounds. Soft. EXTREMITIES: No clubbing or cyanosis. Positive for edema. DIAGNOSES: 1. Pulmonary fibrosis. 2. Diabetes exacerbated by steroids. 3. Hypothyroidism. TSH is at target. DISCUSSION: 1. Continue levothyroxine 150 mcg. 2. Add metformin 500 mg t.i.d. 3. Add Starlix 120 mg before meals t.i.d. 4. Add Actos 30 mg daily. 5. Add Januvia 100 mg daily. 6. Continue NovoLog sliding scale before meals and at bedtime. I clarified with the patient that the use of insulin with high blood sugar is just temporary and needs to be done as long as she is on steroids. Check hemoglobin A1c. I will follow the patient closely during hospital stay. Thank you, Dr. Lin, for the courtesy of this consultation. Zuhair Solano M.D. DR: FER JOB#: [id number] CC: KERRI
[2018-09-30 20:00] VITALS: BP 128/76
[2018-09-30] MEDS: TraZODone 50mg tab ORAL SCH (20:47)
[2018-09-30] MEDS: Atorvastatin 20mg tab ORAL SCH (20:47)
[2018-09-30] MEDS: Meloxicam 15 MG TAB ORAL SCH (20:47)
[2018-10-01] VITALS: BP 118/64
[2018-10-01] MEDS: Albuterol/Ipratropium 3ml neb HHN SCH ×5 (03:53→20:13)
[2018-10-01 04:00] VITALS: BP 117/56
[2018-10-01] MEDS: NovoLOG Insulin Flexpen SUBQ SCH ×4 (05:54→21:02)
--- NOTE | 2018-10-01 06:42 | General Progress Note ---
Assessment/Plan Problem List: (1) Hypothyroidism ICD Codes: E03.9 - Hypothyroidism, unspecified SNOMED: 04299034 (2) Diabetes mellitus, type II ICD Codes: E11.9 - Type 2 diabetes mellitus without complications SNOMED: 05819119 (3) Pulmonary fibrosis ICD Codes: J84.10 - Pulmonary fibrosis, unspecified SNOMED: 42101309 Assessment/Plan continue Metformin 500 mg tid continue Starlix 120 mg ac tid continue Actos 30 mg daily continue Januvia 100 mg daily continue NISS continue Levothyroxine 150 mcg daily Subjective Allergies: Coded Allergies: PENICILLINS (Verified Allergy, Unknown, 09/18/17) All Systems: reviewed and negative except above Subjective events noted Objective Last 24 Hour Vital Signs Date Time Temp Pulse Resp B/P (MAP) Pulse Ox O2 Delivery O2 Flow Rate FiO2 10/01/18 04:00 77 20 99 Nasal Cannula 3.0 32 10/01/18 04:00 97.8 78 18 117/56 (76) 93 10/01/18 03:51 76 20 97 Nasal Cannula 3.0 32 10/01/18 00:20 Nasal Cannula 4.0 10/01/18 00:06 72 20 99 Nasal Cannula 3.0 32 10/01/18 00:00 97.8 79 17 118/64 (82) 94 09/30/18 23:52 74 20 96 Nasal Cannula 3.0 32 09/30/18 21:00 Nasal Cannula 4.0 09/30/18 20:48 79 20 97 Nasal Cannula 3.0 32 09/30/18 20:39 75 20 98 Nasal Cannula 3.0 32 09/30/18 20:38 Nasal Cannula 3.0 32 09/30/18 20:38 96 Nasal Cannula 3.0 32 09/30/18 20:00 97.8 83 18 128/76 (93) 94 09/30/18 16:00 98.2 80 18 128/79 (95) 98 09/30/18 15:45 83 16 98 Nasal Cannula 3.0 32 09/30/18 15:35 32 09/30/18 15:35 71 18 98 Nasal Cannula 3.0 32 09/30/18 12:00 98.0 84 18 126/80 (95) 97 09/30/18 11:50 85 16 98 Nasal Cannula 3.0 32 09/30/18 11:42 79 18 97 Nasal Cannula 3.0 32 09/30/18 11:42 32 09/30/18 09:00 Nasal Cannula 4.0 09/30/18 08:37 79 16 98 Nasal Cannula 3.0 32 09/30/18 08:29 Nasal Cannula 3.0 32 09/30/18 08:29 73 18 96 Nasal Cannula 3.0 32 09/30/18 08:29 32 09/30/18 08:29 96 Nasal Cannula 3.0 32 09/30/18 08:00 97.7 81 18 123/77 (92) 96 Intake and Output 09/30/18 10/01/18 19:00 07:00 Intake Total 840 ml 400 ml Output Total 1000 ml 1150 ml Balance -160 ml -750 ml Intake Oral 840 ml 400 ml Output Urine Total 1000 ml 1150 ml # Bowel Movements 1 1 Height (Feet): 5 Height (Inches): 5.00 Weight (Pounds): 205 General Appearance: no apparent distress Neck: normal alignment Cardiovascular: normal rate Respiratory/Chest: crackles/rales Pelvis: normal external exam Edema: no edema noted Arm (L), no edema noted Arm (R), no edema noted Leg (L), no edema noted Leg (R), no edema noted Pedal (L), no edema noted Pedal (R), no edema noted Generalized Objective Current Medications Medications (Trade) Dose Ordered Sig/Leatha Route PRN Reason Start Time Stop Time Status Last Admin Dose Admin Acetaminophen (Tylenol) 650 mg Q4H PRN ORAL Fever 09/25/18 18:51 10/23/18 18:50 Acetylcysteine (Mucomyst) 100 mg Q4H PRN HHN For Cough 09/30/18 16:45 10/30/18 16:44 09/30/18 23:56 Albuterol/ Ipratropium (Albuterol/ Ipratropium) 3 ml Q4H PRN HHN Shortness of Breath 09/29/18 13:45 10/04/18 13:44 Albuterol/ Ipratropium (Albuterol/ Ipratropium) 3 ml Q4HRT HHN 09/29/18 15:00 10/04/18 14:59 10/01/18 03:53 Alprazolam (Xanax) 0.25 mg Q6H PRN ORAL For Anxiety 09/25/18 18:52 10/02/18 18:51 Atorvastatin Calcium (Lipitor) 20 mg BEDTIME ORAL 09/25/18 21:00 10/23/18 20:59 09/30/18 20:47 Dextrose (Dextrose 50%) 25 ml Q30M PRN IV Hypoglycemia 09/25/18 19:15 10/23/18 08:14 Dextrose (Dextrose 50%) 50 ml Q30M PRN IV Hypoglycemia 09/25/18 19:15 10/23/18 08:14 Fluoxetine HCl (PROzac) 40 mg DAILY ORAL 09/26/18 09:00 10/26/18 08:59 09/30/18 08:34 Furosemide (Lasix) 40 mg DAILY ORAL 09/30/18 09:00 10/30/18 08:59 09/30/18 08:35 Heparin Sodium (Porcine) (Heparin 5000 units/ml) 5,000 units EVERY 12 HOURS SUBQ 09/25/18 21:00 10/23/18 08:59 09/30/18 20:47 Insulin Aspart (NovoLOG) BEFORE MEALS AND HS SUBQ 09/25/18 21:00 10/23/18 11:29 09/30/18 20:48 Lamotrigine (LaMICtal) 200 mg QHS ORAL 09/25/18 21:00 10/23/18 08:59 09/30/18 20:47 Levofloxacin (Levaquin) 250 mg Q24H ORAL 09/26/18 22:00 10/03/18 21:59 09/30/18 20:47 Levothyroxine Sodium (Synthroid) 150 mcg DAILY@0630 ORAL 09/26/18 06:30 10/24/18 06:29 09/30/18 06:09 Meloxicam (Mobic) 15 mg QHS ORAL 09/25/18 21:00 10/23/18 20:59 09/30/18 20:47 Metformin HCl (Glucophage) 500 mg TIAC ORAL 09/30/18 08:00 10/30/18 07:59 09/30/18 17:24 Nateglinide (Starlix) 120 mg TIAC ORAL 09/30/18 11:30 10/30/18 11:29 09/30/18 17:24 Ondansetron HCl (Zofran) 4 mg Q6H PRN IVP Nausea & Vomiting 09/25/18 20:15 10/23/18 08:14 Pantoprazole (Protonix) 40 mg ACBREAKFAST ORAL 09/26/18 06:30 10/24/18 08:59 09/30/18 06:09 Pioglitazone HCl (Actos) 30 mg ACBREAKFAST ORAL 09/30/18 10:00 10/30/18 09:59 09/30/18 10:31 Prednisone (predniSONE) 40 mg DAILY ORAL 09/29/18 09:00 10/29/18 08:59 09/30/18 08:35 Promethazine HCl/ Codeine (Phenergan with Codeine) 5 ml Q6H PRN ORAL For Cough 09/25/18 18:53 10/24/18 18:52 09/29/18 00:13 Sitagliptin Phosphate (Januvia) 100 mg ACBREAKFAST ORAL 09/30/18 08:00 10/30/18 07:59 09/30/18 08:35 Temazepam (Restoril) 15 mg HSPRN PRN ORAL Insomnia 09/25/18 18:53 10/02/18 18:52 Trazodone HCl (Desyrel) 50 mg BEDTIME ORAL 09/25/18 21:00 10/23/18 20:59 09/30/18 20:47 Item Value Date Time Bedside Blood Glucose 102 mg/dl 10/01/18 0611 Bedside Blood Glucose 306 mg/dl H 09/30/18 2100 Bedside Blood Glucose 197 mg/dl H 09/30/18 1630 Bedside Blood Glucose 172 mg/dl H 09/30/18 1149 Zuhair Solano MD Oct 01, 2018 06:42
[2018-10-01] MEDS: metFORMIN 500mg tab ORAL SCH ×2 (07:01→12:57)
[2018-10-01 08:00] VITALS: BP 124/57
[2018-10-01 08:20] LABS: BASOPHILS % (AUTO) 0.6 % (0.0-2.0); EOSINOPHILS % (AUTO) 2.2 % (0.0-3.0); HEMATOCRIT 43.7 % (37.0-47.0); HEMOGLOBIN 13.7 G/DL (12.0-16.0); LYMPHOCYTES % (AUTO) 16.1 % (20.0-45.0); MEAN CORPUSCULAR VOLUME 82 FL (80-99); NEUTROPHILS % (AUTO) 75.1 % (45.0-75.0); PLATELET COUNT 192 K/UL (150-450); RED BLOOD COUNT 5.32 M/UL (4.20-5.40); RED CELL DISTRIBUTION WIDTH 15.5 % (11.6-14.8); WHITE BLOOD COUNT 10.2 K/UL (4.8-10.8)
[2018-10-01] MEDS: Furosemide 40mg tab ORAL SCH (08:47)
[2018-10-01] MEDS: Heparin 5000 units/ml inj SUBQ SCH ×2 (08:51→21:26)
[2018-10-01 09:07] LABS: ALANINE AMINOTRANSFERASE 14 U/L (12-78); ALBUMIN 3.1 G/DL (3.4-5.0); ALKALINE PHOSPHATASE 39 U/L (46-116); ANION GAP 4 mmol/L (5-15); ASPARTATE AMINO TRANSFERASE 12 U/L (15-37); BILIRUBIN,TOTAL 0.7 MG/DL (0.2-1.0); BLOOD UREA NITROGEN 23 mg/dL (7-18); CALCIUM 9.3 MG/DL (8.5-10.1); CARBON DIOXIDE 35 MMOL/L (21-32); CHLORIDE 102 MMOL/L (98-107); CREATININE 0.9 MG/DL (0.55-1.30); POTASSIUM 3.7 MMOL/L (3.5-5.1); SODIUM 141 MMOL/L (136-145)
[2018-10-01 12:00] VITALS: BP 124/59
--- NOTE | 2018-10-01 12:06 | Diagnostic Imaging Report ---
Indication: Cough Technique: One view of the chest Comparison: 09/29/2018 Findings: Heart remains enlarged. Extensive and diffuse bilateral interstitial and airspace opacities are again demonstrated, unchanged. Pleural spaces are clear Impression: Unchanged, over 2 days, findings as above.
[2018-10-01] MEDS ORDERED: FUROSEMIDE20 M1 ORAL (14:30)
[2018-10-01] MEDS ORDERED: PREDNISONE20 M1 PO (14:31)
--- NOTE | 2018-10-01 14:55 | Pulmonology Progress Note ---
Assessment/Plan Problems: (1) Acute respiratory failure (2) Pneumonia (3) CHF (congestive heart failure) (4) Pulmonary fibrosis (5) Diabetes mellitus, type II (6) Hypothyroidism (7) HTN (hypertension) Assessment/Plan so far 8.6liters negative fluid balance, watch renal function closely slightly better continue current meds improving decrease steroids to qd, change to PO check sputum high resolution ct chest evaluated: worsening of previous pulmonary fibrosis decrease lasix to QD agree with Diamox. Subjective ROS Limited/Unobtainable: No Constitutional: Reports: no symptoms HEENT: Repors: no symptoms Allergies: Coded Allergies: PENICILLINS (Verified Allergy, Unknown, 09/18/17) Objective Last 24 Hour Vital Signs Date Time Temp Pulse Resp B/P (MAP) Pulse Ox O2 Delivery O2 Flow Rate FiO2 10/01/18 12:00 96.5 78 19 124/59 (80) 95 10/01/18 12:00 81 21 97 Nasal Cannula 3.0 32 10/01/18 11:46 81 21 94 Nasal Cannula 3.0 32 10/01/18 09:00 Nasal Cannula 4.0 10/01/18 08:00 98.2 78 20 124/57 (79) 98 10/01/18 07:59 81 19 97 Nasal Cannula 3.0 32 10/01/18 07:47 80 17 93 Nasal Cannula 3.0 32 10/01/18 07:47 93 Nasal Cannula 3.0 32 10/01/18 07:47 Nasal Cannula 3.0 32 10/01/18 04:00 77 20 99 Nasal Cannula 3.0 32 10/01/18 04:00 97.8 78 18 117/56 (76) 93 10/01/18 03:51 76 20 97 Nasal Cannula 3.0 32 10/01/18 00:20 Nasal Cannula 4.0 10/01/18 00:06 72 20 99 Nasal Cannula 3.0 32 10/01/18 00:00 97.8 79 17 118/64 (82) 94 09/30/18 23:52 74 20 96 Nasal Cannula 3.0 32 09/30/18 21:00 Nasal Cannula 4.0 09/30/18 20:48 79 20 97 Nasal Cannula 3.0 32 09/30/18 20:39 75 20 98 Nasal Cannula 3.0 32 09/30/18 20:38 Nasal Cannula 3.0 32 09/30/18 20:38 96 Nasal Cannula 3.0 32 09/30/18 20:00 97.8 83 18 128/76 (93) 94 09/30/18 16:00 98.2 80 18 128/79 (95) 98 09/30/18 15:45 83 16 98 Nasal Cannula 3.0 32 09/30/18 15:35 32 09/30/18 15:35 71 18 98 Nasal Cannula 3.0 32 Intake and Output 09/30/18 10/01/18 19:00 07:00 Intake Total 840 ml 400 ml Output Total 1000 ml 1150 ml Balance -160 ml -750 ml Intake Oral 840 ml 400 ml Output Urine Total 1000 ml 1150 ml # Bowel Movements 1 1 Objective General Appearance: WD/WN HEENT: normocephalic, atraumatic, anicteric Respiratory/Chest: rhonchi Breasts: no masses Cardiovascular: normal peripheral pulses, normal rate Abdomen: normal bowel sounds, soft, non tender Extremities: no cyanosis Skin: no rash 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 Lymphatic: no neck adenopathy Laboratory Tests 10/01/18 07:30: White Blood Count 10.2#, Red Blood Count 5.32, Hemoglobin 13.7, Hematocrit 43.7 , Mean Corpuscular Volume 82, Mean Corpuscular Hemoglobin 25.8L, Mean Corpuscular Hemoglobin Concent 31.4L, Red Cell Distribution Width 15.5H, Platelet Count 192, Mean Platelet Volume 6.3L, Neutrophils (%) (Auto) 75.1H, Lymphocytes (%) (Auto) 16.1L, Monocytes (%) (Auto) 6.0, Eosinophils (%) (Auto) 2.2, Basophils (%) (Auto) 0.6, Sodium Level 141, Potassium Level 3.7, Chloride Level 102, Carbon Dioxide Level 35H, Anion Gap 4L, Blood Urea Nitrogen 23H, Creatinine 0.9, Estimat Glomerular Filtration Rate > 60, Glucose Level 107H, Calcium Level 9.3, Total Bilirubin 0.7, Aspartate Amino Transf (AST/SGOT) 12L, Alanine Aminotransferase (ALT/SGPT) 14, Alkaline Phosphatase 39L, Pro-B-Type Natriuretic Peptide 3525H, Total Protein 6.3L, Albumin 3.1L, Globulin 3.2, Albumin/Globulin Ratio 1.0 Current Medications Medications (Trade) Dose Ordered Sig/Leatha Route PRN Reason Start Time Stop Time Status Last Admin Dose Admin Acetaminophen (Tylenol) 650 mg Q4H PRN ORAL Fever 09/25/18 18:51 10/23/18 18:50 Acetylcysteine (Mucomyst) 100 mg Q4H PRN HHN For Cough 09/30/18 16:45 10/30/18 16:44 10/01/18 11:46 Albuterol/ Ipratropium (Albuterol/ Ipratropium) 3 ml Q4H PRN HHN Shortness of Breath 09/29/18 13:45 10/04/18 13:44 Albuterol/ Ipratropium (Albuterol/ Ipratropium) 3 ml Q4HRT HHN 09/29/18 15:00 10/04/18 14:59 10/01/18 11:46 Alprazolam (Xanax) 0.25 mg Q6H PRN ORAL For Anxiety 09/25/18 18:52 10/02/18 18:51 Dextrose (Dextrose 50%) 25 ml Q30M PRN IV Hypoglycemia 09/25/18 19:15 10/23/18 08:14 Dextrose (Dextrose 50%) 50 ml Q30M PRN IV Hypoglycemia 09/25/18 19:15 10/23/18 08:14 Fluoxetine HCl (PROzac) 40 mg DAILY ORAL 09/26/18 09:00 10/26/18 08:59 10/01/18 08:47 Furosemide (Lasix) 40 mg DAILY ORAL 09/30/18 09:00 10/30/18 08:59 10/01/18 08:47 Heparin Sodium (Porcine) (Heparin 5000 units/ml) 5,000 units EVERY 12 HOURS SUBQ 09/25/18 21:00 10/23/18 08:59 10/01/18 08:51 Insulin Aspart (NovoLOG) BEFORE MEALS AND HS SUBQ 09/25/18 21:00 10/23/18 11:29 09/30/18 20:48 Lamotrigine (LaMICtal) 200 mg QHS ORAL 09/25/18 21:00 10/23/18 08:59 09/30/18 20:47 Levofloxacin (Levaquin) 250 mg Q24H ORAL 09/26/18 22:00 10/03/18 21:59 09/30/18 20:47 Levothyroxine Sodium (Synthroid) 150 mcg DAILY@0630 ORAL 09/26/18 06:30 10/24/18 06:29 10/01/18 07:02 Meloxicam (Mobic) 15 mg QHS ORAL 09/25/18 21:00 10/23/18 20:59 09/30/18 20:47 Nateglinide (Starlix) 120 mg TIAC ORAL 09/30/18 11:30 10/30/18 11:29 10/01/18 12:56 Ondansetron HCl (Zofran) 4 mg Q6H PRN IVP Nausea & Vomiting 09/25/18 20:15 10/23/18 08:14 Pantoprazole (Protonix) 40 mg ACBREAKFAST ORAL 09/26/18 06:30 10/24/18 08:59 10/01/18 07:02 Prednisone (predniSONE) 40 mg DAILY ORAL 09/29/18 09:00 10/29/18 08:59 10/01/18 08:47 Promethazine HCl/ Codeine (Phenergan with Codeine) 5 ml Q6H PRN ORAL For Cough 09/25/18 18:53 10/24/18 18:52 09/29/18 00:13 Sitagliptin Phosphate (Januvia) 100 mg ACBREAKFAST ORAL 09/30/18 08:00 10/30/18 07:59 10/01/18 07:02 Temazepam (Restoril) 15 mg HSPRN PRN ORAL Insomnia 09/25/18 18:53 10/02/18 18:52 Trazodone HCl (Desyrel) 50 mg BEDTIME ORAL 09/25/18 21:00 10/23/18 20:59 09/30/18 20:47 Nahomy Hanna MD Oct 01, 2018 14:55
[2018-10-01 16:00] VITALS: BP 123/53
--- NOTE | 2018-10-01 17:51 | Internal Med Progress Note ---
Subjective Date of Service: Oct 01, 2018 Physician Name Inderjit Galvan Attending Physician Bob Lin MD Current Medications Medications (Trade) Dose Ordered Sig/Leatha Route PRN Reason Start Time Stop Time Status Last Admin Dose Admin Acetaminophen (Tylenol) 650 mg Q4H PRN ORAL Fever 09/25/18 18:51 10/23/18 18:50 Acetylcysteine (Mucomyst) 100 mg Q4H PRN HHN For Cough 09/30/18 16:45 10/30/18 16:44 10/01/18 11:46 Albuterol/ Ipratropium (Albuterol/ Ipratropium) 3 ml Q4H PRN HHN Shortness of Breath 09/29/18 13:45 10/04/18 13:44 Albuterol/ Ipratropium (Albuterol/ Ipratropium) 3 ml Q4HRT HHN 09/29/18 15:00 10/04/18 14:59 10/01/18 15:18 Alprazolam (Xanax) 0.25 mg Q6H PRN ORAL For Anxiety 09/25/18 18:52 10/02/18 18:51 Dextrose (Dextrose 50%) 25 ml Q30M PRN IV Hypoglycemia 09/25/18 19:15 10/23/18 08:14 Dextrose (Dextrose 50%) 50 ml Q30M PRN IV Hypoglycemia 09/25/18 19:15 10/23/18 08:14 Fluoxetine HCl (PROzac) 40 mg DAILY ORAL 09/26/18 09:00 10/26/18 08:59 10/01/18 08:47 Furosemide (Lasix) 40 mg DAILY ORAL 09/30/18 09:00 10/30/18 08:59 10/01/18 08:47 Heparin Sodium (Porcine) (Heparin 5000 units/ml) 5,000 units EVERY 12 HOURS SUBQ 09/25/18 21:00 10/23/18 08:59 10/01/18 08:51 Insulin Aspart (NovoLOG) BEFORE MEALS AND HS SUBQ 09/25/18 21:00 10/23/18 11:29 09/30/18 20:48 Lamotrigine (LaMICtal) 200 mg QHS ORAL 09/25/18 21:00 10/23/18 08:59 09/30/18 20:47 Levofloxacin (Levaquin) 250 mg Q24H ORAL 09/26/18 22:00 10/03/18 21:59 09/30/18 20:47 Levothyroxine Sodium (Synthroid) 150 mcg DAILY@0630 ORAL 09/26/18 06:30 10/24/18 06:29 10/01/18 07:02 Meloxicam (Mobic) 15 mg QHS ORAL 09/25/18 21:00 10/23/18 20:59 09/30/18 20:47 Nateglinide (Starlix) 120 mg TIAC ORAL 09/30/18 11:30 10/30/18 11:29 10/01/18 17:06 Ondansetron HCl (Zofran) 4 mg Q6H PRN IVP Nausea & Vomiting 09/25/18 20:15 10/23/18 08:14 Pantoprazole (Protonix) 40 mg ACBREAKFAST ORAL 09/26/18 06:30 10/24/18 08:59 10/01/18 07:02 Prednisone (predniSONE) 40 mg DAILY ORAL 09/29/18 09:00 10/29/18 08:59 10/01/18 08:47 Promethazine HCl/ Codeine (Phenergan with Codeine) 5 ml Q6H PRN ORAL For Cough 09/25/18 18:53 10/24/18 18:52 09/29/18 00:13 Sitagliptin Phosphate (Januvia) 100 mg ACBREAKFAST ORAL 09/30/18 08:00 10/30/18 07:59 10/01/18 07:02 Temazepam (Restoril) 15 mg HSPRN PRN ORAL Insomnia 09/25/18 18:53 10/02/18 18:52 Trazodone HCl (Desyrel) 50 mg BEDTIME ORAL 09/25/18 21:00 10/23/18 20:59 09/30/18 20:47 Allergies: Coded Allergies: PENICILLINS (Verified Allergy, Unknown, 09/18/17) ROS Limited/Unobtainable: No Constitutional: Reports: no symptoms HEENT: Reports: no symptoms Cardiovascular: Reports: no symptoms Respiratory: Reports: shortness of breath Gastrointestinal/Abdominal: Reports: no symptoms Genitourinary: Reports: no symptoms Neurologic/Psychiatric: Reports: no symptoms Subjective 63 YO F with pulmonary fibrosis admitted with shortness of breath. Now bronchitis. Cover for Int Bimal-Dr Lin Objective Last Vital Signs Date Time Temp Pulse Resp B/P (MAP) Pulse Ox O2 Delivery O2 Flow Rate FiO2 10/01/18 16:00 98.2 94 20 123/53 (76) 94 10/01/18 15:31 Nasal Cannula 3.0 32 Laboratory Tests Test 10/01/18 07:30 White Blood Count 10.2 K/UL (4.8-10.8) # Red Blood Count 5.32 M/UL (4.20-5.40) Hemoglobin 13.7 G/DL (12.0-16.0) Hematocrit 43.7 % (37.0-47.0) Mean Corpuscular Volume 82 FL (80-99) Mean Corpuscular Hemoglobin 25.8 PG (27.0-31.0) L Mean Corpuscular Hemoglobin Concent 31.4 G/DL (32.0-36.0) L Red Cell Distribution Width 15.5 % (11.6-14.8) H Platelet Count 192 K/UL (150-450) Mean Platelet Volume 6.3 FL (6.5-10.1) L Neutrophils (%) (Auto) 75.1 % (45.0-75.0) H Lymphocytes (%) (Auto) 16.1 % (20.0-45.0) L Monocytes (%) (Auto) 6.0 % (1.0-10.0) Eosinophils (%) (Auto) 2.2 % (0.0-3.0) Basophils (%) (Auto) 0.6 % (0.0-2.0) Sodium Level 141 MMOL/L (136-145) Potassium Level 3.7 MMOL/L (3.5-5.1) Chloride Level 102 MMOL/L (98-107) Carbon Dioxide Level 35 MMOL/L (21-32) H Anion Gap 4 mmol/L (5-15) L Blood Urea Nitrogen 23 mg/dL (7-18) H Creatinine 0.9 MG/DL (0.55-1.30) Estimat Glomerular Filtration Rate > 60 mL/min (>60) Glucose Level 107 MG/DL (74-106) H Calcium Level 9.3 MG/DL (8.5-10.1) Total Bilirubin 0.7 MG/DL (0.2-1.0) Aspartate Amino Transf (AST/SGOT) 12 U/L (15-37) L Alanine Aminotransferase (ALT/SGPT) 14 U/L (12-78) Alkaline Phosphatase 39 U/L (46-116) L Pro-B-Type Natriuretic Peptide 3525 pg/mL (0-125) H Total Protein 6.3 G/DL (6.4-8.2) L Albumin 3.1 G/DL (3.4-5.0) L Globulin 3.2 g/dL Albumin/Globulin Ratio 1.0 (1.0-2.7) Intake and Output 09/30/18 10/01/18 18:59 06:59 Intake Total 840 ml 400 ml Output Total 1000 ml 1150 ml Balance -160 ml -750 ml Intake Oral 840 ml 400 ml Output Urine Total 1000 ml 1150 ml # Bowel Movements 1 1 Objective PHYSICAL EXAMINATION: GENERAL: The patient is a well-developed and well-nourished white female, who is in moderate respiratory distress. HEENT: Eyes, pupils are equal and responsive to light and accommodation. Extraocular movements are intact. NECK: Supple without lymphadenopathy. CHEST: nasal canula. Diffuse wheezes in the right lung greater than the left. Otherwise, clear to auscultation bilaterally without wheezes or rales. CARDIOVASCULAR: Regular rhythm and rate. S1 and S2 are normal without murmurs, rubs, or gallops. ABDOMEN: Soft, nontender, and nondistended. Positive bowel sounds. No evidence of hepatosplenomegaly. Currently, no rebound or guarding noted. EXTREMITIES: Negative for clubbing, cyanosis, or edema. RECTAL: Refused. GENITAL: Refused. NEUROLOGIC: Cranial nerves II through XII are grossly intact without focal deficits. Motor strength is 5/5 bilaterally intact. Deep tendon reflexes are 2+, plantar. Assessment/Plan Assessment/Plan ASSESSMENT: This is a 63-year-old white female with: 1. Bronchitis. 2. Shortness of breath. 3. Pulmonary fibrosis. 4. Diabetes type 2. 5. Hypertension. 6. Hypercholesterolemia. 7. Hypothyroidism. TREATMENT: 1. Shortness of breath/pulmonary fibrosis/bronchitis. The patient has been placed empirically on intravenous Levaquin. Continue oral prednisone daily. The patient is currently receiving DuoNeb q.4 h. routine. A Pulmonary consultation has been obtained with Dr. Nahomy Hanna. We will follow recommendations of Pulmonary. 2. Diabetes type 2. Continue metformin as above. A NovoLog sliding scale has been instituted. 3. Hypertension. Continue losartan/hydrochlorothiazide as above. 4. Hypercholesterolemia. Continue Lipitor as above. 5. Hypothyroidism. Continue Levoxyl as above. 6. Major depression. Continue trazodone and lamotrigine as above. 7. Discharge to [facility] when bed available Inderjit Galvan MD Oct 01, 2018 17:51
--- NOTE | 2018-10-01 20:31 | Cardiology Progress Note ---
Assessment/Plan Assessment/Plan 1. Upper respiratory tract infection, pneumonia versus bronchitis. 2. Pulmonary fibrosis. 3. Right heart failure. 4. Diabetes mellitus. 5. Respiratory acidosis and metabolic alkalosi ct noted: Impression: Bilateral and extensive interstitial disease, as described, predominantly pattern that of interstitial septal thickening, bronchiectasis, bronchial wall thickening, progressive since prior exam of 09/20/2017. Findings most likely represent progression of interstitial fibrosis. echo persoanlly reviewed imporved edema na and lfludi restiction disccussed with pt check orthostatic vitals in am Subjective Cardiovascular: Reports: lightheadedness; Denies: chest pain Respiratory: Reports: shortness of breath Gastrointestinal/Abdominal: Denies: abdominal pain Genitourinary: Denies: burning Objective Last 24 Hour Vital Signs Date Time Temp Pulse Resp B/P (MAP) Pulse Ox O2 Delivery O2 Flow Rate FiO2 10/01/18 20:16 94 Nasal Cannula 3.0 32 10/01/18 20:16 Nasal Cannula 3.0 32 10/01/18 20:13 74 17 94 Nasal Cannula 3.0 32 10/01/18 16:00 98.2 94 20 123/53 (76) 94 10/01/18 15:31 82 19 97 Nasal Cannula 3.0 32 10/01/18 15:18 77 17 95 Nasal Cannula 3.0 32 10/01/18 12:00 96.5 78 19 124/59 (80) 95 10/01/18 12:00 81 21 97 Nasal Cannula 3.0 32 10/01/18 11:46 81 21 94 Nasal Cannula 3.0 32 10/01/18 09:00 Nasal Cannula 4.0 10/01/18 08:00 98.2 78 20 124/57 (79) 98 10/01/18 07:59 81 19 97 Nasal Cannula 3.0 32 10/01/18 07:47 80 17 93 Nasal Cannula 3.0 32 10/01/18 07:47 93 Nasal Cannula 3.0 32 10/01/18 07:47 Nasal Cannula 3.0 32 10/01/18 04:00 77 20 99 Nasal Cannula 3.0 32 10/01/18 04:00 97.8 78 18 117/56 (76) 93 10/01/18 03:51 76 20 97 Nasal Cannula 3.0 32 10/01/18 00:20 Nasal Cannula 4.0 10/01/18 00:06 72 20 99 Nasal Cannula 3.0 32 10/01/18 00:00 97.8 79 17 118/64 (82) 94 09/30/18 23:52 74 20 96 Nasal Cannula 3.0 32 09/30/18 21:00 Nasal Cannula 4.0 09/30/18 20:48 79 20 97 Nasal Cannula 3.0 32 09/30/18 20:39 75 20 98 Nasal Cannula 3.0 32 09/30/18 20:38 Nasal Cannula 3.0 32 09/30/18 20:38 96 Nasal Cannula 3.0 32 General Appearance: no apparent distress, alert Neck: supple Cardiovascular: normal rate Respiratory/Chest: crackles/rales Abdomen: normal bowel sounds, non tender, soft Extremities: no swelling Intake and Output 09/30/18 10/01/18 18:59 06:59 Intake Total 840 ml 400 ml Output Total 1000 ml 1150 ml Balance -160 ml -750 ml Intake Oral 840 ml 400 ml Output Urine Total 1000 ml 1150 ml # Bowel Movements 1 1 Laboratory Tests Test 10/01/18 07:30 White Blood Count 10.2 K/UL (4.8-10.8) # Red Blood Count 5.32 M/UL (4.20-5.40) Hemoglobin 13.7 G/DL (12.0-16.0) Hematocrit 43.7 % (37.0-47.0) Mean Corpuscular Volume 82 FL (80-99) Mean Corpuscular Hemoglobin 25.8 PG (27.0-31.0) L Mean Corpuscular Hemoglobin Concent 31.4 G/DL (32.0-36.0) L Red Cell Distribution Width 15.5 % (11.6-14.8) H Platelet Count 192 K/UL (150-450) Mean Platelet Volume 6.3 FL (6.5-10.1) L Neutrophils (%) (Auto) 75.1 % (45.0-75.0) H Lymphocytes (%) (Auto) 16.1 % (20.0-45.0) L Monocytes (%) (Auto) 6.0 % (1.0-10.0) Eosinophils (%) (Auto) 2.2 % (0.0-3.0) Basophils (%) (Auto) 0.6 % (0.0-2.0) Sodium Level 141 MMOL/L (136-145) Potassium Level 3.7 MMOL/L (3.5-5.1) Chloride Level 102 MMOL/L (98-107) Carbon Dioxide Level 35 MMOL/L (21-32) H Anion Gap 4 mmol/L (5-15) L Blood Urea Nitrogen 23 mg/dL (7-18) H Creatinine 0.9 MG/DL (0.55-1.30) Estimat Glomerular Filtration Rate > 60 mL/min (>60) Glucose Level 107 MG/DL (74-106) H Calcium Level 9.3 MG/DL (8.5-10.1) Total Bilirubin 0.7 MG/DL (0.2-1.0) Aspartate Amino Transf (AST/SGOT) 12 U/L (15-37) L Alanine Aminotransferase (ALT/SGPT) 14 U/L (12-78) Alkaline Phosphatase 39 U/L (46-116) L Pro-B-Type Natriuretic Peptide 3525 pg/mL (0-125) H Total Protein 6.3 G/DL (6.4-8.2) L Albumin 3.1 G/DL (3.4-5.0) L Globulin 3.2 g/dL Albumin/Globulin Ratio 1.0 (1.0-2.7) Guillermo Marrero MD Oct 01, 2018 20:31
[2018-10-01] MEDS: Meloxicam 15 MG TAB ORAL SCH (20:44)
[2018-10-01] MEDS: TraZODone 50mg tab ORAL SCH (20:46)
[2018-10-01 21:00] VITALS: BP 137/78
[2018-10-02] VITALS: BP 110/65
[2018-10-02] MEDS: Albuterol/Ipratropium 3ml neb HHN SCH ×5 (00:08→15:25)
[2018-10-02 04:00] VITALS: BP 118/83
[2018-10-02] MEDS: NovoLOG Insulin Flexpen SUBQ SCH ×2 (06:14→11:30)
[2018-10-02 06:45] LABS: BASOPHILS % (AUTO) 0.7 % (0.0-2.0); EOSINOPHILS % (AUTO) 0.9 % (0.0-3.0); HEMATOCRIT 41.5 % (37.0-47.0); HEMOGLOBIN 12.8 G/DL (12.0-16.0); LYMPHOCYTES % (AUTO) 16.1 % (20.0-45.0); MEAN CORPUSCULAR VOLUME 83 FL (80-99); MONOCYTES % (AUTO) 9.3 % (1.0-10.0); PLATELET COUNT 161 K/UL (150-450); RED BLOOD COUNT 4.98 M/UL (4.20-5.40); RED CELL DISTRIBUTION WIDTH 16.1 % (11.6-14.8); WHITE BLOOD COUNT 6.7 K/UL (4.8-10.8)
--- NOTE | 2018-10-02 07:08 | General Progress Note ---
Assessment/Plan Problem List: (1) Hypothyroidism ICD Codes: E03.9 - Hypothyroidism, unspecified SNOMED: 54618892 (2) Diabetes mellitus, type II ICD Codes: E11.9 - Type 2 diabetes mellitus without complications SNOMED: 77599556 (3) Pulmonary fibrosis ICD Codes: J84.10 - Pulmonary fibrosis, unspecified SNOMED: 81960020 Assessment/Plan continue Metformin 500 mg tid continue Starlix 120 mg ac tid continue Actos 30 mg daily continue Januvia 100 mg daily continue NISS continue Levothyroxine 150 mcg daily Subjective Allergies: Coded Allergies: PENICILLINS (Verified Allergy, Unknown, 09/18/17) All Systems: reviewed and negative except above Subjective events noted Objective Last 24 Hour Vital Signs Date Time Temp Pulse Resp B/P (MAP) Pulse Ox O2 Delivery O2 Flow Rate FiO2 10/02/18 04:00 96.8 67 17 118/83 (95) 98 10/02/18 03:00 75 20 98 Nasal Cannula 3.0 32 10/02/18 02:52 72 20 96 Nasal Cannula 3.0 32 10/02/18 00:25 82 20 100 Nasal Cannula 3.0 32 10/02/18 00:08 72 18 98 Nasal Cannula 3.0 32 10/02/18 00:00 97.3 75 16 110/65 (80) 93 10/01/18 21:00 98.9 81 19 137/78 (97) 93 10/01/18 21:00 Nasal Cannula 4.0 10/01/18 20:23 88 20 98 Nasal Cannula 3.0 32 10/01/18 20:16 94 Nasal Cannula 3.0 32 10/01/18 20:16 Nasal Cannula 3.0 32 10/01/18 20:13 74 17 94 Nasal Cannula 3.0 32 10/01/18 16:00 98.2 94 20 123/53 (76) 94 10/01/18 15:31 82 19 97 Nasal Cannula 3.0 32 10/01/18 15:18 77 17 95 Nasal Cannula 3.0 32 10/01/18 12:00 96.5 78 19 124/59 (80) 95 10/01/18 12:00 81 21 97 Nasal Cannula 3.0 32 10/01/18 11:46 81 21 94 Nasal Cannula 3.0 32 10/01/18 09:00 Nasal Cannula 4.0 10/01/18 08:00 98.2 78 20 124/57 (79) 98 10/01/18 07:59 81 19 97 Nasal Cannula 3.0 32 10/01/18 07:47 80 17 93 Nasal Cannula 3.0 32 10/01/18 07:47 93 Nasal Cannula 3.0 32 10/01/18 07:47 Nasal Cannula 3.0 32 Intake and Output 10/01/18 10/02/18 19:00 07:00 Intake Total 720 ml Output Total 900 ml 1400 ml Balance -180 ml -1400 ml Intake Oral 720 ml Output Urine Total 900 ml 1400 ml # Bowel Movements 1 Laboratory Tests 10/01/18 07:30: White Blood Count 10.2#, Red Blood Count 5.32, Hemoglobin 13.7, Hematocrit 43.7 , Mean Corpuscular Volume 82, Mean Corpuscular Hemoglobin 25.8L, Mean Corpuscular Hemoglobin Concent 31.4L, Red Cell Distribution Width 15.5H, Platelet Count 192, Mean Platelet Volume 6.3L, Neutrophils (%) (Auto) 75.1H, Lymphocytes (%) (Auto) 16.1L, Monocytes (%) (Auto) 6.0, Eosinophils (%) (Auto) 2.2, Basophils (%) (Auto) 0.6, Sodium Level 141, Potassium Level 3.7, Chloride Level 102, Carbon Dioxide Level 35H, Anion Gap 4L, Blood Urea Nitrogen 23H, Creatinine 0.9, Estimat Glomerular Filtration Rate > 60, Glucose Level 107H, Calcium Level 9.3, Total Bilirubin 0.7, Aspartate Amino Transf (AST/SGOT) 12L, Alanine Aminotransferase (ALT/SGPT) 14, Alkaline Phosphatase 39L, Pro-B-Type Natriuretic Peptide 3525H, Total Protein 6.3L, Albumin 3.1L, Globulin 3.2, Albumin/Globulin Ratio 1.0 10/02/18 05:15: White Blood Count [Pending], Red Blood Count [Pending], Hemoglobin [Pending], Hematocrit [Pending], Mean Corpuscular Volume [Pending], Mean Corpuscular Hemoglobin [Pending], Mean Corpuscular Hemoglobin Concent [Pending], Red Cell Distribution Width [Pending], Platelet Count [Pending], Mean Platelet Volume [ Pending], Neutrophils (%) (Auto) [Pending], Lymphocytes (%) (Auto) [Pending], Monocytes (%) (Auto) [Pending], Eosinophils (%) (Auto) [Pending], Basophils (%) (Auto) [Pending], Sodium Level [Pending], Potassium Level [Pending], Chloride Level [Pending], Carbon Dioxide Level [Pending], Blood Urea Nitrogen [Pending], Creatinine [Pending], Estimat Glomerular Filtration Rate [Pending], Glucose Level [Pending], Calcium Level [Pending] Height (Feet): 5 Height (Inches): 5.00 Weight (Pounds): 204 General Appearance: no apparent distress Neck: normal alignment Cardiovascular: normal rate Respiratory/Chest: crackles/rales Abdomen: normal bowel sounds Pelvis: normal external exam Objective Current Medications Medications (Trade) Dose Ordered Sig/Leatha Route PRN Reason Start Time Stop Time Status Last Admin Dose Admin Acetaminophen (Tylenol) 650 mg Q4H PRN ORAL Fever 09/25/18 18:51 10/23/18 18:50 Acetylcysteine (Mucomyst) 100 mg Q4H PRN HHN For Cough 09/30/18 16:45 10/30/18 16:44 10/02/18 00:08 Albuterol/ Ipratropium (Albuterol/ Ipratropium) 3 ml Q4H PRN HHN Shortness of Breath 09/29/18 13:45 10/04/18 13:44 Albuterol/ Ipratropium (Albuterol/ Ipratropium) 3 ml Q4HRT HHN 09/29/18 15:00 10/04/18 14:59 10/02/18 02:52 Alprazolam (Xanax) 0.25 mg Q6H PRN ORAL For Anxiety 09/25/18 18:52 10/02/18 18:51 Dextrose (Dextrose 50%) 25 ml Q30M PRN IV Hypoglycemia 09/25/18 19:15 10/23/18 08:14 Dextrose (Dextrose 50%) 50 ml Q30M PRN IV Hypoglycemia 09/25/18 19:15 10/23/18 08:14 Fluoxetine HCl (PROzac) 40 mg DAILY ORAL 09/26/18 09:00 10/26/18 08:59 10/01/18 08:47 Furosemide (Lasix) 40 mg DAILY ORAL 09/30/18 09:00 10/30/18 08:59 10/01/18 08:47 Heparin Sodium (Porcine) (Heparin 5000 units/ml) 5,000 units EVERY 12 HOURS SUBQ 09/25/18 21:00 10/23/18 08:59 10/01/18 21:26 Insulin Aspart (NovoLOG) BEFORE MEALS AND HS SUBQ 09/25/18 21:00 10/23/18 11:29 10/01/18 21:02 Lamotrigine (LaMICtal) 200 mg QHS ORAL 09/25/18 21:00 10/23/18 08:59 10/01/18 20:44 Levofloxacin (Levaquin) 250 mg Q24H ORAL 09/26/18 22:00 10/03/18 21:59 10/01/18 22:22 Levothyroxine Sodium (Synthroid) 150 mcg DAILY@0630 ORAL 09/26/18 06:30 10/24/18 06:29 10/02/18 06:11 Meloxicam (Mobic) 15 mg QHS ORAL 09/25/18 21:00 10/23/18 20:59 10/01/18 20:44 Nateglinide (Starlix) 120 mg TIAC ORAL 09/30/18 11:30 10/30/18 11:29 10/02/18 06:11 Ondansetron HCl (Zofran) 4 mg Q6H PRN IVP Nausea & Vomiting 09/25/18 20:15 10/23/18 08:14 Pantoprazole (Protonix) 40 mg ACBREAKFAST ORAL 09/26/18 06:30 10/24/18 08:59 10/02/18 06:11 Prednisone (predniSONE) 40 mg DAILY ORAL 09/29/18 09:00 10/29/18 08:59 10/01/18 08:47 Promethazine HCl/ Codeine (Phenergan with Codeine) 5 ml Q6H PRN ORAL For Cough 09/25/18 18:53 10/24/18 18:52 09/29/18 00:13 Sitagliptin Phosphate (Januvia) 100 mg ACBREAKFAST ORAL 09/30/18 08:00 10/30/18 07:59 10/02/18 06:11 Temazepam (Restoril) 15 mg HSPRN PRN ORAL Insomnia 09/25/18 18:53 10/02/18 18:52 Trazodone HCl (Desyrel) 50 mg BEDTIME ORAL 09/25/18 21:00 10/23/18 20:59 10/01/18 20:46 Item Value Date Time Bedside Blood Glucose 192 mg/dl H 10/02/18 0630 Bedside Blood Glucose 210 mg/dl H 10/01/18 2102 Bedside Blood Glucose 186 mg/dl H 10/01/18 1630 Bedside Blood Glucose 91 mg/dl 10/01/18 1130 Bedside Blood Glucose 102 mg/dl 10/01/18 0611 Zuhair Solano MD Oct 02, 2018 07:08
[2018-10-02 07:09] LABS: ANION GAP 1 mmol/L (5-15); BLOOD UREA NITROGEN 29 mg/dL (7-18); CALCIUM 9.1 MG/DL (8.5-10.1); CARBON DIOXIDE 38 MMOL/L (21-32); CHLORIDE 102 MMOL/L (98-107); CREATININE 1.1 MG/DL (0.55-1.30); POTASSIUM 4.4 MMOL/L (3.5-5.1); SODIUM 141 MMOL/L (136-145)
[2018-10-02 08:00] VITALS: BP 116/65
[2018-10-02] MEDS: Furosemide 40mg tab ORAL SCH (08:12)
[2018-10-02] MEDS: Heparin 5000 units/ml inj SUBQ SCH (08:17)
[2018-10-02 12:00] VITALS: BP 127/54
--- NOTE | 2018-10-02 14:20 | Pulmonology Progress Note ---
Assessment/Plan Problems: (1) Acute respiratory failure (2) Pneumonia (3) CHF (congestive heart failure) (4) Pulmonary fibrosis (5) Diabetes mellitus, type II (6) Hypothyroidism (7) HTN (hypertension) Assessment/Plan so far 8.6liters negative fluid balance, watch renal function closely slightly better continue current meds improving decrease steroids to qd, change to PO check sputum high resolution ct chest evaluated: worsening of previous pulmonary fibrosis decrease lasix to QD agree with Diamox. Subjective Allergies: Coded Allergies: PENICILLINS (Verified Allergy, Unknown, 09/18/17) Objective Last 24 Hour Vital Signs Date Time Temp Pulse Resp B/P (MAP) Pulse Ox O2 Delivery O2 Flow Rate FiO2 10/02/18 11:47 71 20 98 Nasal Cannula 4.0 36 10/02/18 11:42 70 20 97 Nasal Cannula 4.0 36 10/02/18 09:00 Nasal Cannula 4.0 10/02/18 08:54 78 20 98 Nasal Cannula 4.0 36 10/02/18 08:45 Nasal Cannula 4.0 36 10/02/18 08:45 98 Nasal Cannula 4.0 36 10/02/18 08:45 72 22 98 Nasal Cannula 4.0 36 10/02/18 08:00 97.7 73 19 116/65 (82) 99 10/02/18 04:00 96.8 67 17 118/83 (95) 98 10/02/18 03:00 75 20 98 Nasal Cannula 3.0 32 10/02/18 02:52 72 20 96 Nasal Cannula 3.0 32 10/02/18 00:25 82 20 100 Nasal Cannula 3.0 32 10/02/18 00:08 72 18 98 Nasal Cannula 3.0 32 10/02/18 00:00 97.3 75 16 110/65 (80) 93 10/01/18 21:00 98.9 81 19 137/78 (97) 93 10/01/18 21:00 Nasal Cannula 4.0 10/01/18 20:23 88 20 98 Nasal Cannula 3.0 32 10/01/18 20:16 94 Nasal Cannula 3.0 32 10/01/18 20:16 Nasal Cannula 3.0 32 10/01/18 20:13 74 17 94 Nasal Cannula 3.0 32 10/01/18 16:00 98.2 94 20 123/53 (76) 94 10/01/18 15:31 82 19 97 Nasal Cannula 3.0 32 10/01/18 15:18 77 17 95 Nasal Cannula 3.0 32 Intake and Output 10/01/18 10/02/18 19:00 07:00 Intake Total 720 ml Output Total 900 ml 1400 ml Balance -180 ml -1400 ml Intake Oral 720 ml Output Urine Total 900 ml 1400 ml # Bowel Movements 1 Objective General Appearance: WD/WN HEENT: normocephalic, atraumatic, anicteric Respiratory/Chest: rhonchi Breasts: no masses Cardiovascular: normal peripheral pulses, normal rate Abdomen: normal bowel sounds, soft, non tender Extremities: no cyanosis Skin: no rash Neurologic/Psychiatric: research biologist II-XII grossly normal Lymphatic: no neck adenopathy Laboratory Tests 10/02/18 05:15: White Blood Count 6.7, Red Blood Count 4.98, Hemoglobin 12.8, Hematocrit 41.5, Mean Corpuscular Volume 83, Mean Corpuscular Hemoglobin 25.7L, Mean Corpuscular Hemoglobin Concent 30.9L, Red Cell Distribution Width 16.1H, Platelet Count 161 , Mean Platelet Volume 5.9L, Neutrophils (%) (Auto) 73.0, Lymphocytes (%) (Auto ) 16.1L, Monocytes (%) (Auto) 9.3, Eosinophils (%) (Auto) 0.9, Basophils (%) ( Auto) 0.7, Sodium Level 141, Potassium Level 4.4, Chloride Level 102, Carbon Dioxide Level 38H, Anion Gap 1L, Blood Urea Nitrogen 29H, Creatinine 1.1, Estimat Glomerular Filtration Rate 50.2, Glucose Level 190H, Calcium Level 9.1 Current Medications Medications (Trade) Dose Ordered Sig/Leatha Route PRN Reason Start Time Stop Time Status Last Admin Dose Admin Acetaminophen (Tylenol) 650 mg Q4H PRN ORAL Fever 09/25/18 18:51 10/23/18 18:50 Acetylcysteine (Mucomyst) 100 mg Q4H PRN HHN For Cough 09/30/18 16:45 10/30/18 16:44 10/02/18 00:08 Albuterol/ Ipratropium (Albuterol/ Ipratropium) 3 ml Q4H PRN HHN Shortness of Breath 09/29/18 13:45 10/04/18 13:44 Albuterol/ Ipratropium (Albuterol/ Ipratropium) 3 ml Q4HRT HHN 09/29/18 15:00 10/04/18 14:59 10/02/18 11:41 Alprazolam (Xanax) 0.25 mg Q6H PRN ORAL For Anxiety 09/25/18 18:52 10/02/18 18:51 Dextrose (Dextrose 50%) 25 ml Q30M PRN IV Hypoglycemia 09/25/18 19:15 10/23/18 08:14 Dextrose (Dextrose 50%) 50 ml Q30M PRN IV Hypoglycemia 09/25/18 19:15 10/23/18 08:14 Fluoxetine HCl (PROzac) 40 mg DAILY ORAL 09/26/18 09:00 10/26/18 08:59 10/02/18 08:12 Furosemide (Lasix) 40 mg DAILY ORAL 09/30/18 09:00 10/30/18 08:59 10/02/18 08:12 Heparin Sodium (Porcine) (Heparin 5000 units/ml) 5,000 units EVERY 12 HOURS SUBQ 09/25/18 21:00 10/23/18 08:59 10/02/18 08:17 Insulin Aspart (NovoLOG) BEFORE MEALS AND HS SUBQ 09/25/18 21:00 10/23/18 11:29 10/01/18 21:02 Lamotrigine (LaMICtal) 200 mg QHS ORAL 09/25/18 21:00 10/23/18 08:59 10/01/18 20:44 Levofloxacin (Levaquin) 250 mg Q24H ORAL 09/26/18 22:00 10/03/18 21:59 10/01/18 22:22 Levothyroxine Sodium (Synthroid) 150 mcg DAILY@0630 ORAL 09/26/18 06:30 10/24/18 06:29 10/02/18 06:11 Meloxicam (Mobic) 15 mg QHS ORAL 09/25/18 21:00 10/23/18 20:59 10/01/18 20:44 Nateglinide (Starlix) 120 mg TIAC ORAL 09/30/18 11:30 10/30/18 11:29 10/02/18 12:02 Ondansetron HCl (Zofran) 4 mg Q6H PRN IVP Nausea & Vomiting 09/25/18 20:15 10/23/18 08:14 Pantoprazole (Protonix) 40 mg ACBREAKFAST ORAL 09/26/18 06:30 10/24/18 08:59 10/02/18 06:11 Prednisone (predniSONE) 40 mg DAILY ORAL 09/29/18 09:00 10/29/18 08:59 10/02/18 08:12 Promethazine HCl/ Codeine (Phenergan with Codeine) 5 ml Q6H PRN ORAL For Cough 09/25/18 18:53 10/24/18 18:52 09/29/18 00:13 Sitagliptin Phosphate (Januvia) 100 mg ACBREAKFAST ORAL 09/30/18 08:00 10/30/18 07:59 10/02/18 06:11 Temazepam (Restoril) 15 mg HSPRN PRN ORAL Insomnia 09/25/18 18:53 10/02/18 18:52 Trazodone HCl (Desyrel) 50 mg BEDTIME ORAL 09/25/18 21:00 10/23/18 20:59 10/01/18 20:46 Nahomy Hanna MD Oct 02, 2018 14:20
--- NOTE | 2018-10-03 14:26 | Discharge Summary ---
Discharge Summary Discharge Summary _ DATE OF ADMISSION: 09/23/2018 DATE OF DISCHARGE: 10/02/2018 DISCHARGED BY: Dr. Lin REASON FOR ADMISSION: 63 years old female with past medical history of diabetes mellitus, hypertension , pulmonary fibrosis, COPD/asthma, presented to emergency department for evaluation due to shortness of breath. Patient at home oxygen dependent due to pulmonary fibrosis. She felt acutely more short of breath than usual. Patient also noted increased leg swelling. Patient reported taking diuretic for leg swelling. Patient reported having productive with thick mucus production cough for the last week. She denied fever and chills. She denied chest pain. Upon evaluation patient required 15 L of oxygen via simple mask to reach pulse oximetry of 96%. Patient was tachypneic with respiratory rate of 28, but afebrile . Laboratory workup revealed no leukocytosis, stable hemoglobin hematocrit. ABG on 40% FiO2 revealed hypercapnia with PCO2 of 50 and O2 sat 94% . Glucose 162. Lactic acid 2.8. Troponin - 0.031. Pro BNP 4190. Urinalysis revealed +1 leukocyte esterase , no pyuria and occasional bacteria , +2 protein. Chest x-ray demonstrated mixed interstitial and airspace opacities, more prominent than previously. Possibly insurance account representative of edema versus infiltrate. Patient was admitted to telemetry floor for further management. CONSULTANTS: sterilisation technician Dr. Marrero pulmonary Dr. Hanna air pollution control engineer Dr. Solano [facility] COURSE: Patient admitted to telemetry floor. Patient started on empiric antibiotics. Patient started on intravenous steroids with gradual tapering down. Supplemental oxygen titrated to keep pulse oximetry above 92%. Pulmonary toilet provided [id number] and as needed. Heart rate was stable. Antitussive provided as needed. Venous Doppler bilateral lower extremity revealed no evidence of acute DVT. DVT prophylaxis provided. CT of the chest revealed bilateral and extensive interstitial disease , predominantly pattern of interstitial septal thickening, bronchiectasis, bronchial wall thickening , progressive from September 2017. Findings were most likely represented progression of interstitial fibrosis. However given the presence of marked cardiomegaly , there may be also a significant component of interstitial edema. Borderline pulmonary arterial dilatation could be indicative of pulmonary arterial hypertension. Echocardiogram revealed preserved ejection fraction 55-60% with mild left ventricular hypertrophy. No evidence of wall motion abnormality. Diastolic flattening of RV septal wall suggestive of RV overload. Right ventricular systolic pressure of 93 consistent with severe pulmonary hypertension . Aerologist closely followed. Diuresis with Lasix provided with close monitoring of volumes and cardiorenal parameters. Patient was on Diamox for few days. Co2 trended down. Blood pressure was managed with combination of ARB and hydrochlorothiazide. Blood pressure remained stable. Statin was continued. Line Tender followed. Patient was continued on multiply oral anti-glycemic medications, including metformin , Starlix, Actos and Januvia. Sliding scale of insulin was implemented to use on as needed basis. Hemoglobin A1c 7.4- nearly at goal. TSH was within normal limits. Current dose of levothyroxine was continued. Recommended routine follow-up with thyroid function test. Steroids were tapered down and changed to oral upon discharge. CT of the chest unfortunately showed worsening of previous pulmonary fibrosis. Patient follows with outpatient mri technologist . Defer further management of pulmonary hypertension and further management fo pulmonary fibrosis to outpatient mri technologist. Blood cultures were negative, sputum culture was negative. Patient status post empiric antibiotic for treatment of probable pneumonia . Antibiotics stopped. No leukocytosis no fevers. Patient clinically stabilized. Patient was able to be weaned to 4 L of oxygen via nasal cannula. Shortness of breath , improved, as at baseline. Patient was stable for discharge home with home health services FINAL DIAGNOSES: Acute hypoxemic respiratory failure Pulmonary fibrosis Probable pneumonia Bronchitis CHF/right heart failure Severe pulmonary hypertension Respiratory acidosis and metabolic alkalosis Diabetes mellitus type 2 Hypothyroidism Hypertension Hypercholesterolemia DISCHARGE MEDICATIONS: See Medication Reconciliation list. DISCHARGE INSTRUCTIONS: Patient was discharged home with home health services. Follow up with primary care provider in one week. I have been assigned to dictate discharge summary for this account. I was not involved in the patient's management. Zainab Alejandro NP Oct 03, 2018 14:26
--- NOTE | 2018-10-03 18:57 | Cardiology Report ---
APPROVED REPORT EKG Measurement Heart [id number] Normal sinus rhythm Right axis deviation Cannot rule out Anterior infarct, age undetermined Abnormal ECG
== END 2018-10-02 16:00 | disposition home health service (06) | DRG 133 ==
LOC: EMR 01:30 → 2E 02:25 → EDBEDREQ 07:11 → 2E 09-24 10:04 → 4E 09-25 18:53
DX: J96.01 Acute respiratory failure with hypoxia (principal); J18.9 Pneumonia, unspecified organism; I11.0 Hypertensive heart disease with heart failure; E87.3 Alkalosis; I50.9 Heart failure, unspecified; E87.2 Acidosis; J84.10 Pulmonary fibrosis, unspecified; J44.0 Chronic obstructive pulmonary disease with (acute) lower respiratory infection; J20.9 Acute bronchitis, unspecified; Z99.81 Dependence on supplemental oxygen; E11.9 Type 2 diabetes mellitus without complications; E03.9 Hypothyroidism, unspecified; E78.00 Pure hypercholesterolemia, unspecified
CPT/HCPCS: 36415; 36600; 71045; 71250; 80048; 80053; 81003; 82248; 82550; 82553; 82803; 82962; 83036; 83605; 83735; 83880; 84100; 84439; 84443; 84480; 84484; 85007; 85025; 87040; 87070; 87205; 93005; 93306; 93970; 94640; 94664; 94760; 96365; 96375; 99291; J1815; J7620

== ENCOUNTER 2018-11-06 17:42 | Emergency (ER) | payer OTHER ==
[~2018-11-06] VITALS: Ht 165.1 cm; Wt 87.5 kg
[~2018-11-06 17:42] MED LIST changes: +ACCURETIC 20-21 EACH ORAL; +ACTOPLUS MET 11 EACH ORAL; +FUROSEMIDE20 M1 ORAL; +HYZAAR 50-12.51 EACH ORAL; +PREDNISONE20 M1 PO; +TRAZODONE HCL50 MG ORAL
[2018-11-06 18:00] VITALS: BP 87/40
--- NOTE | 2018-11-06 18:03 | Emergency Room Report ---
History of Present Illness General Chief Complaint: Chest Pain Source: Patient Present Illness HPI This is a 63-year-old female presented after increased chest discomfort. Patient had acute onset of symptoms which began just prior to arrival. Patient was noted to have prior history of pulmonary fibrosis. She is followed by Dr. Bob Lin. Patient reports having increased nonproductive cough. Patient had been noted to have increased lower extremity swelling bilaterally. Patient had not been a smoker. She denies any abdominal pain.Patient reports having prior history of pulmonary hypertension. Patient had prior history of diabetes. She had recently been put on oral steroids. Allergies: Coded Allergies: PENICILLINS (Verified Allergy, Unknown, 09/18/17) Patient History Past Medical History: see triage record Reviewed Nursing Documentation: PMH: Agreed; PSxH: Agreed Nursing Documentation-PMH Past Medical History: No History, Except For Hx Cardiac Problems: Yes Hx Hypertension: Yes Hx Asthma: Yes Hx COPD: Yes Hx Diabetes: Yes Hx Cancer: No Hx Gastrointestinal Problems: Yes Hx Neurological Problems: No Review of Systems All Other Systems: negative except mentioned in HPI Physical Exam Vital Signs Date Time Temp Pulse Resp B/P (MAP) Pulse Ox O2 Delivery O2 Flow Rate FiO2 11/06/18 17:44 97.0 102 22 110/67 100 Non-Rebreather 15.0 General Appearance: alert, GCS 15, Chronically Ill Neck: full range of motion Respiratory: respiratory distress, crackles - fine Cardiovascular #1: normal peripheral pulses, edema Gastrointestinal: normal inspection, normal bowel sounds, soft Musculoskeletal: normal inspection Neurologic: normal inspection, alert, oriented x3 Procedures Critical Care Time Critical Care Time Patient had a critical medical condition which untreated could potentially result in life or limb threatening injury. Total critical care time excluding procedures approximately 45 minutes. Medical Decision Making Diagnostic Impression: Primary Impression: Chest pain Additional Impressions: Pulmonary hypertension ACS (acute coronary syndrome) ER Course Patient presented for shortness of breath. Differential included but was not limited to anemia, pneumonia, pneumothorax, myocardial infarction, pericardial effusion, congestive heart failure, acidosis. Because of complexity of patient' s case laboratory testing and imaging studies were ordered.Patient presented for chest pain. Differential diagnosis include was not limited to pulmonary embolism, myocardial infarction, pulmonary hypertension, valve rupture among others. Because of complexity of patient's case laboratory testing and imaging studies were ordered. Patient was noted to have prior history of pulmonary fibrosis and was off of her Lasix. Patient was given IV Lasix as well as started on supplemental oxygen. Patient's initial troponin was noted to be negative patient was noted to have persistent chest pain. She was started on IV heparin. Patient was not given nitroglycerin due to hypotension. Chest x- ray 1 view interpreted by me showed cardiomegaly with diffuse lung scarring. This appears to be unchanged from patient's previous.Patient was noted to have EKG which is markedly changed from her previous from September of this year. EKG interpreted by me showed normal sinus rhythm with diffuse T wave inversions in the inferior and precordial leads. Patient was discussed with for cardiology consult who had seen the patient previously and he recommended starting the patient on IV heparin in addition to aspirin. Patient was accepted by Dr. Arias Peña Labs Test 11/06/18 17:50 White Blood Count 14.6 K/UL (4.8-10.8) Red Blood Count 5.82 M/UL (4.20-5.40) Hemoglobin 14.9 G/DL (12.0-16.0) Hematocrit 48.0 % (37.0-47.0) Mean Corpuscular Volume 82 FL (80-99) Mean Corpuscular Hemoglobin 25.7 PG (27.0-31.0) Mean Corpuscular Hemoglobin Concent 31.1 G/DL (32.0-36.0) Red Cell Distribution Width 16.7 % (11.6-14.8) Platelet Count 355 K/UL (150-450) Mean Platelet Volume 6.4 FL (6.5-10.1) Neutrophils (%) (Auto) 73.1 % (45.0-75.0) Lymphocytes (%) (Auto) 20.7 % (20.0-45.0) Monocytes (%) (Auto) 3.6 % (1.0-10.0) Eosinophils (%) (Auto) 1.5 % (0.0-3.0) Basophils (%) (Auto) 1.1 % (0.0-2.0) Sodium Level 138 MMOL/L (136-145) Potassium Level 3.9 MMOL/L (3.5-5.1) Chloride Level 96 MMOL/L (98-107) Carbon Dioxide Level 29 MMOL/L (21-32) Anion Gap 14 mmol/L (5-15) Blood Urea Nitrogen 27 mg/dL (7-18) Creatinine 1.6 MG/DL (0.55-1.30) Estimat Glomerular Filtration Rate 32.6 mL/min (>60) Glucose Level 290 MG/DL (74-106) Lactic Acid Level 7.60 mmol/L (0.4-2.0) Calcium Level 10.0 MG/DL (8.5-10.1) Phosphorus Level 4.1 MG/DL (2.5-4.9) Magnesium Level 1.9 MG/DL (1.8-2.4) Total Bilirubin 1.1 MG/DL (0.2-1.0) Direct Bilirubin 0.3 MG/DL (0.0-0.3) Aspartate Amino Transf (AST/SGOT) 18 U/L (15-37) Alanine Aminotransferase (ALT/SGPT) 9 U/L (12-78) Alkaline Phosphatase 55 U/L (46-116) Total Creatine Kinase 47 U/L (26-308) Creatine Kinase MB 1.4 NG/ML (0.0-3.6) Creatine Kinase MB Relative Index 2.9 Troponin I 0.017 ng/mL (0.000-0.056) Pro-B-Type Natriuretic Peptide 5800 pg/mL (0-125) Total Protein 8.0 G/DL (6.4-8.2) Albumin 4.0 G/DL (3.4-5.0) Globulin 4.0 g/dL Albumin/Globulin Ratio 1.0 (1.0-2.7) Lipase 131 U/L (73-393) EKG Diagnostic Results Rate: normal Rhythm: NSR ST Segments: no acute changes Last Vital Signs Date Time Temp Pulse Resp B/P (MAP) Pulse Ox O2 Delivery O2 Flow Rate FiO2 11/06/18 17:44 97.0 102 22 110/67 100 Non-Rebreather 15.0 Status: improved Disposition: XFER SHT-TRM HOSP Condition: Critical Richie Meyer MD Nov 06, 2018 18:03
[2018-11-06 18:13] LABS: BASOPHILS % (AUTO) 1.1 % (0.0-2.0); EOSINOPHILS % (AUTO) 1.5 % (0.0-3.0); HEMOGLOBIN 14.9 G/DL (12.0-16.0); LYMPHOCYTES % (AUTO) 20.7 % (20.0-45.0); MEAN CORPUSCULAR VOLUME 82 FL (80-99); MONOCYTES % (AUTO) 3.6 % (1.0-10.0); NEUTROPHILS % (AUTO) 73.1 % (45.0-75.0); PLATELET COUNT 355 K/UL (150-450); RED BLOOD COUNT 5.82 M/UL (4.20-5.40); RED CELL DISTRIBUTION WIDTH 16.7 % (11.6-14.8); WHITE BLOOD COUNT 14.6 K/UL (4.8-10.8)
[2018-11-06] MEDS ORDERED: Aspirin Baby 81mg ORAL ONE (18:15)
[2018-11-06 18:17] LABS: ANION GAP 14 mmol/L (5-15); BLOOD UREA NITROGEN 27 mg/dL (7-18); CARBON DIOXIDE 29 MMOL/L (21-32); CHLORIDE 96 MMOL/L (98-107); CREATININE 1.6 MG/DL (0.55-1.30); POTASSIUM 3.9 MMOL/L (3.5-5.1); SODIUM 138 MMOL/L (136-145)
[2018-11-06 18:31] LABS: ALANINE AMINOTRANSFERASE 9 U/L (12-78); ALKALINE PHOSPHATASE 55 U/L (46-116); ASPARTATE AMINO TRANSFERASE 18 U/L (15-37); BILIRUBIN,TOTAL 1.1 MG/DL (0.2-1.0); CKMB 1.4 NG/ML (0.0-3.6); CREATINE KINASE 47 U/L (26-308); PHOSPHORUS 4.1 MG/DL (2.5-4.9)
[2018-11-06 18:34] LABS: BILIRUBIN,DIRECT 0.3 MG/DL (0.0-0.3)
[2018-11-06] MEDS ORDERED: Heparin 5000 units/ml inj IV ONE (19:00)
[2018-11-06] MEDS ORDERED: Heparin 25,000u/D5W 500ml 500 ML IV SCH (19:00)
[2018-11-06 19:13] VITALS: BP 82/42
[2018-11-06] MEDS ORDERED: NS 250 ML IVPB ONE (19:15)
[2018-11-06 19:38] LABS: APPEARANCE,URINE CLEAR; BILIRUBIN, URINE NEGATIVE (NEGATIVE); GLUCOSE, URINE (UA) NEGATIVE (NEGATIVE); KETONES,URINE NEGATIVE (NEGATIVE); LEUKOCYTE ESTERASE ,URINE 2+ (NEGATIVE); NITRITE,URINE NEGATIVE (NEGATIVE); PH,URINE 6.5 (4.5-8.0); PROTEIN,URINE 1+ (NEGATIVE); UROBILINOGEN,URINE 4 MG/DL (0.0-1.0)
[2018-11-06 19:41] LABS: COLOR,URINE YELLOW
--- NOTE | 2018-11-06 20:09 | Cardiology Progress Note ---
Assessment/Plan Assessment/Plan chest pain since 2:30 pm PAST MEDICAL HISTORY: Positive for history of acute on chronic respiratory failure in September 2017, history of pulmonary fibrosis, influenza, infection, bronchitis, diabetes mellitus, hypothyroidism, bipolar disorder, major depression, and anxiety. She has history of pulmonary nodule. She has hysterectomy, right-sided hernia repair. FAMILY HISTORY: Mother of asthma. SOCIAL HISTORY: She does not smoke at the present time. Does not drink alcoholic beverages. She has some secondhand smoking exposure. No alcohol or drugs. REVIEW OF SYSTEMS: GASTROINTESTINAL: She had some constipation and some nausea. GENITOURINARY: Some burning on urination. PULMONARY: Positive coughing sputum production and wheezing as noted. NEUROLOGIC: Negative. PHYSICAL EXAMINATION: GENERAL: Shows to be elderly middle-aged female, in no respiratory distress. She has a face mask and oxygen in place. NECK: Supple. LUNGS: Bilateral basilar crackles noted. CARDIAC: Regular rate and rhythm. A faint holosystolic regurgitant murmur is noted. ABDOMEN: Soft, nontender. Positive bowel sounds. Obese. EXTREMITIES: A 2 to edema with some evidence of skin shrinkage from possibly recent volume loss. NEUROLOGIC: She is awake, alert, responsive, in no apparent distress. ASSESSMENT AND PLAN: 1. ACS 2. Pulmonary fibrosis. 3. Right heart failure. 4. Diabetes mellitus. for 35 years 5. lactic acidosis 6. 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 Objective Last 24 Hour Vital Signs Date Time Temp Pulse Resp B/P (MAP) Pulse Ox O2 Delivery O2 Flow Rate FiO2 11/06/18 19:13 98.0 82 23 82/42 85 Simple Mask 12.0 11/06/18 18:00 87 26 Simple Mask 12.0 11/06/18 18:00 98.0 86 26 87/40 88 Simple Mask 12.0 11/06/18 17:44 97.0 102 22 110/67 100 Non-Rebreather 15.0 Laboratory Tests Test 11/06/18 17:50 11/06/18 19:01 11/06/18 19:29 White Blood Count 14.6 K/UL (4.8-10.8) H Red Blood Count 5.82 M/UL (4.20-5.40) H Hemoglobin 14.9 G/DL (12.0-16.0) Hematocrit 48.0 % (37.0-47.0) H Mean Corpuscular Volume 82 FL (80-99) Mean Corpuscular Hemoglobin 25.7 PG (27.0-31.0) L Mean Corpuscular Hemoglobin Concent 31.1 G/DL (32.0-36.0) L Red Cell Distribution Width 16.7 % (11.6-14.8) H Platelet Count 355 K/UL (150-450) Mean Platelet Volume 6.4 FL (6.5-10.1) L Neutrophils (%) (Auto) 73.1 % (45.0-75.0) Lymphocytes (%) (Auto) 20.7 % (20.0-45.0) Monocytes (%) (Auto) 3.6 % (1.0-10.0) Eosinophils (%) (Auto) 1.5 % (0.0-3.0) Basophils (%) (Auto) 1.1 % (0.0-2.0) Activated Partial Thromboplast Time 25 SEC (23-33) Sodium Level 138 MMOL/L (136-145) Potassium Level 3.9 MMOL/L (3.5-5.1) Chloride Level 96 MMOL/L (98-107) L Carbon Dioxide Level 29 MMOL/L (21-32) Anion Gap 14 mmol/L (5-15) Blood Urea Nitrogen 27 mg/dL (7-18) H Creatinine 1.6 MG/DL (0.55-1.30) H Estimat Glomerular Filtration Rate 32.6 mL/min (>60) Glucose Level 290 MG/DL (74-106) H Lactic Acid Level 7.60 mmol/L (0.4-2.0) H Calcium Level 10.0 MG/DL (8.5-10.1) Phosphorus Level 4.1 MG/DL (2.5-4.9) Magnesium Level 1.9 MG/DL (1.8-2.4) Total Bilirubin 1.1 MG/DL (0.2-1.0) H Direct Bilirubin 0.3 MG/DL (0.0-0.3) Aspartate Amino Transf (AST/SGOT) 18 U/L (15-37) Alanine Aminotransferase (ALT/SGPT) 9 U/L (12-78) L Alkaline Phosphatase 55 U/L (46-116) Total Creatine Kinase 47 U/L (26-308) Creatine Kinase MB 1.4 NG/ML (0.0-3.6) Creatine Kinase MB Relative Index 2.9 Troponin I 0.017 ng/mL (0.000-0.056) 0.000 ng/mL (0.000-0.056) Pro-B-Type Natriuretic Peptide 5800 pg/mL (0-125) H Total Protein 8.0 G/DL (6.4-8.2) Albumin 4.0 G/DL (3.4-5.0) Globulin 4.0 g/dL Albumin/Globulin Ratio 1.0 (1.0-2.7) Lipase 131 U/L (73-393) Urine Color Yellow Urine Appearance Clear Urine pH 6.5 (4.5-8.0) Urine Specific [place] 1.010 (1.005-1.035) Urine Protein 1+ (NEGATIVE) H Urine Glucose (UA) Negative (NEGATIVE) Urine Ketones Negative (NEGATIVE) Urine Blood 1+ (NEGATIVE) H Urine Nitrite Negative (NEGATIVE) Urine Bilirubin Negative (NEGATIVE) Urine Urobilinogen 4 MG/DL (0.0-1.0) H Urine Leukocyte Esterase 2+ (NEGATIVE) H Urine RBC 2-4 /HPF (0 - 2) H Urine WBC 5-10 /HPF (0 - 2) H Urine Squamous Epithelial Cells Few /LPF (NONE/OCC) Urine Bacteria Few /HPF (NONE) Urine Fine Granular Casts 0-2 /LPF (NONE) H Microbiology Date/Time Source Procedure Growth Status 11/06/18 18:05 Nasal Nares Influenza Types A,B Antigen (GILMA) - Final Complete Guillermo Marrero MD Nov 06, 2018 20:09
[2018-11-06 20:15] VITALS: BP 108/52
--- NOTE | 2018-11-06 23:00 | Consultation ---
DATE OF CONSULTATION: 11/06/2018 CARDIOLOGY CONSULTATION: CONSULTING PHYSICIAN: Guillermo Marrero M.D. REASON FOR EVALUATION AND MANAGEMENT: Acute coronary syndrome, chest pain. HISTORY OF PRESENT ILLNESS: This is an elderly female, who is known to me from prior evaluation, hospitalization. I was notified by the emergency physician that the patient presented to the hospital because of acute onset of chest pain within 2 hours prior to admission. In the emergency room, she was noted to have significant ST-segment changes and T-wave changes that were somewhat dynamic and was of course relatively hypotensive. Evaluation included comparison with older EKG that was completely different. Attempts were made to look couple EKGs at [facility] as well as other EKGs at [facility]. Unfortunately despite spending more than half an hour of looking, no other EKGs could be located to compare. The patient was hypoxic on arrival although she is on home oxygen therapy all the time. She ran out of her diuretics over the past 2 days and started getting swelling in her legs and was having some shortness of breath. This worsened in addition to the development of the chest pain. After discussion with the emergency room physician, we proceeded with recommendation of IV heparin and aspirin to be administered. I have made several phone calls to make arrangements for the patient to be transferred to the labor relations manager at [facility] including transfer center as well as ambulance officer at [facility]. Arrangements have already made. On my arrival, the patient is feeling better. Her blood pressure has been in the 80s earlier, it is now improved to about 100 or so. She is feeling better at this time having minor amount of chest pain still present. PAST MEDICAL HISTORY: Positive for history of acute on chronic respiratory failure in September 2017, pulmonary fibrosis, influenza, infection bronchitis, diabetes mellitus for 35 years, hypothyroidism, bipolar disorder, major depression, and anxiety. She has pulmonary nodules. She has had hysterectomy and right-sided hernia repair. FAMILY HISTORY: Mother of asthma. SOCIAL HISTORY: She does not smoke at the present time. Does not drink alcoholic beverages. She has secondhand smoking exposure. No alcohol or drugs. REVIEW OF SYSTEMS: GASTROINTESTINAL: She denies any nausea or vomiting. No diarrhea. No bloody stools. GENITOURINARY: Negative. PULMONARY: Coughing and shortness of breath as noted. PHYSICAL EXAMINATION: GENERAL: Shows to be a middle-aged female, in no respiratory distress although she is on face mask at this time. NECK: Supple. LUNGS: Decreased breath sounds are noted bilaterally. Few crackles at the bases. CARDIAC: Regular rhythm. ABDOMEN: Soft, nontender. Positive bowel sounds. EXTREMITIES: There is 1 to 2+ edema of lower extremities bilaterally. NEUROLOGIC: She is awake, alert, responsive, in no apparent respiratory distress. LABORATORY AND DIAGNOSTIC DATA: Her electrocardiogram shows that there was some ST elevation in V1 and V2 and many T-wave inversions in leads III, aVF as well as T-wave inversions in V1, V2, V3, V4, and some in V5 as well. Her original EKG that was compared to does not show any ST-segment changes. Her blood tests show a sodium 138, potassium 3.9, chloride 96, bicarb 29, BUN of 27, creatinine 1.6, and glucose of 290. Lactic acid of 7.6. Her last echocardiogram here at [facility] in September 2018 showed ejection 55 to 60%, moderate RV enlargement, diastolic flattening of symptoms suggestive of RV overload with moderate mitral anulus and aortic root calcification, IVC of 2.2, moderate tricuspid regurgitation, pulmonary artery systolic pressure of 93. ASSESSMENT AND PLAN: 1. Chest pain. 2. Acute coronary syndrome. 3. Diabetes mellitus. 4. Hypertension. 5. Pulmonary hypertension. 6. Right ventricular enlargement. 7. Acute renal insufficiency. 8. Lactic acidosis. The patient is urgently being transferred to [facility] for cardiac catheterization. I have discussed with the patient indications for the cardiac catheterization. My concern is myocardial infarction in light of significant changes on EKG as well as her chest pain. Aspirin has not been instituted as blood pressure had been on the low side. It is improved on the last reading. Paramedics just picked up the patient taking her to the labor relations manager at [facility]. The duration of this note is 90 minutes. Guillermo Marrero M.D. DR: GALA JOB#: [id number] CC:
--- NOTE | 2018-11-07 14:23 | Diagnostic Imaging Report ---
Indication: Shortness of breath Technique: One view of the chest Comparison: 10/01/2018 Findings: Bilateral diffuse interstitial and airspace disease is again demonstrated, appears similar to the previous study. The heart is enlarged. The pleural spaces are grossly clear. Impression: Bilateral interstitial and airspace disease, essentially unchanged from prior study 10/01/2018. Note that based on prior chest CTs, this was thought to mostly represent chronic interstitial fibrosis. Superimposed acute interstitial edema also possible, however.
--- NOTE | 2018-11-07 15:17 | Cardiology Report ---
APPROVED REPORT EKG Measurement Heart [id number] VA 180P48 [id number] Normal sinus rhythm Possible Left atrial enlargement Right axis deviation Abnormal ECG
--- NOTE | 2018-11-07 15:19 | Cardiology Report ---
APPROVED REPORT EKG Measurement Heart [id number] SC 178P42 [id number] Sinus tachycardia Possible Left atrial enlargement Left posterior fascicular block Possible Inferior infarct, age undetermined T wave abnormality, consider anterior ischemia Abnormal ECG
== END 2018-11-06 20:15 | disposition short-term general hospital (02) ==
LOC: EMR 18:00
DX: R07.89 Other chest pain (principal); I27.20 Pulmonary hypertension, unspecified; I24.9 Acute ischemic heart disease, unspecified; I10 Essential (primary) hypertension; J44.9 Chronic obstructive pulmonary disease, unspecified; E11.9 Type 2 diabetes mellitus without complications; Z88.0 Allergy status to penicillin
CPT/HCPCS: 36415; 71045; 80053; 81003; 82248; 82550; 82553; 83605; 83690; 83735; 83880; 84100; 84484; 85025; 85730; 86710; 87040; 93005; 96374; 96375; 99284; J1644; J1940; J7050